=== PATIENT | male | born 1940 | race Caucasian/White ===

== ENCOUNTER → 2016-04-24 | Outpatient (CLI) | payer MEDICARE ==
[~2016-04-24] MED LIST: ACHD5005 PO; AMLO5TAB2 PO; ASCO-262 PO; ASP81CT PO; ATEN50TA PO; BLACK CHERRY PO; CARV25TA PO; CARV3.12 PO; CHOL10003 PO; COLC0.6T PO; DCS100C PO; DOCU100T7 PO; FURO40TA4 PO; GARL200T PO; INDO25CA PO; LORA10CA PO; METR500T PO; OMG1KC PO; OXYC-12 PO; RIVA15TA PO; RIVA20TA2 PO; RNT150T PO; TELM80TA3 PO
--- NOTE | 2016-04-24 14:40 | Diagnostic Imaging Report ---
INDICATION: Cough and congestion. PA and lateral chest. FINDINGS: Heart size and pulmonary vascularity are normal. Lungs are clear. There are no effusions or pneumothoraces. IMPRESSION: Negative chest. Dictated by: Dictated on workstation # [id number]
[2016-04-24 14:42] LABS: BASOPHILS # (AUTO) 0.1 10^3/uL (0.0-0.1); BASOPHILS % (AUTO) 1 % (0-10); EOSINOPHILS # (AUTO) 0.4 10^3/uL (0.0-0.3); EOSINOPHILS % (AUTO) 4 % (0-10); LYMPHOCYTES # (AUTO) 1.2 X 10^3 (1.0-4.0); LYMPHOCYTES % (AUTO) 13 % (12-44); MEAN CORPUSCULAR HEMOGLOBIN 29 PG (25-34); MEAN CORPUSCULAR HGB CONC 35 G/DL (32-36); MEAN CORPUSCULAR VOLUME 82 FL (80-99); MEAN PLATELET VOLUME 9.6 FL (7.4-10.4); MONOCYTES # (AUTO) 1.3 X 10^3 (0.0-1.0); MONOCYTES % (AUTO) 14 % (0-12); NEUTROPHILS # (AUTO) 6.4 X 10^3 (1.8-7.8); NEUTROPHILS % (AUTO) 69 % (42-75); PLATELET COUNT 278 10^3/uL (130-400); RED BLOOD COUNT 5.37 10^6/uL (4.35-5.85); RED CELL DISTRIBUTION WIDTH 14.1 % (10.0-14.5); WHITE BLOOD COUNT 9.2 10^3/uL (4.3-11.0)
== END ==
LOC: RAD 14:01
PROVIDERS: ATTEND Family Medicine
DX: R05 Cough (principal)
CPT/HCPCS: 36415; 71020; 85025

== ENCOUNTER → 2016-04-25 | Outpatient (CLI) | payer MEDICARE ==
--- OUTSIDE RECORDS SUMMARY | 2016-04-25 10:45 | XMS REPORT | Continuity of Care Document ---
Author Author [facility] Organization [facility] Address Unknown Phone Unavailable Allergies Active Description Code Type Severity Reaction Onset Reported/Identified Relationship to Patient Clinical Status Yes ketoprofen [id number] Drug Allergy Unknown N/A 01/19/2012 Yes nabumetone [id number] Drug Allergy Unknown N/A 01/19/2012 Yes Sulfa (Sulfonamide Antibiotics) [id number] Drug Allergy Unknown N/A 01/19/2012 Yes morphine [id number] Drug Allergy Unknown VOMITING 07/21/2013 Yes morphine [id number] Drug Allergy Mild VOMITING 04/25/2014 Medications Problems Date Dx Coded Attending Type Code Diagnosis Diagnosed By 01/19/2012 Ot 274.9 GOUT NOS 01/19/2012 Ot 729.5 PAIN IN LIMB 07/29/2013 MIRIAN MCDOWELL MD Ot 553.1 UMBILICAL HERNIA 08/05/2013 ELIAS FUNK DO Ot 272.4 HYPERLIPIDEMIA NEC/NOS 08/05/2013 ELIAS FUNK DO Ot 274.00 GOUTY ARTHROPATHY, UNSPECIFIED 08/05/2013 ELIAS FUNK DO Ot 278.00 OBESITY, NOS 08/05/2013 ELIAS FUNK DO Ot 300.00 ANXIETY STATE NOS 08/05/2013 ELIAS FUNK DO Ot 401.9 HYPERTENSION NOS 08/05/2013 ELIAS FUNK DO Ot 412 OLD MYOCARDIAL INFARCT 08/05/2013 ELIAS FUNK DO Ot 414.01 CORONARY ATHEROSCLEROSIS [place] CORON 08/05/2013 ELIAS FUNK DO Ot 415.11 IATROGENIC PULMON EMBOLISM/INFARCT 08/05/2013 ELIAS FUNK DO Ot 427.89 CARDIAC DYSRHYTHMIAS NEC 08/05/2013 ELIAS FUNK DO Ot 477.9 ALLERGIC RHINITIS NOS 08/05/2013 ELIAS FUNK DO Ot 564.00 UNSPEC CONSTIPATION 08/05/2013 ELIAS FUNK DO Ot 998.13 SEROMA COMPLICAT A PROC 08/05/2013 BLESSING CONTEH ELIAS Catrina Ot E941.3 ADV EFF SYMPATHOLYTICS 08/05/2013 DAKOTAOSMANELMOREELIAS Ot V45.82 PERCUTANEOUS TRANSLUM CORON ANGIOPLASTY 08/05/2013 BLESSING CONTEHELIAS Ot V45.89 POSTSURGICAL STATES NEC 08/05/2013 ELIAS FUNK DO Catrina Ot V85.37 BODY MASS INDEX 37.0-37.9, ADULT 01/07/2014 ELIAS FUNK DO Ot 401.9 HYPERTENSION NOS 01/07/2014 ELIAS FUNK DO Ot 412 OLD MYOCARDIAL INFARCT 01/07/2014 TOMEKAALY ELIAS CONTEH Ot 414.01 CORONARY ATHEROSCLEROSIS [place] CORON 01/07/2014 ELIAS FUNK DO Ot 558.9 NONINF GASTROENTERIT NEC 01/07/2014 TOMEKAALY ELIAS CONTEH Ot 560.1 PARALYTIC ILEUS 01/07/2014 ELIAS FUNK DO Ot V12.51 HX-VENOUS THROMBOSIS EMBOLISM 01/07/2014 ELIAS FUNK DO Ot V45.82 PERCUTANEOUS TRANSLUM CORON ANGIOPLASTY 01/12/2014 CARLOS ESCOBAR Ot 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 01/12/2014 CARLOS ESCOBAR Ot 793.11 SOLITARY PULMONARY NODULE 01/12/2014 CARLOS ESCOBAR Ot V12.51 HX-VENOUS THROMBOSIS EMBOLISM 01/27/2014 CARLOS ESCOBAR Ot 286.3 01/27/2014 CARLOS ESCOBAR Ot 793.11 01/27/2014 CARLOS ESCOBAR Ot V12.51 02/21/2014 CARLOS ESCOBAR Ot 286.3 02/21/2014 CARLOS ESCOBAR N Ot 793.11 02/21/2014 CARLOS ESCOBAR N Ot V12.51 02/21/2014 BIGG EDMONDSON DO Ot 415.19 02/21/2014 BIGG EDMONDSON DO Ot 786.05 02/21/2014 BIGG EDMONDSON DO Ot 793.11 03/16/2014 BIGG EDMONDSON DO Ot 415.19 03/16/2014 BIGG EDMONDSON DO Ot 786.05 03/16/2014 BIGG EDMONDSON DO Ot 793.11 03/22/2014 BIGG EDMONDSON DO Ot 415.19 03/22/2014 DELVISBIGG AMAYA DO Ot 786.05 03/22/2014 BIGG EDMONDSON DO Ot 793.11 03/22/2014 BIGG EDMONDSON DO Ot 415.19 03/22/2014 BIGG EDMONDSON DO Ot 786.05 03/22/2014 BIGG EDMONDSON DO Ot 793.11 04/13/2014 CARLOS ESCOBAR N Ot 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 04/13/2014 CARLOS ESCOBAR N Ot 793.11 SOLITARY PULMONARY NODULE 04/13/2014 CARLOS ESCOBAR Ot V12.51 HX-VENOUS THROMBOSIS EMBOLISM 04/21/2014 [facility]9 04/[facility] 412 04/21/2014 [facility] Ot 414.01 04/21/2014 [facility] Ot 552.1 04/21/2014 [place] [facility] D Ot V12.55 04/21/2014 [facility] Ot V45.82 04/21/2014 [place] DOTHANHTT D Ot V74.8 04/22/2014 [place] DOTHANHTT D Ot 401.9 04/22/2014 [place] DOTHANHTT D Ot 412 04/22/2014 [facility] ETHAN D Ot 414.01 04/22/2014 [place] DO, ETHAN D Ot 552.1 04/22/2014 [place] DOTHANHTT D Ot V12.55 04/22/2014 [place] DO ETHAN D Ot V45.82 04/22/2014 [place] DO, ETHAN D Ot V74.8 04/22/2014 [place] DO, ETHAN D Ot 401.9 04/22/2014 [place] DO, ETHAN D Ot 412 04/22/2014 [place] DO, ETHAN D Ot 414.01 04/22/2014 [place] DO, ETHAN D Ot 552.1 04/22/2014 [place] DO, ETHAN D Ot V12.55 04/22/2014 [place] DO, ETHAN D Ot V45.82 04/22/2014 [place] DO, ETHAN D Ot V74.8 04/22/2014 CONDE DO, ETHAN D Ot 401.9 04/22/2014 CONDE DO, ETHAN D Ot 412 04/22/2014 CONDE DO, ETHAN D Ot 414.01 04/22/2014 CONDE DO, ETHAN D Ot 552.1 04/22/2014 CONDE DO, ETHAN D Ot V12.55 04/22/2014 CONDE DO, ETHAN D Ot V45.82 04/22/2014 CONDE DO, ETHAN D Ot V74.8 04/22/2014 CONDE DO, ETHAN D Ot 401.9 04/22/2014 CONDE DO, ETHAN D Ot 412 04/22/2014 CONDE DO, ETHAN D Ot 414.01 04/22/2014 CONDE DO, ETHAN D Ot 552.1 04/22/2014 CONDE DO, ETHAN D Ot V12.55 04/22/2014 CONDE DO, ETHAN D Ot V45.82 04/22/2014 CONDE DO, ETHAN D Ot V74.8 04/22/2014 CONDE DO, ETHAN D Ot 401.9 04/22/2014 CONDE DO, ETHAN D Ot 412 04/22/2014 CONDE DO, ETHAN D Ot 414.01 04/22/2014 CONDE DO, ETHAN D Ot 552.1 04/22/2014 CONDE DO, ETHAN D Ot V12.55 04/22/2014 CONDE DO, ETHAN D Ot V45.82 04/22/2014 CONDE DO, ETHAN D Ot V74.8 04/23/2014 CONDE DO, ETHAN D Ot 401.9 04/23/2014 CONDE DO, ETHAN D Ot 412 04/23/2014 CONDE DO, ETHAN D Ot 414.01 04/23/2014 CONDE DO, ETHAN D Ot 552.1 04/23/2014 CONDE DO, ETHAN D Ot V12.55 04/23/2014 CONDE DO, ETHAN D Ot V45.82 04/23/2014 CONDE DO, ETHAN D Ot V74.8 04/24/2014 CONDE DO, ETHAN D Ot 401.9 04/24/2014 CONDE DO, ETHAN D Ot 412 04/24/2014 CONDE DO, ETHAN D Ot 414.01 04/24/2014 CONDE DO, ETHAN D Ot 552.1 04/24/2014 CONDE DO, ETHAN D Ot V12.55 04/24/2014 CONDE DO, ETHAN D Ot V45.82 04/24/2014 CONDE DO, ETHAN D Ot V74.8 04/25/2014 CARLOS ESCOBAR N Ot 286.3 04/25/2014 CARLOS ESCOBAR N Ot 793.11 04/25/2014 CARLOS ESCOBAR N Ot V12.51 04/25/2014 CONDE DO, ETHAN D Ot 401.9 04/25/2014 CONDE DO, ETHAN D Ot 412 04/25/2014 CONDE DO, ETHAN D Ot 414.01 04/25/2014 CONDE DO, ETHAN D Ot 552.1 04/25/2014 CONDE DO, ETHAN D Ot V12.55 04/25/2014 CONDE DO, ETHAN D Ot V45.82 04/25/2014 CONDE DO, ETHAN D Ot V74.8 04/25/2014 CONDE DO, ETHAN D Ot 401.9 04/25/2014 CONDE DO, ETHAN D Ot 412 04/25/2014 CONDE DO, ETHAN D Ot 414.01 04/25/2014 CONDE DO, ETHAN D Ot 552.1 04/25/2014 CONDE DO, ETHAN D Ot V12.55 04/25/2014 CONDE DO, ETHAN D Ot V45.82 04/25/2014 CONDE DO, ETHAN D Ot V74.8 04/25/2014 CONDE DO ETHAN D Ot 272.4 HYPERLIPIDEMIA NEC/NOS 04/25/2014 CONDE DO, ETHAN D Ot 274.00 GOUTY ARTHROPATHY, UNSPECIFIED 04/25/2014 CONDE DO, ETHAN D Ot 276.8 HYPOPOTASSEMIA 04/25/2014 CONDE DO ETHAN D Ot 278.00 OBESITY, NOS 04/25/2014 CONDE DO ETHAN D Ot 288.60 LEUKOCYTOSIS, UNSPECIFIED 04/25/2014 CONDE DO ETHAN D Ot 289.81 PRIMARY HYPERCOAGULABLE STATE 04/25/2014 CONDE DO ETHAN D Ot 401.9 HYPERTENSION NOS 04/25/2014 CONDE DO ETHAN D Ot 412 OLD MYOCARDIAL INFARCT 04/25/2014 ETHAN CONDE DO Ot 414.01 CORONARY ATHEROSCLEROSIS [place] CORON 04/25/2014 ETHAN CONDE DO Ot 427.89 CARDIAC DYSRHYTHMIAS NEC 04/25/2014 ETHAN CONDE DO Ot 433.10 CAROTID ARTERY OCCLUSION W O CEREBRAL IN 04/25/2014 ETHAN CONDE DO Ot 552.1 UMBILICAL HERNIA W OBSTR 04/25/2014 ETHAN CONDE DO Ot 997.49 OTHER DIGESTIVE SYSTEM COMPLICATIONS 04/25/2014 CONDE ETHAN CONTEH Ot V12.51 HX-VENOUS THROMBOSIS EMBOLISM 04/25/2014 [place] ETHAN CONTEH Ot V12.55 PERSONAL HISTORY OF PULMONARY EMBOLISM 04/25/2014 ETHAN CONDE DO Ot V45.82 PERCUTANEOUS TRANSLUM CORON ANGIOPLASTY 04/25/2014 [place] ETHAN CONTEH Ot V74.8 04/25/2014 [facility] ETHAN CONTEH Ot V85.37 BODY MASS INDEX 37.0-37.9, ADULT 04/26/2014 ETHAN CONDE DO Ot 272.4 04/26/2014 [place] ETHAN CONTEH Ot 274.00 04/26/2014 [place] ETHAN CONTEH Ot 276.8 04/26/2014 [place] ETHAN CONTEH Ot 278.00 04/26/2014 [facility] ETHAN CONTEH Ot 288.60 04/26/2014 [place] ETHAN CONTEH Ot 289.81 04/26/2014 ETHAN CONDE DO Ot 401.9 04/26/2014 [place] ETHAN CONTEH Ot 412 04/26/2014 [place] ETHAN CONTEH Ot 414.01 04/26/2014 [place] DOETHAN Ot 427.89 04/26/2014 [place] ETHAN CONTEH Ot 433.10 04/26/2014 [place] ETHAN CONTEH Ot 552.1 04/26/2014 ETHAN CONDE DO Ot 997.49 04/26/2014 CON[facility] ETHAN CONTEH Ot V12.51 04/26/2014 [place] ETHAN CONTEH Ot V12.55 04/26/2014 [place] ETHAN CONTEH Ot V45.82 04/26/2014 [place] ETHAN CONTEH Ot V85.37 04/26/2014 CONDE DO, ETHAN D Ot 272.4 04/26/2014 CONDE DO, ETHAN D Ot 274.00 04/26/2014 CONDE DO, ETHAN D Ot 276.8 04/26/2014 CONDE DO, ETHAN D Ot 278.00 04/26/2014 CONDE DO, ETHAN D Ot 288.60 04/26/2014 CONDE DO, ETHAN D Ot 289.81 04/26/2014 CONDE DO, ETHAN D Ot 401.9 04/26/2014 CONDE DO, ETHAN D Ot 412 04/26/2014 CONDE DO, ETHAN D Ot 414.01 04/26/2014 CONDE DO, ETHAN D Ot 427.89 04/26/2014 CONDE DO, ETHAN D Ot 433.10 04/26/2014 CONDE DO, ETHAN D Ot 552.1 04/26/2014 CONDE DO, ETHAN D Ot 997.49 04/26/2014 CONDE DO, ETHAN D Ot V12.51 04/26/2014 CONDE DO, ETHAN D Ot V12.55 04/26/2014 CONDE DO, ETHAN D Ot V45.82 04/26/2014 CONDE DO, ETHAN D Ot V85.37 09/21/2014 JEREMIAS JOEL, MIRIAN Ot 553.1 09/21/2014 JEREMIAS JOEL, MIRIAN Ot V72.63 09/21/2014 JEREMIAS JOEL, MIRIAN Ot V72.84 09/21/2014 JEREMIAS JOEL, MIRIAN Ot V74.8 09/21/2014 BIGG EDMONDSON DO Ot 415.19 09/21/2014 BIGG EDMONDSON DO Ot 786.05 09/21/2014 BIGG EDMONDSON DO Ot 793.11 09/21/2014 JIM JOEL, DAISY Bush Ot 272.4 09/21/2014 JIM JOEL, DAISY [place] Ot 401.9 09/21/2014 JIM JOEL, DAISY Bush Ot 414.00 09/21/2014 ELIAS FUNK DO Ot 780.79 09/21/2014 ELIAS FUNK DO Ot 786.05 09/21/2014 ELAIS FUNK DO Ot 786.2 09/21/2014 BIGG EDMONDSON DO Ot 415.19 09/21/2014 DELVIS BIGG CONTEH Ot 786.05 09/21/2014 DELVIS CONTEH, BIGG M Ot 793.11 09/21/2014 CARLOS ESCOBAR Ot 286.3 09/21/2014 CARLOS ESCOBAR N Ot 793.11 09/21/2014 CARLOS ESCOBAR N Ot V12.51 10/12/2014 DELVIS , BIGG M Ot 272.8 10/12/2014 DELVIS , BIGG M Ot 453.40 10/12/2014 DELVIS DO, BIGG M Ot 571.8 10/12/2014 DELVIS , BIGG M Ot 786.05 10/12/2014 DELVIS , BIGG M Ot 793.11 10/19/2014 DELVIS , BIGG M Ot 272.8 10/19/2014 DELVIS , BIGG M Ot 453.40 10/19/2014 DELVIS , BIGG M Ot 571.8 10/19/2014 DELVIS CONTEH, BIGG M Ot 786.05 10/19/2014 DELVIS , BIGG M Ot 793.11 02/01/2015 LIZZIE PARSONP Ot D68.59 02/01/2015 LIZZIE PARSONP Ot I10 02/01/2015 LIZZIE PARSONP Ot R91.1 02/01/2015 LIZZIE PARSON COMPLIANCE AIDE Ot Z86.711 02/14/2015 LIZZIE PARSON COMPLIANCE AIDE Ot D68.59 02/14/2015 LIZZIE PARSONP Ot I10 02/14/2015 LIZZIE PARSONP Ot R91.1 02/14/2015 LIZZIE PARSON COMPLIANCE AIDE Ot Z86.711 04/07/2015 GELDEANN DO ELIAS A Ot R06.02 04/07/2015 GELLENDER DO, ELIAS A Ot R06.2 04/13/2015 GELLENDER DO, ELIAS A Ot R06.02 04/13/2015 GELLENDER DO, ELIAS A Ot R06.2 09/25/2015 BIGG EDMONDSON DO M Ot R60.9 EDEMA, UNSPECIFIED 09/26/2015 BIGG EDMONDSON DO M Ot R60.9 EDEMA, UNSPECIFIED 09/27/2015 BIGG EDMONDSON DO Ot R06.02 SHORTNESS OF BREATH 09/27/2015 BIGG EDMONDSON DO Ot R91.1 SOLITARY PULMONARY NODULE 10/26/2015 BIGG EDMONDSON DO Ot R06.02 SHORTNESS OF BREATH 10/26/2015 BIGG EDMONDSON DO Ot R91.1 SOLITARY PULMONARY NODULE 11/06/2015 BIGG EDMONDSON DO Ot R06.02 SHORTNESS OF BREATH 11/06/2015 BIGG EDMONDSON DO Ot R91.1 SOLITARY PULMONARY NODULE 01/09/2016 CARLOS ESCOBAR Estefany Ot 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 01/09/2016 SHAWN CARLOS N Ot 793.11 SOLITARY PULMONARY NODULE 01/09/2016 SHAWN, CARLOS Allison Ot V12.51 HX-VENOUS THROMBOSIS EMBOLISM 01/10/2016 SHAWN CARLOS Allison Ot 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 01/10/2016 SHAWN CARLOS Allison Ot 793.11 SOLITARY PULMONARY NODULE 01/10/2016 SHAWN, CARLOS Allison Ot V12.51 HX-VENOUS THROMBOSIS EMBOLISM 01/11/2016 CARLOS ESCOBAR N Ot R05 COUGH 01/11/2016 SHAWNCARLOS PHAM N Ot R06.02 SHORTNESS OF BREATH 01/11/2016 CARLOS ESCOBAR Ot 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 01/11/2016 SHAWN CARLOS N Ot R91.1 SOLITARY PULMONARY NODULE 01/11/2016 SHAWN, CARLOS Allison Ot Z86.718 PERSONAL HISTORY OF OTHER VENOUS THROMBO 01/15/2016 CARLOS ESCOBAR N Ot R05 COUGH 01/15/2016 SHAWNCARLOS PHAM N Ot R06.02 SHORTNESS OF BREATH 01/15/2016 SHAWNCARLOS N Ot R05 COUGH 01/15/2016 SHAWNCARLOS N Ot R06.02 SHORTNESS OF BREATH 01/15/2016 SHAWNCARLOS PHAM N Ot R05 COUGH 01/15/2016 SHAWNCARLOS PHAM N Ot R06.02 SHORTNESS OF BREATH 01/16/2016 SHAWNCARLOS N Ot R05 COUGH 01/16/2016 SHAWNCARLOS PHAM N Ot R06.02 SHORTNESS OF BREATH 02/01/2016 CARLOS ESCOBAR N Ot 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 02/01/2016 CARLOS ESCOBAR Ot R91.1 SOLITARY PULMONARY NODULE 02/01/2016 CARLOS ESCOBAR Ot Z86.718 PERSONAL HISTORY OF OTHER VENOUS THROMBO 02/01/2016 CARLOS ESCOBAR Ot R05 COUGH 02/01/2016 CARLOS ESCOBAR Ot R06.02 SHORTNESS OF BREATH 02/12/2016 CARLOS ESCOBAR Ot 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 02/12/2016 CARLOS ESCOBAR Ot R91.1 SOLITARY PULMONARY NODULE 02/12/2016 CARLOS ESCOBAR Ot Z86.718 PERSONAL HISTORY OF OTHER VENOUS THROMBO 02/12/2016 CARLOS ESCOBAR Ot R05 COUGH 02/12/2016 CARLOS ESCOBAR Ot R06.02 SHORTNESS OF BREATH 04/24/2016 JEREMIAS JOEL, MIRIAN Ot 553.1 UMBILICAL HERNIA 04/24/2016 MIRIAN MCDOWELL MD Ot V72.63 PRE-PROCEDURAL LABORATORY EXAMINATION 04/24/2016 MIRIAN MCDOWELL MD Ot V72.84 EXAM PRE-OPERATIVE NOS 04/24/2016 MIRIAN MCDOWELL MD Ot V74.8 SCREEN-BACTERIAL DIS NEC 04/24/2016 BIGG EDMONDSON DO Ot 415.19 OTH PULMON EMBOLISM/INFARCT 04/24/2016 BIGG EDMONDSON DO Ot 786.05 SHORTNESS OF BREATH 04/24/2016 BIGG EDMONDSON DO Ot 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 SOLITARY PULMONARY NODULE 04/24/2016 DAISY FERNANDEZ MD Ot 272.4 HYPERLIPIDEMIA NEC/NOS 04/24/2016 DAISY FERNANDEZ MD Ot 401.9 HYPERTENSION NOS 04/24/2016 DAISY FERNANDEZ MD Ot 414.00 CORON ATHEROSCLER NOS TYPE VESSEL, NATIV 04/24/2016 ELIAS FUNK DO Ot 780.79 OTH MALAISE FATIGUE 04/24/2016 ELIAS FUNK DO Ot 786.05 SHORTNESS OF BREATH 04/24/2016 ELIAS FUNK DO Ot 786.2 COUGH 04/24/2016 BIGG EDMONDSON DO Ot 415.19 OTH PULMON EMBOLISM/INFARCT 04/24/2016 BIGG EDMONDSON DO Ot 786.05 SHORTNESS OF BREATH 04/24/2016 BIGG EDMONDSON DO Ot 793.11 SOLITARY PULMONARY NODULE 04/24/2016 BIGG EDMONDSON DO Ot 272.8 LIPOID METABOL DIS NEC 04/24/2016 DELVIS BIGG CONTEH Ot 453.40 ACUTE VENOUS EMBOLISM THROMBOSIS UNSP 04/24/2016 DELVIS DO BIGG M Ot 571.8 CHRONIC LIVER DIS NEC 04/24/2016 DELVIS DO BIGG M Ot 786.05 SHORTNESS OF BREATH 04/24/2016 BIGG EDMONDSON DO Ot 793.11 SOLITARY PULMONARY NODULE 04/24/2016 CARLOS ESCOBAR Ot 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 04/24/2016 CARLOS ESCOBAR Ot R91.1 SOLITARY PULMONARY NODULE 04/24/2016 CARLOS ESCOBAR Ot Z86.718 PERSONAL HISTORY OF OTHER VENOUS THROMBO 04/24/2016 BIGG EDMONDSON DO Ot R06.02 SHORTNESS OF BREATH 04/24/2016 YAZ EDMONDSON DOSON Karli Ot R91.1 SOLITARY PULMONARY NODULE 04/24/2016 LIZZIE PARSONP Ot D68.59 OTHER PRIMARY THROMBOPHILIA 04/24/2016 LIZZIE PARSON COMPLIANCE AIDE Ot I10 ESSENTIAL (PRIMARY) HYPERTENSION 04/24/2016 LIZZIE PARSON [facility] Ot R91.1 SOLITARY PULMONARY NODULE 04/24/2016 LIZZIE PARSONP Ot Z86.711 PERSONAL HISTORY OF PULMONARY EMBOLISM 04/24/2016 ELIAS FUNK DO Ot R06.02 SHORTNESS OF BREATH 04/24/2016 ELIAS FUNK DO Ot R06.2 WHEEZING 04/24/2016 CARLOS ESCOBAR Ot R05 COUGH 04/24/2016 CARLOS ESCOBAR Ot R06.02 SHORTNESS OF BREATH Procedures Code Description Performed By Performed On 53.43 OTHER LAPAROSCOPIC UMBILICAL HERNIORRHAP 04/20/2014 Results Test Result Range Complete blood count (CBC) with automated white blood cell (WBC) differential - 04/24/16 14:35 Blood leukocytes automated count (number/volume) 9.2 10*3/ uL 4.3-11.0 Blood erythrocytes automated count (number/volume) 5.37 10*6 /uL 4.35-5.85 Venous blood hemoglobin measurement (mass/volume) 15.5 g/dL 13.3-17.7 Blood hematocrit (volume fraction) 44 % 40-54 Automated erythrocyte mean corpuscular volume 82 [foz_us] 80-99 Automated erythrocyte mean corpuscular hemoglobin (mass per erythrocyte) 29 pg 25-34 Automated erythrocyte mean corpuscular hemoglobin concentration measurement ( mass/volume) 35 g/dL 32-36 Automated erythrocyte distribution width ratio 14.1 % 10.0-14.5 Automated blood platelet count (count/volume) 278 10*3/uL 130-400 Automated blood platelet mean volume measurement 9.6 [foz_us ] 7.4-10.4 Automated blood neutrophils/100 leukocytes 69 % 42-75 Automated blood lymphocytes/100 leukocytes 13 % 12-44 Blood monocytes/100 leukocytes 14 % 0-12 Automated blood eosinophils/100 leukocytes 4 % 0-10 Automated blood basophils/100 leukocytes 1 % 0-10 Blood neutrophils automated count (number/volume) 6.4 10*3 1.8-7.8 Blood lymphocytes automated count (number/volume) 1.2 10*3 1.0-4.0 Blood monocytes automated count (number/volume) 1.3 10*3 0.0-1.0 Automated eosinophil count 0.4 10*3/uL 0.0-0.3 Automated blood basophil count (count/volume) 0.1 10*3/uL 0.0-0.1 Encounters ACCT No. Visit Date/Time Discharge Status Pt. Type Provider Facility Loc./Unit Complaint [id number] 01/11/2015 13:48:00 2014 23:59:59 CLS Outpatient ELIAS FUNK DO [facility] RAD WHEEZING,SOB [id number] 01/11/2015 09:38:00 2014 23:59:59 CLS Outpatient LIZZIE PARSON COMPLIANCE AIDE [facility] ONC [id number] 09/21/2014 12:22:00 2014 23:59:59 CLS Outpatient BIGG EDMONDSON DO [facility] RAD PULMONARY NODULE,SOB [id number] 04/22/2014 07:05:00 2014 15:15:00 DIS Inpatient ETHAN CONDE DO [facility] CSD HERNIA REPAIR [id number] 01/13/2014 10:08:00 2014 00:01:00 DIS Outpatient CARLOS ESCOBAR [facility] ONC [id number] 02/21/2014 08:14:00 2013 23:59:59 CLS Outpatient BIGG EDMONDSON DO [facility] RAD PULMONARY NODULE PULMONARY EMBOLISM SOB [id number] 02/18/2014 12:37:00 2013 23:59:59 CLS Outpatient BIGG EDMONDSON DO [facility] LAB PE,SOA [id number] 10/14/2013 13:39:00 2013 00:01:00 DIS Outpatient CARLOS ESCOBAR [facility] ONC [id number] 01/05/2014 05:45:00 2013 08:10:00 DIS Inpatient ELIAS FUNK DO [facility] 4TH ACUTE ABDOMINAL PAIN [id number] 12/15/2013 11:52:00 2013 23:59:59 CLS Outpatient ELIAS FUKN DO [facility] RAD SOB,COUGH [id number] 09/21/2013 10:38:00 2013 23:59:59 CLS Outpatient JIM JOEL, DAISY Bush [facility] CARD CAD,HTN,HLP,DVT [id number] 08/02/2013 08:21:00 2013 18:30:00 DIS Inpatient ELIAS FUNK DO [facility] CSD BILATERAL PULMONARY EMBOLISM [id number] 07/29/2013 06:48:00 2013 13:05:00 DIS Outpatient MIRIAN MCDOWELL MD [facility] SDC UMBILICAL HERNIA [id number] 07/21/2013 10:09:00 2013 23:59:59 CLS Outpatient MIRIAN MCDOWELL MD [facility] PREOP UMBILICAL HERNIA [id number] 04/24/2016 14:01:00 ACT Outpatient ELIAS FUNK DO [facility] RAD COUGH [id number] 01/10/2016 10:51:00 ACT Outpatient CARLOS ESCOBAR [facility] RAD [id number] 01/10/2016 09:34:00 ACT Outpatient SHAWNCARLOS [facility] ONC [id number] 09/25/2015 08:41:00 ACT Outpatient BIGG EDMONDSON DO [facility] RAD PULMONARY NODULE [id number] 01/19/2012 08:41:00 Document Registration
[2016-04-25 11:17] LABS: ANION GAP 12 MMOL/L (5-14); BLOOD UREA NITROGEN 14 MG/DL (7-18); BUN/CREATININE RATIO 11; CALCIUM 9.1 MG/DL (8.5-10.1); CARBON DIOXIDE 23 MMOL/L (21-32); CHLORIDE 105 MMOL/L (98-107); GFR ESTIMATED 54; GLUCOSE 101 MG/DL (70-105); POTASSIUM 3.9 MMOL/L (3.6-5.0); SODIUM 140 MMOL/L (135-145)
[2016-04-25 11:42] LABS: TROPONIN I < 0.30 NG/ML (<0.30)
== END ==
LOC: LAB 10:37
PROVIDERS: ATTEND Family Medicine
DX: R07.9 Chest pain, unspecified (principal); R05 Cough
CPT/HCPCS: 36415; 80048; 84484

== ENCOUNTER → 2016-08-08 | Outpatient (CLI) | payer MEDICARE ==
--- NOTE | 2016-08-08 12:32 | Diagnostic Imaging Report ---
3 views of the left ankle. INDICATION: Left ankle pain after twisting injury. FINDINGS: No fracture, dislocation or radiopaque foreign body is seen. There is a well-corticated ossification measuring 5 mm at the undersurface of the medial malleolus likely related to old injury. The ankle mortise is normal in configuration. Prominent vascular calcifications are seen. IMPRESSION: No acute process. Dictated by: Dictated on workstation # [id number]
== END ==
LOC: RAD 12:07
PROVIDERS: ATTEND Family Medicine
DX: M25.572 Pain in left ankle and joints of left foot (principal)
CPT/HCPCS: 73610

== ENCOUNTER → 2017-04-07 | Outpatient (CLI) | payer MEDICARE ==
[~2017-04-07] MED LIST changes: +AZIT250T12 PO; +CLOP75TA28 PO; +CODE118S2 PO; +FRSM10B60 PO; +ISOS10TA8 PO; +ISOS120T6 PO; +NITR0.4T42 SL; +POTA99TA21 PO; +POTA99TA25 PO; +PRD10T PO; +RANI150T90 PO; +RIVA20TA PO; +RT-ALBUINH INH; +TELM80TA5 PO
--- NOTE | 2017-04-07 13:06 | Diagnostic Imaging Report ---
INDICATION: Shortness of breath and cough. Time of exam: 1:13 PM Correlation is made with prior study from 03/27/2017. FINDINGS: The heart size is normal. The lungs are clear. No pleural effusion or pneumothorax is identified. The pulmonary vascularity is normal. IMPRESSION: No acute abnormality detected. Dictated by: Dictated on workstation # [id number]
[2017-04-07 13:13] LABS: BASOPHILS % (AUTO) 1 % (0-10); EOSINOPHILS # (AUTO) 0.2 10^3/uL (0.0-0.3); EOSINOPHILS % (AUTO) 2 % (0-10); HEMATOCRIT 42 % (40-54); HEMOGLOBIN 14.8 G/DL (13.3-17.7); LYMPHOCYTES # (AUTO) 0.7 X 10^3 (1.0-4.0); LYMPHOCYTES % (AUTO) 8 % (12-44); MEAN CORPUSCULAR HEMOGLOBIN 29 PG (25-34); MEAN CORPUSCULAR HGB CONC 35 G/DL (32-36); MEAN CORPUSCULAR VOLUME 83 FL (80-99); MEAN PLATELET VOLUME 9.6 FL (7.4-10.4); MONOCYTES # (AUTO) 1.1 X 10^3 (0.0-1.0); MONOCYTES % (AUTO) 12 % (0-12); NEUTROPHILS # (AUTO) 6.7 X 10^3 (1.8-7.8); NEUTROPHILS % (AUTO) 77 % (42-75); PLATELET COUNT 235 10^3/uL (130-400); RED BLOOD COUNT 5.05 10^6/uL (4.35-5.85); WHITE BLOOD COUNT 8.7 10^3/uL (4.3-11.0)
[2017-04-07 13:31] LABS: BUN/CREATININE RATIO 12; CALCIUM 9.4 MG/DL (8.5-10.1); CARBON DIOXIDE 20 MMOL/L (21-32); CHLORIDE 103 MMOL/L (98-107); CREATININE SERUM 1.13 MG/DL (0.60-1.30); GFR ESTIMATED > 60; GLUCOSE 119 MG/DL (70-105); SODIUM 136 MMOL/L (135-145)
== END ==
LOC: RAD 12:45
PROVIDERS: ATTEND Family Medicine
DX: J40 Bronchitis, not specified as acute or chronic (principal)
CPT/HCPCS: 36415; 71046; 80048; 85025

== ENCOUNTER → 2017-04-28 | Outpatient (CLI) | payer MEDICARE ==
--- NOTE | 2017-04-28 08:59 | Diagnostic Imaging Report ---
PROCEDURE: CT chest without contrast. TECHNIQUE: Multiple contiguous axial images were obtained through the chest without the use of intravenous contrast. INDICATION: Shortness of breath. COMPARISON: 03/24/2017. FINDINGS: Lungs and airway: No pulmonary mass or consolidation. No endoluminal nodule within the trachea. There are a few scattered benign pulmonary nodules in the right lung base, likely representing focal atelectasis and benign pulmonary lymph nodes. Pleura: No pleural effusion or pneumothorax. Heart and mediastinum: Thyroid is normal where visualized. No supraclavicular or axillary lymphadenopathy. No mediastinal, discrete hilar or juxtaphrenic lymphadenopathy. The heart is enlarged without pericardial effusion. Fatty infiltration of the left ventricle apex is compatible with old infarct. Coronary artery calcifications are unchanged. Normal caliber thoracic aorta has moderate atherosclerotic plaquing. Upper abdomen: Stable nonobstructing cyst in the upper pole of left kidney, while the dilated extra renal pelvis on the left is unchanged. Musculoskeletal: No concerning focal osseous lesions. Focally advanced degenerative disc disease at the thoracolumbar junction. IMPRESSION: 1. No acute cardiopulmonary process. No pleural effusion. 2. 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 Dictated by: Dictated on workstation # [id number]
== END ==
LOC: RAD 07:14
PROVIDERS: ATTEND Nurse Practitioner Family
DX: I25.10 Atherosclerotic heart disease of native coronary artery without angina pectoris (principal); I25.2 Old myocardial infarction; E66.9 Obesity, unspecified
CPT/HCPCS: 71250

== ENCOUNTER → 2017-04-30 | Outpatient (CLI) | payer MEDICARE ==
[~2017-04-30] MED LIST changes: +RT-ALBUTEROL SULF 2.5 MG/3 ML PRE-MIX VIAL INH ONE
== END ==
LOC: RT 13:22
PROVIDERS: ATTEND Nurse Practitioner Family
DX: R06.02 Shortness of breath (principal)
CPT/HCPCS: 94060; 94729

== ENCOUNTER 2017-05-05 20:30 | Outpatient (CLI) | payer MEDICARE ==
[~2017-05-05 20:30] MED LIST changes: -RT-ALBUTEROL SULF 2.5 MG/3 ML PRE-MIX VIAL INH ONE
== END 2017-05-06 06:50 | disposition home or self-care (01) ==
LOC: SLEEP 20:30
PROVIDERS: ATTEND Nurse Practitioner Family
DX: G47.33 Obstructive sleep apnea (adult) (pediatric) (principal); G47.50 Parasomnia, unspecified; R06.02 Shortness of breath
CPT/HCPCS: 95811

== ENCOUNTER 2017-07-03 18:14 | Observation (INO) | payer MEDICARE ==
[~2017-07-03] VITALS: Ht 182.9 cm; Wt 121.6 kg
--- OUTSIDE RECORDS SUMMARY | 2017-07-03 18:20 | XMS REPORT | Continuity of Care Document ---
Author Author [facility] Organization [facility] Address Unknown Phone Unavailable Allergies Active Description Code Type Severity Reaction Onset Reported/Identified Relationship to Patient Clinical Status Yes ketoprofen [id number] Drug Allergy Unknown N/A 01/19/2012 Yes nabumetone [id number] Drug Allergy Unknown N/A 01/19/2012 Yes Sulfa (Sulfonamide Antibiotics) [id number] Drug Allergy Unknown N/A 2011 Yes morphine [id number] Drug Allergy Unknown VOMITING 07/21/2013 Yes morphine [id number] Drug Allergy Mild VOMITING 04/25/2014 Yes hydrochlorothiazide [id number] Drug Allergy Unknown N/A 03/20/2017 Yes rosuvastatin [id number] Drug Allergy Unknown N/A 03/20/2017 Medications There is no data. Problems Date Dx Coded Attending Type Code [...] FUNK DO Ot 414.01 CORONARY ATHEROSCLEROSIS OF [place] CORON 08/05/2013 ELIAS FUNK DO Ot 415.11 IATROGENIC PULMON EMBOLISM/INFARCT 08/05/2013 ELIAS FUNK DO Ot 427.89 CARDIAC DYSRHYTHMIAS NEC 08/05/2013 ELIAS FUNK DO Ot 477.9 ALLERGIC RHINITIS NOS 08/05/2013 BLESSING CONTEHELIAS Ot 564.00 UNSPEC CONSTIPATION 08/05/2013 BLESSING ELIAS CONTEH Ot 998.13 SEROMA COMPLICAT A PROC 08/05/2013 BLESSING ELIAS CONTEH Ot E941.3 ADV EFF SYMPATHOLYTICS 08/05/2013 BLESSING CONTEHELIAS Ot V45.82 PERCUTANEOUS TRANSLUM CORON ANGIOPLASTY 08/05/2013 BLESSING ELIAS CONTEH Ot V45.89 POSTSURGICAL STATES NEC 08/05/2013 BLESSING CONTEHELIAS Ot V85.37 BODY MASS INDEX 37.0-37.9, ADULT 01/07/2014 DAKOTADEANN ELIAS CONTEH Ot 401.9 HYPERTENSION NOS 01/07/2014 ELIAS FUNK DO Ot 412 OLD MYOCARDIAL INFARCT 01/07/2014 TOMEKAALY ELIAS CONTEH Ot 414.01 CORONARY ATHEROSCLEROSIS OF [place] CORON 01/07/2014 DAKOTADEANN ELIAS CONTEH Ot 558.9 NONINF GASTROENTERIT NEC 01/07/2014 ELIAS FUNK DO Ot 560.1 PARALYTIC ILEUS 01/07/2014 ELIAS FUNK [...] CARLOS ESCOBAR Ot 286.3 02/21/2014 CARLOS ESCOBAR Ot 793.11 02/21/2014 CARLOS ESCOBAR Ot V12.51 02/21/2014 BIGG EDMONDSON DO Ot [...] EDMONDSON DO Ot 793.11 04/13/2014 CARLOS ESCOBAR Ot 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 04/13/2014 CARLOS ESCOBAR Ot 793.11 SOLITARY PULMONARY NODULE 04/13/2014 CARLOS ESCOBAR Ot V12.51 HX-VENOUS THROMBOSIS EMBOLISM 04/21/2014 [facility]9 04/21[facility]2014 [facility] 412 04/21/2014 [facility] 414.01 04/21/2014 [facility] 552.1 04/21/2014 [facility] V12.55 04/21/[address] [facility] [facility]AN Ot V45.82 04/21/2014 [facility] V74.8 04/22/[address] DOETHAN D Ot 401.9 04/22/[address] DOETHAN D Ot 412 04/22/2014 [facility] Ot 414.01 04/22/[address] DOTHANHTT D Ot 552.1 04/22/[address] DOTHANHTT D Ot V12.55 04/22/[address] DOTHANHTT D Ot V45.82 04/22/[address] DOTHANHTT D Ot V74.8 04/22/[address] DOTHANHTT D Ot 401.9 04/22/2014 [facility] 412 04/22/2014 [facility] Ot 414.01 04/22/2014 [facility] Ot 552.1 04/22/2014 [facility], [facility] D Ot V12.55 04/22/2014 CONDE DO, [...] CONDE DO, ETHAN D Ot V74.8 04/25/2014 ACRLOS ESCOBAR N Ot 286.3 04/25/2014 CARLOS ESCOBAR [...] V74.8 04/25/2014 CONDE DO, ETHAN D Ot 272.4 HYPERLIPIDEMIA NEC/NOS 04/25/2014 CONDE DO, ETHAN D Ot 274.00 GOUTY ARTHROPATHY, UNSPECIFIED 04/25/2014 CONDE DO, ETHAN D Ot 276.8 HYPOPOTASSEMIA 04/25/2014 CONDE DO, ETHAN D Ot 278.00 OBESITY, NOS 04/25/2014 CONDE DO, ETHAN D Ot 288.60 LEUKOCYTOSIS, UNSPECIFIED 04/25/2014 CONDE DO ETHAN D Ot 289.81 PRIMARY HYPERCOAGULABLE STATE 04/25/2014 ETHAN CONDE DO Ot 401.9 HYPERTENSION NOS 04/25/2014 ETHAN CONDE DO Ot 412 OLD MYOCARDIAL INFARCT 04/25/2014 ETHAN CONDE DO Ot 414.01 CORONARY ATHEROSCLEROSIS OF [place] CORON 04/25/2014 ETHAN CONDE DO Ot 427.89 CARDIAC DYSRHYTHMIAS NEC 04/25/2014 ETHAN CONDE DO Ot 433.10 CAROTID ARTERY OCCLUSION W O CEREBRAL IN 04/25/2014 ETHAN CONDE DO Ot 552.1 UMBILICAL HERNIA W OBSTR 04/25/2014 ETHAN CONDE DO Ot 997.49 OTHER DIGESTIVE SYSTEM COMPLICATIONS 04/25/2014 ETHAN CONDE DO Ot V12.51 HX-VENOUS THROMBOSIS EMBOLISM 04/25/2014 ETHAN CONDE DO Ot V12.55 PERSONAL HISTORY OF PULMONARY EMBOLISM 04/25/2014 ETHAN CONDE DO Ot V45.82 PERCUTANEOUS TRANSLUM CORON ANGIOPLASTY 04/25/2014 ETHAN CONDE DO Ot V74.8 04/25/2014 ETHAN CONDE DO Ot V85.37 BODY MASS INDEX 37.0-37.9, ADULT 04/26/2014 ETHAN CONDE DO Ot 272.4 04/26/2014 ETHAN CONDE DO Ot 274.00 04/26/2014 CONDE ETHAN CONTEH Ot 276.8 04/26/2014 ETHAN CONDE DO Ot 278.00 04/26/2014 ETHAN CONDE DO Ot 288.60 04/26/2014 ETHAN CONDE DO Ot 289.81 04/26/2014 ETHAN CONDE DO Ot 401.9 04/26/2014 ETHAN CONDE DO Ot 412 04/26/2014 CONDE ETHAN CONTEH Ot 414.01 04/26/2014 ETHAN CONDE DO Ot 427.89 04/26/2014 ETHAN CNODE DO Ot 433.10 04/26/2014 ETHAN CONDE DO Ot 552.1 04/26/2014 ETHAN CONDE DO Ot 997.49 04/26/2014 ETHAN CONDE DO Ot V12.51 04/26/2014 ETHAN CONDE DO Ot V12.55 04/26/2014 CONDE DO, ETHAN D Ot V45.82 04/26/2014 CONDE DO, ETHAN D Ot V85.37 04/26/2014 CONDE DO, ETHAN D [...] ETHAN D Ot 427.89 04/26/2014 CONDE DO, ETHNA D Ot 433.10 04/26/2014 CONDE DO, ETHAN [...] DO Ot 780.79 09/21/2014 ELIAS FUNK DO A Ot 786.05 09/21/2014 GELLENELIAS LU DO Ot 786.2 09/21/2014 DELVISBIGG AMAYA DO M Ot 415.19 09/21/2014 DELVISBIGG AMAYA DO M Ot 786.05 09/21/2014 DELVIS DO, BIGG M Ot 793.11 09/21/2014 CARLOS ESCOBAR N Ot 286.3 09/21/2014 CARLOS ESCOBAR N Ot 793.11 09/21/2014 CARLOS ESCOBAR N Ot V12.51 10/12/2014 DELVIS DOBIGG M Ot 272.8 10/12/2014 DELVIS DO, BIGG M Ot 453.40 10/12/2014 DELVIS DO, BIGG M Ot 571.8 10/12/2014 DELVIS , BIGG M Ot 786.05 10/12/2014 DELVIS DO, BIGG M Ot 793.11 10/19/2014 DELVIS DO, BIGG M Ot 272.8 10/19/2014 DELVIS DO, BIGG M Ot 453.40 10/19/2014 DELVIS DO, BIGG M Ot 571.8 10/19/2014 DELVIS DO, IBGG M Ot 786.05 10/19/2014 DELVIS DO, BIGG M Ot 793.11 02/01/2015 LIZZIE PARSONP Ot D68.59 02/01/2015 LIZZIE PARSON OR ASSISTANT Ot I10 02/01/2015 LIZZIE PARSON OR ASSISTANT Ot R91.1 02/01/2015 LIZZIE PARSON OR ASSISTANT Ot Z86.711 02/14/2015 LIZZIE PARSON OR ASSISTANT Ot D68.59 02/14/2015 LIZZIE PARSON OR ASSISTANT Ot I10 02/14/2015 LIZZIE PARSON OR ASSISTANT Ot R91.1 02/14/2015 LIZZIE PARSON OR ASSISTANT Ot Z86.711 04/07/2015 ELIAS FUNK DO Ot R06.02 04/07/2015 BLESSING CONTEH ELIAS A Ot R06.2 04/13/2015 GELDEANN DOELIAS A Ot R06.02 04/13/2015 GELLENDER DO, ELIAS A Ot R06.2 09/25/2015 DELVIS CONTEH, BIGG Calvillo Ot R60.9 EDEMA, UNSPECIFIED 09/26/2015 BIGG EDMONDSON DO Ot R60.9 EDEMA, UNSPECIFIED 09/27/2015 BIGG EDMONDSON [...] DEF CLOT FACTOR NEC 01/09/2016 SHAWN CARLOS Allison Ot 793.11 SOLITARY PULMONARY NODULE 01/09/2016 SHAWN CARLOS Allison Ot V12.51 HX-VENOUS THROMBOSIS EMBOLISM 01/10/2016 SHAWNCARLOS Ot 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 01/10/2016 SHAWN CARLOS Allison Ot 793.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 PULMONARY NODULE 01/10/2016 SHAWN NASREENDAWOOD Estefany Ot V12.51 HX-VENOUS THROMBOSIS EMBOLISM 01/11/2016 SHAWNCARLOS N Ot R05 COUGH 01/11/2016 SHAWNCARLOS N Ot R06.02 SHORTNESS OF BREATH 01/11/2016 SHAWN NASREENDAWOOD Estefany Ot 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 01/11/2016 SHAWNCARLOS Ot R91.1 SOLITARY PULMONARY NODULE 01/11/2016 SHAWN CARLOS Allison Ot Z86.718 PERSONAL HISTORY OF OTHER VENOUS THROMBO 01/15/2016 CARLOS ESCOBAR N Ot R05 COUGH 01/15/2016 SHAWNCARLOS PHAM N Ot R06.02 SHORTNESS OF BREATH 01/15/2016 SHAWNCARLOS PHAM N Ot R05 COUGH 01/15/2016 SHAWNCARLOS PHAM N Ot R06.02 SHORTNESS OF BREATH 01/15/2016 SHAWNCARLOS PHAM N Ot R05 COUGH 01/15/2016 SHAWNCARLOS PHAM N Ot R06.02 SHORTNESS OF BREATH 01/16/2016 SHAWNCARLOS PHAM N Ot R05 COUGH 01/16/2016 CARLOS ESCOBAR Ot R06.02 SHORTNESS OF BREATH 02/01/2016 CARLOS ESCOBAR Ot 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 02/01/2016 CARLOS ESCOBAR Ot R91.1 SOLITARY PULMONARY NODULE 02/01/2016 CARLOS ESCOBAR Ot Z86.718 PERSONAL HISTORY OF OTHER VENOUS THROMBO 02/01/2016 CARLOS ESCOBAR N Ot R05 COUGH 02/01/2016 CARLOS ESCOBAR Ot R06.02 SHORTNESS OF BREATH 02/12/2016 CARLOS ESCOBAR Ot 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 02/12/2016 CARLOS ESCOBAR N Ot R91.1 SOLITARY PULMONARY NODULE 02/12/2016 CARLOS [...] Ot V74.8 SCREEN-BACTERIAL DIS NEC 04/24/2016 BIGG EDMODNSON DO Ot 415.19 OTH PULMON EMBOLISM/INFARCT 04/24/2016 [...] DO Ot 415.19 OTH PULMON EMBOLISM/INFARCT 04/24/2016 DELVIS CONTEH BIGG Calvillo Ot 786.05 SHORTNESS OF BREATH 04/24/2016 BIGG EDMONDSON DO Karli Ot 793.11 SOLITARY PULMONARY NODULE 04/24/2016 DELVIS CONTEH BIGG Karli Ot 272.8 LIPOID METABOL DIS NEC 04/24/2016 BIGG EDMONDSON DO Ot 453.40 ACUTE VENOUS EMBOLISM THROMBOSIS UNSP 04/24/2016 DELVIS CONTEH BIGG Karli Ot 571.8 CHRONIC LIVER DIS NEC 04/24/2016 DELVIS CONTEH BIGG Calvillo Ot 786.05 SHORTNESS OF BREATH 04/24/2016 DELVIS CONTEH BIGG Calvillo Ot 793.11 SOLITARY PULMONARY NODULE 04/24/2016 CARLOS ESCOBAR Ot 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 04/24/2016 CARLOS ESCOBAR Ot R91.1 SOLITARY PULMONARY NODULE 04/24/2016 CARLOS ESCOBAR Ot Z86.718 PERSONAL HISTORY OF OTHER VENOUS THROMBO 04/24/2016 YAZ EDMONDSON DOSON Karli Ot R06.02 SHORTNESS OF BREATH 04/24/2016 DELVIS CONTEH BIGG Karli Ot R91.1 SOLITARY PULMONARY NODULE 04/24/2016 LIZZIE PARSON [facility] Ot D68.59 OTHER PRIMARY THROMBOPHILIA 04/24/2016 LIZZIE PARSON OR ASSISTANT Ot I10 ESSENTIAL (PRIMARY) HYPERTENSION 04/24/2016 LIZZIE PARSON OR ASSISTANT Ot R91.1 SOLITARY PULMONARY NODULE 04/24/2016 LIZZIE PARSON OR ASSISTANT Ot Z86.711 PERSONAL HISTORY OF PULMONARY EMBOLISM 04/24/2016 GELOSMANDER ELIAS CONTEH Ot R06.02 SHORTNESS OF BREATH 04/24/2016 GELLENDER DOELIAS Ot R06.2 WHEEZING 04/24/2016 CARLOS ESCOBAR Ot R05 COUGH 04/24/2016 CARLOS ESCOBAR Ot R06.02 SHORTNESS OF BREATH 04/26/2016 GELLENDER DOELIAS Ot R05 COUGH 04/26/2016 GELLENDER DO, ELIAS Fritz Ot R07.9 CHEST PAIN, UNSPECIFIED 05/16/2016 GELLENDER DOELIAS Ot R05 COUGH 05/16/2016 GELLENDER DO, ELIAS Fritz Ot R07.9 CHEST PAIN, UNSPECIFIED 05/17/2016 ELIAS FUNK DO Ot R05 COUGH 05/22/2016 ELIAS FUNK DO Ot R05 COUGH 08/08/2016 JEREMIAS JOEL, MIRIAN Ot 553.1 UMBILICAL HERNIA 08/08/2016 JEREMIAS JOEL, MIRIAN Ot V72.63 PRE-PROCEDURAL LABORATORY EXAMINATION 08/08/2016 JEREMIAS JOEL, MIRIAN Ot V72.84 EXAM PRE-OPERATIVE NOS 08/08/2016 JEREMIAS JOEL, MIRIAN Ot V74.8 SCREEN-BACTERIAL DIS NEC 08/08/2016 BIGG EDMONDSON DO Ot 415.19 OTH PULMON EMBOLISM/INFARCT 08/08/2016 BIGG EDMONDSON DO Ot 786.05 SHORTNESS OF BREATH 08/08/2016 BIGG EDMONDSON DO Ot 793.11 SOLITARY PULMONARY NODULE 08/08/2016 JIM JOEL, DAISY Bush Ot 272.4 HYPERLIPIDEMIA NEC/NOS 08/08/2016 DAISY FERNANDEZ MD Ot 401.9 HYPERTENSION NOS 08/08/2016 DAISY FERNANDEZ MD Ot 414.00 CORON ATHEROSCLER NOS TYPE VESSEL, NATIV 08/08/2016 ELIAS FUNK DO Ot 780.79 OTH MALAISE FATIGUE 08/08/2016 ELIAS FUNK DO Ot 786.05 SHORTNESS OF BREATH 08/08/2016 ELIAS FUNK DO Ot 786.2 COUGH 08/08/2016 BIGG EDMONDSON DO Ot 415.19 OTH PULMON EMBOLISM/INFARCT 08/08/2016 BIGG EDMONDSON DO Ot 786.05 SHORTNESS OF BREATH 08/08/2016 BIGG EDMONDSON DO Ot 793.11 SOLITARY PULMONARY NODULE 08/08/2016 BIGG EDMONDSON DO Ot 272.8 LIPOID METABOL DIS NEC 08/08/2016 BIGG EDMONDSON DO Ot 453.40 ACUTE VENOUS EMBOLISM THROMBOSIS UNSP 08/08/2016 BIGG EDMONDSON DO Ot 571.8 CHRONIC LIVER DIS NEC 08/08/2016 BIGG EDMONDSON DO Ot 786.05 SHORTNESS OF BREATH 08/08/2016 BIGG EDMONDSON DO Ot 793.11 SOLITARY PULMONARY NODULE 08/08/2016 CARLOS ESCOBAR Ot 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 08/08/2016 CARLOS ESCOBAR Ot R91.1 SOLITARY PULMONARY NODULE 08/08/2016 SHAWN CARLOS Allison Ot Z86.718 PERSONAL HISTORY OF OTHER VENOUS THROMBO 08/08/2016 BIGG EDMONDSON DO Ot R06.02 SHORTNESS OF BREATH 08/08/2016 BIGG EDMONDSON DO Ot R91.1 SOLITARY PULMONARY NODULE 08/08/2016 LIZZIE PARSON OR ASSISTANT Ot D68.59 OTHER PRIMARY THROMBOPHILIA 08/08/2016 LIZZIE PARSON OR ASSISTANT Ot I10 ESSENTIAL (PRIMARY) HYPERTENSION 08/08/2016 LIZZIE PARSON OR ASSISTANT Ot R91.1 SOLITARY PULMONARY NODULE 08/08/2016 LIZZIE PARSON OR ASSISTANT Ot Z86.711 PERSONAL HISTORY OF PULMONARY EMBOLISM 08/08/2016 GELLENDER DO, ELIAS A Ot R06.02 SHORTNESS OF BREATH 08/08/2016 GELLENDER DO, ELIAS A Ot R06.2 WHEEZING 08/08/2016 CARLOS ESCOBAR Ot R05 COUGH 08/08/2016 SHAWNCARLOS Ot R06.02 SHORTNESS OF BREATH 08/08/2016 GELLENDER DO, ELIAS A Ot R05 COUGH 08/08/2016 GELLENDER DO, ELIAS A Ot R05 COUGH 08/08/2016 GELLENDER DO, ELIAS A Ot R07.9 CHEST PAIN, UNSPECIFIED 09/03/2016 GELLENDER DO, ELIAS A Ot M25.572 PAIN IN LEFT ANKLE AND JOINTS OF LEFT FO 09/12/2016 GELLENDER DO, ELIAS A Ot M25.572 PAIN IN LEFT ANKLE AND JOINTS OF LEFT FO 01/22/2017 CARLOS ESCOBAR Ot D68.8 OTHER SPECIFIED COAGULATION DEFECTS 01/22/2017 CARLOS ESCOBAR Ot E78.5 HYPERLIPIDEMIA, UNSPECIFIED 01/22/2017 CARLOS ESCOBAR 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 01/22/2017 CARLOS ESCOBAR Ot I10 ESSENTIAL (PRIMARY) HYPERTENSION 01/22/2017 CARLOS ESCOBAR Ot I25.10 ATHSCL HEART DISEASE OF [place] CORONARY 01/22/2017 CARLOS ESCOBAR Ot I44.0 ATRIOVENTRICULAR BLOCK, FIRST DEGREE 01/22/2017 CARLOS ESCOBAR Ot I44.7 LEFT BUNDLE-BRANCH BLOCK, UNSPECIFIED 01/22/2017 SHAWN, BOBAN N Ot R91.1 SOLITARY PULMONARY NODULE 01/22/2017 CARLOS ESCOBAR Estefany Ot Z79.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 BURNER REPAIRER (CURRENT) USE OF ANTICOAGULANT 01/22/2017 CARLOS ESCOBAR N Ot Z79.02 OIL BURNER REPAIRER (CURRENT) USE OF ANTITHROMBOTI 01/22/2017 CARLOS ESCOBAR N Ot Z86.711 PERSONAL HISTORY OF PULMONARY EMBOLISM 01/22/2017 CARLOS ESCOBAR Estefany Ot Z86.718 PERSONAL HISTORY OF OTHER VENOUS THROMBO 01/22/2017 CARLOS ESCOBAR Estefany Ot Z95.5 PRESENCE OF CORONARY ANGIOPLASTY IMPLANT 01/27/2017 CARLOS ESCOBAR N Ot D68.8 OTHER SPECIFIED COAGULATION DEFECTS 01/27/2017 CARLOS ESCOBAR Estefany Ot E78.5 HYPERLIPIDEMIA, UNSPECIFIED 01/27/2017 CARLOS ESCOBAR N 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711 PERSONAL HISTORY OF PULMONARY EMBOLISM 01/27/2017 CARLOS ESCOBAR Estefany Ot Z86.718 PERSONAL HISTORY OF OTHER VENOUS THROMBO 01/27/2017 CARLOS ESCOBAR Estefany Ot Z95.5 PRESENCE OF CORONARY ANGIOPLASTY IMPLANT 02/12/2017 CARLOS ESCOBAR Estefany Ot D68.8 OTHER SPECIFIED COAGULATION DEFECTS 02/12/2017 CARLOS ESCOBAR N Ot E78.5 HYPERLIPIDEMIA, UNSPECIFIED 02/12/2017 CARLOS ESCOBAR N 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 02/12/2017 HSAWN CARLOS N Ot I10 ESSENTIAL (PRIMARY) HYPERTENSION 02/12/2017 CARLOS ESCOBAR Ot I25.10 ATHSCL HEART DISEASE OF [place] CORONARY 02/12/2017 CARLOS ESCOBAR Ot I44.0 ATRIOVENTRICULAR BLOCK, FIRST DEGREE 02/12/2017 CARLOS ESCOBAR Estefany Ot I44.7 LEFT BUNDLE-BRANCH BLOCK, UNSPECIFIED 02/12/2017 CARLOS ESCOBAR Estefany Ot R91.1 SOLITARY PULMONARY NODULE 02/12/2017 CARLOS ESCOBAR Estefany Ot Z79.01 HALF-WAY (CURRENT) USE OF ANTICOAGULANT 02/12/2017 CARLOS ESCOBAR N Ot Z79.02 OIL BURNER REPAIRER (CURRENT) USE OF ANTITHROMBOTI 02/12/2017 CARLOS ESCOBAR N Ot Z86.711 PERSONAL HISTORY OF PULMONARY EMBOLISM 02/12/2017 SHAWN NASREENDAWOOD Estefany Ot Z86.718 PERSONAL HISTORY OF OTHER VENOUS THROMBO 02/12/2017 SHAWN NASREENDAWOOD Estefany Ot Z95.5 PRESENCE OF CORONARY ANGIOPLASTY IMPLANT 02/17/2017 SHAWN NASREENDAWOOD Estefany Ot D68.8 OTHER SPECIFIED COAGULATION DEFECTS 02/17/2017 CARLOS ESCOBAR Estefany Ot E78.5 HYPERLIPIDEMIA, UNSPECIFIED 02/17/2017 CARLOS ESCOBAR Estefany 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 02/17/2017 CARLOS ESCOBAR Estefany Ot I10 ESSENTIAL (PRIMARY) HYPERTENSION 02/17/2017 CARLOS ESCOBAR Estefany Ot I25.10 ATHSCL HEART DISEASE OF [place] CORONARY 02/17/2017 CARLOS ESCOBAR Ot I44.0 ATRIOVENTRICULAR BLOCK, FIRST DEGREE 02/17/2017 CARLOS ESCOBAR Estefany Ot I44.7 LEFT BUNDLE-BRANCH BLOCK, UNSPECIFIED 02/17/2017 CRALOS ESCOBAR Estefany Ot R91.1 SOLITARY PULMONARY NODULE 02/17/2017 CARLOS ESCOBAR Estefany Ot Z79.01 HALF-WAY (CURRENT) USE OF ANTICOAGULANT 02/17/2017 CARLOS ESCOBAR N Ot Z79.02 OIL BURNER REPAIRER (CURRENT) USE OF ANTITHROMBOTI 02/17/2017 CARLOS ESCOBAR Estefany Ot Z86.711 PERSONAL HISTORY OF PULMONARY EMBOLISM 02/17/2017 CARLOS ESCOBAR Estefany Ot Z86.718 PERSONAL HISTORY OF OTHER VENOUS THROMBO 02/17/2017 SHAWNCARLOS Ot Z95.5 PRESENCE OF CORONARY ANGIOPLASTY IMPLANT 03/26/2017 ELIAS FUNK DO Ot 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 03/26/2017 GELLENDER DO, ELIAS Fritz Ot D72.829 ELEVATED WHITE BLOOD CELL COUNT, UNSPECI 03/26/2017 GELLENDER DO, ELIAS Fritz Ot E66.9 OBESITY, UNSPECIFIED 03/26/2017 GELLENDER DO, ELIAS Fritz Ot E78.5 HYPERLIPIDEMIA, UNSPECIFIED 03/26/2017 GELLENDER DO, ELIAS Fritz Ot I10 ESSENTIAL (PRIMARY) HYPERTENSION 03/26/2017 GELLENDER DO, ELIAS Fritz Ot I25.110 ATHSCL HEART DISEASE OF [place]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 ART W 03/26/2017 GELLENDER DO, ELIAS Fritz Ot I25.2 OLD MYOCARDIAL INFARCTION 03/26/2017 GELLENDER DO, ELIAS Fritz Ot I65.29 OCCLUSION AND STENOSIS OF UNSPECIFIED CA 03/26/2017 GELLENDER DO, ELIAS Fritz Ot J18.9 PNEUMONIA, UNSPECIFIED ORGANISM 03/26/2017 GELLENDER DO, ELIAS Fritz Ot J20.9 ACUTE BRONCHITIS, UNSPECIFIED 03/26/2017 GELLENDER DO, ELIAS Fritz Ot J98.11 ATELECTASIS 03/26/2017 GELLENDER DO, ELIAS Fritz Ot M10.9 GOUT, UNSPECIFIED 03/26/2017 GELLENDER DO, ELIAS Fritz Ot R00.1 BRADYCARDIA, UNSPECIFIED 03/26/2017 GELLENDER DO, ELIAS Fritz Ot R73.03 PREDIABETES 03/26/2017 GELLENDER DO, ELIAS Fritz Ot T38.0X5A ADVERSE EFFECT OF GLUCOCORT/SYNTH ANALOG 03/26/2017 GELLENDER DO, ELIAS Fritz Ot Z68.36 BODY MASS INDEX (BMI) 36.0-36.9, ADULT 03/26/2017 GELLENDER DO, ELIAS Fritz Ot Z79.01 OIL BURNER REPAIRER (CURRENT) USE OF ANTICOAGULANT 03/26/2017 GELLENDER DO, ELIAS Fritz Ot Z86.711 PERSONAL HISTORY OF PULMONARY EMBOLISM 03/26/2017 GELLENDER DO, ELIAS Fritz Ot Z86.718 PERSONAL HISTORY OF OTHER VENOUS THROMBO 03/26/2017 GELLENDER DO, ELIAS Fritz Ot Z95.5 PRESENCE OF CORONARY ANGIOPLASTY IMPLANT 03/26/2017 GELLENDER DO, ELIAS Fritz Ot 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 03/26/2017 GELLENDER DO, ELIAS Fritz Ot D72.829 ELEVATED WHITE BLOOD CELL COUNT, UNSPECI 03/26/2017 GELLENDER DO, ELIAS Fritz Ot E66.9 OBESITY, UNSPECIFIED 03/26/2017 GELLENDER DO, ELIAS Fritz Ot E78.5 HYPERLIPIDEMIA, UNSPECIFIED 03/26/2017 GELLENDER DO, ELIAS Fritz Ot I10 ESSENTIAL (PRIMARY) HYPERTENSION 03/26/2017 GELLENDER DO, ELIAS Fritz Ot I25.110 ATHSCL HEART DISEASE OF [place] COR ART W 03/26/2017 GELLENDER DO, ELIAS Fritz Ot I25.2 OLD MYOCARDIAL INFARCTION 03/26/2017 GELLENDER DO, ELIAS Fritz Ot I65.29 OCCLUSION AND STENOSIS OF UNSPECIFIED CA 03/26/2017 GELLENDER DO, ELIAS Fritz Ot J18.9 PNEUMONIA, UNSPECIFIED ORGANISM 03/26/2017 GELLENDER DO, ELIAS Fritz Ot J20.9 ACUTE BRONCHITIS, UNSPECIFIED 03/26/2017 GELLENDER DO, ELIAS Fritz Ot J98.11 ATELECTASIS 03/26/2017 GELLENDER DO, ELIAS Fritz Ot M10.9 GOUT, UNSPECIFIED 03/26/2017 GELLENDER DO, ELIAS Fritz Ot R00.1 BRADYCARDIA, UNSPECIFIED 03/26/2017 GELLENDER DO, ELIAS Fritz Ot R73.03 PREDIABETES 03/26/2017 GELLENDER DO, ELIAS Fritz Ot T38.0X5A ADVERSE EFFECT OF GLUCOCORT/SYNTH ANALOG 03/26/2017 GELLENDER DO, ELIAS Fritz Ot Z68.36 BODY MASS INDEX (BMI) 36.0-36.9, ADULT 03/26/2017 GELLENDER DO, ELIAS Fritz Ot Z79.01 OIL BURNER REPAIRER (CURRENT) USE OF ANTICOAGULANT 03/26/2017 GELLENDER DO, ELIAS Fritz Ot Z86.711 PERSONAL HISTORY OF PULMONARY EMBOLISM 03/26/2017 GELLENDER DO, ELIAS Fritz Ot Z86.718 PERSONAL HISTORY OF OTHER VENOUS THROMBO 03/26/2017 GELLENDER DO, ELIAS Fritz Ot Z95.5 PRESENCE OF CORONARY ANGIOPLASTY IMPLANT 03/28/2017 GELLENDER DO, ELIAS Fritz Ot 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 03/28/2017 GELLENDER DO, ELIAS Fritz Ot D72.829 ELEVATED WHITE BLOOD CELL COUNT, UNSPECI 03/28/2017 GELLENDER DO, ELIAS Fritz Ot E66.9 OBESITY, UNSPECIFIED 03/28/2017 GELLENDER DO, ELIAS Fritz Ot E78.5 HYPERLIPIDEMIA, UNSPECIFIED 03/28/2017 GELLENDER DO, ELIAS Fritz Ot I10 ESSENTIAL (PRIMARY) HYPERTENSION 03/28/2017 GELLENDER DO, ELIAS Fritz Ot I25.110 ATHSCL HEART DISEASE OF [place] COR ART W 03/28/2017 GELLENDER DO, ELIAS Fritz Ot I25.2 OLD MYOCARDIAL INFARCTION 03/28/2017 GELLENDER DO, ELIAS Fritz Ot J18.9 PNEUMONIA, UNSPECIFIED ORGANISM 03/28/2017 GELLENDER DO, ELIAS Fritz Ot J20.9 ACUTE BRONCHITIS, UNSPECIFIED 03/28/2017 GELLENDER DO, ELIAS Fritz Ot J98.11 ATELECTASIS 03/28/2017 GELLENDER DO, ELIAS Fritz Ot M10.9 GOUT, UNSPECIFIED 03/28/2017 GELLENDER DO, ELIAS Fritz Ot R00.1 BRADYCARDIA, UNSPECIFIED 03/28/2017 GELLENDER DO, ELIAS Fritz Ot R73.03 PREDIABETES 03/28/2017 GELLENDER DO, ELIAS Fritz Ot T38.0X5A ADVERSE EFFECT OF GLUCOCORT/SYNTH ANALOG 03/28/2017 [facility] ELI[facility] Fritz Ot Z68.36 BODY MASS INDEX (BMI) 36.0-36.9, ADULT 03/28/2017 [facility] ELI[facility] Fritz Ot Z79.01 HALF-WAY (CURRENT) USE OF ANTICOAGULANT 03/28/2017 [facility] Fritz Ot Z86.711 PERSONAL HISTORY OF PULMONARY EMBOLISM 03/28/2017 [facility] , ELIAS Fritz Ot Z86.718 PERSONAL HISTORY OF OTHER VENOUS THROMBO 03/28/2017 [facility], ELIAS Fritz Ot Z95.5 PRESENCE OF CORONARY ANGIOPLASTY IMPLANT 04/08/2017 [facility] ELIAS Fritz Ot J40 BRONCHITIS, NOT SPECIFIED ACUTE OR CH 04/29/2017 CARSON CARMONA APRN Ot E66.9 OBESITY, UNSPECIFIED 04/29/2017 CARSON CARMONA APRN Ot I25.10 ATHSCL HEART DISEASE OF [place] CORONARY 04/29/2017 CARSON CARMONA APRN Ot I25.2 OLD MYOCARDIAL INFARCTION 04/30/2017 [facility] ELIAS Fritz Ot J40 BRONCHITIS, NOT SPECIFIED ACUTE OR CH 04/30/2017 JEREMIAS JOEL, MIRIAN Ot 553.1 UMBILICAL HERNIA 04/30/2017 JEREMIAS JOEL, MIRIAN Ot V72.63 PRE-PROCEDURAL LABORATORY EXAMINATION 04/30/2017 JEREMIAS JOEL, MIRIAN Ot V72.84 EXAM PRE-OPERATIVE NOS 04/30/2017 JEREMIAS JOEL, MIRIAN Urbina V74.8 SCREEN-BACTERIAL DIS NEC 04/30/2017 BIGG EDMONDSON DO Ot 415.19 OTH PULMON EMBOLISM/INFARCT 04/30/2017 BIGG EDMONDSON DO Ot 786.05 SHORTNESS OF BREATH 04/30/2017 BIGG EDMONDSON DO Ot 793.11 SOLITARY PULMONARY NODULE 04/30/2017 JIM JOEL, DAISY Bush Ot 272.4 HYPERLIPIDEMIA NEC/NOS 04/30/2017 JIM JOEL, DAISY Bush Ot 401.9 HYPERTENSION NOS 04/30/2017 JIM JOEL, DAISY Bush Ot 414.00 CORON ATHEROSCLER NOS TYPE VESSEL, NATIV 04/30/2017 ELIAS FUNK DO Ot 780.79 OTH MALAISE FATIGUE 04/30/2017 ELIAS FUNK DO Ot 786.05 SHORTNESS OF BREATH 04/30/2017 ELIAS FUNK DO Ot 786.2 COUGH 04/30/2017 BIGG EDMONDSON DO Ot 415.19 OTH PULMON EMBOLISM/INFARCT 04/30/2017 BIGG EDMONDSON DO Ot 786.05 SHORTNESS OF BREATH 04/30/2017 BIGG EDMONDSON DO Ot 793.11 SOLITARY PULMONARY NODULE 04/30/2017 BIGG EDMONDSON DO Ot 272.8 LIPOID METABOL DIS NEC 04/30/2017 BIGG EDMONDSON DO Ot 453.40 ACUTE VENOUS EMBOLISM THROMBOSIS UNSP 04/30/2017 BIGG EDMONDSON DO Ot 571.8 CHRONIC LIVER DIS NEC 04/30/2017 BIGG EDMONDSON DO Ot 786.05 SHORTNESS OF BREATH 04/30/2017 BIGG EDMONDSON DO Ot 793.11 SOLITARY PULMONARY NODULE 04/30/2017 CARLOS ESCOBAR Ot 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 04/30/2017 CARLOS ESCOBAR Ot R91.1 SOLITARY PULMONARY NODULE 04/30/2017 CARLOS ESCOBAR Ot Z86.718 PERSONAL HISTORY OF OTHER VENOUS THROMBO 04/30/2017 BIGG EDMONDSON DO Ot R06.02 SHORTNESS OF BREATH 04/30/2017 BIGG EDMONDSON DO Ot R91.1 SOLITARY PULMONARY NODULE 04/30/2017 LIZZIE PARSON OR ASSISTANT Ot D68.59 OTHER PRIMARY THROMBOPHILIA 04/30/2017 LIZZIE PARSON OR ASSISTANT Ot I10 ESSENTIAL (PRIMARY) HYPERTENSION 04/30/2017 LIZZIE PARSON OR ASSISTANT Ot R91.1 SOLITARY PULMONARY NODULE 04/30/2017 LIZZIE PARSON OR ASSISTANT Ot Z86.711 PERSONAL HISTORY OF PULMONARY EMBOLISM 04/30/2017 GELLENDER DO, ELIAS Fritz Ot R06.02 SHORTNESS OF BREATH 04/30/2017 GELLENDER DO, ELIAS Fritz Ot R06.2 WHEEZING 04/30/2017 CARLOS ESCOBAR Ot R05 COUGH 04/30/2017 CARLOS ESCOBAR Ot R06.02 SHORTNESS OF BREATH 04/30/2017 GELLENDER DO, ELIAS Fritz Ot R05 COUGH 04/30/2017 GELLENDER DO, ELIAS Fritz Ot R05 COUGH 04/30/2017 GELLENDER DO, ELIAS Fritz Ot R07.9 CHEST PAIN, UNSPECIFIED 04/30/2017 GELLENDER DO, ELIAS Fritz Ot M25.572 PAIN IN LEFT ANKLE AND JOINTS OF LEFT FO 04/30/2017 CARLOS ESCOBAR Ot D68.8 OTHER SPECIFIED COAGULATION DEFECTS 04/30/2017 CARLOS ESCOBAR Ot E78.5 HYPERLIPIDEMIA, UNSPECIFIED 04/30/2017 CARLOS ESCOBAR 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 04/30/2017 CARLOS ESCOBAR Ot I10 ESSENTIAL (PRIMARY) HYPERTENSION 04/30/2017 CARLOS ESCOBAR Ot I25.10 ATHSCL HEART DISEASE OF [place] CORONARY 04/30/2017 CARLOS ESCOBAR Ot I44.0 ATRIOVENTRICULAR BLOCK, FIRST DEGREE 04/30/2017 CARLOS ESCOBAR Ot I44.7 LEFT BUNDLE-BRANCH BLOCK, UNSPECIFIED 04/30/2017 CARLOS ESCOBAR Ot R91.1 SOLITARY PULMONARY NODULE 04/30/2017 CARLOS ESCOBAR Ot Z79.01 HALF-WAY (CURRENT) USE OF ANTICOAGULANT 04/30/2017 CARLOS ESCOBAR Ot Z79.02 HALF-WAY (CURRENT) USE OF ANTITHROMBOTI 04/30/2017 CARLOS ESCOBAR Ot Z86.711 PERSONAL HISTORY OF PULMONARY EMBOLISM 04/30/2017 CARLOS ESCOBAR Ot Z86.718 PERSONAL HISTORY OF OTHER VENOUS THROMBO 04/30/2017 CARLOS ESCOBAR Ot Z95.5 PRESENCE OF CORONARY ANGIOPLASTY IMPLANT 04/30/2017 ELIAS FUNK DO Ot J40 BRONCHITIS, NOT SPECIFIED ACUTE OR CH 04/30/2017 KRISTINE, CARSON E TRAFFIC OPERATIONS MANAGER Ot G47.33 OBSTRUCTIVE SLEEP APNEA (ADULT) (PEDIATR 04/30/2017 KRISTINE, CARSON E TRAFFIC OPERATIONS MANAGER Ot G47.9 SLEEP DISORDER, UNSPECIFIED 04/30/2017 KRISTINE, CARSON E TRAFFIC OPERATIONS MANAGER Ot E66.9 OBESITY, UNSPECIFIED 04/30/2017 KRISTINE, CARSON E TRAFFIC OPERATIONS MANAGER Ot I25.10 ATHSCL HEART DISEASE OF [place] CORONARY 04/30/2017 KRISTINE, CARSON E TRAFFIC OPERATIONS MANAGER Ot I25.2 OLD MYOCARDIAL INFARCTION 05/01/2017 KRISTINE, CARSON E TRAFFIC OPERATIONS MANAGER Ot R06.02 SHORTNESS OF BREATH 05/05/2017 KRISTINE, CARSON E TRAFFIC OPERATIONS MANAGER Ot G47.33 OBSTRUCTIVE SLEEP APNEA (ADULT) (PEDIATR 05/05/2017 KRISTINE, CARSON E TRAFFIC OPERATIONS MANAGER Ot G47.9 SLEEP DISORDER, UNSPECIFIED 05/06/2017 KRISTINE, CARSON E TRAFFIC OPERATIONS MANAGER Ot G47.33 OBSTRUCTIVE SLEEP APNEA (ADULT) (PEDIATR 05/06/2017 KRISTINE, CARSON E TRAFFIC OPERATIONS MANAGER Ot G47.50 PARASOMNIA, UNSPECIFIED 05/06/2017 KRISTINE, CARSON E TRAFFIC OPERATIONS MANAGER Ot R06.02 SHORTNESS OF BREATH 05/07/2017 KRISTINE, CARSON E TRAFFIC OPERATIONS MANAGER Ot G47.33 OBSTRUCTIVE SLEEP APNEA (ADULT) (PEDIATR 05/07/2017 KRISTIEN, CARSON E TRAFFIC OPERATIONS MANAGER Ot G47.50 PARASOMNIA, UNSPECIFIED 05/07/2017 KRISTINE, CARSON E TRAFFIC OPERATIONS MANAGER Ot R06.02 SHORTNESS OF BREATH 05/07/2017 ELIAS FUNK DO Ot J40 BRONCHITIS, NOT SPECIFIED ACUTE OR CH 05/20/2017 KRISTINESHAD ARECHIGAINE E TRAFFIC OPERATIONS MANAGER Ot E66.9 OBESITY, UNSPECIFIED 05/20/2017 KRISTINE, CARSON E TRAFFIC OPERATIONS MANAGER Ot I25.10 ATHSCL HEART DISEASE OF [place] CORONARY 05/20/2017 SHAD CARMONAINE E TRAFFIC OPERATIONS MANAGER Ot I25.2 OLD MYOCARDIAL INFARCTION 05/20/2017 SHAD CARMONAINE E TRAFFIC OPERATIONS MANAGER Ot R06.02 SHORTNESS OF BREATH 05/30/2017 CARSON CARMONA TRAFFIC OPERATIONS MANAGER Ot E66.9 OBESITY, UNSPECIFIED 05/30/2017 CARSON CARMONA TRAFFIC OPERATIONS MANAGER Ot I25.10 ATHSCL HEART DISEASE OF [place] CORONARY 05/30/2017 KRISTINE, CARSON Mondragon TRAFFIC OPERATIONS MANAGER Ot I25.2 OLD MYOCARDIAL INFARCTION 05/30/2017 KRISTINE CARSON Mondragon TRAFFIC OPERATIONS MANAGER Ot R06.02 SHORTNESS OF BREATH Procedures Code Description Performed By Performed On 53.43 OTHER LAPAROSCOPIC UMBILICAL HERNIORRHAP 04/20/2014 Results Test Result Range Complete blood count (CBC) with automated white blood cell (WBC) differential - 04/24/16 14:35 Blood leukocytes automated count (number/volume) 9.2 10*3/uL 4.3-11.0 Blood erythrocytes automated count (number/volume) 5.37 10*6/uL 4.35-5.85 Venous blood hemoglobin measurement (mass/volume) 15.5 [...] Automated blood platelet mean volume measurement 9.6 [foz_us] 7.4-10.4 Automated blood neutrophils/100 leukocytes 69 % [...] blood basophil count (count/volume) 0.1 10*3/uL 0.0-0.1 Whole blood basic metabolic panel - 04/25/16 10:49 Serum or plasma sodium measurement (moles/volume) 140 mmol/L 135-145 Serum or plasma potassium measurement (moles/volume) 3.9 mmol/L 3.6-5.0 Serum or plasma chloride measurement (moles/volume) 105 mmol/L 98-107 Carbon dioxide 23 mmol/L 21-32 Serum or plasma anion gap determination (moles/volume) 12 mmol/L 5-14 Serum or plasma urea nitrogen measurement (mass/volume) 14 mg/dL 7-18 Serum or plasma creatinine measurement (mass/volume) 1.30 mg/dL 0.60-1.30 Serum or plasma urea nitrogen/creatinine mass ratio 11 NRG Serum or plasma creatinine measurement with calculation of estimated glomerular filtration rate 54 NRG Serum or plasma glucose measurement (mass/volume) 101 mg/dL 70-105 Serum or plasma calcium measurement (mass/volume) 9.1 mg/dL 8.5-10.1 Serum or plasma troponin i.cardiac measurement (mass/volume) - 04/25/16 10:49 Serum or plasma troponin i.cardiac measurement (mass/volume) < ng/ mL <0.30 Complete blood count (CBC) with automated white blood cell (WBC) differential - 03/20/17 11:50 Blood leukocytes automated count (number/volume) 5.5 10*3/uL 4.3-11.0 Blood erythrocytes automated count (number/volume) 5.68 10*6/uL 4.35-5.85 Venous blood hemoglobin measurement (mass/volume) 16.2 g/dL 13.3-17.7 Blood hematocrit (volume fraction) 41 % 40-54 Automated erythrocyte mean corpuscular volume 72 [foz_us] 80-99 Automated erythrocyte mean corpuscular hemoglobin (mass per erythrocyte) 29 pg 25-34 Automated erythrocyte mean corpuscular hemoglobin concentration measurement ( mass/volume) 39 g/dL 32-36 Automated erythrocyte distribution width ratio 13.8 % 10.0-14.5 Automated blood platelet count (count/volume) 205 10*3/uL 130-400 Automated blood platelet mean volume measurement 8.9 [foz_us] 7.4-10.4 Automated blood neutrophils/100 leukocytes 66 % 42-75 Automated blood lymphocytes/100 leukocytes 12 % 12-44 Blood monocytes/100 leukocytes 15 % 0-12 Automated blood eosinophils/100 leukocytes 6 % 0-10 Automated blood basophils/100 leukocytes 2 % 0-10 Blood neutrophils automated count (number/volume) 3.7 10*3 1.8-7.8 Blood lymphocytes automated count (number/volume) 0.6 10*3 1.0-4.0 Blood monocytes automated count (number/volume) 0.8 10*3 0.0-1.0 Automated eosinophil count 0.3 10*3/uL 0.0-0.3 Automated blood basophil count (count/volume) 0.1 10*3/uL 0.0-0.1 Comprehensive metabolic panel - 03/20/17 11:50 Serum or plasma sodium measurement (moles/volume) 141 mmol/L 135-145 Serum or plasma potassium measurement (moles/volume) 3.9 mmol/L 3.6-5.0 Serum or plasma chloride measurement (moles/volume) 105 mmol/L 98-107 Carbon dioxide 24 mmol/L 21-32 Serum or plasma anion gap determination (moles/volume) 12 mmol/L 5-14 Serum or plasma urea nitrogen measurement (mass/volume) 12 mg/dL 7-18 Serum or plasma creatinine measurement (mass/volume) 1.16 mg/dL 0.60-1.30 Serum or plasma urea nitrogen/creatinine mass ratio 10 NRG Serum or plasma creatinine measurement with calculation of estimated glomerular filtration rate > NRG Serum or plasma glucose measurement (mass/volume) 115 mg/dL 70-105 Serum or plasma calcium measurement (mass/volume) 9.4 mg/dL 8.5-10.1 Serum or plasma total bilirubin measurement (mass/volume) 1.0 mg/dL 0.1-1.0 Serum or plasma alkaline phosphatase measurement (enzymatic activity/volume) 74 U/L 40-136 Serum or plasma aspartate aminotransferase measurement (enzymatic activity/ volume) 26 U/L 5-34 Serum or plasma alanine aminotransferase measurement (enzymatic activity/volume ) 28 U/L 0-55 Serum or plasma protein measurement (mass/volume) 7.2 g/dL 6.4-8.2 Serum or plasma albumin measurement (mass/volume) 4.2 g/dL 3.2-4.5 Serum or plasma lithium measurement (moles/volume) - 03/20/17 11:50 BNP level 116.5 pg/mL <100.0 Serum or plasma troponin i.cardiac measurement (mass/volume) - 03/20/17 11:50 Serum or plasma troponin i.cardiac measurement (mass/volume) < ng/ mL <0.30 Complete urinalysis with reflex to culture - 03/20/17 12:36 Urine color determination YELLOW NRG Urine clarity determination SLIGHTLY CLOUDY NRG Urine pH measurement by test strip 6 5-9 Specific gravity of urine by test strip 1.010 1.016- 1.022 Urine protein assay by test strip, semi-quantitative NEGATIVE NEGATIVE Urine glucose detection by automated test strip NEGATIVE NEGATIVE Erythrocytes detection in urine sediment by light microscopy NEGATIVE NEGATIVE Urine ketones detection by automated test strip NEGATIVE NEGATIVE Urine nitrite detection by test strip NEGATIVE NEGATIVE Urine total bilirubin detection by test strip NEGATIVE NEGATIVE Urine urobilinogen measurement by automated test strip (mass/volume) NORMAL NORMAL Urine leukocyte esterase detection by dipstick 1+ NEGATIVE Automated urine sediment erythrocyte count by microscopy (number/high power field) NONE NRG Automated urine sediment leukocyte count by microscopy (number/high power field ) RARE NRG Bacteria detection in urine sediment by light microscopy NEGATIVE NRG Crystals detection in urine sediment by light microscopy NONE NRG Casts detection in urine sediment by light microscopy NONE NRG Mucus detection in urine sediment by light microscopy NEGATIVE NRG Complete urinalysis with reflex to culture NO NRG Serum or plasma troponin i.cardiac measurement (mass/volume) - 03/20/17 17:45 Serum or plasma troponin i.cardiac measurement (mass/volume) < ng/ mL <0.30 Myoglobin, serum - 03/20/17 17:45 Myoglobin, serum 93.7 ng/mL 10.0-92.0 Complete blood count (CBC) with automated white blood cell (WBC) differential - 03/21/17 05:25 Blood leukocytes automated count (number/volume) 4.9 10*3/uL 4.3-11.0 Blood erythrocytes automated count (number/volume) 5.09 10*6/uL 4.35-5.85 Venous blood hemoglobin measurement (mass/volume) 14.6 g/dL 13.3-17.7 Blood hematocrit (volume fraction) 38 % 40-54 Automated erythrocyte mean corpuscular volume 74 [foz_us] 80-99 Automated erythrocyte mean corpuscular hemoglobin (mass per erythrocyte) 29 pg 25-34 Automated erythrocyte mean corpuscular hemoglobin concentration measurement ( mass/volume) 39 g/dL 32-36 Automated erythrocyte distribution width ratio 13.6 % 10.0-14.5 Automated blood platelet count (count/volume) 191 10*3/uL 130-400 Automated blood platelet mean volume measurement 9.3 [foz_us] 7.4-10.4 Automated blood neutrophils/100 leukocytes 72 % 42-75 Automated blood lymphocytes/100 leukocytes 13 % 12-44 Blood monocytes/100 leukocytes 14 % 0-12 Automated blood eosinophils/100 leukocytes 0 % 0-10 Automated blood basophils/100 leukocytes 0 % 0-10 Blood neutrophils automated count (number/volume) 3.6 10*3 1.8-7.8 Blood lymphocytes automated count (number/volume) 0.6 10*3 1.0-4.0 Blood monocytes automated count (number/volume) 0.7 10*3 0.0-1.0 Automated eosinophil count 0.0 10*3/uL 0.0-0.3 Automated blood basophil count (count/volume) 0.0 10*3/uL 0.0-0.1 Comprehensive metabolic panel - 03/21/17 05:25 Serum or plasma sodium measurement (moles/volume) 137 mmol/L 135-145 Serum or plasma potassium measurement (moles/volume) 3.7 mmol/L 3.6-5.0 Serum or plasma chloride measurement (moles/volume) 103 mmol/L 98-107 Carbon dioxide 20 mmol/L 21-32 Serum or plasma anion gap determination (moles/volume) 14 mmol/L 5-14 Serum or plasma urea nitrogen measurement (mass/volume) 13 mg/dL 7-18 Serum or plasma creatinine measurement (mass/volume) 0.95 mg/dL 0.60-1.30 Serum or plasma urea nitrogen/creatinine mass ratio 14 NRG Serum or plasma creatinine measurement with calculation of estimated glomerular filtration rate > NRG Serum or plasma glucose measurement (mass/volume) 130 mg/dL 70-105 Serum or plasma calcium measurement (mass/volume) 8.8 mg/dL 8.5-10.1 Serum or plasma total bilirubin measurement (mass/volume) 0.7 mg/dL 0.1-1.0 Serum or plasma alkaline phosphatase measurement (enzymatic activity/volume) 65 U/L 40-136 Serum or plasma aspartate aminotransferase measurement (enzymatic activity/ volume) 16 U/L 5-34 Serum or plasma alanine aminotransferase measurement (enzymatic activity/volume ) 21 U/L 0-55 Serum or plasma protein measurement (mass/volume) 6.4 g/dL 6.4-8.2 Serum or plasma albumin measurement (mass/volume) 3.8 g/dL 3.2-4.5 Serum or plasma troponin i.cardiac measurement (mass/volume) - 03/21/17 05:25 Serum or plasma troponin i.cardiac measurement (mass/volume) < ng/ mL <0.30 Lipid 1996 panel - 03/21/17 05:25 Serum or plasma triglyceride measurement (mass/volume) 94 mg/dL <150 Serum or plasma cholesterol measurement (mass/volume) 134 mg/dL < 200 Serum or plasma cholesterol in HDL measurement (mass/volume) 25 mg/ dL 40-60 Cholesterol in LDL [mass/volume] in serum or plasma by direct assay 92 mg/dL 1-129 Serum or plasma cholesterol in VLDL measurement (mass/volume) 19 mg/ dL 5-40 Complete blood count (CBC) with automated white blood cell (WBC) differential - 03/22/17 13:04 Blood leukocytes automated count (number/volume) 6.3 10*3/uL 4.3-11.0 Blood erythrocytes automated count (number/volume) 5.32 10*6/uL 4.35-5.85 Venous blood hemoglobin measurement (mass/volume) 15.3 g/dL 13.3-17.7 Blood hematocrit (volume fraction) 42 % 40-54 Automated erythrocyte mean corpuscular volume 79 [foz_us] 80-99 Automated erythrocyte mean corpuscular hemoglobin (mass per erythrocyte) 29 pg 25-34 Automated erythrocyte mean corpuscular hemoglobin concentration measurement ( mass/volume) 37 g/dL 32-36 Automated erythrocyte distribution width ratio 13.9 % 10.0-14.5 Automated blood platelet count (count/volume) 217 10*3/uL 130-400 Automated blood platelet mean volume measurement 9.7 [foz_us] 7.4-10.4 Automated blood neutrophils/100 leukocytes 88 % 42-75 Automated blood lymphocytes/100 leukocytes 5 % 12-44 Blood monocytes/100 leukocytes 6 % 0-12 Automated blood eosinophils/100 leukocytes 0 % 0-10 Automated blood basophils/100 leukocytes 0 % 0-10 Blood neutrophils automated count (number/volume) 5.5 10*3 1.8-7.8 Blood lymphocytes automated count (number/volume) 0.3 10*3 1.0-4.0 Blood monocytes automated count (number/volume) 0.4 10*3 0.0-1.0 Automated eosinophil count 0.0 10*3/uL 0.0-0.3 Automated blood basophil count (count/volume) 0.0 10*3/uL 0.0-0.1 Blood manual differential performed detection - 03/22/17 13:04 Blood monocytes/100 leukocytes 10 % NRG Manual blood segmented neutrophils/100 leukocytes 81 % NRG Blood band neutrophils/100 leukocytes 2 % NRG Manual blood lymphocytes/100 leukocytes 5 % NRG Manual eosinophils/100 leukocytes in nose 2 % NRG Blood erythrocyte morphology finding identification NORMAL [facility] Blood dohle body detection by light microscopy SLIGHT [facility] Comprehensive metabolic panel - 03/22/17 13:04 Serum or plasma sodium measurement (moles/volume) 138 mmol/L 135-145 Serum or plasma potassium measurement (moles/volume) 3.8 mmol/L 3.6-5.0 Serum or plasma chloride measurement (moles/volume) 106 mmol/L 98-107 Carbon dioxide 18 mmol/L 21-32 Serum or plasma anion gap determination (moles/volume) 14 mmol/L 5-14 Serum or plasma urea nitrogen measurement (mass/volume) 16 mg/dL 7-18 Serum or plasma creatinine measurement (mass/volume) 1.14 mg/dL 0.60-1.30 Serum or plasma urea nitrogen/creatinine mass ratio 14 NRG Serum or plasma creatinine measurement with calculation of estimated glomerular filtration rate > NRG Serum or plasma glucose measurement (mass/volume) 205 mg/dL 70-105 Serum or plasma calcium measurement (mass/volume) 8.7 mg/dL 8.5-10.1 Serum or plasma total bilirubin measurement (mass/volume) 0.5 mg/dL 0.1-1.0 Serum or plasma alkaline phosphatase measurement (enzymatic activity/volume) 80 U/L 40-136 Serum or plasma aspartate aminotransferase measurement (enzymatic activity/ volume) 20 U/L 5-34 Serum or plasma alanine aminotransferase measurement (enzymatic activity/volume ) 23 U/L 0-55 Serum or plasma protein measurement (mass/volume) 6.7 g/dL 6.4-8.2 Serum or plasma albumin measurement (mass/volume) 3.9 g/dL 3.2-4.5 Arterial blood gas measurement - 03/22/17 13:12 Blood pCO2 35 mm[Hg] 35-45 Blood pO2 71 mm[Hg] 79-93 Arterial blood bicarbonate measurement (moles/volume) 21 mmol/L 23-27 Arterial blood base excess by calculation -3.5 mmol/L - 2.5-2.5 Arterial blood oxygen saturation measurement 97 % 94-100 * Inhaled oxygen flow rate ROOM AIR NRG Arterial blood pH measurement with patient temperature correction 7.39 7.37-7.43 Arterial blood carbon dioxide, total measurement (moles/volume) 21.9 mmol/L 21.0-31.0 Body site RT RAD NRG Assessment of wrist artery patency prior to arterial puncture YES- POS NRG Setting of ventilation mode NO NRG Measurement of body temperature 97.4 NRG Capillary blood glucose measurement by glucometer (mass/volume) - 03/22/17 15: 32 Capillary blood glucose measurement by glucometer (mass/volume) 252 mg/dL 70-110 Capillary blood glucose measurement by glucometer (mass/volume) - 03/22/17 20: 58 Capillary blood glucose measurement by glucometer (mass/volume) 335 mg/dL 70-110 Capillary blood glucose measurement by glucometer (mass/volume) - 03/23/17 05: 33 Capillary blood glucose measurement by glucometer (mass/volume) 246 mg/dL 70-110 Complete blood count (CBC) with automated white blood cell (WBC) differential - 03/23/17 06:15 Blood leukocytes automated count (number/volume) 9.5 10*3/uL 4.3-11.0 Blood erythrocytes automated count (number/volume) 5.19 10*6/uL 4.35-5.85 Venous blood hemoglobin measurement (mass/volume) 14.8 g/dL 13.3-17.7 Blood hematocrit (volume fraction) 42 % 40-54 Automated erythrocyte mean corpuscular volume 81 [foz_us] 80-99 Automated erythrocyte mean corpuscular hemoglobin (mass per erythrocyte) 29 pg 25-34 Automated erythrocyte mean corpuscular hemoglobin concentration measurement ( mass/volume) 35 g/dL 32-36 Automated erythrocyte distribution width ratio 13.7 % 10.0-14.5 Automated blood platelet count (count/volume) 220 10*3/uL 130-400 Automated blood platelet mean volume measurement 9.8 [foz_us] 7.4-10.4 Automated blood neutrophils/100 leukocytes 92 % 42-75 Automated blood lymphocytes/100 leukocytes 4 % 12-44 Blood monocytes/100 leukocytes 3 % 0-12 Automated blood eosinophils/100 leukocytes 0 % 0-10 Automated blood basophils/100 leukocytes 0 % 0-10 Blood neutrophils automated count (number/volume) 8.7 10*3 1.8-7.8 Blood lymphocytes automated count (number/volume) 0.4 10*3 1.0-4.0 Blood monocytes automated count (number/volume) 0.3 10*3 0.0-1.0 Automated eosinophil count 0.0 10*3/uL 0.0-0.3 Automated blood basophil count (count/volume) 0.0 10*3/uL 0.0-0.1 Comprehensive metabolic panel - 03/23/17 06:15 Serum or plasma sodium measurement (moles/volume) 137 mmol/L 135-145 Serum or plasma potassium measurement (moles/volume) 3.8 mmol/L 3.6-5.0 Serum or plasma chloride measurement (moles/volume) 104 mmol/L 98-107 Carbon dioxide 19 mmol/L 21-32 Serum or plasma anion gap determination (moles/volume) 14 mmol/L 5-14 Serum or plasma urea nitrogen measurement (mass/volume) 16 mg/dL 7-18 Serum or plasma creatinine measurement (mass/volume) 1.12 mg/dL 0.60-1.30 Serum or plasma urea nitrogen/creatinine mass ratio 14 NRG Serum or plasma creatinine measurement with calculation of estimated glomerular filtration rate > NRG Serum or plasma glucose measurement (mass/volume) 246 mg/dL 70-105 Serum or plasma calcium measurement (mass/volume) 8.9 mg/dL 8.5-10.1 Serum or plasma total bilirubin measurement (mass/volume) 0.5 mg/dL 0.1-1.0 Serum or plasma alkaline phosphatase measurement (enzymatic activity/volume) 68 U/L 40-136 Serum or plasma aspartate aminotransferase measurement (enzymatic activity/ volume) 13 U/L 5-34 Serum or plasma alanine aminotransferase measurement (enzymatic activity/volume ) 20 U/L 0-55 Serum or plasma protein measurement (mass/volume) 6.2 g/dL 6.4-8.2 Serum or plasma albumin measurement (mass/volume) 3.8 g/dL 3.2-4.5 Serum or plasma troponin i.cardiac measurement (mass/volume) - 03/23/17 06:15 Serum or plasma troponin i.cardiac measurement (mass/volume) < ng/ mL <0.30 Capillary blood glucose measurement by glucometer (mass/volume) - 03/23/17 11: 52 Capillary blood glucose measurement by glucometer (mass/volume) 280 mg/dL 70-110 Capillary blood glucose measurement by glucometer (mass/volume) - 03/23/17 16: 08 Capillary blood glucose measurement by glucometer (mass/volume) 217 mg/dL 70-110 Capillary blood glucose measurement by glucometer (mass/volume) - 03/23/17 20: 18 Capillary blood glucose measurement by glucometer (mass/volume) 259 mg/dL 70-110 Capillary blood glucose measurement by glucometer (mass/volume) - 03/24/17 05: 35 Capillary blood glucose measurement by glucometer (mass/volume) 213 mg/dL 70-110 Automated blood complete blood count (hemogram) panel - 03/24/17 06:21 Blood leukocytes automated count (number/volume) 15.7 10*3/uL 4.3-11.0 Blood erythrocytes automated count (number/volume) 5.16 10*6/uL 4.35-5.85 Venous blood hemoglobin measurement (mass/volume) 14.9 g/dL 13.3-17.7 Blood hematocrit (volume fraction) 45 % 40-54 Automated erythrocyte mean corpuscular volume 87 [foz_us] 80-99 Automated erythrocyte mean corpuscular hemoglobin (mass per erythrocyte) 29 pg 25-34 Automated erythrocyte mean corpuscular hemoglobin concentration measurement ( mass/volume) 33 g/dL 32-36 Automated erythrocyte distribution width ratio 14.1 % 10.0-14.5 Automated blood platelet count (count/volume) 252 10*3/uL 130-400 Automated blood platelet mean volume measurement 9.2 [foz_us] 7.4-10.4 Comprehensive metabolic panel - 03/24/17 06:21 Serum or plasma sodium measurement (moles/volume) 138 mmol/L 135-145 Serum or plasma potassium measurement (moles/volume) 3.7 mmol/L 3.6-5.0 Serum or plasma chloride measurement (moles/volume) 103 mmol/L 98-107 Carbon dioxide 19 mmol/L 21-32 Serum or plasma anion gap determination (moles/volume) 16 mmol/L 5-14 Serum or plasma urea nitrogen measurement (mass/volume) 22 mg/dL 7-18 Serum or plasma creatinine measurement (mass/volume) 1.11 mg/dL 0.60-1.30 Serum or plasma urea nitrogen/creatinine mass ratio 20 NRG Serum or plasma creatinine measurement with calculation of estimated glomerular filtration rate > NRG Serum or plasma glucose measurement (mass/volume) 240 mg/dL 70-105 Serum or plasma calcium measurement (mass/volume) 8.9 mg/dL 8.5-10.1 Serum or plasma total bilirubin measurement (mass/volume) 0.6 mg/dL 0.1-1.0 Serum or plasma alkaline phosphatase measurement (enzymatic activity/volume) 64 U/L 40-136 Serum or plasma aspartate aminotransferase measurement (enzymatic activity/ volume) 13 U/L 5-34 Serum or plasma alanine aminotransferase measurement (enzymatic activity/volume ) 22 U/L 0-55 Serum or plasma protein measurement (mass/volume) 6.2 g/dL 6.4-8.2 Serum or plasma albumin measurement (mass/volume) 3.7 g/dL 3.2-4.5 Serum or plasma troponin i.cardiac measurement (mass/volume) - 03/24/17 06:21 Serum or plasma troponin i.cardiac measurement (mass/volume) < ng/ mL <0.30 Capillary blood glucose measurement by glucometer (mass/volume) - 03/24/17 10: 33 Capillary blood glucose measurement by glucometer (mass/volume) 259 mg/dL 70-110 Capillary blood glucose measurement by glucometer (mass/volume) - 03/24/17 16: 08 Capillary blood glucose measurement by glucometer (mass/volume) 208 mg/dL 70-110 Capillary blood glucose measurement by glucometer (mass/volume) - 03/24/17 20: 11 Capillary blood glucose measurement by glucometer (mass/volume) 328 mg/dL 70-110 Complete blood count (CBC) with automated white blood cell (WBC) differential - 03/25/17 06:20 Blood leukocytes automated count (number/volume) 16.6 10*3/uL 4.3-11.0 Blood erythrocytes automated count (number/volume) 5.30 10*6/uL 4.35-5.85 Venous blood hemoglobin measurement (mass/volume) 15.2 g/dL 13.3-17.7 Blood hematocrit (volume fraction) 43 % 40-54 Automated erythrocyte mean corpuscular volume 81 [foz_us] 80-99 Automated erythrocyte mean corpuscular hemoglobin (mass per erythrocyte) 29 pg 25-34 Automated erythrocyte mean corpuscular hemoglobin concentration measurement ( mass/volume) 36 g/dL 32-36 Automated erythrocyte distribution width ratio 13.9 % 10.0-14.5 Automated blood platelet count (count/volume) 245 10*3/uL 130-400 Automated blood platelet mean volume measurement 10.2 [foz_us] 7.4-10.4 Automated blood neutrophils/100 leukocytes 91 % 42-75 Automated blood lymphocytes/100 leukocytes 3 % 12-44 Blood monocytes/100 leukocytes 6 % 0-12 Automated blood eosinophils/100 leukocytes 0 % 0-10 Automated blood basophils/100 leukocytes 0 % 0-10 Blood neutrophils automated count (number/volume) 15.1 10*3 1.8-7.8 Blood lymphocytes automated count (number/volume) 0.5 10*3 1.0-4.0 Blood monocytes automated count (number/volume) 1.0 10*3 0.0-1.0 Automated eosinophil count 0.0 10*3/uL 0.0-0.3 Automated blood basophil count (count/volume) 0.0 10*3/uL 0.0-0.1 Comprehensive metabolic panel - 03/25/17 06:20 Serum or plasma sodium measurement (moles/volume) 137 mmol/L 135-145 Serum or plasma potassium measurement (moles/volume) 3.8 mmol/L 3.6-5.0 Serum or plasma chloride measurement (moles/volume) 102 mmol/L 98-107 Carbon dioxide 22 mmol/L 21-32 Serum or plasma anion gap determination (moles/volume) 13 mmol/L 5-14 Serum or plasma urea nitrogen measurement (mass/volume) 22 mg/dL 7-18 Serum or plasma creatinine measurement (mass/volume) 1.06 mg/dL 0.60-1.30 Serum or plasma urea nitrogen/creatinine mass ratio 21 NRG Serum or plasma creatinine measurement with calculation of estimated glomerular filtration rate > NRG Serum or plasma glucose measurement (mass/volume) 202 mg/dL 70-105 Serum or plasma calcium measurement (mass/volume) 8.5 mg/dL 8.5-10.1 Serum or plasma total bilirubin measurement (mass/volume) 0.5 mg/dL 0.1-1.0 Serum or plasma alkaline phosphatase measurement (enzymatic activity/volume) 63 U/L 40-136 Serum or plasma aspartate aminotransferase measurement (enzymatic activity/ volume) 33 U/L 5-34 Serum or plasma alanine aminotransferase measurement (enzymatic activity/volume ) 60 U/L 0-55 Serum or plasma protein measurement (mass/volume) 5.8 g/dL 6.4-8.2 Serum or plasma albumin measurement (mass/volume) 3.6 g/dL 3.2-4.5 Blood manual differential performed detection - 03/25/17 06:20 Blood monocytes/100 leukocytes 3 % NRG Manual blood segmented neutrophils/100 leukocytes 94 % NRG Blood band neutrophils/100 leukocytes 1 % NRG Manual blood lymphocytes/100 leukocytes 2 % NRG Manual eosinophils/100 leukocytes in nose 0 % NRG Manual blood basophils/100 leukocytes 0 % NRG Blood erythrocyte morphology finding identification NORMAL NRG Capillary blood glucose measurement by glucometer (mass/volume) - 03/25/17 06: 22 Capillary blood glucose measurement by glucometer (mass/volume) 180 mg/dL 70-110 Capillary blood glucose measurement by glucometer (mass/volume) - 03/25/17 11: 45 Capillary blood glucose measurement by glucometer (mass/volume) 177 mg/dL 70-110 Capillary blood glucose measurement by glucometer (mass/volume) - 03/25/17 15: 48 Capillary blood glucose measurement by glucometer (mass/volume) 232 mg/dL 70-110 Capillary blood glucose measurement by glucometer (mass/volume) - 03/25/17 20: 57 Capillary blood glucose measurement by glucometer (mass/volume) 284 mg/dL 70-110 Complete blood count (CBC) with automated white blood cell (WBC) differential - 03/26/17 06:12 Blood leukocytes automated count (number/volume) 15.8 10*3/uL 4.3-11.0 Blood erythrocytes automated count (number/volume) 5.52 10*6/uL 4.35-5.85 Venous blood hemoglobin measurement (mass/volume) 16.5 g/dL 13.3-17.7 Blood hematocrit (volume fraction) 45 % 40-54 Automated erythrocyte mean corpuscular volume 81 [foz_us] 80-99 Automated erythrocyte mean corpuscular hemoglobin (mass per erythrocyte) 30 pg 25-34 Automated erythrocyte mean corpuscular hemoglobin concentration measurement ( mass/volume) 37 g/dL 32-36 Automated erythrocyte distribution width ratio 13.9 % 10.0-14.5 Automated blood platelet count (count/volume) 280 10*3/uL 130-400 Automated blood platelet mean volume measurement 9.9 [foz_us] 7.4-10.4 Automated blood neutrophils/100 leukocytes 81 % 42-75 Automated blood lymphocytes/100 leukocytes 9 % 12-44 Blood monocytes/100 leukocytes 10 % 0-12 Automated blood eosinophils/100 leukocytes 0 % 0-10 Automated blood basophils/100 leukocytes 0 % 0-10 Blood neutrophils automated count (number/volume) 12.8 10*3 1.8-7.8 Blood lymphocytes automated count (number/volume) 1.4 10*3 1.0-4.0 Blood monocytes automated count (number/volume) 1.6 10*3 0.0-1.0 Automated eosinophil count 0.0 10*3/uL 0.0-0.3 Automated blood basophil count (count/volume) 0.0 10*3/uL 0.0-0.1 Whole blood basic metabolic panel - 03/26/17 06:12 Serum or plasma sodium measurement (moles/volume) 140 mmol/L 135-145 Serum or plasma potassium measurement (moles/volume) 3.8 mmol/L 3.6-5.0 Serum or plasma chloride measurement (moles/volume) 103 mmol/L 98-107 Carbon dioxide 24 mmol/L 21-32 Serum or plasma anion gap determination (moles/volume) 13 mmol/L 5-14 Serum or plasma urea nitrogen measurement (mass/volume) 20 mg/dL 7-18 Serum or plasma creatinine measurement (mass/volume) 1.03 mg/dL 0.60-1.30 Serum or plasma urea nitrogen/creatinine mass ratio 19 NRG Serum or plasma creatinine measurement with calculation of estimated glomerular filtration rate > NRG Serum or plasma glucose measurement (mass/volume) 117 mg/dL 70-105 Serum or plasma calcium measurement (mass/volume) 8.4 mg/dL 8.5-10.1 Capillary blood glucose measurement by glucometer (mass/volume) - 03/26/17 06: 20 Capillary blood glucose measurement by glucometer (mass/volume) 109 mg/dL 70-110 Capillary blood glucose measurement by glucometer (mass/volume) - 03/26/17 11: 03 Capillary blood glucose measurement by glucometer (mass/volume) 134 mg/dL 70-110 Capillary blood glucose measurement by glucometer (mass/volume) - 03/26/17 16: 24 Capillary blood glucose measurement by glucometer (mass/volume) 273 mg/dL 70-110 Capillary blood glucose measurement by glucometer (mass/volume) - 03/26/17 21: 33 Capillary blood glucose measurement by glucometer (mass/volume) 231 mg/dL 70-110 Complete blood count (CBC) with automated white blood cell (WBC) differential - 03/27/17 05:30 Blood leukocytes automated count (number/volume) 12.6 10*3/uL 4.3-11.0 Blood erythrocytes automated count (number/volume) 4.82 10*6/uL 4.35-5.85 Venous blood hemoglobin measurement (mass/volume) 14.1 g/dL 13.3-17.7 Blood hematocrit (volume fraction) 40 % 40-54 Automated erythrocyte mean corpuscular volume 83 [foz_us] 80-99 Automated erythrocyte mean corpuscular hemoglobin (mass per erythrocyte) 29 pg 25-34 Automated erythrocyte mean corpuscular hemoglobin concentration measurement ( mass/volume) 35 g/dL 32-36 Automated erythrocyte distribution width ratio 14.0 % 10.0-14.5 Automated blood platelet count (count/volume) 250 10*3/uL 130-400 Automated blood platelet mean volume measurement 10.1 [foz_us] 7.4-10.4 Automated blood neutrophils/100 leukocytes 82 % 42-75 Automated blood lymphocytes/100 leukocytes 8 % 12-44 Blood monocytes/100 leukocytes 9 % 0-12 Automated blood eosinophils/100 leukocytes 0 % 0-10 Automated blood basophils/100 leukocytes 0 % 0-10 Blood neutrophils automated count (number/volume) 10.4 10*3 1.8-7.8 Blood lymphocytes automated count (number/volume) 1.1 10*3 1.0-4.0 Blood monocytes automated count (number/volume) 1.2 10*3 0.0-1.0 Automated eosinophil count 0.0 10*3/uL 0.0-0.3 Automated blood basophil count (count/volume) 0.0 10*3/uL 0.0-0.1 Whole blood basic metabolic panel - 03/27/17 05:30 Serum or plasma sodium measurement (moles/volume) 137 mmol/L 135-145 Serum or plasma potassium measurement (moles/volume) 3.6 mmol/L 3.6-5.0 Serum or plasma chloride measurement (moles/volume) 104 mmol/L 98-107 Carbon dioxide 23 mmol/L 21-32 Serum or plasma anion gap determination (moles/volume) 10 mmol/L 5-14 Serum or plasma urea nitrogen measurement (mass/volume) 22 mg/dL 7-18 Serum or plasma creatinine measurement (mass/volume) 0.87 mg/dL 0.60-1.30 Serum or plasma urea nitrogen/creatinine mass ratio 25 NRG Serum or plasma creatinine measurement with calculation of estimated glomerular filtration rate > NRG Serum or plasma glucose measurement (mass/volume) 127 mg/dL 70-105 Serum or plasma calcium measurement (mass/volume) 7.9 mg/dL 8.5-10.1 Capillary blood glucose measurement by glucometer (mass/volume) - 03/27/17 06: 07 Capillary blood glucose measurement by glucometer (mass/volume) 116 mg/dL 70-110 Capillary blood glucose measurement by glucometer (mass/volume) - 03/27/17 11: 54 Capillary blood glucose measurement by glucometer (mass/volume) 173 mg/dL 70-110 Capillary blood glucose measurement by glucometer (mass/volume) - 03/27/17 16: 04 Capillary blood glucose measurement by glucometer (mass/volume) 297 mg/dL 70-110 Capillary blood glucose measurement by glucometer (mass/volume) - 03/27/17 20: 56 Capillary blood glucose measurement by glucometer (mass/volume) 238 mg/dL 70-110 Capillary blood glucose measurement by glucometer (mass/volume) - 03/28/17 05: 38 Capillary blood glucose measurement by glucometer (mass/volume) 107 mg/dL 70-110 Automated blood complete blood count (hemogram) panel - 03/28/17 07:16 Blood leukocytes automated count (number/volume) 14.2 10*3/uL 4.3-11.0 Blood erythrocytes automated count (number/volume) 5.18 10*6/uL 4.35-5.85 Venous blood hemoglobin measurement (mass/volume) 15.0 g/dL 13.3-17.7 Blood hematocrit (volume fraction) 42 % 40-54 Automated erythrocyte mean corpuscular volume 81 [foz_us] 80-99 Automated erythrocyte mean corpuscular hemoglobin (mass per erythrocyte) 29 pg 25-34 Automated erythrocyte mean corpuscular hemoglobin concentration measurement ( mass/volume) 36 g/dL 32-36 Automated erythrocyte distribution width ratio 14.2 % 10.0-14.5 Automated blood platelet count (count/volume) 258 10*3/uL 130-400 Automated blood platelet mean volume measurement 9.6 [foz_us] 7.4-10.4 Whole blood basic metabolic panel - 03/28/17 07:16 Serum or plasma sodium measurement (moles/volume) 138 mmol/L 135-145 Serum or plasma potassium measurement (moles/volume) 3.8 mmol/L 3.6-5.0 Serum or plasma chloride measurement (moles/volume) 103 mmol/L 98-107 Carbon dioxide 24 mmol/L 21-32 Serum or plasma anion gap determination (moles/volume) 11 mmol/L 5-14 Serum or plasma urea nitrogen measurement (mass/volume) 19 mg/dL 7-18 Serum or plasma creatinine measurement (mass/volume) 0.97 mg/dL 0.60-1.30 Serum or plasma urea nitrogen/creatinine mass ratio 20 NRG Serum or plasma creatinine measurement with calculation of estimated glomerular filtration rate > NRG Serum or plasma glucose measurement (mass/volume) 157 mg/dL 70-105 Serum or plasma calcium measurement (mass/volume) 8.2 mg/dL 8.5-10.1 Complete blood count (CBC) with automated white blood cell (WBC) differential - 04/07/17 13:07 Blood leukocytes automated count (number/volume) 8.7 10*3/uL 4.3-11.0 Blood erythrocytes automated count (number/volume) 5.05 10*6/uL 4.35-5.85 Venous blood hemoglobin measurement (mass/volume) 14.8 g/dL 13.3-17.7 Blood hematocrit (volume fraction) 42 % 40-54 Automated erythrocyte mean corpuscular volume 83 [foz_us] 80-99 Automated erythrocyte mean corpuscular hemoglobin (mass per erythrocyte) 29 pg 25-34 Automated erythrocyte mean corpuscular hemoglobin concentration measurement ( mass/volume) 35 g/dL 32-36 Automated erythrocyte distribution width ratio 14.0 % 10.0-14.5 Automated blood platelet count (count/volume) 235 10*3/uL 130-400 Automated blood platelet mean volume measurement 9.6 [foz_us] 7.4-10.4 Automated blood neutrophils/100 leukocytes 77 % 42-75 Automated blood lymphocytes/100 leukocytes 8 % 12-44 Blood monocytes/100 leukocytes 12 % 0-12 Automated blood eosinophils/100 leukocytes 2 % 0-10 Automated blood basophils/100 leukocytes 1 % 0-10 Blood neutrophils automated count (number/volume) 6.7 10*3 1.8-7.8 Blood lymphocytes automated count (number/volume) 0.7 10*3 1.0-4.0 Blood monocytes automated count (number/volume) 1.1 10*3 0.0-1.0 Automated eosinophil count 0.2 10*3/uL 0.0-0.3 Automated blood basophil count (count/volume) 0.0 10*3/uL 0.0-0.1 Whole blood basic metabolic panel - 04/07/17 13:07 Serum or plasma sodium measurement (moles/volume) 136 mmol/L 135-145 Serum or plasma potassium measurement (moles/volume) 4.0 mmol/L 3.6-5.0 Serum or plasma chloride measurement (moles/volume) 103 mmol/L 98-107 Carbon dioxide 20 mmol/L 21-32 Serum or plasma anion gap determination (moles/volume) 13 mmol/L 5-14 Serum or plasma urea nitrogen measurement (mass/volume) 13 mg/dL 7-18 Serum or plasma creatinine measurement (mass/volume) 1.13 mg/dL 0.60-1.30 Serum or plasma urea nitrogen/creatinine mass ratio 12 NRG Serum or plasma creatinine measurement with calculation of estimated glomerular filtration rate > NRG Serum or plasma glucose measurement (mass/volume) 119 mg/dL 70-105 Serum or plasma calcium measurement (mass/volume) 9.4 mg/dL 8.5-10.1 Encounters ACCT No. Visit Date/Time Discharge Status Pt. Type Provider Facility Loc./Unit Complaint [id number] 05/05/2017 20:30:00 05/06/2017 06:50:00 DIS Outpatient CARSON CARMONA [employer]NA[employer] [facility] SLEEP G47.9 SLEEP DISORDER [id number] 04/30/2017 13:22:00 04/30/2017 23:59:59 CLS Outpatient CARSON CARMONA [employer] MANAGER [facility] RT R06.00 SOB [id number] 04/28/2017 07:14:00 04/28/2017 23:59:59 CLS Outpatient CARSON CARMONA [employer] MANAGER [facility] RAD R06.00 [id number] 04/07/2017 12:45:00 04/07/2017 23:59:59 CLS Outpatient DAKOTALENELIAS LU DO [facility] RAD BRONCHITIS,SOB [id number] 03/24/2017 09:00:00 03/28/2017 11:51:00 DIS Inpatient GELLENELIAS LU DO [facility] 4TH CHEST PAIN, BRONCHITIS [id number] 01/21/2017 14:16:00 01/21/2017 23:59:59 CLS Outpatient CARLOS ESCOBAR [facility] ONC [id number] 08/08/2016 12:07:00 08/08/2016 23:59:59 CLS Outpatient DAKOTADEANN CONTEH ELIAS A [facility] RAD PAIN IN LEFT ANKLE [id number] 04/25/2016 10:37:00 04/25/2016 23:59:59 CLS Outpatient DAKOTAELIAS ZACARIAS DO A [facility] LAB CHEST PAIN,COUGH [id number] 04/24/2016 14:01:00 04/24/2016 23:59:59 CLS Outpatient DAKOTAELIAS ZACARIAS DO [facility] RAD COUGH [id number] 01/10/2016 10:51:00 01/10/2016 23:59:59 CLS Outpatient CARLOS ESCOBAR [facility] RAD [id number] 01/10/2016 09:34:00 01/10/2016 23:59:59 CLS Outpatient CARLOS ESCOBAR [facility] ONC [id number] 09/25/2015 08:41:00 09/25/2015 23:59:59 CLS Outpatient BIGG EDMONDSON DO [facility] RAD PULMONARY NODULE [id number] 01/11/2015 13:48:00 01/11/2015 23:59:59 CLS Outpatient ELIAS FUNK DO [facility] RAD WHEEZING,SOB [id number] 01/11/2015 09:38:00 01/11/2015 23:59:59 CLS Outpatient PARSONLIZZIE OR ASSISTANT [facility] ONC [id number] 09/21/2014 12:22:00 09/21/2014 23:59:59 CLS Outpatient BIGG EDMONDSON DO [facility] RAD PULMONARY NODULE,SOB [id number] 04/22/2014 07:05:00 04/25/2014 15:15:00 DIS Inpatient ETHAN CONDE DO [facility] CSD HERNIA REPAIR [id number] 01/13/2014 10:08:00 04/13/2014 00:01:00 DIS Outpatient CARLOS ESCOBAR [facility] ONC [id number] 02/21/2014 08:14:00 02/21/2014 23:59:59 CLS Outpatient BIGG EDMONDSON DO [facility] RAD PULMONARY NODULE PULMONARY EMBOLISM SOB [id number] 02/18/2014 12:37:00 02/18/2014 23:59:59 CLS Outpatient BIGG EDMONDSON DO [facility] LAB PE,SOA [id number] 10/14/2013 13:39:00 01/12/2014 00:01:00 DIS Outpatient CARLOS ESCOBAR [facility] ONC [id number] 01/05/2014 05:45:00 01/07/2014 08:10:00 DIS Inpatient ELIAS FUNK DO [facility] 4TH ACUTE ABDOMINAL PAIN [id number] 12/15/2013 11:52:00 12/15/2013 23:59:59 CLS Outpatient ELIAS FUNK DO [facility] RAD SOB,COUGH [id number] 09/21/2013 10:38:00 09/21/2013 23:59:59 CLS Outpatient JIM JOEL, DAISY Bush [facility] CARD CAD,HTN,HLP,DVT [id number] 08/02/2013 08:21:00 08/05/2013 18:30:00 DIS Inpatient ELIAS FUNK DO [facility] CSD BILATERAL PULMONARY EMBOLISM [id number] 07/29/2013 06:48:00 07/29/2013 13:05:00 DIS Outpatient MIRIAN MCDOWELL MD [facility] SDC UMBILICAL HERNIA [id number] 07/21/2013 10:09:00 07/21/2013 23:59:59 CLS Outpatient MIRIAN MCDOWELL MD [facility] PREOP UMBILICAL HERNIA [id number] 01/19/2012 08:41:00 Document Registration
[2017-07-03] MEDS ORDERED: KETOROLAC 30 MG/ML VIAL IVP ONE (19:00)
[2017-07-03] MEDS ORDERED: fentaNYL INJECTION 100 MCG/2 ML AMP IVP ONE ×2 (19:00→20:45)
--- NOTE | 2017-07-03 19:02 | ED General ---
General Chief Complaint: General Problems/Pain Stated Complaint: R ARM GOUT Nursing Triage Note: PT AMBULATED TO ROOM 5 ACCOMPANIED BY . PT STATES HE BEGAN HAVING RIGHT ARM PAIN APPROXIMATLEY 3-4 DAYS AGO AND THE PAIN BECAME UNBAREABLE TODAY. PT RATES PAIN 10/10 AT THIS TIME. PT HAS HX OF GOUT AND BELIEVES THIS IS A GOUT FLAIR. STATES PT IS TAKING COLCRYSO 0.6 MG AND IT IS NOT TOUCHING THE PAIN. Nursing Sepsis Screen: No Definite Risk Source of Information: Patient Exam Limitations: No Limitations History of Present Illness Date Seen by Provider: Jul 03, 2017 Time Seen by Provider: 19:00 Initial Comments to ER with a three-day history of right wrist pain. He has a history of gout in this wrista few years ago he states. He had some Colcrys at home and he's been taking that each of the past 3 days but he denies any improvement. There's been progressive erythema over the wrist without fevers or chills.there are no other affected joints. The pain is so bad it has caused him to have some chest pain, pain through to back. He has a history of coronary stenting by Dr. Styles in [place]. Chest pain is present now has been constant since last evening. Timing/Duration: 2-3 Days Severity: Moderate Allergies and Home Medications Allergies Coded Allergies: Sulfa (Sulfonamide Antibiotics) (Verified Allergy, Unknown, 01/19/12) hydrochlorothiazide (Verified Allergy, Unknown, 03/20/17) ketoprofen (Verified Allergy, Unknown, 01/19/12) nabumetone (Verified Allergy, Unknown, 01/19/12) rosuvastatin (Verified Allergy, Unknown, 03/20/17) morphine (Unverified Adverse Reaction, Mild, VOMITING, 04/25/14) Home Medications Albuterol Sulfate 1 Puff Puff, 2 PUFF INH Q6H PRN for SHORTNESS OF BREATH, ( Reported) Amlodipine Besylate 5 Mg Tablet, 5 MG PO DAILY, (Reported) Azithromycin 250 Mg Tablet, PO UD, (Reported) 5 DAY THERAPY FILLED 03-18-17 Clopidogrel Bisulfate 75 Mg Tablet, 75 MG PO DAILY, (Reported) Furosemide 40 Mg Tablet, 40 MG PO DAILY, (Reported) Isosorbide Mononitrate 120 Mg Tab.er.24h, 120 MG PO DAILY, (Reported) Nitroglycerin 0.4 Mg Tab.subl, 0.4 MG SL UD PRN for CHEST PAIN, (Reported) Potassium Gluconate 99 Mg Tablet, 99 MG PO DAILY, (Reported) Prednisone 10 Mg Tab, 30 MG PO DAILY Take 3 tabs(30mg)daily, decrease by 1 tab(10mg) every other day. START Prescribed by: ELIAS FUNK on 03/28/17 0754 Promethazine HCl/Codeine 118 Ml Syrup, 10 ML PO TID PRN for COUGH, (Reported) Ranitidine HCl 150 Mg Tablet, 150 MG PO BID, (Reported) Rivaroxaban 20 Mg Tablet, 20 MG PO HS, (Reported) Telmisartan 80 Mg Tablet, 80 MG PO DAILY, (Reported) [Black Chan 500MG] , 500 MG PO BID, (Reported) FOR GOUT Patient Home Medication List Home Medication List Reviewed: Yes Review of Systems Constitutional: see HPI EENTM: see HPI Respiratory: no symptoms reported Cardiovascular: see HPI, chest pain Genitourinary: no symptoms reported Musculoskeletal: see HPI Skin: no symptoms reported Psychiatric/Neurological: No Symptoms Reported Hematologic/Lymphatic: No Symptoms Reported Past Buqnvjk-Evnioi-Gypltt Hx Patient Social History Recent Foreign Travel: No Contact w/Someone Who Travel: No Recent Infectious Disease Expo: No Recent Hopitalizations: No Immunizations Up To Date Date of Pneumonia Vaccine: Dec 15, 2012 Seasonal Allergies Seasonal Allergies: No Past Medical History Surgeries: Yes (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 1015(APR) LAP UMBILICAL HERNIA REPAIR) Musculoskeletal: Yes Gout Endocrine: No Cancer: No Psychosocial: No Integumentary: No Blood Disorders: No Adverse Reaction/Blood Tranf: No Family Medical History Arthritis 19 MOTHER Asthma 19 FATHER Cataracts 19 MOTHER Completed stroke Hypertension 19 FATHER Myocardial infarction 19 MOTHER Seizure disorder DAUGHTERS Severe allergy 19 FATHER No Family History of: AIDS Abdominal aortic aneurysm Rishi's disease Alcoholism Alzheimer's disease Aphasia Cancer of mouth Cardiovascular disease Colon cancer Congenital disease Congenital heart disease Coronary thrombosis Cystic fibrosis Deafness or hearing loss Dementia Diabetes mellitus Drug abuse Dysphasia Fibrocystic disease of breast Gastroenteritis Glaucoma Headache disorder Hypercholesterolemia Infertility Kidney disease Neoplasm Not obtainable due to adoption Osteoporosis Parkinson's disease Prostate cancer Psychosocial problem Respiratory disorder Thyroid disease Tuberculosis Visual disorder Physical Exam Vital Signs Vital Signs - First Documented 07/03/17 18:34 Temp 98.2 Pulse 81 Resp 18 B/P (MAP) 174/96 (122) O2 Delivery Room Air Capillary Refill : Less Than 3 Seconds General Appearance: No Apparent Distress, WD/WN, Anxious, Obese Eyes: Bilateral Eye Normal Inspection, Bilateral Eye PERRL, Bilateral Eye EOMI HEENT: PERRL/EOMI, TMs Normal Neck: Full Range of Motion, Normal Inspection Respiratory: No Accessory Muscle Use, No Respiratory Distress Cardiovascular: Regular Rate, Rhythm, Normal Peripheral Pulses Gastrointestinal: Non Tender, Soft Extremity: Normal Capillary Refill, Normal Inspection Neurologic/Psychiatric: Alert, Oriented x3 Skin: Normal Color, Warm/Dry, Other (5 cm of erythema over the dorsal and ulnar side of theright wrist with the ulnar styloid.) Progress/Results/Core Measures Suspected Sepsis Recent Fever Within 48 Hours: No Infection Criteria Present: None New/Unexplained Altered Menta: No Sepsis Screen: No Definite Risk SIRS Temperature:98.2 Pulse: 81 Respiratory Rate: 18 Laboratory Tests 07/03/17 19:09: White Blood Count 10.4 Blood Pressure 174 /96 Mean: 122 Laboratory Tests 07/03/17 19:09: Creatinine 1.07, Platelet Count 241, Total Bilirubin 1.4H Results/Orders Lab Results Laboratory Tests Test 07/03/17 19:09 Range/Units White Blood Count 10.4 4.3-11.0 10^3/uL Red Blood Count 5.41 4.35-5.85 10^6/uL Hemoglobin 15.6 13.3-17.7 G/DL Hematocrit 42 40-54 % Mean Corpuscular Volume 77 L 80-99 FL Mean Corpuscular Hemoglobin 29 25-34 PG Mean Corpuscular Hemoglobin Concent 38 H 32-36 G/DL Red Cell Distribution Width 14.1 10.0-14.5 % Platelet Count 241 130-400 10^3/uL Mean Platelet Volume 9.2 7.4-10.4 FL Neutrophils (%) (Auto) 79 H 42-75 % Lymphocytes (%) (Auto) 6 L 12-44 % Monocytes (%) (Auto) 12 0-12 % Eosinophils (%) (Auto) 2 0-10 % Basophils (%) (Auto) 1 0-10 % Neutrophils # (Auto) 8.2 H 1.8-7.8 X 10^3 Lymphocytes # (Auto) 0.6 L 1.0-4.0 X 10^3 Monocytes # (Auto) 1.2 H 0.0-1.0 X 10^3 Eosinophils # (Auto) 0.2 0.0-0.3 10^3/uL Basophils # (Auto) 0.1 0.0-0.1 10^3/uL Neutrophils % (Manual) 77 % Lymphocytes % (Manual) 11 % Monocytes % (Manual) 7 % Eosinophils % (Manual) 2 % Basophils % (Manual) 0 % Band Neutrophils 3 % Blood Morphology Comment NORMAL Sodium Level 136 135-145 MMOL/L Potassium Level 4.0 3.6-5.0 MMOL/L Chloride Level 102 98-107 MMOL/L Carbon Dioxide Level 25 21-32 MMOL/L Anion Gap 9 5-14 MMOL/L Blood Urea Nitrogen 9 7-18 MG/DL Creatinine 1.07 0.60-1.30 MG/DL Estimat Glomerular Filtration Rate > 60 BUN/Creatinine Ratio 8 Glucose Level 170 H 70-105 MG/DL Calcium Level 9.5 8.5-10.1 MG/DL Total Bilirubin 1.4 H 0.1-1.0 MG/DL Aspartate Amino Transf (AST/SGOT) 11 5-34 U/L Alanine Aminotransferase (ALT/SGPT) 13 0-55 U/L Alkaline Phosphatase 73 40-136 U/L Troponin I < 0.30 <0.30 NG/ML Total Protein 6.9 6.4-8.2 GM/DL Albumin 4.3 3.2-4.5 GM/DL My Orders Orders - JOE MUNGUIA APRN Cbc With Automated Diff (07/03/17 18:58) Comprehensive Metabolic Panel (07/03/17 18:58) Troponin I (07/03/17 18:58) Ekg Tracing (07/03/17 18:58) Chest 1 View, Ap/Pa Only (07/03/17 18:58) Saline Lock/Iv-Start (07/03/17 18:58) Fentanyl Injection (Sublimaze Injection (07/03/17 19:00) Ketorolac Injection (Toradol Injection) (07/03/17 19:00) Manual Differential (07/03/17 19:09) Lorazepam Injection (Ativan Injection) (07/03/17 19:30) Fentanyl Injection (Sublimaze Injection (07/03/17 20:45) Medications Given in ED Current Medications Medications Dose Ordered Sig/Fermín Route Start Time Stop Time Status Last Admin Dose Admin Fentanyl Citrate 50 mcg ONCE ONCE IVP 07/03/17 19:00 07/03/17 19:01 DC 07/03/17 19:13 50 MCG Fentanyl Citrate 50 mcg ONCE ONCE IVP 07/03/17 20:45 07/03/17 20:46 DC 07/03/17 21:00 50 MCG Ketorolac Tromethamine 15 mg ONCE ONCE IVP 07/03/17 19:00 07/03/17 19:01 DC 07/03/17 19:12 15 MG Lorazepam 0.5 mg ONCE ONCE IVP 07/03/17 19:30 07/03/17 19:31 DC 07/03/17 19:49 0.5 MG Vital Signs/I&O 07/03/17 07/03/17 07/03/17 07/03/17 18:34 19:12 19:13 21:00 Temp 98.2 98.2 98.2 98.2 Pulse 81 Resp 18 B/P (MAP) 174/96 (122) O2 Delivery Room Air Capillary Refill : Less Than 3 Seconds Blood Pressure Mean: 122 Diagnostic Imaging Diagonstic Imaging: Xray Plain Films/CT/US/NM/MRI: chest Comments NAME: TYRONE SCANLON [facility] REC#: [id number] PT STATUS: REG ER : 1940 PHYSICIAN: JOE MUNGUIA APRN ADMIT DATE: 07/03/17/ER Draft Date of Exam:07/03/17 CHEST 1 VIEW, AP/PA ONLY INDICATION: Chest pain, shortness of breath, pain rating down the right arm. TECHNIQUE: Single view chest, 7:12 p.m. CORRELATION STUDY: 04/07/2017. FINDINGS: Heart size is enlarged. Vascular is within normal limits. Lungs appear generally clear and stable. IMPRESSION: Stable chest demonstrates no acute abnormality. Dictated on workstation # [id number] Dict: 07/03/171938 Trans: 07/03/171941 [facility] [id number] Interpreted by: KT SILVA DO Electronically signed by: Departure Communication (Admissions) Time/Spoke to Admitting Phy: 20:[address] Funk. We'll admit the patient due to concerns of chest pain. The patient has seen Dr. Monzon in the past from cardiology and would like to see him again. We will consult Dr. Monzon in the morning regarding the patient's chest pain which is likely musculoskeletal in nature given the negative troponin despite 12+ hours of pain. Patient states that he's been very tense and holding his arm a certain position and believes that is just the muscles in his chest and back are hurting.he had a cardiac catheterization earlier this year in [place] so I'll have the nursing staff upstairs obtain this report. 1954- now the patient is more calm, his chest pain has subsided. Septic arthritis would be unlikely given the absence of fevers chills or leukocytosis despite 3 days of pain.I discussed with he and his that if this were pseudogout rather than gout, Colcrys may not help Impression Primary Impression: Wrist arthropathy Disposition: ADMITTED INPATIENT Condition: Stable Admissions Decision to Admit Reason: Admit from ER (General) Decision to Admit/Date: Jul 03, 2017 Time/Decision to Admit Time: 20:48 Departure-Patient Inst. Decision time for Depature: 19:57 Referrals: ELIAS FUNK DO (PCP/Family) Primary Care Physician Patient Instructions: NO INSTRUCTIONS GIVEN Add. Discharge Instructions: 1. Call Dr. Dr. Funk's office tomorrow morning to make an appointment to be seen tomorrow for recheck. Return to ER for any fevers, chills, increasing redness to the wrist. 2. Return to ER for any other concerns 3. Medications as directed. All discharge instructions reviewed with patient and/or family. Voiced understanding. Copy Copies To 1: ELIAS FUNK PETER J APRN Jul 03, 2017 19:02
[2017-07-03 19:16] LABS: BASOPHILS # (AUTO) 0.1 10^3/uL (0.0-0.1); BASOPHILS % (AUTO) 1 % (0-10); EOSINOPHILS # (AUTO) 0.2 10^3/uL (0.0-0.3); EOSINOPHILS % (AUTO) 2 % (0-10); HEMATOCRIT 42 % (40-54); HEMOGLOBIN 15.6 G/DL (13.3-17.7); LYMPHOCYTES # (AUTO) 0.6 X 10^3 (1.0-4.0); LYMPHOCYTES % (AUTO) 6 % (12-44); MEAN CORPUSCULAR HEMOGLOBIN 29 PG (25-34); MEAN CORPUSCULAR HGB CONC 38 G/DL (32-36); MEAN CORPUSCULAR VOLUME 77 FL (80-99); MEAN PLATELET VOLUME 9.2 FL (7.4-10.4); MONOCYTES # (AUTO) 1.2 X 10^3 (0.0-1.0); MONOCYTES % (AUTO) 12 % (0-12); NEUTROPHILS # (AUTO) 8.2 X 10^3 (1.8-7.8); NEUTROPHILS % (AUTO) 79 % (42-75); PLATELET COUNT 241 10^3/uL (130-400); RED BLOOD COUNT 5.41 10^6/uL (4.35-5.85); RED CELL DISTRIBUTION WIDTH 14.1 % (10.0-14.5); WHITE BLOOD COUNT 10.4 10^3/uL (4.3-11.0)
[2017-07-03] MEDS ORDERED: LORazepam INJ 2 MG/ML (ATIVAN) VIAL IVP ONE (19:30)
--- NOTE | 2017-07-03 19:43 | Diagnostic Imaging Report ---
INDICATION: Chest pain, shortness of breath, pain rating down the right arm. TECHNIQUE: Single view chest, 7:12 p.m. CORRELATION STUDY: 04/07/2017. FINDINGS: Heart size is enlarged. Vascular is within normal limits. Lungs appear generally clear and stable. IMPRESSION: Stable chest demonstrates no acute abnormality. Dictated by: Dictated on workstation # [id number]
[2017-07-03 19:45] LABS: ALANINE AMINOTRANSFERASE 13 U/L (0-55); ALBUMIN 4.3 GM/DL (3.2-4.5); ALKALINE PHOSPHATASE 73 U/L (40-136); BILIRUBIN,TOTAL 1.4 MG/DL (0.1-1.0); BUN/CREATININE RATIO 8; CALCIUM 9.5 MG/DL (8.5-10.1); CARBON DIOXIDE 25 MMOL/L (21-32); CHLORIDE 102 MMOL/L (98-107); CREATININE SERUM 1.07 MG/DL (0.60-1.30); GFR ESTIMATED > 60; GLUCOSE 170 MG/DL (70-105); SODIUM 136 MMOL/L (135-145); TOTAL PROTEIN 6.9 GM/DL (6.4-8.2)
[2017-07-03 19:51] LABS: NEUTROPHILS % (MANUAL) 77 %
[2017-07-03 19:52] LABS: BAND NEUTROPHILS 3 %; BASOPHILS % (MANUAL) 0 %; EOSINOPHILS % (MANUAL) 2 %; LYMPHOCYTES % (MANUAL) 11 %; MONOCYTES % (MANUAL) 7 %; RBC MORPH NORMAL
[2017-07-03] MEDS ORDERED: HYDR-757 PO (20:06)
[2017-07-03] MEDS ORDERED: NAPR-1071 PO (20:06)
--- OUTSIDE RECORDS SUMMARY | 2017-07-03 20:52 | XMS REPORT | Continuity of Care Document ---
Author Author [facility] Organization [facility] Address Unknown Phone Unavailable Allergies Active Description Code Type Severity Reaction Onset Reported/Identified Relationship to Patient Clinical Status Yes ketoprofen [id number] Drug Allergy Unknown N/A 01/19/2012 Yes nabumetone [id number] Drug Allergy Unknown N/A 01/19/2012 Yes Sulfa (Sulfonamide Antibiotics) [id number] Drug Allergy Unknown N/A 2011 Yes morphine [id number] Drug Allergy Unknown VOMITING 07/21/2013 Yes morphine [id number] Drug Allergy Mild VOMITING 04/25/2014 Yes hydrochlorothiazide [id number] Drug Allergy Unknown N/A 03/20/2017 Yes rosuvastatin [id number] Drug Allergy Unknown N/A 03/20/2017 Medications There [...] FUNK DO Ot 414.01 CORONARY ATHEROSCLEROSIS OF [place] CORON 08/05/2013 ELIAS FUNK DO Ot 415.11 [...] ELIAS CONTEH Ot 414.01 CORONARY ATHEROSCLEROSIS OF [place] CORON 01/07/2014 DAKOTADEANN ELIAS CONTEH Ot 558.9 [...] ESCOBAR Ot V12.51 HX-VENOUS THROMBOSIS EMBOLISM [facility]/21[facility]9 04/21[facility]2014 [facility] 412 04/21/2014 [facility] 414.01 04/21/2014 [facility] 552.1 04/21/2014 [facility] V12.55 04/21/2014 [facility] Ot V45.82 04/21/2014 [facility] V74.8 04/22/2014 [facility] DOETHAN D Ot 401.9 04/22/2014 [facility] DOETHAN D Ot 412 04/22/2014 [facility] Ot 414.01 04/22/2014 SNOHOMISH DOTHANHTT D Ot 552.1 04/22/2014 SNOHOMISH DOTHANHTT D Ot V12.55 04/22/2014 SNOHOMISH DOTHANHTT D Ot V45.82 04/22/2014 SNOHOMISH DOTHANHTT D Ot V74.8 04/22/2014 SNOHOMISH DOTHANHTT D Ot 401.9 04/22/2014 [facility] 412 04/22/2014 [facility] Ot 414.01 04/22/2014 [facility] Ot 552.1 04/22/2014 [facility], ETHAN D Ot V12.55 04/22/2014 [...] ETHAN D Ot V12.55 04/22/2014 CONDE DO, ETHNA D Ot V45.82 04/22/2014 CONDE DO, ETHAN [...] CONDE DO Ot 414.01 CORONARY ATHEROSCLEROSIS OF [place] CORON 04/25/2014 ETHAN CONDE DO Ot 427.89 [...] CONDE ETHAN CONTEH Ot 276.8 04/26/2014 ETHAN OCNDE DO Ot 278.00 04/26/2014 ETHAN CONDE DO Ot 288.60 04/26/2014 ETHAN CONDE DO Ot 289.81 04/26/2014 ETHAN CONDE DO Ot 401.9 04/26/2014 ETHAN CONDE DO Ot 412 04/26/2014 CONDE ETHAN CONTEH Ot 414.01 04/26/2014 ETHAN CONDE DO Ot 427.89 04/26/2014 ETHAN CONDE DO Ot 433.10 04/26/2014 ETHAN CONDE DO [...] BIGG M Ot 571.8 10/19/2014 DELVIS DO, BIGG M Ot 786.05 10/19/2014 DELVIS DO, BIGG M Ot 793.11 02/01/2015 LIZZIE PARSONP Ot D68.59 02/01/2015 LIZZIE PARSON BUSINESS PROFESSOR Ot I10 02/01/2015 LIZZIE PARSON BUSINESS PROFESSOR Ot R91.1 02/01/2015 LIZZIE PARSON BUSINESS PROFESSOR Ot Z86.711 02/14/2015 LIZZIE PARSON BUSINESS PROFESSOR Ot D68.59 02/14/2015 LIZZIE PARSON BUSINESS PROFESSOR Ot I10 02/14/2015 LIZZIE PARSON BUSINESS PROFESSOR Ot R91.1 02/14/2015 LIZZIE PARSON BUSINESS PROFESSOR Ot Z86.711 04/07/2015 ELIAS FUNK DO Ot [...] Ot R06.02 SHORTNESS OF BREATH 01/11/2016 SHAWN NASREENDAOWOD Estefany Ot D68.2 HEREDITARY DEFICIENCY OF OTHER [...] R91.1 SOLITARY PULMONARY NODULE 04/24/2016 LIZZIE PARSON [facility] Ot D68.59 OTHER PRIMARY THROMBOPHILIA 04/24/2016 LIZZIE PARSON BUSINESS PROFESSOR Ot I10 ESSENTIAL (PRIMARY) HYPERTENSION 04/24/2016 LIZZIE PARSON BUSINESS PROFESSOR Ot R91.1 SOLITARY PULMONARY NODULE 04/24/2016 LIZZIE PARSON BUSINESS PROFESSOR Ot Z86.711 PERSONAL HISTORY OF PULMONARY EMBOLISM [...] R91.1 SOLITARY PULMONARY NODULE 08/08/2016 LIZZIE PARSON BUSINESS PROFESSOR Ot D68.59 OTHER PRIMARY THROMBOPHILIA 08/08/2016 LIZZIE PARSON BUSINESS PROFESSOR Ot I10 ESSENTIAL (PRIMARY) HYPERTENSION 08/08/2016 LIZZIE PARSON BUSINESS PROFESSOR Ot R91.1 SOLITARY PULMONARY NODULE 08/08/2016 LIZZIE PARSON BUSINESS PROFESSOR Ot Z86.711 PERSONAL HISTORY OF PULMONARY EMBOLISM 08/08/2016 GELLENDER DO, ELIAS A Ot R06.02 SHORTNESS OF BREATH 08/08/2016 GELLENDER DO, ELIAS A Ot R06.2 WHEEZING 08/08/2016 CARLOS ESCOBAR Ot R05 COUGH 08/08/2016 SHAWNCRALOS Ot R06.02 SHORTNESS OF BREATH 08/08/2016 GELLENDER [...] ESCOBAR Ot I25.10 ATHSCL HEART DISEASE OF [place] CORONARY 01/22/2017 CARLOS ESCOBAR Ot I44.0 ATRIOVENTRICULAR BLOCK, FIRST DEGREE 01/22/2017 CARLOS ESCOBAR Ot I44.7 LEFT BUNDLE-BRANCH BLOCK, UNSPECIFIED 01/22/2017 SHAWN, BOBAN N Ot R91.1 SOLITARY PULMONARY NODULE 01/22/2017 CARLOS ESCOBAR Estefany Ot Z79.01 [employer] OPERATOR (CURRENT) USE OF ANTICOAGULANT 01/22/2017 CARLOS ESCOBAR N Ot Z79.02 [employer] OPERATOR (CURRENT) USE OF ANTITHROMBOTI 01/22/2017 CARLOS ESCOBAR [...] Estefany Ot I25.10 ATHSCL HEART DISEASE OF [place] CORONARY 01/27/2017 CARLOS ESCOBAR Estefany Ot I44.0 ATRIOVENTRICULAR BLOCK, FIRST DEGREE 01/27/2017 CARLOS ESCOBAR Estefany Ot I44.7 LEFT BUNDLE-BRANCH BLOCK, UNSPECIFIED 01/27/2017 CARLOS ESCOBAR Estefany Ot R91.1 SOLITARY PULMONARY NODULE 01/27/2017 CARLOS ESCOBAR Estefany Ot Z79.01 LONG-TERM (CURRENT) USE OF ANTICOAGULANT 01/27/2017 CARLOS ESCOBAR Estefany Ot Z79.02 LONG-TERM (CURRENT) USE OF ANTITHROMBOTI 01/27/2017 CARLOS ESCOBAR [...] DISORDERS OF BOTH MITRAL AND A 02/12/2017 SHAWN CARLOS N Ot I10 ESSENTIAL (PRIMARY) HYPERTENSION 02/12/2017 CARLOS ESCOBAR Ot I25.10 ATHSCL HEART DISEASE OF [place] CORONARY 02/12/2017 CARLOS ESCOBAR Ot I44.0 ATRIOVENTRICULAR BLOCK, FIRST DEGREE 02/12/2017 CARLOS ESCOBAR Estefany Ot I44.7 LEFT BUNDLE-BRANCH BLOCK, UNSPECIFIED 02/12/2017 CARLOS ESCOBAR Estefany Ot R91.1 SOLITARY PULMONARY NODULE 02/12/2017 CARLOS ESCOBAR Estefany Ot Z79.01 LONG-TERM (CURRENT) USE OF ANTICOAGULANT 02/12/2017 CARLOS ESCOBAR N Ot Z79.02 [employer] OPERATOR (CURRENT) USE OF ANTITHROMBOTI 02/12/2017 CARLOS ESCOBAR [...] OF BOTH MITRAL AND A 02/17/2017 CARLOS ESCOABR Estefany Ot I10 ESSENTIAL (PRIMARY) HYPERTENSION 02/17/2017 CARLOS ESCOBAR Estefany Ot I25.10 ATHSCL HEART DISEASE OF [place] CORONARY 02/17/2017 CARLOS ESCOBAR Ot I44.0 ATRIOVENTRICULAR BLOCK, FIRST DEGREE 02/17/2017 CARLOS ESCOBAR Estefany Ot I44.7 LEFT BUNDLE-BRANCH BLOCK, UNSPECIFIED 02/17/2017 CARLOS ESCOBAR Estefany Ot R91.1 SOLITARY PULMONARY NODULE 02/17/2017 CARLOS ESCOBAR Estefany Ot Z79.01 [employer] OPERATOR (CURRENT) USE OF ANTICOAGULANT 02/17/2017 CARLOS ESCOBAR N Ot Z79.02 [employer] OPERATOR (CURRENT) USE OF ANTITHROMBOTI 02/17/2017 CARLOS ESCOBAR [...] Fritz Ot I25.110 ATHSCL HEART DISEASE OF [place] COR ART W 03/26/2017 GELLENDER DO, ELIAS [...] 03/26/2017 GELLENDER DO, ELIAS Fritz Ot Z79.01 [employer] OPERATOR (CURRENT) USE OF ANTICOAGULANT 03/26/2017 GELLENDER DO, [...] Fritz Ot I25.110 ATHSCL HEART DISEASE OF [place] COR ART W 03/26/2017 GELLENDER DO, ELIAS [...] 03/26/2017 GELLENDER DO, ELIAS Fritz Ot Z79.01 [employer] OPERATOR (CURRENT) USE OF ANTICOAGULANT 03/26/2017 GELLENDER DO, [...] Fritz Ot I25.110 ATHSCL HEART DISEASE OF [place] COR ART W 03/28/2017 GELLENDER DO, ELIAS [...] T38.0X5A ADVERSE EFFECT OF GLUCOCORT/SYNTH ANALOG 03/28/2017 [facility] ELIAS Fritz Ot Z68.36 BODY MASS INDEX (BMI) 36.0-36.9, ADULT 03/28/2017 G[facility]AR[facility] LAPEER REGIONDER DO, ELIAS Fritz Ot Z79.01 LONG-TERM (CURRENT) USE OF ANTICOAGULANT 03/28/2017 [facility] Fritz Ot Z86.711 PERSONAL HISTORY OF PULMONARY EMBOLISM 03/28/2017 [facility] ELIAS Fritz Ot Z86.718 PERSONAL HISTORY OF OTHER VENOUS THROMBO 03/28/2017 [facility], ELIAS Fritz Ot Z95.5 PRESENCE OF CORONARY ANGIOPLASTY IMPLANT 04/08/2017 [facility] ELIAS Fritz Ot J40 BRONCHITIS, NOT SPECIFIED ACUTE OR CH 04/29/2017 CARSON CARMONA APRN Ot E66.9 OBESITY, UNSPECIFIED 04/29/2017 CARSON CARMONA APRN Ot I25.10 ATHSCL HEART DISEASE OF [place] CORONARY 04/29/2017 CARSON CARMONA APRN Ot I25.2 OLD MYOCARDIAL INFARCTION 04/30/2017 [facility], ELIAS Fritz Ot J40 BRONCHITIS, [...] R91.1 SOLITARY PULMONARY NODULE 04/30/2017 LIZZIE PARSON BUSINESS PROFESSOR Ot D68.59 OTHER PRIMARY THROMBOPHILIA 04/30/2017 LIZZIE PARSON BUSINESS PROFESSOR Ot I10 ESSENTIAL (PRIMARY) HYPERTENSION 04/30/2017 LIZZIE PARSON BUSINESS PROFESSOR Ot R91.1 SOLITARY PULMONARY NODULE 04/30/2017 LIZZIE PARSON BUSINESS PROFESSOR Ot Z86.711 PERSONAL HISTORY OF PULMONARY EMBOLISM [...] ESCOBAR Ot I25.10 ATHSCL HEART DISEASE OF [place] CORONARY 04/30/2017 CARLOS ESCOBAR Ot I44.0 ATRIOVENTRICULAR BLOCK, FIRST DEGREE 04/30/2017 CARLOS ESCOBAR Ot I44.7 LEFT BUNDLE-BRANCH BLOCK, UNSPECIFIED 04/30/2017 CARLOS ESCOBAR Ot R91.1 SOLITARY PULMONARY NODULE 04/30/2017 CARLOS ESCOBAR Ot Z79.01 LONG-TERM (CURRENT) USE OF ANTICOAGULANT 04/30/2017 CARLOS ESCOBAR Ot Z79.02 LONG-TERM (CURRENT) USE OF ANTITHROMBOTI 04/30/2017 CARLOS ESCOBAR Ot Z86.711 PERSONAL HISTORY OF PULMONARY EMBOLISM 04/30/2017 CARLOS ESCOBAR Ot Z86.718 PERSONAL HISTORY OF OTHER VENOUS THROMBO 04/30/2017 CARLOS ESCOBAR Ot Z95.5 PRESENCE OF CORONARY ANGIOPLASTY IMPLANT 04/30/2017 ELIAS FUNK DO Ot J40 BRONCHITIS, NOT SPECIFIED ACUTE OR CH 04/30/2017 KRISTINE, CARSON E FREIGHT BOOKER Ot G47.33 OBSTRUCTIVE SLEEP APNEA (ADULT) (PEDIATR 04/30/2017 KRISTINE, CARSON E FREIGHT BOOKER Ot G47.9 SLEEP DISORDER, UNSPECIFIED 04/30/2017 KRISTINE, CARSON E FREIGHT BOOKER Ot E66.9 OBESITY, UNSPECIFIED 04/30/2017 KRISTINE, CARSON E FREIGHT BOOKER Ot I25.10 ATHSCL HEART DISEASE OF [place] CORONARY 04/30/2017 KRISTINE, CARSON E FREIGHT BOOKER Ot I25.2 OLD MYOCARDIAL INFARCTION 05/01/2017 KRISTINE, CARSON E FREIGHT BOOKER Ot R06.02 SHORTNESS OF BREATH 05/05/2017 KRISTINE, CARSON E FREIGHT BOOKER Ot G47.33 OBSTRUCTIVE SLEEP APNEA (ADULT) (PEDIATR 05/05/2017 KRISTINE, CARSON E FREIGHT BOOKER Ot G47.9 SLEEP DISORDER, UNSPECIFIED 05/06/2017 KRISTINE, CARSON E FREIGHT BOOKER Ot G47.33 OBSTRUCTIVE SLEEP APNEA (ADULT) (PEDIATR 05/06/2017 KRISTINE, CARSON E FREIGHT BOOKER Ot G47.50 PARASOMNIA, UNSPECIFIED 05/06/2017 KRISTINE, CARSON E FREIGHT BOOKER Ot R06.02 SHORTNESS OF BREATH 05/07/2017 KRISTINE, CARSON E FREIGHT BOOKER Ot G47.33 OBSTRUCTIVE SLEEP APNEA (ADULT) (PEDIATR 05/07/2017 KRISTINE, CARSON E FREIGHT BOOKER Ot G47.50 PARASOMNIA, UNSPECIFIED 05/07/2017 KRISTINE, CARSON E FREIGHT BOOKER Ot R06.02 SHORTNESS OF BREATH 05/07/2017 ELIAS FUNK DO Ot J40 BRONCHITIS, NOT SPECIFIED ACUTE OR CH 05/20/2017 KRISTINESHAD ARECHIGAINE E FREIGHT BOOKER Ot E66.9 OBESITY, UNSPECIFIED 05/20/2017 KRISTINE, CARSON E FREIGHT BOOKER Ot I25.10 ATHSCL HEART DISEASE OF [place] CORONARY 05/20/2017 SHAD CARMONAINE E FREIGHT BOOKER Ot I25.2 OLD MYOCARDIAL INFARCTION 05/20/2017 SHAD CARMONAINE E FREIGHT BOOKER Ot R06.02 SHORTNESS OF BREATH 05/30/2017 CARSON CARMONA FREIGHT BOOKER Ot E66.9 OBESITY, UNSPECIFIED 05/30/2017 CARSON CARMONA FREIGHT BOOKER Ot I25.10 ATHSCL HEART DISEASE OF [place] CORONARY 05/30/2017 KRISTINE, CARSON Mondragon FREIGHT BOOKER Ot I25.2 OLD MYOCARDIAL INFARCTION 05/30/2017 KRISTINE CARSON Mondragon FREIGHT BOOKER Ot R06.02 SHORTNESS OF BREATH Procedures Code [...] NRG Blood erythrocyte morphology finding identification NORMAL [facility] Blood dohle body detection by light microscopy SLIGHT [facility] Comprehensive metabolic panel - 03/22/17 13:04 Serum [...] plasma calcium measurement (mass/volume) 9.4 mg/dL 8.5-10.1 Complete blood count (CBC) with automated white blood cell (WBC) differential - 07/03/17 19:09 Blood leukocytes automated count (number/volume) 10.4 10*3/uL 4.3-11.0 Blood erythrocytes automated count (number/volume) 5.41 10*6/uL 4.35-5.85 Venous blood hemoglobin measurement (mass/volume) 15.6 g/dL 13.3-17.7 Blood hematocrit (volume fraction) 42 % 40-54 Automated erythrocyte mean corpuscular volume 77 [foz_us] 80-99 Automated erythrocyte mean corpuscular hemoglobin (mass per erythrocyte) 29 pg 25-34 Automated erythrocyte mean corpuscular hemoglobin concentration measurement ( mass/volume) 38 g/dL 32-36 Automated erythrocyte distribution width ratio 14.1 % 10.0-14.5 Automated blood platelet count (count/volume) 241 10*3/uL 130-400 Automated blood platelet mean volume measurement 9.2 [foz_us] 7.4-10.4 Automated blood neutrophils/100 leukocytes 79 % 42-75 Automated blood lymphocytes/100 leukocytes 6 % 12-44 Blood monocytes/100 leukocytes 12 % 0-12 Automated blood eosinophils/100 leukocytes 2 % 0-10 Automated blood basophils/100 leukocytes 1 % 0-10 Blood neutrophils automated count (number/volume) 8.2 10*3 1.8-7.8 Blood lymphocytes automated count (number/volume) 0.6 10*3 1.0-4.0 Blood monocytes automated count (number/volume) 1.2 10*3 0.0-1.0 Automated eosinophil count 0.2 10*3/uL 0.0-0.3 Automated blood basophil count (count/volume) 0.1 10*3/uL 0.0-0.1 Comprehensive metabolic panel - 07/03/17 19:09 Serum or plasma sodium measurement (moles/volume) 136 mmol/L 135-145 Serum or plasma potassium measurement (moles/volume) 4.0 mmol/L 3.6-5.0 Serum or plasma chloride measurement (moles/volume) 102 mmol/L 98-107 Carbon dioxide 25 mmol/L 21-32 Serum or plasma anion gap determination (moles/volume) 9 mmol/L 5-14 Serum or plasma urea nitrogen measurement (mass/volume) 9 mg/dL 7-18 Serum or plasma creatinine measurement (mass/volume) 1.07 mg/dL 0.60-1.30 Serum or plasma urea nitrogen/creatinine mass ratio 8 NRG Serum or plasma creatinine measurement with calculation of estimated glomerular filtration rate > NRG Serum or plasma glucose measurement (mass/volume) 170 mg/dL 70-105 Serum or plasma calcium measurement (mass/volume) 9.5 mg/dL 8.5-10.1 Serum or plasma total bilirubin measurement (mass/volume) 1.4 mg/dL 0.1-1.0 Serum or plasma alkaline phosphatase measurement (enzymatic activity/volume) 73 U/L 40-136 Serum or plasma aspartate aminotransferase measurement (enzymatic activity/ volume) 11 U/L 5-34 Serum or plasma alanine aminotransferase measurement (enzymatic activity/volume ) 13 U/L 0-55 Serum or plasma protein measurement (mass/volume) 6.9 g/dL 6.4-8.2 Serum or plasma albumin measurement (mass/volume) 4.3 g/dL 3.2-4.5 Serum or plasma troponin i.cardiac measurement (mass/volume) - 07/03/17 19:09 Serum or plasma troponin i.cardiac measurement (mass/volume) < ng/ mL <0.30 Blood manual differential performed detection - 07/03/17 19:09 Blood monocytes/100 leukocytes 7 % NRG Manual blood segmented neutrophils/100 leukocytes 77 % NRG Blood band neutrophils/100 leukocytes 3 % NRG Manual blood lymphocytes/100 leukocytes 11 % NRG Manual eosinophils/100 leukocytes in nose 2 % NRG Manual blood basophils/100 leukocytes 0 % NRG Blood erythrocyte morphology finding identification NORMAL NRG Encounters ACCT No. Visit Date/Time Discharge Status Pt. Type Provider Facility Loc./Unit Complaint [id number] 05/05/2017 20:30:00 05/06/2017 06:50:00 DIS Outpatient CARSON CARMONA APRN [facility] SLEEP G47.9 SLEEP DISORDER [id number] 04/30/2017 13:22:00 04/30/2017 23:59:59 CLS Outpatient CARSON CARMONA FREIGHT BOOKER [facility] RT R06.00 SOB [id number] 04/28/2017 07:14:00 04/28/2017 23:59:59 CLS Outpatient CARSON CARMONA FREIGHT BOOKER [facility] RAD R06.00 [id number] 04/07/2017 12:45:00 04/07/2017 23:59:59 CLS Outpatient ELIAS FUNK DO [facility] RAD BRONCHITIS,SOB [id number] 03/24/2017 09:00:00 03/28/2017 11:51:00 DIS Inpatient ELIAS FUNK DO [facility] 4TH CHEST PAIN, BRONCHITIS [id number] 01/21/2017 14:16:00 01/21/2017 23:59:59 CLS Outpatient SHAWN, NASREENDAWOOD Estefany [facility] ONC [id number] 08/08/2016 12:07:00 08/08/2016 23:59:59 CLS Outpatient ELIAS FUNK DO [facility] RAD PAIN IN LEFT ANKLE [id number] 04/25/2016 10:37:00 04/25/2016 23:59:59 CLS Outpatient ELIAS FUNK DO [facility] LAB CHEST PAIN,COUGH [id number] 04/24/2016 14:01:00 04/24/2016 23:59:59 CLS Outpatient ELIAS FUNK DO [facility] RAD COUGH [id number] 01/10/2016 10:51:00 01/10/2016 23:59:59 CLS Outpatient CARLOS ESCOBAR [facility] RAD [id number] 01/10/2016 09:34:00 01/10/2016 23:59:59 CLS Outpatient SHAWNNASREENDAWOOD Allison [facility] ONC [id number] 09/25/2015 08:41:00 09/25/2015 23:59:59 CLS Outpatient BIGG EDMONDSON DO [facility] RAD PULMONARY NODULE [id number] 01/11/2015 13:48:00 01/11/2015 23:59:59 CLS Outpatient DAKOTADEANN ELIAS [facility] RAD WHEEZING,SOB [id number] 01/11/2015 09:38:00 01/11/2015 23:59:59 CLS Outpatient LIZZIE PARSON BUSINESS PROFESSOR [facility] ONC [id number] 09/21/2014 12:22:00 09/21/2014 23:59:59 CLS Outpatient BIGG EDMONDSON DO [facility] RAD PULMONARY NODULE,SOB [id number] 04/22/2014 07:05:00 04/25/2014 15:15:00 DIS Inpatient ETHAN CONDE DO [facility] CSD HERNIA REPAIR [id number] 01/13/2014 10:08:00 04/13/2014 00:01:00 DIS Outpatient CARLOS ESCOBAR [facility] ONC [id number] 02/21/2014 08:14:00 02/21/2014 23:59:59 CLS Outpatient BIGG EDMONDSON DO [facility] RAD PULMONARY NODULE PULMONARY EMBOLISM SOB [id number] 02/18/2014 12:37:00 02/18/2014 23:59:59 CLS Outpatient BIGG EDMONDSON DO [facility] LAB PE,SOA [id number] 10/14/2013 13:39:00 01/12/2014 00:01:00 DIS Outpatient SHAWNNASREENDAWOOD Estefany [facility] ONC [id number] 01/05/2014 05:45:00 01/07/2014 08:10:00 DIS Inpatient ELIAS FUNK DO [facility] 4TH ACUTE ABDOMINAL PAIN [id number] 12/15/2013 11:52:00 12/15/2013 23:59:59 CLS Outpatient ELIAS FUNK DO [facility] RAD SOB,COUGH [id number] 09/21/2013 10:38:00 09/21/2013 23:59:59 CLS Outpatient JIM JOEL, DAISY Bush [facility] CARD CAD,HTN,HLP,DVT [id number] 08/02/2013 08:21:00 08/05/2013 18:30:00 DIS Inpatient ELIAS FUNK DO [facility] CSD BILATERAL PULMONARY EMBOLISM [id number] 07/29/2013 06:48:00 07/29/2013 13:05:00 DIS Outpatient MIRIAN MCDOWELL MD [facility] SDC UMBILICAL HERNIA [id number] 07/21/2013 10:09:00 07/21/2013 23:59:59 CLS Outpatient MIRIAN MCDOWELL MD [facility] PREOP UMBILICAL HERNIA [id number] 07/03/2017 19:18:00 Document Registration [id number] 01/19/2012 08:41:00 Document Registration
[2017-07-03 22:10] VITALS: BP 157/74
[2017-07-03] MEDS ORDERED: KETOROLAC 15 MG/ML VIAL IVP PRN (23:00)
[2017-07-03] MEDS ORDERED: RIVAROXABAN 20 MG TABLET (XARELTO) ONE (23:19)
[2017-07-03] MEDS: NS IV 1000 ML 1,000 ML IV SCH (23:28)
[2017-07-04] VITALS: BP 144/86
[2017-07-04] MEDS: fentaNYL INJECTION 100 MCG/2 ML AMP IV PRN ×3 (00:32→06:47)
[2017-07-04 04:27] VITALS: BP 136/67
[2017-07-04 07:44] VITALS: BP 138/63
--- NOTE | 2017-07-04 08:17 | History & Physicial ---
History of Present Illness History of Present Illness Reason for visit/HPI Patient came out to the emergency room. Patient's felt that he has scalp for the last 4 days with severe pain. Patient rates pain a 10 out of 10. Patient took colchicine without any help. Patient then chest pain. Patient has history of coronary artery disease with stents. Patient had angiography by Dr. Styles in [place]. . Previous surgery hernia, kidney surgery, and rotator cuff. Patient has history of blood clots pulmonary embolism after hernia surgery. Family history father of a stroke Date of Admission Jul 03, 2017 at 20:46 Time Seen by Provider: 08:10 I consulted on this patient on 07/04/17 08:11 Attending Physician Adán Fukn DO Admitting Physician Adán Funk DO Consult Allergies and Home Medications Allergies Coded Allergies: Sulfa (Sulfonamide Antibiotics) (Verified Allergy, Unknown, 01/19/12) hydrochlorothiazide (Verified Allergy, Unknown, 03/20/17) ketoprofen (Verified Allergy, Unknown, 01/19/12) nabumetone (Verified Allergy, Unknown, 01/19/12) rosuvastatin (Verified Allergy, Unknown, 03/20/17) morphine (Unverified Adverse Reaction, Mild, VOMITING, 04/25/14) Home Medications Albuterol Sulfate 1 Puff Puff, 2 PUFF INH Q6H PRN for SHORTNESS OF BREATH, ( Reported) Amlodipine Besylate 5 Mg Tablet, 5 MG PO DAILY, (Reported) Azithromycin 250 Mg Tablet, PO UD, (Reported) 5 DAY THERAPY FILLED 03-18-17 Clopidogrel Bisulfate 75 Mg Tablet, 75 MG PO DAILY, (Reported) Furosemide 40 Mg Tablet, 40 MG PO DAILY, (Reported) Isosorbide Mononitrate 120 Mg Tab.er.24h, 120 MG PO DAILY, (Reported) Nitroglycerin 0.4 Mg Tab.subl, 0.4 MG SL UD PRN for CHEST PAIN, (Reported) Potassium Gluconate 99 Mg Tablet, 99 MG PO DAILY, (Reported) Prednisone 10 Mg Tab, 30 MG PO DAILY Take 3 tabs(30mg)daily, decrease by 1 tab(10mg) every other day. START Prescribed by: ADÁN FUNK on 03/28/17 0754 Promethazine HCl/Codeine 118 Ml Syrup, 10 ML PO TID PRN for COUGH, (Reported) Ranitidine HCl 150 Mg Tablet, 150 MG PO BID, (Reported) Rivaroxaban 20 Mg Tablet, 20 MG PO HS, (Reported) Telmisartan 80 Mg Tablet, 80 MG PO DAILY, (Reported) [Black Chan 500MG] , 500 MG PO BID, (Reported) FOR GOUT Patient Home Medication List Home Medication List Reviewed: No Past Bntbuvx-Oxyaeq-Wytjyv Hx Patient Social History Marrital Status: Employed/Student: unemployed Alcohol Use: Denies Use Recreational Drug Use: No Smoking Status: Never a Smoker Physical Abuse Screen: No Sexual Abuse: No Recent Foreign Travel: No Contact w/other who traveled: No Recent Hopitalizations: Yes Recent Infectious Disease Expo: No Immunizations Up To Date Date of Pneumonia Vaccine: Dec 15, 2012 Seasonal Allergies Seasonal Allergies: Yes Surgeries Yes Abdominal, Coronary Stent Respiratory Yes Currently Using CPAP: No Currently Using BIPAP: No Cardiovascular Yes (5 heart stent) Heart Attack, Hypertension Neurological No Reproductive System Hx Reproductive Disorders: No Genitourinary No Gastrointestinal No Musculoskeletal Yes Arthritis, Gout Endocrine History of Endocrine Disorders: No HEENT History of HEENT Disorders: No Hearing Impairment: Hard of Hearing Cancer No Psychosocial History of Psychiatric Problem: No Integumentary History of Skin or Integumenta: No Blood Transfusions History of Blood Disorders: Yes Adverse Reaction to a Blood Tr: No Family Medical History Family Hx: Arthritis 19 MOTHER Asthma 19 FATHER Cataracts 19 MOTHER Completed stroke Hypertension 19 FATHER Myocardial infarction 19 MOTHER Seizure disorder DAUGHTERS Severe allergy 19 FATHER No Family History of: AIDS Abdominal aortic aneurysm [place]'s disease Alcoholism Alzheimer's disease Aphasia Cancer of mouth Cardiovascular disease Colon cancer Congenital disease Congenital heart disease Coronary thrombosis Cystic fibrosis Deafness or hearing loss Dementia Diabetes mellitus Drug abuse Dysphasia Fibrocystic disease of breast Gastroenteritis Glaucoma Headache disorder Hypercholesterolemia Infertility Kidney disease Neoplasm Not obtainable due to adoption Osteoporosis Parkinson's disease Prostate cancer Psychosocial problem Respiratory disorder Thyroid disease Tuberculosis Visual disorder Constitutional: no symptoms reported EENTM: no symptoms reported Respiratory: no symptoms reported Cardiovascular: chest pain Gastrointestinal: no symptoms reported Genitourinary: no symptoms reported Physical Exam Vital Signs Vital Signs - First Documented 07/03/17 07/03/17 18:34 22:10 Temp 98.2 Pulse 81 Resp 18 B/P (MAP) 174/96 (122) Pulse Ox 96 O2 Delivery Room Air Capillary Refill : Less Than 3 Seconds General Appearance: No Apparent Distress, WD/WN Eyes: Bilateral Eye Normal Inspection HEENT: Normal ENT Inspection Neck: Full Range of Motion, Normal Inspection Respiratory: Lungs Clear, Normal Breath Sounds, No Accessory Muscle Use, No Respiratory Distress Cardiovascular: Regular Rate, Rhythm, No Murmur Gastrointestinal: Non Tender, Soft Assessment/Plan Assessment and Plan Severe right wrist pain. Gout history. Chest pain. Coronary artery disease. Hypertension. Hyperlipidemia. Admission Diagnosis Admission Status: Observation Clinical Quality Measures DVT/VTE Risk/Contraindication: Risk Factor Score Per Nursin RFS Level Per Nursing on Admit: 4+=Very High Contraindications-Pharm: Other *list below* ADÁN FUNK DO Jul 04, 2017 08:17
[2017-07-04] MEDS ORDERED: ASPI-983 PO (08:45)
--- NOTE | 2017-07-04 09:25 | Consultation-Cardiology ---
HPI-Cardiology Cardiology Consultation: Date of Consultation 07/04/17 Date of Admission Attending Physician Adán Hammond DO Admitting Physician Adán Hammond DO Consulting Physician Karli MARTINEZ MD HPI: Time Seen by Provider: 09:25 Chief Complaint: Chest pain This is a 77-year-old gentleman with previous history of CAD and stents. He presented to the ER with chest pain and right upper extremity pain due to gout. Severe pain. 10 out of 10. Patient had coronary angiography in March in [place] but the results are not available. Patient denies active smoking. Patient sees Dr. Monzon as an outpatient. Review of Systems-Cardiology Review of Systems Constitutional: As described under HPI; No As described under HPI, No no symptoms reported, No chills, No fever, No lightheadedness Eyes: No As described under HPI, No no symptoms reported, No blindness, No blurred vision, No contact lenses, No drainage, No decreased acuity, No foreign body sensation, No pain, No vision change Ears/Nose/Throat: No As described under HPI, No no symptoms reported, No chronic hearing loss, No ear discharge, No ear pain, No nasal drainage, No ulcerations Respiratory: No no symptoms reported; As described under HPI; No As described under HPI, No cough, No orthopnea, No shortness of breath, No SOB with excertion Cardiovascular: No no symptoms reported; As described under HPI; No As described under HPI; chest pain; No edema, No irregular heart rate, No lightheadedness, No palpitations Gastrointestinal: No no symptoms reported, No As described under HPI, No abdomen distended, No abdominal pain, No blood streaked bowels, No constipation , No diarrhea, No nausea, No vomiting, No stool coloration changes Genitourinary: No As described under HPI, No burning, No dysuria, No discharge , No frequency, No flank pain, No hematuria, No urgency Musculoskeletal: joint pain Skin: No rash, No skin related problems, No ulcerations Psychiatric/Neurological: No anxiety, No depression, No seizure, No focal weakness, No syncope Hematologic: No bleeding abnormalities LOD-Lbjwkv-Gehtrm Hx Patient Social History Marrital Status: Employed/Student: unemployed Alcohol Use: Denies Use Recreational Drug Use: No Smoking Status: Never a Smoker Recent Foreign Travel: No Recent Infectious Disease Expo: No Hospitalization with Isolation: Denies Physical Abuse Screen: No Sexual Abuse: No Immunizations Up To Date Date of Pneumonia Vaccine: Dec 15, 2012 Past Medical History PMH As described under Assessment. Family Medical History Family History: Arthritis 19 MOTHER Asthma 19 FATHER Cataracts 19 MOTHER Completed stroke Hypertension 19 FATHER Myocardial infarction 19 MOTHER Seizure disorder DAUGHTERS Severe allergy 19 FATHER No Family History of: AIDS Abdominal aortic aneurysm [place]'s disease Alcoholism Alzheimer's disease Aphasia Cancer of mouth Cardiovascular disease Colon cancer Congenital disease Congenital heart disease Coronary thrombosis Cystic fibrosis Deafness or hearing loss Dementia Diabetes mellitus Drug abuse Dysphasia Fibrocystic disease of breast Gastroenteritis Glaucoma Headache disorder Hypercholesterolemia Infertility Kidney disease Neoplasm Not obtainable due to adoption Osteoporosis Parkinson's disease Prostate cancer Psychosocial problem Respiratory disorder Thyroid disease Tuberculosis Visual disorder Allergies and Home Medications Allergies Coded Allergies: Sulfa (Sulfonamide Antibiotics) (Verified Allergy, Unknown, 01/19/12) hydrochlorothiazide (Verified Allergy, Unknown, 03/20/17) ketoprofen (Verified Allergy, Unknown, 01/19/12) nabumetone (Verified Allergy, Unknown, 01/19/12) rosuvastatin (Verified Allergy, Unknown, 03/20/17) morphine (Unverified Adverse Reaction, Mild, VOMITING, 04/25/14) Home Medications Amlodipine Besylate 5 Mg Tablet, 5 MG PO DAILY, (Reported) Aspirin 81 Mg Tablet.dr, 81 MG PO DAILY, (Reported) Furosemide 40 Mg Tablet, 40 MG PO DAILY, (Reported) Isosorbide Mononitrate 120 Mg Tab.er.24h, 120 MG PO DAILY, (Reported) Nitroglycerin 0.4 Mg Tab.subl, 0.4 MG SL UD PRN for CHEST PAIN, (Reported) Potassium Gluconate 99 Mg Tablet, 99 MG PO DAILY, (Reported) Ranitidine HCl 150 Mg Tablet, 150 MG PO BID, (Reported) Rivaroxaban 20 Mg Tablet, 20 MG PO HS, (Reported) Telmisartan 80 Mg Tablet, 80 MG PO DAILY, (Reported) [Black Chan 500MG] , 500 MG PO BID, (Reported) FOR GOUT Patient Home Medication List Home Medication List Reviewed: Yes Physical Exam-Cardiology Physical Exam Vital Signs/I&O 07/04/17 07/04/17 07/04/17 07/04/17 04:27 07:00 07:44 12:00 Temp 97.6 96.7 96.4 Pulse 57 58 63 58 Resp 16 22 24 B/P (MAP) 136/67 (90) 138/63 (88) 154/72 (99) Pulse Ox 96 93 95 O2 Delivery Room Air Room Air Room Air Capillary Refill : Less Than 3 Seconds Constitutional: appears stated age; No apparent distress; well-developed, well- nourished HEENT: PERRL; No discharge; hearing is well preserved, oral hygience is good; No ulceration, No xanthelasmas are seen Neck: No carotid bruit; carotid pulses are 2 + bilaterally Respiratory: No accessory muscle use, No respiratory distress, No chest tender , No chest expansion is symmetric, No chest is bilaterally symmetric, No lungs clear to percussion, No lungs clear to auscultation, No crackles, No rhonchi, No rales, No stridor, No wheezing, No pleural rub, No other Cardiovascular: No regular rate-rhythm, No irregularly irregular, No extra beats, No parasternal heave is noted, No JVD, No edema, No bradycardia, No tachycardia, No point of maximal impulse, No cardiac thrills are palpable, No S1 and S2, No gallop/S3, No gallop/S4, No diastolic murmur, No systolic murmur, No friction rub, No click, No other Gastrointestinal: No tender, No soft, No round, No distended, No pulsatile mass , No organomegaly, No guarding, No rebound, No tenderness, No hernia, No mass, No audible bowel sounds, No abnormal bowel sounds, No abdominal bruits, No spleenomegaly, No other Rectal: deferred Extremities: No normal range of motion, No non-tender, No normal inspection, No pedal edema, No calf tenderness, No normal capillary refill, No pelvis stable , No calf tenderness, No inflammation, No pedal edema, No slow capillary refill , No swelling, No other, No abrasion, No clubbing, No cyanosis, No ecchymosis, No laceration, No no lower extremity edema bilateral, No significant edema, No tenderness, No wound Neurologic/Psychiatric: No assistant vice president II-XII nml as tested, No no motor/sensory deficits; alert; No normal mood/affect; oriented x 3; No abnormal cerebellar tests, No abnormal assistant vice president II-XII, No abnormal gait, No aphasia, No EOM palsy, No facial droop, No motor weakness, No sensory deficit, No depressed affect, No disoriented x 3, No other, No grossly intact; power is 5/5 both on sides Skin: No normal color, No warm/dry, No cyanosis, No cool, No diaphoresis, No damp, No ecchymosis, No jaundice, No mottled, No pallor, No rash, No tattoos/ piercings, No ulcerations, No rash on exposed areas, No ulcerations on exposed areas, No other Data Review Labs Laboratory Tests 07/03/17 19:09: White Blood Count 10.4, Red Blood Count 5.41, Hemoglobin 15.6, Hematocrit 42, Mean Corpuscular Volume 77L, Mean Corpuscular Hemoglobin 29, Mean Corpuscular Hemoglobin Concent 38H, Red Cell Distribution Width 14.1, Platelet Count 241, Mean Platelet Volume 9.2, Neutrophils (%) (Auto) 79H, Lymphocytes (%) (Auto) 6L , Monocytes (%) (Auto) 12, Eosinophils (%) (Auto) 2, Basophils (%) (Auto) 1, Neutrophils # (Auto) 8.2H, Lymphocytes # (Auto) 0.6L, Monocytes # (Auto) 1.2H, Eosinophils # (Auto) 0.2, Basophils # (Auto) 0.1, Neutrophils % (Manual) 77, Lymphocytes % (Manual) 11, Monocytes % (Manual) 7, Eosinophils % (Manual) 2, Basophils % (Manual) 0, Band Neutrophils 3, Blood Morphology Comment NORMAL, Sodium Level 136, Potassium Level 4.0, Chloride Level 102, Carbon Dioxide Level 25, Anion Gap 9, Blood Urea Nitrogen 9, Creatinine 1.07, Estimat Glomerular Filtration Rate > 60, BUN/Creatinine Ratio 8, Glucose Level 170H, Calcium Level 9.5, Total Bilirubin 1.4H, Aspartate Amino Transf (AST/SGOT) 11, Alanine Aminotransferase (ALT/SGPT) 13, Alkaline Phosphatase 73, Troponin I < 0.30, Total Protein 6.9, Albumin 4.3 07/04/17 00:35: Troponin I < 0.30 07/04/17 05:28: Troponin I < 0.30, Uric Acid 7.4H ECG Impression ECG Initial ECG Rhythm: Normal Sinus Initial ECG Impression: Normal A/P-Cardiology Assessment/Admission Diagnosis Chest pain, CAD, Hypertension, History of pulmonary embolism. Possible gout Plan Acute coronary syndrome has been ruled out with negative serial troponins. We will request echocardiogram. May require nuclear stress testing but can be done as an outpatient. Deferred treatment of gout to Dr. Hammond. Hypertension: Continue outpatient medications. Continue Xarelto for pulmonary embolism. Thank you for your consultation. Please call me if you have any questions. Toni Martinez MD, FACP, FACC, FSCAI, FHRS, CCDS Interventional Cardiology Cardiac Electrophysiology Vascular Medicine and Endovascular Interventions Clinical Quality Measures DVT/VTE Risk/Contraindication: Risk Factor Score Per Nursin RFS Level Per Nursing on Admit: 4+=Very High Contraindications-Pharm: Other *list below* Karli MARTINEZ MD Jul 04, 2017 9:25 am
--- NOTE | 2017-07-04 10:47 | Diagnostic Imaging Report ---
INDICATION: Severe right wrist pain and redness. Time of exam 8:16 AM 2 views of the right wrist were obtained. The distal radius and ulna are intact. The carpus is intact. There is triscaphe and first CMC joint degenerative changes noted. The metacarpals are intact. No fractures are seen. Vascular calcifications are present. IMPRESSION: Chronic changes. No acute bony abnormality is detected. Dictated by: Dictated on workstation # [id number]
[2017-07-04] MEDS ORDERED: predniSONE 20 MG TAB PO ONE (11:15)
[2017-07-04] MEDS ORDERED: HYDROcodone/APAP 10 MG/325 MG (LORTAB) TAB PO ONE (11:15)
[2017-07-04] MEDS: HYDROcodone/APAP 10 MG/325 MG (LORTAB) TAB PO PRN ×2 (11:21→19:49)
[2017-07-04] MEDS ORDERED: NITROGLYCERIN 0.4 MG SL TABS BTL 25'S SL PRN (11:45)
[2017-07-04 12:00] VITALS: BP 154/72
[2017-07-04] MEDS: NS IV 1000 ML 1,000 ML IV SCH ×2 (12:36→13:07)
[2017-07-04 15:50] VITALS: BP 165/77
[2017-07-04] MEDS ORDERED: RIVAROXABAN 20 MG TABLET (XARELTO) PO SCH ×2 (17:00→21:00)
[2017-07-04] MEDS: FAMOTIDINE 20 MG (PEPCID) TABLET PO SCH (22:00)
[2017-07-04 22:02] VITALS: BP 162/84
[2017-07-05 01:07] VITALS: BP 149/75
[2017-07-05] MEDS: NS IV 1000 ML 1,000 ML IV SCH (02:48)
[2017-07-05 04:11] VITALS: BP 159/75
[2017-07-05] MEDS: HYDROcodone/APAP 10 MG/325 MG (LORTAB) TAB PO PRN ×2 (04:15→13:02)
[2017-07-05] MEDS ORDERED: ISOSORBIDE MONONITRATE 60 MG (IMDUR) TAB PO SCH (06:30)
[2017-07-05] MEDS ORDERED: predniSONE 20 MG TAB PO NR (07:00)
[2017-07-05 08:00] VITALS: BP 156/74
[2017-07-05] MEDS ORDERED: amLODIPine 5 MG (NORVASC) TAB PO SCH (09:00)
[2017-07-05] MEDS ORDERED: TELMISARTAN 40 MG (MICARDIS) TAB PO SCH (09:00)
[2017-07-05] MEDS ORDERED: FUROSEMIDE 40 MG (LASIX) TAB PO SCH (09:00)
[2017-07-05] MEDS ORDERED: ASPIRIN E.C. 81 MG (ECOTRIN) TAB PO SCH (09:00)
[2017-07-05] MEDS: FAMOTIDINE 20 MG (PEPCID) TABLET PO SCH (09:05)
[2017-07-05] MEDS ORDERED: HYDR-3820 PO (12:00)
[2017-07-05] MEDS ORDERED: PRED10TA22 PO (12:00)
--- NOTE | 2017-07-05 12:03 | Discharge Summary-Hospitalist ---
Diagnosis/Chief Complaint Date of Admission Jul 03, 2017 at 20:46 Date of Discharge 07/05/17 Discharge Date: Jul 05, 2017 Discharge Time: 12:00 Admission Diagnosis Acute right hand gout Severe pain of right hand due to # 1 Chronic pain issues Discharge Diagnosis Acute right hand gout Severe pain of right hand due to # 1 Chronic pain issues Discharge Summary Discharge Physical Exam Allergies: Coded Allergies: Sulfa (Sulfonamide Antibiotics) (Verified Allergy, Unknown, 01/19/12) hydrochlorothiazide (Verified Allergy, Unknown, 03/20/17) ketoprofen (Verified Allergy, Unknown, 01/19/12) nabumetone (Verified Allergy, Unknown, 01/19/12) rosuvastatin (Verified Allergy, Unknown, 03/20/17) morphine (Unverified Adverse Reaction, Mild, VOMITING, 04/25/14) Vitals & I&Os Vital Signs Date Time Temp Pulse Resp B/P (MAP) Pulse Ox O2 Delivery O2 Flow Rate FiO2 07/05/17 08:59 Room Air 07/05/17 08:00 97.8 62 20 156/74 (101) 93 General Appearance: Alert, Oriented X3, Cooperative, No Acute Distress Respiratory: Clear to Auscultation, Normal Air Movement Cardiovascular: Regular Rate, Normal S1, Normal S2 Neuro: Normal Gait, Normal Speech, Strength at 5/5 X4 Ext, Other (right hand without redness of edema but guarding when approaching during exam out of proportion to exam findings) Psych/Mental Status: Mental Status NL Hospital Course Hospital course: Patient was admitted placed on close evaluation due to right hand pain. White count was normal but uric acid was 7.4 sodium was diagnosed with gout after review of x-ray showed no fracture and he was placed on steroids and pain medication. The hand at time of discharge showed no redness no edema and he was very careful about moving at out of proportion to the lab findings and x-ray findings and overall objective data. His very hesitant about going home of which I really had no other intervention planned for him and he was already on oral steroids and pain medication so he was deemed stable for discharge although he was very disappointed the pain wasn't completely resolved and I counseled him that sometimes gout takes several days to resolve but he still seemed frustrated with lack of resolution of symptoms at time of discharge. He will have a close follow-up with Dr. Hammond. His at the bedside understands the plan and agrees for discharge. Labs (last 24 hrs) Patient resulted labs reviewed. Discussion & Recommendations Discharge Planning: <30 minutes discharge planning Discharge Home Medications: Active Scripts Active Prednisone 10 Mg Tab.ds.pk 40 Mg PO DAILY Dispense 10mg pills please. Take 4 pills once daily and then decrease by 1 pill every 2 days Hydrocodon-Acetaminophn 10-325 (Hydrocodone/Acetaminophen) 1 Each Tablet 1 Ea PO Q8HR PRN Reported Aspirin EC (Aspirin) 81 Mg Tablet.dr 81 Mg PO DAILY Amlodipine Besylate 5 Mg Tablet 5 Mg PO DAILY Furosemide 40 Mg Tablet 40 Mg PO DAILY Acid Ocular Care Aide (RANITIDINE) (Ranitidine HCl) 150 Mg Tablet 150 Mg PO BID Potassium (Potassium Gluconate) 99 Mg Tablet 99 Mg PO DAILY Xarelto (Rivaroxaban) 20 Mg Tablet 20 Mg PO HS Isosorbide Mononitrate ER (Isosorbide Mononitrate) 120 Mg Tab.er.24h 120 Mg PO DAILY Nitroglycerin 0.4 Mg Tab.subl 0.4 Mg SL UD PRN Telmisartan 80 Mg Tablet 80 Mg PO DAILY [Black Chan 500MG] 500 Mg PO BID FOR GOUT Instructions to patient/family Please see electronic discharge instructions given to patient. Clinical Quality Measures DVT/VTE Risk/Contraindication: Risk Factor Score Per Nursin RFS Level Per Nursing on Admit: 4+=Very High Contraindications-Pharm: Other *list below* KATHLEEN MORRISON DO Jul 05, 2017 12:03
== END 2017-07-05 12:00 | disposition home or self-care (01) ==
LOC: EDUNIT# 18:14 → ER 18:15 → UNDOADMOB 20:46 → 4TH 20:46 → UNDODISOB 07-05 13:12
PROVIDERS: ADMIT Family Medicine; ATTEND Family Medicine
DX: M10.9 Gout, unspecified (principal); G89.29 Other chronic pain; Z88.2 Allergy status to sulfonamides; Z88.5 Allergy status to narcotic agent; Z88.8 Allergy status to other drugs, medicaments and biological substances; I25.10 Atherosclerotic heart disease of native coronary artery without angina pectoris; I10 Essential (primary) hypertension; Z86.718 Personal history of other venous thrombosis and embolism; Z95.5 Presence of coronary angioplasty implant and graft; Z79.899 Other long term (current) drug therapy; I25.2 Old myocardial infarction
CPT/HCPCS: 36415; 71045; 73100; 80053; 84484; 84550; 85007; 85027; 93005; 93306; 96374; 96375; 96376

== ENCOUNTER 2017-07-12 18:19 | Observation (INO) | payer MEDICARE ==
[~2017-07-12] VITALS: Ht 182.9 cm; Wt 125.2 kg
[~2017-07-12 18:19] MED LIST changes: +ASPI-983 PO; +HYDR-3820 PO; +HYDR-757 PO; +NAPR-1071 PO; +PRED10TA22 PO
[2017-07-12] MEDS ORDERED: NITROGLYCERIN 0.4 MG SL TABS BTL 25'S SL ONE (18:25)
[2017-07-12] MEDS ORDERED: ASPIRIN 81 MG CHEW (CHILDREN'S ASA) ONE (18:25)
--- OUTSIDE RECORDS SUMMARY | 2017-07-12 18:27 | XMS REPORT | Continuity of Care Document ---
Author Author [facility] Organization [facility] Address Unknown Phone Unavailable Allergies Active Description Code Type Severity Reaction Onset Reported/Identified Relationship to Patient Clinical Status Yes ketoprofen [id number] Drug Allergy Unknown N/A 01/19/2012 Yes nabumetone [id number] Drug Allergy Unknown N/A 01/19/2012 Yes Sulfa (Sulfonamide Antibiotics) [id number] Drug Allergy Unknown N/A 2011 Yes morphine [id number] Drug Allergy Unknown VOMITING 07/21/2013 Yes morphine [id number] Drug Allergy Mild VOMITING 04/25/2014 Yes hydrochlorothiazide [id number] Drug Allergy Unknown N/A 03/20/2017 Yes rosuvastatin [id number] Drug Allergy Unknown N/A 03/20/2017 Medications There [...] FUNK DO Ot 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 08/05/2013 ELIAS FUNK DO Ot 415.11 [...] ELIAS CONTEH Ot 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 01/07/2014 DAKOTADEANN ELIAS CONTEH Ot 558.9 [...] ESCOBAR Ot V12.51 HX-VENOUS THROMBOSIS EMBOLISM 04/21/[facility]9 04/21/2014 [facility] 412 04/21/2014 [facility] Ot 414.01 04/21/2014 [facility] Ot 552.1 04/21/2014 [facility] Ot V12.55 04/21/2014 CL[facility] DOETHAN Ot V45.82 04/21/2014 [facility] Ot V74.8 04/22/2014 CLIO DOETHAN D Ot 401.9 04/22/2014 CLIO DOETHAN D Ot 412 04/22/2014 [facility] Ot 414.01 04/22/2014 CLIO DOTHANHTT D Ot 552.1 04/22/2014 CLIO DOTHANHTT D Ot V12.55 04/22/2014 CLIO DOTHANHTT D Ot V45.82 04/22/2014 CLIO DOTHANHTT D Ot V74.8 04/22/2014 CLIO DOTHANHTT D Ot 401.9 04/22/2014 [facility] 412 04/22/2014 [facility] Ot 414.01 04/22/2014 [facility] Ot 552.1 04/22/2014 [facility] ETHAN D Ot V12.55 04/22/2014 CONDE DO, [...] CONDE DO Ot 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 04/25/2014 ETHAN CONDE DO Ot 427.89 [...] 04/26/2014 ETHAN CONDE DO Ot 433.10 04/26/2014 TEHAN CONDE DO Ot 552.1 04/26/2014 ETHAN CONDE [...] BIGG M Ot 786.05 10/12/2014 DELVIS DO, BGIG M Ot 793.11 10/19/2014 DELVIS DO, BIGG M Ot 272.8 10/19/2014 DELVIS DO, BIGG M Ot 453.40 10/19/2014 DELVIS DO, BIGG M Ot 571.8 10/19/2014 DELVIS DO, BIGG M Ot 786.05 10/19/2014 DELVIS DO, BIGG M Ot 793.11 02/01/2015 LIZZIE PARSONP Ot D68.59 02/01/2015 LIZZIE PARSON PEDIATRIC PHYSICAL THERAPY ASSISTANT Ot I10 02/01/2015 LIZZIE PARSON PEDIATRIC PHYSICAL THERAPY ASSISTANT Ot R91.1 02/01/2015 LIZZIE PARSON PEDIATRIC PHYSICAL THERAPY ASSISTANT Ot Z86.711 02/14/2015 LIZZIE PARSON PEDIATRIC PHYSICAL THERAPY ASSISTANT Ot D68.59 02/14/2015 LIZZIE PARSON PEDIATRIC PHYSICAL THERAPY ASSISTANT Ot I10 02/14/2015 LIZZIE PARSON PEDIATRIC PHYSICAL THERAPY ASSISTANT Ot R91.1 02/14/2015 LIZZIE PARSON PEDIATRIC PHYSICAL THERAPY ASSISTANT Ot Z86.711 04/07/2015 ELIAS FUNK DO [...] R91.1 SOLITARY PULMONARY NODULE 04/24/2016 LIZZIE PARSON [facility] Ot D68.59 OTHER PRIMARY THROMBOPHILIA 04/24/2016 LIZZIE PARSON PEDIATRIC PHYSICAL THERAPY ASSISTANT Ot I10 ESSENTIAL (PRIMARY) HYPERTENSION 04/24/2016 LIZZIE PARSON PEDIATRIC PHYSICAL THERAPY ASSISTANT Ot R91.1 SOLITARY PULMONARY NODULE 04/24/2016 LIZZIE PARSON PEDIATRIC PHYSICAL THERAPY ASSISTANT Ot Z86.711 PERSONAL HISTORY OF PULMONARY [...] R91.1 SOLITARY PULMONARY NODULE 08/08/2016 LIZZIE PARSON PEDIATRIC PHYSICAL THERAPY ASSISTANT Ot D68.59 OTHER PRIMARY THROMBOPHILIA 08/08/2016 LIZZIE PARSON PEDIATRIC PHYSICAL THERAPY ASSISTANT Ot I10 ESSENTIAL (PRIMARY) HYPERTENSION 08/08/2016 LIZZIE PARSON PEDIATRIC PHYSICAL THERAPY ASSISTANT Ot R91.1 SOLITARY PULMONARY NODULE 08/08/2016 LIZZIE PARSON PEDIATRIC PHYSICAL THERAPY ASSISTANT Ot Z86.711 PERSONAL HISTORY OF PULMONARY [...] ESCOBAR Ot I25.10 ATHSCL HEART DISEASE OF [place] CORONARY 01/22/2017 CARLOS ESCOBAR Ot I44.0 ATRIOVENTRICULAR BLOCK, FIRST DEGREE 01/22/2017 CARLOS ESCOBAR Ot I44.7 LEFT BUNDLE-BRANCH BLOCK, UNSPECIFIED 01/22/2017 SHAWN, BOBAN N Ot R91.1 SOLITARY PULMONARY NODULE 01/22/2017 CARLOS ESCOBAR Estefany Ot Z79.01 WINDING INSPECTOR AND TESTER (CURRENT) USE OF ANTICOAGULANT 01/22/2017 CARLOS ESCOBAR N Ot Z79.02 WINDING INSPECTOR AND TESTER (CURRENT) USE OF ANTITHROMBOTI 01/22/2017 CARLOS ESCOBAR [...] Estefany Ot I25.10 ATHSCL HEART DISEASE OF [place] CORONARY 01/27/2017 CARLOS ESCOBAR Estefany Ot I44.0 ATRIOVENTRICULAR BLOCK, FIRST DEGREE 01/27/2017 CARLOS ESCOBAR Estefany Ot I44.7 LEFT BUNDLE-BRANCH BLOCK, UNSPECIFIED 01/27/2017 CARLOS ESCOBAR Estefany Ot R91.1 SOLITARY PULMONARY NODULE 01/27/2017 CARLOS ESCOBAR Estefany Ot Z79.01 ASSISTED (CURRENT) USE OF ANTICOAGULANT 01/27/2017 CARLOS ESCOBAR Estefany Ot Z79.02 ASSISTED (CURRENT) USE OF ANTITHROMBOTI 01/27/2017 CARLOS ESCOBAR [...] ESCOBAR Ot I25.10 ATHSCL HEART DISEASE OF [place] CORONARY 02/12/2017 CARLOS ESCOBAR Ot I44.0 ATRIOVENTRICULAR BLOCK, FIRST DEGREE 02/12/2017 CARLOS ESCOBAR Estefany Ot I44.7 LEFT BUNDLE-BRANCH BLOCK, UNSPECIFIED 02/12/2017 CARLOS ESCOBAR Estefany Ot R91.1 SOLITARY PULMONARY NODULE 02/12/2017 CARLOS ESCOBAR Estefany Ot Z79.01 ASSISTED (CURRENT) USE OF ANTICOAGULANT 02/12/2017 CARLOS ESCOBAR N Ot Z79.02 WINDING INSPECTOR AND TESTER (CURRENT) USE OF ANTITHROMBOTI 02/12/2017 CARLOS ESCOBAR [...] Estefany Ot I25.10 ATHSCL HEART DISEASE OF [place] CORONARY 02/17/2017 CARLOS ESCOBAR Ot I44.0 ATRIOVENTRICULAR BLOCK, FIRST DEGREE 02/17/2017 CARLOS ESCOBAR Estefnay Ot I44.7 LEFT BUNDLE-BRANCH BLOCK, UNSPECIFIED 02/17/2017 CARLOS ESCOBAR Estefany Ot R91.1 SOLITARY PULMONARY NODULE 02/17/2017 CARLOS ESCOBAR Estefany Ot Z79.01 ASSISTED (CURRENT) USE OF ANTICOAGULANT 02/17/2017 CARLOS ESCOBAR N Ot Z79.02 WINDING INSPECTOR AND TESTER (CURRENT) USE OF ANTITHROMBOTI 02/17/2017 CARLOS ESCOBAR [...] Fritz Ot I25.110 ATHSCL HEART DISEASE OF [place] COR ART W 03/26/2017 GELLENDER DO, ELIAS [...] 03/26/2017 GELLENDER DO, ELIAS Fritz Ot Z79.01 WINDING INSPECTOR AND TESTER (CURRENT) USE OF ANTICOAGULANT 03/26/2017 GELLENDER DO, [...] Fritz Ot I25.110 ATHSCL HEART DISEASE OF [place] COR ART W 03/26/2017 GELLENDER DO, ELIAS [...] 03/26/2017 GELLENDER DO, ELIAS Fritz Ot Z79.01 WINDING INSPECTOR AND TESTER (CURRENT) USE OF ANTICOAGULANT 03/26/2017 GELLENDER DO, [...] Fritz Ot I25.110 ATHSCL HEART DISEASE OF [place] COR ART W 03/28/2017 GELLENDER DO, ELIAS [...] T38.0X5A ADVERSE EFFECT OF GLUCOCORT/SYNTH ANALOG 03/28/2017 [facility], ELIAS Fritz Ot Z68.36 BODY MASS INDEX (BMI) 36.0-36.9, ADULT 03/28/2017 [facility], ELIAS Fritz Ot Z79.01 ASSISTED (CURRENT) USE OF ANTICOAGULANT 03/28/2017 [facility] [place] , ELIAS Fritz Ot Z86.711 PERSONAL HISTORY OF PULMONARY EMBOLISM 03/28/2017 [facility] [place] , ELIAS Fritz Ot Z86.718 PERSONAL HISTORY OF OTHER VENOUS THROMBO 03/28/2017 [facility], ELIAS Fritz Ot Z95.5 PRESENCE OF CORONARY ANGIOPLASTY IMPLANT 04/08/2017 [facility] [place] , ELIAS Fritz Ot J40 BRONCHITIS, NOT SPECIFIED ACUTE OR CH 04/29/2017 CARSON CARMONA APRN Ot E66.9 OBESITY, UNSPECIFIED 04/29/2017 CARSON CARMONA APRN Ot I25.10 ATHSCL HEART DISEASE OF [place] CORONARY 04/29/2017 CARSON CARMONA APRN Ot I25.2 OLD MYOCARDIAL INFARCTION 04/30/2017 [facility], ELIAS Fritz Ot J40 BRONCHITIS, NOT [...] R91.1 SOLITARY PULMONARY NODULE 04/30/2017 LIZZIE PARSON PEDIATRIC PHYSICAL THERAPY ASSISTANT Ot D68.59 OTHER PRIMARY THROMBOPHILIA 04/30/2017 LIZZIE PARSON PEDIATRIC PHYSICAL THERAPY ASSISTANT Ot I10 ESSENTIAL (PRIMARY) HYPERTENSION 04/30/2017 LIZZIE PARSON PEDIATRIC PHYSICAL THERAPY ASSISTANT Ot R91.1 SOLITARY PULMONARY NODULE 04/30/2017 LIZZIE PARSON PEDIATRIC PHYSICAL THERAPY ASSISTANT Ot Z86.711 PERSONAL HISTORY OF PULMONARY [...] ESCOBAR Ot I25.10 ATHSCL HEART DISEASE OF [place] CORONARY 04/30/2017 CARLOS ESCOBAR Ot I44.0 ATRIOVENTRICULAR BLOCK, FIRST DEGREE 04/30/2017 CARLOS ESCOBAR Ot I44.7 LEFT BUNDLE-BRANCH BLOCK, UNSPECIFIED 04/30/2017 CARLOS ESCOBAR Ot R91.1 SOLITARY PULMONARY NODULE 04/30/2017 CARLOS ESCOBAR Ot Z79.01 ASSISTED (CURRENT) USE OF ANTICOAGULANT 04/30/2017 CARLOS ESCOBAR Ot Z79.02 ASSISTED (CURRENT) USE OF ANTITHROMBOTI 04/30/2017 CARLOS ESCOBAR Ot Z86.711 PERSONAL HISTORY OF PULMONARY EMBOLISM 04/30/2017 CARLOS ESCOBAR Ot Z86.718 PERSONAL HISTORY OF OTHER VENOUS THROMBO 04/30/2017 CARLOS ESCOBAR Ot Z95.5 PRESENCE OF CORONARY ANGIOPLASTY IMPLANT 04/30/2017 ELIAS FUNK DO Ot J40 BRONCHITIS, NOT SPECIFIED ACUTE OR CH 04/30/2017 KRISTINE, CARSON E CELLOPHANE WRAPPING EXAMINER Ot G47.33 OBSTRUCTIVE SLEEP APNEA (ADULT) (PEDIATR 04/30/2017 KRISTINE, CARSON E CELLOPHANE WRAPPING EXAMINER Ot G47.9 SLEEP DISORDER, UNSPECIFIED 04/30/2017 KRISTINE, CARSON E CELLOPHANE WRAPPING EXAMINER Ot E66.9 OBESITY, UNSPECIFIED 04/30/2017 KRISTNIE, CARSON E CELLOPHANE WRAPPING EXAMINER Ot I25.10 ATHSCL HEART DISEASE OF [place] CORONARY 04/30/2017 KRISTINE, CARSON E CELLOPHANE WRAPPING EXAMINER Ot I25.2 OLD MYOCARDIAL INFARCTION 05/01/2017 KRISTINE, CARSON E CELLOPHANE WRAPPING EXAMINER Ot R06.02 SHORTNESS OF BREATH 05/05/2017 KRISTINE, CARSON E CELLOPHANE WRAPPING EXAMINER Ot G47.33 OBSTRUCTIVE SLEEP APNEA (ADULT) (PEDIATR 05/05/2017 KRISTINE, CARSON E CELLOPHANE WRAPPING EXAMINER Ot G47.9 SLEEP DISORDER, UNSPECIFIED 05/06/2017 KRISTINE, CARSON E CELLOPHANE WRAPPING EXAMINER Ot G47.33 OBSTRUCTIVE SLEEP APNEA (ADULT) (PEDIATR 05/06/2017 KRISTINE, CARSON E CELLOPHANE WRAPPING EXAMINER Ot G47.50 PARASOMNIA, UNSPECIFIED 05/06/2017 KRISTINE, CARSON E CELLOPHANE WRAPPING EXAMINER Ot R06.02 SHORTNESS OF BREATH 05/07/2017 KRISTINE, CARSON E CELLOPHANE WRAPPING EXAMINER Ot G47.33 OBSTRUCTIVE SLEEP APNEA (ADULT) (PEDIATR 05/07/2017 KRISTINE, CARSON E CELLOPHANE WRAPPING EXAMINER Ot G47.50 PARASOMNIA, UNSPECIFIED 05/07/2017 KRISTINE, CARSON E CELLOPHANE WRAPPING EXAMINER Ot R06.02 SHORTNESS OF BREATH 05/07/2017 ELIAS FUNK DO Ot J40 BRONCHITIS, NOT SPECIFIED ACUTE OR CH 05/20/2017 KRISTINESHAD ARECHIGAINE E CELLOPHANE WRAPPING EXAMINER Ot E66.9 OBESITY, UNSPECIFIED 05/20/2017 KRISTINE, CARSON E CELLOPHANE WRAPPING EXAMINER Ot I25.10 ATHSCL HEART DISEASE OF [place] CORONARY 05/20/2017 SHAD CARMONAINE E CELLOPHANE WRAPPING EXAMINER Ot I25.2 OLD MYOCARDIAL INFARCTION 05/20/2017 SHAD CARMONAINE E CELLOPHANE WRAPPING EXAMINER Ot R06.02 SHORTNESS OF BREATH 05/30/2017 CARSON CARMONA CELLOPHANE WRAPPING EXAMINER Ot E66.9 OBESITY, UNSPECIFIED 05/30/2017 CARSON CARMONA CELLOPHANE WRAPPING EXAMINER Ot I25.10 ATHSCL HEART DISEASE OF [place] CORONARY 05/30/2017 CARSON CARMONA CELLOPHANE WRAPPING EXAMINER Ot I25.2 OLD MYOCARDIAL INFARCTION 05/30/2017 KRISTINE CARSON Alanna CELLOPHANE WRAPPING EXAMINER Ot R06.02 SHORTNESS OF BREATH 07/05/2017 GELLENDER DO, ELIAS Fritz Ot G89.29 OTHER CHRONIC PAIN 07/05/2017 GELLENDER DO, ELIAS Fritz Ot I10 ESSENTIAL (PRIMARY) HYPERTENSION 07/05/2017 GELLENDER DO, ELIAS Fritz Ot I25.10 ATHSCL HEART DISEASE OF [place] CORONARY 07/05/2017 GELLENDER DO, ELIAS Fritz Ot I25.2 OLD MYOCARDIAL INFARCTION 07/05/2017 GELLENDER DO, ELIAS Fritz Ot M10.9 GOUT, UNSPECIFIED 07/05/2017 GELLENDER DO, ELIAS Fritz Ot Z79.899 OTHER ASSISTED (CURRENT) DRUG THERAPY 07/05/2017 GELLENDER DO, ELIAS Fritz Ot Z86.718 PERSONAL HISTORY OF OTHER VENOUS THROMBO 07/05/2017 GELLENDER DO, ELIAS Fritz Ot Z88.2 ALLERGY STATUS TO SULFONAMIDES STATUS 07/05/2017 GELLENDER DO, ELIAS Fritz Ot Z88.5 ALLERGY STATUS TO NARCOTIC AGENT STATUS 07/05/2017 GELLENDER DO, ELIAS Fritz Ot Z88.8 ALLERGY STATUS TO OTH DRUG/MEDS/BIOL SUB 07/05/2017 GELLENDER DO, ELIAS Fritz Ot Z95.5 PRESENCE OF CORONARY ANGIOPLASTY IMPLANT Procedures Code Description Performed By Performed On [...] 03/22/17 13:04 Blood monocytes/100 leukocytes 10 % NR Manual blood segmented neutrophils/100 leukocytes 81 % NRG Blood band neutrophils/100 leukocytes 2 % NRG Manual blood lymphocytes/100 leukocytes 5 % NRG Manual eosinophils/100 leukocytes in nose 2 % NRG Blood erythrocyte morphology finding identification NORMAL [facility] Blood dohle body detection by light microscopy SLIGHT [facility] Comprehensive metabolic panel - 03/22/17 [...] Blood erythrocyte morphology finding identification NORMAL NRG Serum or plasma troponin i.cardiac measurement (mass/volume) - 07/04/17 00:35 Serum or plasma troponin i.cardiac measurement (mass/volume) < ng/ mL <0.30 Serum or plasma troponin i.cardiac measurement (mass/volume) - 07/04/17 05:28 Serum or plasma troponin i.cardiac measurement (mass/volume) < ng/ mL <0.30 Serum or plasma uric acid measurement (mass/volume) - 07/04/17 05:28 Serum or plasma uric acid measurement (mass/volume) 7.4 mg/dL 2.6-7.2 Encounters ACCT No. Visit Date/Time Discharge Status Pt. Type Provider Facility Loc./Unit Complaint [id number] 07/03/2017 20:46:00 07/05/2017 13:12:00 DIS Outpatient ELIAS FUNK DO [facility] 4TH R WRIST ARTHROPATHY, CHEST PAIN,CAD [id number] 05/05/2017 20:30:00 05/06/2017 06:50:00 DIS Outpatient CARSON CARMONA APRN [facility] SLEEP G47.9 SLEEP DISORDER [id number] 04/30/2017 13:22:00 04/30/2017 23:59:59 CLS Outpatient CARSON CARMONA APRN [facility] RT R06.00 SOB [id number] 04/28/2017 07:14:00 04/28/2017 23:59:59 CLS Outpatient CARSON CARMONA APRN [facility] RAD R06.00 [id number] 04/07/2017 12:45:00 04/07/2017 23:59:59 CLS Outpatient ELIAS FUNK DO [facility] RAD BRONCHITIS,SOB [id number] 03/24/2017 09:00:00 03/28/2017 11:51:00 DIS Inpatient ELIAS FUNK DO [facility] 4TH CHEST PAIN, BRONCHITIS [id number] 01/21/2017 14:16:00 01/21/2017 23:59:59 CLS Outpatient CARLOS ESCOBAR Estefany [facility] ONC [id number] 08/08/2016 12:07:00 08/08/2016 23:59:59 CLS Outpatient ELIAS FUNK DO [facility] RAD PAIN IN LEFT ANKLE [id number] 04/25/2016 10:37:00 04/25/2016 23:59:59 CLS Outpatient ELIAS FUNK DO [facility] LAB CHEST PAIN,COUGH [id number] 04/24/2016 14:01:00 04/24/2016 23:59:59 CLS Outpatient BLESSING ELIAS [facility] RAD COUGH [id number] 01/10/2016 10:51:00 01/10/2016 23:59:59 CLS Outpatient CARLOS ESCOBAR [facility] RAD [id number] 01/10/2016 09:34:00 01/10/2016 23:59:59 CLS Outpatient CARLOS ESCOBAR [facility] ONC [id number] 09/25/2015 08:41:00 09/25/2015 23:59:59 CLS Outpatient BIGG EDMONDSON DO [facility] RAD PULMONARY NODULE [id number] 01/11/2015 13:48:00 01/11/2015 23:59:59 CLS Outpatient ELIAS FUNK DO [facility] RAD WHEEZING,SOB [id number] 01/11/2015 09:38:00 01/11/2015 23:59:59 CLS Outpatient LIZZIE PARSON [facility] ONC [id number] 09/21/2014 12:22:00 09/21/2014 23:59:59 CLS Outpatient BIGG EDMONDSON DO [facility] RAD PULMONARY NODULE,SOB [id number] 04/22/2014 07:05:00 04/25/2014 15:15:00 DIS Inpatient ETHAN CONDE DO [facility] CSD HERNIA REPAIR [id number] 01/13/2014 10:08:00 04/13/2014 00:01:00 DIS Outpatient CARLOS ESCOBAR [facility] ONC [id number] 02/21/2014 08:14:00 02/21/2014 23:59:59 CLS Outpatient BIGG EDMONDSON DO [facility] RAD PULMONARY NODULE PULMONARY EMBOLISM SOB [id number] 02/18/2014 12:37:00 02/18/2014 23:59:59 CLS Outpatient BIGG EDMONDSON DO [facility] LAB PE,SOA [id number] 10/14/2013 13:39:00 01/12/2014 00:01:00 DIS Outpatient CARLOS ESCOBAR N [facility] ONC [id number] 01/05/2014 05:45:00 01/07/2014 08:10:00 DIS Inpatient ELIAS FUNK DO [facility] 4TH ACUTE ABDOMINAL PAIN [id number] 12/15/2013 11:52:00 12/15/2013 23:59:59 CLS Outpatient ELIAS FUNK DO [facility] RAD SOB,COUGH [id number] 09/21/2013 10:38:00 09/21/2013 23:59:59 CLS Outpatient JIM JOEL, DAISY Bush [facility] CARD CAD,HTN,HLP,DVT [id number] 08/02/2013 08:21:00 08/05/2013 18:30:00 DIS Inpatient ELIAS FUNK DO [facility] CSD BILATERAL PULMONARY EMBOLISM [id number] 07/29/2013 06:48:00 07/29/2013 13:05:00 DIS Outpatient MIRIAN MCDOWELL MD [facility] SDC UMBILICAL HERNIA [id number] 07/21/2013 10:09:00 07/21/2013 23:59:59 CLS Outpatient MIRIAN MCDOWELL MD [facility] PREOP UMBILICAL HERNIA [id number] 01/19/2012 08:41:00 Document Registration
[2017-07-12] MEDS ORDERED: NS IV 1000 ML 1,000 ML IV SCH (18:28)
[2017-07-12] MEDS ORDERED: NITROGLYCERIN 0.4 MG SL TABS BTL 25'S SL PRN ×2 (18:30→21:15)
[2017-07-12] MEDS ORDERED: ASPIRIN 81 MG CHEW (CHILDREN'S ASA) PO ONE (18:30)
[2017-07-12] MEDS ORDERED: PRD10T (18:31)
--- NOTE | 2017-07-12 18:35 | ED Chest Pain ---
General Stated Complaint: CHEST PAIN Source: patient, spouse Exam Limitations: no limitations History of Present Illness Date Seen by Provider: Jul 12, 2017 Time Seen by Provider: 18:20 Initial Comments The patient presents to the ER by private conveyance with his significant other and a chief complaint he was having chest pain that is progressively worsened since sometime yesterday. It is painful at rest and he doesn't really do anything to exert himself. He has some shortness of breath but no coughing fevers chills, nausea, sweats. He says he is very dehydrated and is been having diarrhea since starting the prednisone for his recent gout flare that had them in the hospital about a week ago. He is still on the prednisone. He has a history of 5 stents and known to Dr. Styles in [facility]. He is on Xarelto. The pain does not radiate and he says it runs like a band around the front of his chest all around his back and all the way through. It is not made worse by deep inspiration and he is not coughing. He does not take a statin because he has tried 4 different ones and they have all cost problems with him causing muscle pain and weakness. He was never a smoker has no thyroid problems but does take medication for his blood pressure. Review of the recent discharge note from 07/05/17 demonstrates the patient was sent home with a gout flare, uric acid 7.4 on prednisone and hydrocodone. Left hand was still having pain but no erythema, swelling or evidence of infection. He presented after 4 days of wrist gout pain and he started taking his colchicine and that caused him to have chest pain. This chest pain was worked up inpatient he was given an echocardiogram and seen by a local teacher aide clerical. His colchicine was discontinued and he was put on hydrocodone, Tylenol and prednisone. Patient relates that he noticed some bright red blood from rectum starting today. He relates this to his Xarelto. He denies a history of hemorrhoids. In addition to his telmisartan he is on Lasix 40 mg daily. He is not on beta blockers. He states he has lost 10 pounds over the last couple weeks. He is still taking his Lasix routinely. Allergies and Home Medications Allergies Coded Allergies: Sulfa (Sulfonamide Antibiotics) (Verified Allergy, Unknown, 01/19/12) hydrochlorothiazide (Verified Allergy, Unknown, 03/20/17) ketoprofen (Verified Allergy, Unknown, 01/19/12) nabumetone (Verified Allergy, Unknown, 01/19/12) rosuvastatin (Verified Allergy, Unknown, 03/20/17) morphine (Unverified Adverse Reaction, Mild, VOMITING, 04/25/14) Home Medications Amlodipine Besylate 5 Mg Tablet, 5 MG PO DAILY, (Reported) Aspirin 81 Mg Tablet.dr, 81 MG PO DAILY, (Reported) Furosemide 40 Mg Tablet, 40 MG PO DAILY, (Reported) Hydrocodone/Acetaminophen 1 Each Tablet, 1 EA PO Q8HR PRN for PAIN-MODERATE Prescribed by: KATHLEEN MORRISON on 07/05/17 1200 Isosorbide Mononitrate 120 Mg Tab.er.24h, 120 MG PO DAILY, (Reported) Nitroglycerin 0.4 Mg Tab.subl, 0.4 MG SL UD PRN for CHEST PAIN, (Reported) Potassium Gluconate 99 Mg Tablet, 99 MG PO DAILY, (Reported) Prednisone 10 Mg Tab.ds.pk, 40 MG PO DAILY Dispense 10mg pills please. Take 4 pills once daily and then decrease by 1 pill every 2 days Prescribed by: KATHLEEN MORRISON on 07/05/17 1200 Ranitidine HCl 150 Mg Tablet, 150 MG PO BID, (Reported) Rivaroxaban 20 Mg Tablet, 20 MG PO HS, (Reported) Telmisartan 80 Mg Tablet, 80 MG PO DAILY, (Reported) [Black Chan 500MG] , 500 MG PO BID, (Reported) FOR GOUT Patient Home Medication List Home Medication List Reviewed: Yes Review of Systems Constitutional: No chills, No diaphoresis, No fever, No malaise EENTM: No Blurred Vision, No Double Vision, No Eye Pain Respiratory: Denies Cough; Shortness of Air; Denies SOA With Exertion; SOA at Rest; Denies Stridor, Denies Wheezing Cardiovascular: See HPI, Chest Pain; Denies Edema, Denies Irregular Heart Rate , Denies Lightheadedness, Denies Palpitations, Denies Syncope Gastrointestinal: Denies Abdomen Distended, Denies Abdominal Pain, Denies Constipated; Diarrhea; Denies Nausea, Denies Vomiting Genitourinary: Denies Burning, Denies Discharge Musculoskeletal: No back pain, No joint pain Skin: No pruritus, No rash Psychiatric/Neurological: Denies Headache, Denies Numbness, Denies Paresthesia Past Aooevfd-Kjgatq-Mjsopn Hx Patient Social History Alcohol Use: Denies Use Recreational Drug Use: No Smoking Status: Never a Smoker Recent Hopitalizations: Yes Immunizations Up To Date Date of Pneumonia Vaccine: Dec 15, 2012 Seasonal Allergies Seasonal Allergies: Yes Past Medical History Surgeries: Yes Abdominal, Coronary Stent Respiratory: Yes Pulmonary Embolism Currently Using CPAP: No Currently Using BIPAP: No Cardiac: Yes (5 heart stent) Heart Attack, Hypertension Neurological: No Reproductive Disorders: No Genitourinary: No Gastrointestinal: No Musculoskeletal: Yes Arthritis, Gout Endocrine: No HEENT: No Hearing Impairment: Hard of Hearing Cancer: No Psychosocial: No Integumentary: No Blood Disorders: Yes Adverse Reaction/Blood Tranf: No Family Medical History Arthritis 19 MOTHER Asthma 19 FATHER Cataracts 19 MOTHER Completed stroke Hypertension 19 FATHER Myocardial infarction 19 MOTHER Seizure disorder DAUGHTERS Severe allergy 19 FATHER No Family History of: AIDS Abdominal aortic aneurysm Rishi's disease Alcoholism Alzheimer's disease Aphasia Cancer of mouth Cardiovascular disease Colon cancer Congenital disease Congenital heart disease Coronary thrombosis Cystic fibrosis Deafness or hearing loss Dementia Diabetes mellitus Drug abuse Dysphasia Fibrocystic disease of breast Gastroenteritis Glaucoma Headache disorder Hypercholesterolemia Infertility Kidney disease Neoplasm Not obtainable due to adoption Osteoporosis Parkinson's disease Prostate cancer Psychosocial problem Respiratory disorder Thyroid disease Tuberculosis Visual disorder Physical Exam Vital Signs Vital Signs - First Documented Capillary Refill : General Appearance: Mild Distress, Obese HEENT: PERRL/EOMI, Pharynx Normal (oropharynx is dry but otherwise unremarkable ) Neck: Full Range of Motion, Normal Inspection, Supple Respiratory: Lungs Clear, Normal Breath Sounds, No Accessory Muscle Use, No Respiratory Distress, Other (left chest is very tender to palpation but patient will not relate whether this same pain he is experiencing that brought him to the ER.) Cardiovascular: Regular Rate, Rhythm, No Edema, No Gallop, No JVD, Normal Peripheral Pulses (radial bilateral and dorsal pedal bilateral) Gastrointestinal: Normal Bowel Sounds, Non Tender, Soft Extremity: Normal Capillary Refill, Non Tender, No Calf Tenderness Neurologic/Psychiatric: Alert, Oriented x3, No Motor/Sensory Deficits, Normal Mood/Affect Skin: Normal Color, Warm/Dry Progress/Results/Core Measures Lab Results Laboratory Tests Test 07/12/17 18:30 Range/Units White Blood Count 13.0 H 4.3-11.0 10^3/uL Red Blood Count 6.22 H 4.35-5.85 10^6/uL Hemoglobin 17.5 13.3-17.7 G/DL Hematocrit 50 40-54 % Mean Corpuscular Volume 81 80-99 FL Mean Corpuscular Hemoglobin 28 25-34 PG Mean Corpuscular Hemoglobin Concent 35 32-36 G/DL Red Cell Distribution Width 15.0 H 10.0-14.5 % Platelet Count 347 130-400 10^3/uL Mean Platelet Volume 9.7 7.4-10.4 FL Neutrophils (%) (Auto) 80 H 42-75 % Lymphocytes (%) (Auto) 7 L 12-44 % Monocytes (%) (Auto) 10 0-12 % Eosinophils (%) (Auto) 2 0-10 % Basophils (%) (Auto) 0 0-10 % Neutrophils # (Auto) 10.4 H 1.8-7.8 X 10^3 Lymphocytes # (Auto) 1.0 1.0-4.0 X 10^3 Monocytes # (Auto) 1.3 H 0.0-1.0 X 10^3 Eosinophils # (Auto) 0.2 0.0-0.3 10^3/uL Basophils # (Auto) 0.0 0.0-0.1 10^3/uL Neutrophils % (Manual) 83 % Lymphocytes % (Manual) 6 % Monocytes % (Manual) 10 % Eosinophils % (Manual) 1 % Blood Morphology Comment NORMAL Prothrombin Time 16.9 H 12.2-14.7 SEC INR Comment 1.4 0.8-1.4 Activated Partial Thromboplast Time 39 H 24-35 SEC D-Dimer < 0.27 0.00-0.49 UG/ML Sodium Level 142 135-145 MMOL/L Potassium Level 3.8 3.6-5.0 MMOL/L Chloride Level 117 H 98-107 MMOL/L Carbon Dioxide Level 13 L 21-32 MMOL/L Anion Gap 12 5-14 MMOL/L Blood Urea Nitrogen 26 H 7-18 MG/DL Creatinine 1.44 H 0.60-1.30 MG/DL Estimat Glomerular Filtration Rate 48 BUN/Creatinine Ratio 18 Glucose Level 144 H 70-105 MG/DL Calcium Level 9.3 8.5-10.1 MG/DL Magnesium Level 2.4 1.8-2.4 MG/DL Total Bilirubin 0.8 0.1-1.0 MG/DL Aspartate Amino Transf (AST/SGOT) 19 5-34 U/L Alanine Aminotransferase (ALT/SGPT) 33 0-55 U/L Alkaline Phosphatase 83 40-136 U/L Myoglobin 99.0 H 10.0-92.0 NG/ML Troponin I < 0.30 <0.30 NG/ML B-Type Natriuretic Peptide 59.9 <100.0 PG/ML Total Protein 7.4 6.4-8.2 GM/DL Albumin 4.6 H 3.2-4.5 GM/DL Lipase 31 8-78 U/L My Orders Orders - ALFRED,RODY J Cbc With Automated Diff (07/12/17:) Magnesium (07/12/17) Chest 1 View, Ap/Pa Only (07/12/17:) Ekg Tracing (07/12/17 18:) Cardiac Profile 1 (07/12/17:) Comprehensive Metabolic Panel (07/12/17) Myoglobin Serum (07/12/17 18:) Protime With Inr (07/12/17 18:) Partial Thromboplastin Time (07/12/17 18:) O2 (07/12/17 18:) Monitor-Rhythm Ecg Trace Only (07/12/17) Lipid Panel (07/13/17 06:00) Aspirin Chewable Tablet (Baby Aspirin Ch (07/12/17 18:30) Nitroglycerin 0.4 Mg Btl 25's (Nitrostat (07/12/17 18:30) Saline Lock/Iv-Start (07/12/17 18:) Lipase (07/12/17 18:) BNP (07/12/17 18:) Fibrin Degradation Products (07/12/17 18:) Saline Lock/Iv-Start (07/12/17 18:) Ns Iv 1000 Ml (Sodium Chloride 0.9%) (07/12/17 18:) Nitroglycerin 0.4 Mg Btl 25's (Nitrostat (07/12/17 18:25) Aspirin Chewable Tablet (Baby Aspirin Ch (07/12/17 18:25) Manual Differential (07/12/17 18:30) Fentanyl Injection (Sublimaze Injection (07/12/17 19:00) Ondansetron Injection (Zofran Injectio (07/12/17 19:00) Occult Blood Stool (07/12/17 18:54) Lorazepam Injection (Ativan Injection) (07/12/17 19:30) Ns Iv 1000 Ml (Sodium Chloride 0.9%) (07/12/17 19:30) Pantoprazole Tablet (Protonix Tablet) (07/12/17 19:45) Lidocaine 2% Viscous 15 Ml (Xylocaine Vi (07/12/17 19:45) Antacid Suspension (Mylanta Suspension (07/12/17 19:45) Medications Given in ED Current Medications Medications Dose Ordered Sig/Fermín Route Start Time Stop Time Status Last Admin Dose Admin Aspirin 324 mg ONCE ONCE PO 07/12/17 18:30 07/12/17 18:31 DC 07/12/17 18:32 324 MG Fentanyl Citrate 50 mcg ONCE ONCE IVP 07/12/17 19:00 07/12/17 19:01 DC 07/12/17 19:00 50 MCG Lorazepam 1 mg ONCE ONCE IVP 07/12/17 19:30 07/12/17 19:31 DC 07/12/17 19:26 1 MG Nitroglycerin 0.4 mg UD PRN SL 07/12/17 18:30 07/12/17 18:30 0.4 MG Ondansetron HCl 4 mg ONCE ONCE IVP 07/12/17 19:00 07/12/17 19:01 DC 07/12/17 19:00 4 MG Sodium Chloride 1,000 ml @ 1,000 mls/hr Q1H ONCE IV 07/12/17 19:30 07/12/17 20:29 07/12/17 19:26 1,000 MLS/HR Vital Signs/I&O 07/12/17 07/12/17 07/12/17 18:24 18:24 18:24 Pulse 98 Resp 24 B/P (MAP) 147/83 (104) Pulse Ox 98 97 O2 Delivery Nasal Cannula Nasal Cannula O2 Flow Rate 2.0 2.0 2.00 Progress Note #1: Time: 18:40 Progress Note Chest pain with some shortness of breath. Certainly coronary artery disease is in the differential we've given him aspirin and obtained an EKG that is unchanged from a little over a week ago. He has good breath sounds but a chest x -ray will rule out a pneumothorax. He is not having a cough and pneumonia is less likely however he is quite dry with diarrhea. Dehydration with hypovolemia is possible but his blood pressure is decent 118 systolic over 79. His oxygen saturations are normal in the mid to upper 90s on room air although we placed him on 2 L by nasal cannula. His been using a lot of prednisone which could worsen GERD or increase his likelihood of developing an infection. He's not been on any antibiotics. He says today he started noticing some bright red blood from rectum which could be from his Xarelto and a significant anemia could waken his angina. He is on isosorbide mononitrate routinely for his angina. AAA ruled out by echocardiogram 8 days ago. Echocardiogram by Dr. Martinez: 07/04/17 Wall thickness of left ventricle is increased with normal cavity size and concentric hypertrophy. Systolic function is normal with an EF of 55-65%. Hypokinesis of the anterior myocardium. Hypokinesis of the anterior septal myocardium. Right ventricle cavity size is normal with normal wall thickness. Systolic function is normal. Left atrium is dilated. Mild regurgitation and aortic valve. Progress Note #2: Time: 18:58 Progress Note Chest pain on arrival was rated at 10 out of 10 but after 3 subsequent doses of nitroglycerin it is now 5 out of 10. We have talked him into some fentanyl that might help him with his diarrhea temporarily as well as with his chest pain. He is not take morphine because it makes him very sick to his stomach and he has requested we also gave him Zofran to stave off the side effect of nausea associated with opiates. He is going to try and produce a bowel movement for us and we will test that for occult blood. Progress Note #3: Time: 19:22 Progress Note Patient's feeling a little claustrophobic and having some anxiety is really given a milligram of Ativan and some more fluids. All 3 of his cell lines white blood cell, hemoglobin and platelets have increased. His hemoglobin is up to points from 10 days ago indicating he's hemoconcentrated. His BUNs is modestly elevated and his creatinine is up almost to an acute kidney injury level above the baseline of 1.1 creatinine. He is dehydrated likely due to his diarrhea and continued furosemide use. Fecal occult blood test was positive. Her going to start a second liter and put him in the hospital on some gentle fluids after discussing his case with cardiology. Initial ECG Impression Date: Jul 12, 2017 Initial ECG Impression Time: 18:29 Initial ECG Rate: 83 Initial ECG Rhythm: Normal Sinus Initial ECG Intervals: MT (252 ms) Initial ECG Impression: Nonspecific Changes, 1st Degree AV Block Initial ECG Comparisson: Unchanged Comment Unchanged from [address] elevation or depression. First degree AV block. Diagonstic Imaging: Xray Plain Films/CT/US/NM/MRI: chest (1v) Comments NAME: TYRONE SCANLON [facility] REC#: [id number] PHYSICIAN: RODY SIMON MD CC: CHARLIE CALLEJAS MD; RODY SIMON Page 1 of 1 RADIOLOGY REPORT VIA [facility], [facility]. [place], [place] CC: CHARLIE CALLEJAS MD; RODY SIMON Page 1 of 1 RADIOLOGY REPORT NAME: TYRONE SCANLON [facility] REC#: [id number] PT STATUS: REG ER : 1940 PHYSICIAN: RODY SIMON MD ADMIT DATE: 07/12/17/ER Signed Date of Exam: 07/12/17 CHEST 1 VIEW, AP/PA ONLY INDICATION: Diarrhea and chest pain. EXAMINATION: Single view of the chest was obtained. FINDINGS: There is cardiomegaly. There is some minimal right basilar subsegmental atelectasis and/or pneumonitis. There is no pleural effusion or pneumothorax. The mediastinum is unremarkable. IMPRESSION: 1. Cardiomegaly. 2. Right basilar subsegmental atelectasis and/or pneumonitis. Dictated by: Dictated on workstation # [id number] Dict: 07/12/171917 Trans: 07/12/171930 Interpreted by: CHARLIE CALLEJAS MD Electronically signed by: CHARLIE CALLEJAS MD 07/12/171930 Reviewed: Reviewed by Me Departure Communication (Admissions) Time/Spoke to Admitting Phy: 19:45 Dr Gr: Discussed case lab imaging and findings. Time/Spoke to Consulting Phy: 19:35 Discussed case lab imaging findings and the patient's had a heart catheter in March without results this was done at [place] as well as an echocardiogram 10 days ago. He would like us to put him on a PPI and see if maybe between the prednisone, colchicine and now GI bleed see if we have aggravated her stomach lining. Impression Primary Impression: Chest pain on exertion Additional Impressions: Dehydration Diarrhea Qualified Codes: R19.7 - Diarrhea, unspecified Disposition: ADMITTED INPATIENT Condition: Improved Admissions Decision to Admit Reason: Admit from ER (General) Decision to Admit/Date: Jul 12, 2017 Time/Decision to Admit Time: 19:37 Departure-Patient Inst. Referrals: ELIAS FUNK DO (PCP/Family) Primary Care Physician Copy Copies To 1: ELIAS FUNK TITUS J Jul 12, 2017 18:35
[2017-07-12 18:36] LABS: BASOPHILS % (AUTO) 0 % (0-10); EOSINOPHILS # (AUTO) 0.2 10^3/uL (0.0-0.3); EOSINOPHILS % (AUTO) 2 % (0-10); HEMATOCRIT 50 % (40-54); HEMOGLOBIN 17.5 G/DL (13.3-17.7); LYMPHOCYTES % (AUTO) 7 % (12-44); MEAN CORPUSCULAR HEMOGLOBIN 28 PG (25-34); MEAN CORPUSCULAR HGB CONC 35 G/DL (32-36); MEAN CORPUSCULAR VOLUME 81 FL (80-99); MEAN PLATELET VOLUME 9.7 FL (7.4-10.4); MONOCYTES # (AUTO) 1.3 X 10^3 (0.0-1.0); MONOCYTES % (AUTO) 10 % (0-12); NEUTROPHILS # (AUTO) 10.4 X 10^3 (1.8-7.8); NEUTROPHILS % (AUTO) 80 % (42-75); PLATELET COUNT 347 10^3/uL (130-400); RED BLOOD COUNT 6.22 10^6/uL (4.35-5.85)
[2017-07-12 18:46] LABS: INR 1.4 (0.8-1.4); PROTHROMBIN TIME PATIENT 16.9 SEC (12.2-14.7)
[2017-07-12 18:54] LABS: ALANINE AMINOTRANSFERASE 33 U/L (0-55); ALBUMIN 4.6 GM/DL (3.2-4.5); ALKALINE PHOSPHATASE 83 U/L (40-136); BILIRUBIN,TOTAL 0.8 MG/DL (0.1-1.0); BUN/CREATININE RATIO 18; CALCIUM 9.3 MG/DL (8.5-10.1); CARBON DIOXIDE 13 MMOL/L (21-32); CHLORIDE 117 MMOL/L (98-107); CREATININE SERUM 1.44 MG/DL (0.60-1.30); GFR ESTIMATED 48; GLUCOSE 144 MG/DL (70-105); LIPASE 31 U/L (8-78); MAGNESIUM 2.4 MG/DL (1.8-2.4); POTASSIUM 3.8 MMOL/L (3.6-5.0); SODIUM 142 MMOL/L (135-145); TOTAL PROTEIN 7.4 GM/DL (6.4-8.2)
[2017-07-12] MEDS ORDERED: fentaNYL INJECTION 100 MCG/2 ML AMP IVP ONE (19:00)
[2017-07-12] MEDS ORDERED: ONDANSETRON 4 MG/2 ML (SDV) Z0FRAN IVP ONE (19:00)
[2017-07-12 19:15] LABS: EOSINOPHILS % (MANUAL) 1 %; LYMPHOCYTES % (MANUAL) 6 %; MONOCYTES % (MANUAL) 10 %; NEUTROPHILS % (MANUAL) 83 %; RBC MORPH NORMAL
--- NOTE | 2017-07-12 19:22 | Diagnostic Imaging Report ---
INDICATION: Diarrhea and chest pain. EXAMINATION: Single view of the chest was obtained. FINDINGS: There is cardiomegaly. There is some minimal right basilar subsegmental atelectasis and/or pneumonitis. There is no pleural effusion or pneumothorax. The mediastinum is unremarkable. IMPRESSION: 1. Cardiomegaly. 2. Right basilar subsegmental atelectasis and/or pneumonitis. Dictated by: Dictated on workstation # [id number]
[2017-07-12] MEDS ORDERED: LORazepam INJ 2 MG/ML (ATIVAN) VIAL IVP ONE (19:30)
[2017-07-12] MEDS ORDERED: NS IV 1000 ML 1,000 ML IV ONE (19:30)
[2017-07-12] MEDS ORDERED: LIDOCAINE 2% VISCOUS 15 ML UDC PO ONE (19:45)
[2017-07-12] MEDS ORDERED: ANTACID SUSP 30 ML UDC (MYLANTA) PO ONE (19:45)
[2017-07-12] MEDS ORDERED: PANTOPRAZOLE 20 MG TABLET (PROTONIX) PO ONE (19:45)
[2017-07-12] MEDS ORDERED: PANTOPRAZOLE 40 MG (PROTONIX) TAB PO ONE (19:53)
[2017-07-12] MEDS ORDERED: PANTOPRAZOLE 40 MG (PROTONIX) TAB PO STA (19:59)
[2017-07-12 20:45] VITALS: BP 138/66
[2017-07-12] MEDS ORDERED: KCL IV ONE (21:07)
[2017-07-12] MEDS ORDERED: NS IV ONE (21:07)
[2017-07-12] MEDS ORDERED: 1/2 NS W/KCL 20 MEQ/L 1,000 ML IV ONE (21:11)
[2017-07-12] MEDS ORDERED: ONDANSETRON 4 MG/2 ML (SDV) Z0FRAN IV PRN (21:15)
[2017-07-12] MEDS ORDERED: ACETAMINOPHEN 500 MG TAB (TYLENOL) PO PRN (21:15)
[2017-07-12] MEDS: 1/2 NS W/KCL 20 MEQ/L 1,000 ML IV SCH (21:30)
[2017-07-12 21:45] VITALS: BP 126/67
[2017-07-12 22:00] VITALS: BP_SYST 126; BP_SYST 136; BP_DIAS 64; BP_DIAS 67
[2017-07-12 23:00] VITALS: BP 113/72
[2017-07-12] MEDS: fentaNYL INJECTION 100 MCG/2 ML AMP IV PRN ×2 (23:08→23:59)
[2017-07-13] VITALS: BP 122/65
[2017-07-13] MEDS: 1/2 NS W/KCL 20 MEQ/L 1,000 ML IV SCH ×2 (02:30→07:38)
[2017-07-13] MEDS: fentaNYL INJECTION 100 MCG/2 ML AMP IV PRN ×2 (03:32→08:19)
[2017-07-13 03:53] LABS: BASOPHILS % (AUTO) 0 % (0-10); EOSINOPHILS # (AUTO) 0.3 10^3/uL (0.0-0.3); EOSINOPHILS % (AUTO) 4 % (0-10); HEMATOCRIT 41 % (40-54); HEMOGLOBIN 14.2 G/DL (13.3-17.7); LYMPHOCYTES # (AUTO) 0.9 X 10^3 (1.0-4.0); LYMPHOCYTES % (AUTO) 10 % (12-44); MEAN CORPUSCULAR HEMOGLOBIN 29 PG (25-34); MEAN CORPUSCULAR HGB CONC 35 G/DL (32-36); MEAN CORPUSCULAR VOLUME 83 FL (80-99); MEAN PLATELET VOLUME 9.5 FL (7.4-10.4); MONOCYTES # (AUTO) 1.2 X 10^3 (0.0-1.0); MONOCYTES % (AUTO) 13 % (0-12); NEUTROPHILS # (AUTO) 6.5 X 10^3 (1.8-7.8); NEUTROPHILS % (AUTO) 73 % (42-75); PLATELET COUNT 258 10^3/uL (130-400); RED BLOOD COUNT 4.97 10^6/uL (4.35-5.85); RED CELL DISTRIBUTION WIDTH 14.7 % (10.0-14.5)
[2017-07-13 04:17] LABS: CHOLESTEROL 67 MG/DL (< 200); HDL CHOLESTEROL 20 MG/DL (40-60); TRIGLYCERIDES 69 MG/DL (<150); VLDL CHOLESTEROL 14 MG/DL (5-40)
[2017-07-13 04:21] LABS: CARBON DIOXIDE 14 MMOL/L (21-32); CHLORIDE 117 MMOL/L (98-107); POTASSIUM 4.1 MMOL/L (3.6-5.0); SODIUM 138 MMOL/L (135-145)
[2017-07-13 04:22] LABS: BUN/CREATININE RATIO 21; CALCIUM 7.9 MG/DL (8.5-10.1); CREATININE SERUM 1.06 MG/DL (0.60-1.30); GFR ESTIMATED > 60; GLUCOSE 100 MG/DL (70-105)
[2017-07-13] MEDS ORDERED: ISOSORBIDE MONONITRATE 60 MG (IMDUR) TAB PO SCH (06:30)
[2017-07-13] MEDS ORDERED: PANTOPRAZOLE 20 MG TABLET (PROTONIX) PO SCH (07:00)
[2017-07-13 08:00] VITALS: BP 117/58
[2017-07-13] MEDS ORDERED: FAMOTIDINE 20 MG (PEPCID) TABLET PO SCH (09:00)
[2017-07-13] MEDS ORDERED: ASPIRIN E.C. 81 MG (ECOTRIN) TAB PO SCH (09:00)
[2017-07-13] MEDS ORDERED: TELMISARTAN 40 MG (MICARDIS) TAB PO SCH (09:00)
[2017-07-13] MEDS ORDERED: amLODIPine 5 MG (NORVASC) TAB PO SCH (09:00)
--- NOTE | 2017-07-13 10:14 | Consultation-Cardiology ---
HPI-Cardiology Cardiology Consultation Date of Consultation 07/13/17 Date of Admission Time Seen by Provider: 10:08 Indication: Chest pain HPI 77 years old gentleman with history of DVT/ PE, coronary artery disease, COPD. Was in his usual state of health until about a week ago when he started having recurrent episodes of chest pain, progressing to the point that he came to the emergency room yesterday, he had severe dull achiness all over his chest mainly on the left side of his chest like a band around his chest. Not radiating, no shortness of breath associated with it. No palpitation, syncope or near syncopal episode the pain was waxing and waning. No EKG changes were noted, monitored overnight and felt better. He has been having diarrhea for a full week which has been persistent. Has been on steroids. Home Medications & Allergies Allergies: Coded Allergies: Sulfa (Sulfonamide Antibiotics) (Verified Allergy, Unknown, 01/19/12) hydrochlorothiazide (Verified Allergy, Unknown, 03/20/17) ketoprofen (Verified Allergy, Unknown, 01/19/12) nabumetone (Verified Allergy, Unknown, 01/19/12) rosuvastatin (Verified Allergy, Unknown, 03/20/17) morphine (Unverified Adverse Reaction, Mild, VOMITING, 04/25/14) Home Medication List Reviewed: Yes [id number] Hx Patient Social History Marital Status: Employed/Student: retired Alcohol Use: Denies Use Recreational Drug Use: No Smoking Status: Never a Smoker 2nd Hand Smoke Exposure: No Recent Foreign Travel: No Recent Infectious Disease Expo: No Recent Hopitalizations: Yes (gout) Physical Abuse Screen: No Sexual Abuse: No Immunizations Up To Date Tetanus Booster (TDap): Unknown Date of Pneumonia Vaccine: Dec 15, 2012 Past Medical History Past medical history is discussed below Family Medical History Family Medical Hx Noncontributory to his current condition Family History: Arthritis 19 MOTHER Asthma 19 FATHER Cataracts 19 MOTHER Completed stroke Hypertension 19 FATHER Myocardial infarction 19 MOTHER Seizure disorder DAUGHTERS Severe allergy 19 FATHER No Family History of: AIDS Abdominal aortic aneurysm Rishi's disease Alcoholism Alzheimer's disease Aphasia Cancer of mouth Cardiovascular disease Colon cancer Congenital disease Congenital heart disease Coronary thrombosis Cystic fibrosis Deafness or hearing loss Dementia Diabetes mellitus Drug abuse Dysphasia Fibrocystic disease of breast Gastroenteritis Glaucoma Headache disorder Hypercholesterolemia Infertility Kidney disease Neoplasm Not obtainable due to adoption Osteoporosis Parkinson's disease Prostate cancer Psychosocial problem Respiratory disorder Thyroid disease Tuberculosis Visual disorder Constitutional: see HPI, malaise, weakness EENTM: see HPI, no symptoms reported Respiratory: see HPI; No cough, No dyspnea on exertion, No hemoptysis, No orthopnea, No phlegm, No short of breath, No stridor, No wheezing, No other Cardiovascular: see HPI, chest pain, edema; No Hx of Intervention, No palpitations, No syncope, No vascular heart diseas, No other Gastrointestinal: see HPI, diarrhea, nausea Genitourinary: no symptoms reported, see HPI Musculoskeletal: see HPI, joint pain Skin: no symptoms reported, see HPI Psychiatric/Neurological: No Symptoms Reported, See HPI Reviewed Test Results Reviewed Test Results Lab Laboratory Tests Test 07/12/17 18:30 07/13/17 03:27 Range/Units White Blood Count 13.0 H 9.0 4.3-11.0 10^3/uL Red Blood Count 6.22 H 4.97 4.35-5.85 10^6/uL Hemoglobin 17.5 14.2 13.3-17.7 G/DL Hematocrit 50 41 40-54 % Mean Corpuscular Volume 81 83 80-99 FL Mean Corpuscular Hemoglobin 28 29 25-34 PG Mean Corpuscular Hemoglobin Concent 35 35 32-36 G/DL Red Cell Distribution Width 15.0 H 14.7 H 10.0-14.5 % Platelet Count 347 258 130-400 10^3/uL Mean Platelet Volume 9.7 9.5 7.4-10.4 FL Neutrophils (%) (Auto) 80 H 73 42-75 % Lymphocytes (%) (Auto) 7 L 10 L 12-44 % Monocytes (%) (Auto) 10 13 H 0-12 % Eosinophils (%) (Auto) 2 4 0-10 % Basophils (%) (Auto) 0 0 0-10 % Neutrophils # (Auto) 10.4 H 6.5 1.8-7.8 X 10^3 Lymphocytes # (Auto) 1.0 0.9 L 1.0-4.0 X 10^3 Monocytes # (Auto) 1.3 H 1.2 H 0.0-1.0 X 10^3 Eosinophils # (Auto) 0.2 0.3 0.0-0.3 10^3/uL Basophils # (Auto) 0.0 0.0 0.0-0.1 10^3/uL Neutrophils % (Manual) 83 % Lymphocytes % (Manual) 6 % Monocytes % (Manual) 10 % Eosinophils % (Manual) 1 % Blood Morphology Comment NORMAL Prothrombin Time 16.9 H 12.2-14.7 SEC INR Comment 1.4 0.8-1.4 Activated Partial Thromboplast Time 39 H 24-35 SEC D-Dimer < 0.27 0.00-0.49 UG/ML Sodium Level 142 138 135-145 MMOL/L Potassium Level 3.8 4.1 3.6-5.0 MMOL/L Chloride Level 117 H 117 H 98-107 MMOL/L Carbon Dioxide Level 13 L 14 L 21-32 MMOL/L Anion Gap 12 7 5-14 MMOL/L Blood Urea Nitrogen 26 H 22 H 7-18 MG/DL Creatinine 1.44 H 1.06 0.60-1.30 MG/DL Estimat Glomerular Filtration Rate 48 > 60 BUN/Creatinine Ratio 18 21 Glucose Level 144 H 100 70-105 MG/DL Calcium Level 9.3 7.9 L 8.5-10.1 MG/DL Magnesium Level 2.4 1.8-2.4 MG/DL Total Bilirubin 0.8 0.1-1.0 MG/DL Aspartate Amino Transf (AST/SGOT) 19 5-34 U/L Alanine Aminotransferase (ALT/SGPT) 33 0-55 U/L Alkaline Phosphatase 83 40-136 U/L Myoglobin 99.0 H 10.0-92.0 NG/ML Troponin I < 0.30 < 0.30 <0.30 NG/ML B-Type Natriuretic Peptide 59.9 <100.0 PG/ML Total Protein 7.4 6.4-8.2 GM/DL Albumin 4.6 H 3.2-4.5 GM/DL Lipase 31 8-78 U/L Triglycerides Level 69 <150 MG/DL Cholesterol Level 67 < 200 MG/DL LDL Cholesterol Direct 35 1-129 MG/DL VLDL Cholesterol 14 5-40 MG/DL HDL Cholesterol 20 L 40-60 MG/DL Physical Exam Vital Signs Vital Signs - First Documented 07/12/17 20:45 Temp 97.7 Capillary Refill : Less Than 3 Seconds General Appearance: No Apparent Distress, WD/WN Eyes: Bilateral Eye Normal Inspection, Bilateral Eye PERRL, Bilateral Eye EOMI HEENT: PERRL/EOMI, TMs Normal, Normal ENT Inspection, Pharynx Normal Neck: Full Range of Motion, Normal Inspection, Non Tender, Supple, Carotid Bruit Respiratory: Chest Non Tender, Lungs Clear, Normal Breath Sounds, No Accessory Muscle Use, No Respiratory Distress Cardiovascular: Regular Rate, Rhythm, No Edema, No Gallop, No JVD, No Murmur, Normal Peripheral Pulses Gastrointestinal: Normal Bowel Sounds, No Organomegaly, No Pulsatile Mass, Non Tender, Soft Back: Normal Inspection, No CVA Tenderness, No Vertebral Tenderness Extremity: Normal Capillary Refill, Normal Inspection, Normal Range of Motion, Non Tender, No Calf Tenderness, No Pedal Edema Neurologic/Psychiatric: Alert, Oriented x3, No Motor/Sensory Deficits, Normal Mood/Affect Skin: Normal Color, Warm/Dry Lymphatic: No Adenopathy A/P-Cardiology Admission Diagnosis Chest pain nonspecific etiology Coronary artery disease Hypertension Hyperlipidemia Assessment/Plan Chest pain, nonspecific etiology, reporting improvement at this time, cardiac enzymes were negative, EKG did not show any acute abnormality. Patient was reassured, recommended following up with his sanitary chemist as an outpatient, does not require any further testing at this point. Abdominal pain, diarrhea for about a week. Reporting improvement today. Continue to monitor, managed by primary care physician Coronary artery disease, history of old myocardial infarction, stent placed in 2000, chronic left bundle branch block. Cardiac catheterization were done in May 2014, with the first cardiac catheterization he had a stent to the Mid LAD artery using Promus premiere 3.0x16mm, a stent to the obtuse marginal using 3.012 mm Promus Premier, returned on the next day due to dissection in the distal LAD had a Promus Premier stent in the mid LAD using 2.2524 mm Promus Premier stent, reporting that he had another stent done last year. Multiple intervention done in [facility]. Reporting that he had a cardiac catheterization done in March 2017 and he was told that he does not require any further stenting Hypertension, good control at this time. Continue to monitor Carotid stenosis, history of mild carotid disease, last checkup was done in October 2012. Continue to monitor. History of DVT, PE, factor V Leiden, diagnosed in July 2013, followed and managed by Dr. Deleon History of solitary pulmonary nodule, followed and managed by Dr. Samuel. History of bilateral pulmonary embolism after umbilical hernia surgery. 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 Patient was educated on weight loss and exercise. Status post hernia repair surgery done in early April 2014, had multiple surgeries done previous to that. History of gouty arthritis. Clinical Quality Measures AMI/AHF: ASA po Prior to arrival: Yes DVT/VTE Risk/Contraindication: Risk Factor Score Per Nursin RFS Level Per Nursing on Admit: 4+=Very High DAISY FERNANDEZ MD Jul 13, 2017 10:14
--- NOTE | 2017-07-13 11:57 | Short Stay Summary-Hospitalist ---
History of Present Illness HPI/Chief Complaint Mr. Pool is a depressed appearing 77-year-old white male looking younger than his stated age who is a rather poor historian but apparently several days ago developed bandlike chest discomfort that was not aggravated by activity and a little different than angina he's had in the past with bouts of acute coronary syndrome. He has a history ofseborrheic always 5 stent placements. Is been several years since his last stent placement. He also has a history of factor V Leiden positivity with pulmonary embolism provoked by herniorrhaphy surgery several years ago. He has been ons are also since and reports that he never misses a dose. In addition to this he is on aspirin and has noticed some bright red blood on the toilet paper and had been larger volume red now bleeding episode that prompted him to come into the emergency room. He was told at the time of laparoscopic hernia repair he had significant diverticulosis but has no past history of colonoscopy or barium enema evaluation. He denies past history of peptic ulcer disease. He does report multiple loose stools per day without abdominal pain followed an admission several weeks ago for inflammatory arthropathy of the right wrist for which she received prednisone as well as IV antibiotics. He brother admission for pneumonia in March where he reportedly received IV antibiotics for at least a week without diarrhea at that time. He's had no known history of antibiotic associated diarrhea that he recalls. Date Seen 07/13/17 Time Seen by Provider: 10:00 Attending Physician Micheal Gr MD PCP Adán Funk DO Referring Physician Date of Admission Jul 12, 2017 at 19:13 Home Medications & Allergies Home Medications Reviewed patient Home Medication Reconciliation performed by pharmacy medication reconciliations seed technician and/or nursing. Patients Allergies have been reviewed. Allergies Allergies Coded Allergies Sulfa (Sulfonamide Antibiotics) (Verified Allergy, Unknown, 01/19/12) hydrochlorothiazide (Verified Allergy, Unknown, 03/20/17) ketoprofen (Verified Allergy, Unknown, 01/19/12) nabumetone (Verified Allergy, Unknown, 01/19/12) rosuvastatin (Verified Allergy, Unknown, 03/20/17) morphine (Unverified Adverse Reaction, Mild, VOMITING, 04/25/14) Past [id number] Hx Past Med/Social Hx: Reviewed and Corrections made Patient Social History Marrital Status: Employed/Student: retired Alcohol Use: Denies Use Recreational Drug Use: No Smoking Status: Never a Smoker 2nd Hand Smoke Exposure: No Physical Abuse Screen: No Sexual Abuse: No Recent Foreign Travel: No Contact w/other who traveled: No Recent Hopitalizations: Yes (gout) Recent Infectious Disease Expo: No Immunizations Up To Date Tetanus Booster (TDap): Unknown Date of Pneumonia Vaccine: Dec 15, 2012 Seasonal Allergies Seasonal Allergies: Yes Past Medical History Surgeries: Abdominal, Coronary Stent Currently Using CPAP: No Currently Using BIPAP: No Cardiac: Heart Attack, Hypertension Reproductive: No Musculoskeletal: Arthritis, Gout Hearing Impairment: Hard of Hearing History of Blood Disorders: Yes Adverse Reaction to Blood [place]: No Family History Arthritis 19 MOTHER Asthma 19 FATHER Cataracts 19 MOTHER Completed stroke Hypertension 19 FATHER Myocardial infarction 19 MOTHER Seizure disorder DAUGHTERS Severe allergy 19 FATHER No Family History of: AIDS Abdominal aortic aneurysm Rishi's disease Alcoholism Alzheimer's disease Aphasia Cancer of mouth Cardiovascular disease Colon cancer Congenital disease Congenital heart disease Coronary thrombosis Cystic fibrosis Deafness or hearing loss Dementia Diabetes mellitus Drug abuse Dysphasia Fibrocystic disease of breast Gastroenteritis Glaucoma Headache disorder Hypercholesterolemia Infertility Kidney disease Neoplasm Not obtainable due to adoption Osteoporosis Parkinson's disease Prostate cancer Psychosocial problem Respiratory disorder Thyroid disease Tuberculosis Visual disorder Review of Systems Constitutional: see HPI; No chills, No diaphoresis, No dizziness, No fever, No malaise; weakness; No weight gain, No weight loss, No other Respiratory: see HPI; No cough, No dyspnea on exertion, No hemoptysis, No orthopnea, No phlegm, No short of breath, No stridor, No wheezing, No other Cardiovascular: No no symptoms reported, No see HPI; chest pain; No edema; Hx of Intervention; No palpitations, No syncope; vascular heart diseas; No other Physical Exam Physical Exam Vital Signs Vital Signs - First Documented 07/12/17 20:45 Temp 97.7 Capillary Refill : Less Than 3 Seconds General Appearance: No Apparent Distress, Obese Neck: Normal Inspection, Non Tender, Supple Respiratory: Chest Non Tender, Lungs Clear, Normal Breath Sounds, No Accessory Muscle Use, No Respiratory Distress Cardiovascular: Regular Rate, Rhythm, No Edema, No Gallop, No JVD, No Murmur, Normal Peripheral Pulses Gastrointestinal: Normal Bowel Sounds, No Organomegaly, No Pulsatile Mass, Non Tender, Soft Extremity: Normal Capillary Refill, Normal Inspection, Normal Range of Motion, Non Tender, No Calf Tenderness, No Pedal Edema Neurologic/Psychiatric: Alert, Oriented x3, No Motor/Sensory Deficits, Depressed Affect Skin: Normal Color Results Results/Procedures Labs Laboratory Tests 07/12/17 18:30 07/13/17 03:27 Patient resulted labs reviewed. Short Stay Diagnosis Discharge Diagnosis-Short Stay Admission Diagnosis 1. Chest wall pain acute coronary syndrome ruled out 2. Coronary artery disease 3. Bright red blood per rectum 4. Dehydration secondary to diarrhea. 5. Diarrhea suspect antibiotic related. Final Discharge Diagnosis As per above Conclusion Plan Mr. Pool was admitted to the intensive care unit where serial EKGs and troponin levels revealed no evidence for acute coronary syndrome. He still reported some mild chest wall pain without shortness of breath. He had several loose stools yesterday without abdominal cramping was given a GI cocktail and thus far this morning bowels have not moved but he is not yet had breakfast. We discussed the concern for C. difficile colitis and will be obtaining a stool for evaluation. If he is unable to go C. difficile colitis would be unlikely and he is advised to continue the probiotic that he is been taking for the past week. It is predominantly lactobacillus in review of his bottle. We discussed his need for colonoscopy for further evaluation of his lower GI bleed. After discussion with Dr. Vail considering the fact that he is factor V Leiden positive with past pulmonary embolism will continue's are also in less his bleeding becomes worse and hold aspirin. If he does have stool before he leaves and it is positive we'll initiate metronidazole. He had no evidence for inflammatory arthropathy of the right wrist but discussed that it was very suspicious for gout. At the time of his attack his uric acid level was 7.4 likely slightly lower than baseline as again and it was drawn during an acute attack. He is only had several attacks and thus far does not meet criteria for urate lowering therapy however this should be considered if gouty attacks become worse. Clinical Quality Measures AMI/AHF: ASA po Prior to arrival: Yes DVT/VTE Risk/Contraindication: Risk Factor Score Per Nursin RFS Level Per Nursing on Admit: 4+=Very High Copy Copies To 1: ADÁN FUNK MARK D MD Jul 13, 2017 11:57
[2017-07-13 12:00] VITALS: BP 142/68
[2017-07-13] MEDS ORDERED: RIVAROXABAN 20 MG TABLET (XARELTO) PO SCH (21:00)
--- OUTSIDE RECORDS SUMMARY | 2017-07-17 10:45 | XMS REPORT | Continuity of Care Document ---
Author Author [facility] Organization [facility] Address Unknown Phone Unavailable Allergies Active Description Code Type Severity Reaction Onset Reported/Identified Relationship to Patient Clinical Status Yes ketoprofen [id number] Drug Allergy Unknown N/A 01/19/2012 Yes nabumetone [id number] Drug Allergy Unknown N/A 01/19/2012 Yes Sulfa (Sulfonamide Antibiotics) [id number] Drug Allergy Unknown N/A 2011 Yes morphine [id number] Drug Allergy Unknown VOMITING 07/21/2013 Yes morphine [id number] Drug Allergy Mild VOMITING 04/25/2014 Yes hydrochlorothiazide [id number] Drug Allergy Unknown N/A 03/20/2017 Yes rosuvastatin [id number] Drug Allergy Unknown N/A 03/20/2017 Medications There [...] FUNK DO Ot 414.01 CORONARY ATHEROSCLEROSIS OF [place] CORON 08/05/2013 ELIAS FUNK DO Ot 415.11 IATROGENIC PULMON EMBOLISM/INFARCT 08/05/2013 ELIAS FUNK DO Ot 427.89 CARDIAC DYSRHYTHMIAS NEC 08/05/2013 GELLENDER DO, ELIAS A Ot 477.9 ALLERGIC RHINITIS NOS 08/05/2013 BLESSING CONTEH ELIAS Fritz Ot 564.00 UNSPEC CONSTIPATION 08/05/2013 BLESSING ELIAS CONTEH Ot 998.13 SEROMA COMPLICAT A PROC 08/05/2013 BLESSING ELIAS CONTEH Ot E941.3 ADV EFF SYMPATHOLYTICS 08/05/2013 BLESSING CONTEHELIAS Ot V45.82 PERCUTANEOUS TRANSLUM CORON ANGIOPLASTY 08/05/2013 TOMEKAALY ELIAS CONTEH Ot V45.89 POSTSURGICAL STATES NEC 08/05/2013 BLESSING CONTEH ELIAS Catrina Ot V85.37 BODY MASS INDEX 37.0-37.9, ADULT 01/07/2014 ELIAS FUNK DO Ot 401.9 HYPERTENSION NOS 01/07/2014 ELIAS FUNK DO Ot 412 OLD MYOCARDIAL INFARCT 01/07/2014 TOMEKA[place]Y ELIAS CONTEH Ot 414.01 CORONARY ATHEROSCLEROSIS OF [place] CORON 01/07/2014 TOMEKAALY ELIAS CONTEH Ot 558.9 NONINF GASTROENTERIT NEC [...] HOSPITALETHAN Ot 401.9 04/21/2014 [facility] 412 04/21/2014 [facility] Ot 414.01 04/21/2014 [facility] 552.1 04/21/2014 [facility] Ot V12.55 04/21/2014 BOISE DOETHAN D Ot V45.82 04/21/2014 [facility] Ot V74.8 04/22/2014 BOISE DOTHANHTT D Ot 401.9 04/22/2014 BOISE DOTHANHTT D Ot 412 04/22/2014 [facility] 414.01 04/22/2014 BOISE DOTHANHTT D Ot 552.1 04/22/2014 BOISE DOTHANHTT D Ot V12.55 04/22/2014 BOISE DO, ETHAN D Ot V45.82 04/22/2014 BOISE DO, EHTAN D Ot V74.8 04/22/2014 [facility], ETHAN D Ot 401.9 04/22/2014 [facility] ETHAN D Ot 412 04/22/2014 [facility] ETHAN D Ot 414.01 04/22/2014 [facility] ETHAN D Ot 552.1 04/22/2014 [facility], [...] Ot 274.00 GOUTY ARTHROPATHY, UNSPECIFIED 04/25/2014 CONDE DO ETHAN D Ot 276.8 HYPOPOTASSEMIA 04/25/2014 CONDE DO ETHAN D Ot 278.00 OBESITY, NOS 04/25/2014 CONDE DO ETHAN D Ot 288.60 LEUKOCYTOSIS, UNSPECIFIED 04/25/2014 CONDE DO ETHAN D Ot 289.81 PRIMARY HYPERCOAGULABLE STATE 04/25/2014 ETHAN CONDE DO Ot 401.9 HYPERTENSION NOS 04/25/2014 ETHAN CONDE DO Ot 412 OLD MYOCARDIAL INFARCT 04/25/2014 ETHAN CONDE DO Ot 414.01 CORONARY ATHEROSCLEROSIS OF [place] CORON 04/25/2014 ETHAN CONDE DO Ot 427.89 CARDIAC DYSRHYTHMIAS NEC 04/25/2014 ETHAN CONDE DO Ot 433.10 CAROTID ARTERY OCCLUSION W O CEREBRAL IN 04/25/2014 ETHAN CONDE DO Ot 552.1 UMBILICAL HERNIA W OBSTR 04/25/2014 ETHAN CONDE DO Ot 997.49 OTHER DIGESTIVE SYSTEM COMPLICATIONS 04/25/2014 ETHAN CONDE DO Ot V12.51 HX-VENOUS THROMBOSIS EMBOLISM 04/25/2014 CONDE ETHAN CONTEH Ot V12.55 PERSONAL HISTORY OF PULMONARY EMBOLISM 04/25/2014 ETHAN CONDE DO Ot V45.82 PERCUTANEOUS TRANSLUM CORON ANGIOPLASTY 04/25/2014 ETHAN CONDE DO Ot V74.8 04/25/2014 ETHAN CONDE DO Ot V85.37 BODY MASS INDEX 37.0-37.9, ADULT 04/26/2014 ETHAN CONDE DO Ot 272.4 04/26/2014 ETHAN CONDE DO Ot 274.00 04/26/2014 BOISE ETHAN CONTEH Ot 276.8 04/26/2014 CONDEETHAN KIRK DO Ot 278.00 04/26/2014 ETHAN CONDE DO Ot 288.60 04/26/2014 ETHAN CONDE DO Ot 289.81 04/26/2014 ETHAN CONDE DO Ot 401.9 04/26/2014 BOISE ETHAN CONTEH Ot 412 04/26/2014 CONDE ETHAN CONTEH Ot 414.01 04/26/2014 CONDE ETHAN CONTEH Ot 427.89 04/26/2014 ETHAN CONDE DO Ot 433.10 04/26/2014 CONDE ETHAN CONTEH Ot 552.1 04/26/2014 ETHAN CONDE DO Ot 997.49 04/26/2014 ETHAN OCNDE DO Ot V12.51 04/26/2014 CONDE DO, ETHAN D [...] CONDE DO, ETHAN D Ot V45.82 04/26/2014 BOISE DO, ETHAN D Ot V85.37 09/21/2014 JEREMIAS [...] 09/21/2014 ELIAS FUNK DO Ot 780.79 09/21/2014 BLESSING CONTEH ELIAS A Ot 786.05 09/21/2014 GELELIAS ZACARIAS DO Ot 786.2 09/21/2014 DELVISBIGG AMAYA DO M Ot 415.19 09/21/2014 DELVISBIGG AMAYA DO M Ot 786.05 09/21/2014 DELVISBIGG AMAYA DO M Ot 793.11 09/21/2014 CARLOS ESCOBAR N Ot 286.3 09/21/2014 CARLOS ESCOBAR N Ot 793.11 09/21/2014 CARLOS ESCOBAR N Ot V12.51 10/12/2014 BIGG EDMONDSON DO M Ot 272.8 10/12/2014 DELVIS DO, BIGG M Ot 453.40 10/12/2014 DELVIS DO, BIGG M Ot 571.8 10/12/2014 DELVIS DO, BIGG Calvillo Ot 786.05 10/12/2014 DELVISBIGG AMAYA DO M Ot 793.11 10/19/2014 BIGG EDMONDSON DO M Ot 272.8 10/19/2014 DELVIS DO, BIGG M Ot 453.40 10/19/2014 DELVIS DO, BIGG Calvillo Ot 571.8 10/19/2014 DELVIS DO, BIGG Calvillo Ot 786.05 10/19/2014 DELVIS DO, BIGG M Ot 793.11 02/01/2015 LIZZIE PARSONP Ot D68.59 02/01/2015 LIZZIE PARSON SUPERVISOR UNLOADING Ot I10 02/01/2015 LIZZIE PARSON SUPERVISOR UNLOADING Ot R91.1 02/01/2015 LIZZIE PARSON SUPERVISOR UNLOADING Ot Z86.711 02/14/2015 LIZZIE PARSON SUPERVISOR UNLOADING Ot D68.59 02/14/2015 LIZZIE PARSON SUPERVISOR UNLOADING Ot I10 02/14/2015 LIZZIE PARSON SUPERVISOR UNLOADING Ot R91.1 02/14/2015 LIZZIE PARSON SUPERVISOR UNLOADING Ot Z86.711 04/07/2015 ELIAS FUNK DO Catrina Ot R06.02 04/07/2015 GELLENDER DO ELIAS Fritz Ot R06.2 04/13/2015 GELLENDER DO ELIAS A Ot R06.02 04/13/2015 GELLENDER DO, ELIAS A Ot R06.2 09/25/2015 BIGG EDMONDSON DO Ot R60.9 EDEMA, UNSPECIFIED 09/26/2015 BIGG EDMONDSON [...] DO Ot R91.1 SOLITARY PULMONARY NODULE 01/09/2016 SHAWN CARLOS Allison Ot 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 01/09/2016 SHAWN CARLOS Allison Ot 793.11 SOLITARY PULMONARY NODULE 01/09/2016 SHAWN CARLOS Allison Ot V12.51 HX-VENOUS THROMBOSIS EMBOLISM 01/10/2016 SHAWNCARLOS Ot 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 01/10/2016 SHAWN CARLOS Allison Ot 793.11 SOLITARY PULMONARY NODULE 01/10/2016 SHAWN CARLOS Allison Ot V12.51 HX-VENOUS THROMBOSIS EMBOLISM 01/11/2016 CARLOS ESCOBAR Ot R05 COUGH 01/11/2016 SHAWNCARLOS N Ot R06.02 SHORTNESS OF BREATH 01/11/2016 SHAWN CARLOS Allison Ot 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 01/11/2016 CARLOS ESCOBAR Ot R91.1 SOLITARY PULMONARY NODULE 01/11/2016 SHAWN CARLOS Allison Ot Z86.718 PERSONAL HISTORY OF OTHER VENOUS THROMBO 01/15/2016 CARLOS ESCOBAR N Ot R05 COUGH 01/15/2016 SHAWNCARLOS PHAM N Ot R06.02 SHORTNESS OF BREATH 01/15/2016 SHAWNCARLOS PHAM N Ot R05 COUGH 01/15/2016 SHAWNCARLOS PHAM N Ot R06.02 SHORTNESS OF BREATH 01/15/2016 SHAWNCARLOS PHAM N Ot R05 COUGH 01/15/2016 SHAWNCARLOS PHAM Ot R06.02 SHORTNESS OF BREATH 01/16/2016 CARLOS ESCOBAR N Ot R05 COUGH 01/16/2016 CARLOS ESCOBAR [...] SOLITARY PULMONARY NODULE 04/24/2016 BIGG EDMONDSON DO Karli Ot 272.8 LIPOID METABOL DIS NEC [...] PULMONARY NODULE 04/24/2016 LIZZIE PARSON [facility] Ot D68.59 OTHER PRIMARY THROMBOPHILIA 04/24/2016 LIZZIE PARSON SUPERVISOR UNLOADING Ot I10 ESSENTIAL (PRIMARY) HYPERTENSION 04/24/2016 LIZZIE PARSON SUPERVISOR UNLOADING Ot R91.1 SOLITARY PULMONARY NODULE 04/24/2016 LIZZIE PARSON [facility] Ot Z86.711 PERSONAL HISTORY OF PULMONARY EMBOLISM 04/24/2016 GELLENDER DOELIAS Ot R06.02 SHORTNESS OF BREATH 04/24/2016 GELLENDER DO, ELIAS Fritz Ot R06.2 WHEEZING 04/24/2016 CARLOS ESCOBAR Ot R05 COUGH 04/24/2016 CARLOS ESCOBAR Ot R06.02 SHORTNESS OF BREATH 04/26/2016 GELLENDER DO, ELIAS Fritz Ot R05 COUGH 04/26/2016 GELLENDER DO, ELIAS Fritz Ot R07.9 CHEST PAIN, UNSPECIFIED 05/16/2016 GELLENDER DO, ELIAS Fritz Ot R05 COUGH 05/16/2016 GELLENDER DO, ELIAS Fritz Ot R07.9 CHEST PAIN, UNSPECIFIED 05/17/2016 ELIAS FUNK DO Ot R05 COUGH 05/22/2016 ELIAS FUNK DO Ot R05 COUGH 08/08/2016 JEREMIAS JOEL, MIRIAN Ot 553.1 UMBILICAL HERNIA 08/08/2016 JEREMIAS JOEL, MIRIAN Ot V72.63 PRE-PROCEDURAL LABORATORY EXAMINATION 08/08/2016 JEREMIAS JOEL, MIRIAN Ot V72.84 EXAM PRE-OPERATIVE NOS 08/08/2016 MIRIAN MCDOWELL MD Ot V74.8 SCREEN-BACTERIAL DIS NEC 08/08/2016 BIGG EDMONDSON DO Ot 415.19 OTH PULMON EMBOLISM/INFARCT 08/08/2016 BIGG EDMONDSON DO Ot 786.05 SHORTNESS OF BREATH 08/08/2016 BIGG EDMONDSON DO Ot 793.11 SOLITARY PULMONARY NODULE 08/08/2016 JIM JOEL, DAISY Bush Ot 272.4 HYPERLIPIDEMIA NEC/NOS 08/08/2016 DAISY FERNANDEZ MD Ot 401.9 HYPERTENSION NOS 08/08/2016 JIM JOEL, DAISY Bush Ot 414.00 CORON [...] R91.1 SOLITARY PULMONARY NODULE 08/08/2016 LIZZIE PARSON SUPERVISOR UNLOADING Ot D68.59 OTHER PRIMARY THROMBOPHILIA 08/08/2016 LIZZIE PARSON SUPERVISOR UNLOADING Ot I10 ESSENTIAL (PRIMARY) HYPERTENSION 08/08/2016 LIZZIE PARSON SUPERVISOR UNLOADING Ot R91.1 SOLITARY PULMONARY NODULE 08/08/2016 LIZZIE PARSON SUPERVISOR UNLOADING Ot Z86.711 PERSONAL HISTORY OF PULMONARY EMBOLISM 08/08/2016 GELLENDER DO, ELIAS Fritz Ot R06.02 SHORTNESS OF BREATH 08/08/2016 GELLENDER DO, ELIAS Fritz Ot R06.2 WHEEZING 08/08/2016 CARLOS ESCOBAR Ot R05 COUGH 08/08/2016 SHAWNCARLOS Ot R06.02 SHORTNESS OF BREATH 08/08/2016 GELLENDER DO, ELIAS Fritz Ot R05 COUGH 08/08/2016 GELLENDER DO, ELIAS A Ot R05 COUGH 08/08/2016 GELLENDER DO, ELIAS Fritz Ot R07.9 CHEST PAIN, UNSPECIFIED 09/03/2016 GELLENDER DO, ELIAS Fritz Ot M25.572 PAIN IN LEFT ANKLE AND JOINTS OF LEFT FO 09/12/2016 GELLENDER DO, ELIAS Catrina Ot M25.572 PAIN IN LEFT ANKLE AND JOINTS OF LEFT FO 01/22/2017 CARLOS ESCOBAR Ot D68.8 OTHER SPECIFIED COAGULATION DEFECTS 01/22/2017 CARLOS ESCOBAR Ot E78.5 HYPERLIPIDEMIA, UNSPECIFIED 01/22/2017 CARLOS ESCOBAR 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 01/22/2017 CARLOS ESCOBAR Ot I10 ESSENTIAL (PRIMARY) HYPERTENSION 01/22/2017 CARLOS ESCOBAR Ot I25.10 ATHSCL HEART DISEASE OF [place] CORONARY 01/22/2017 CARLOS ESCOBAR Ot I44.0 ATRIOVENTRICULAR BLOCK, FIRST DEGREE 01/22/2017 CARLOS ESCOBAR Ot I44.7 LEFT BUNDLE-BRANCH BLOCK, UNSPECIFIED 01/22/2017 CARLOS ESCOBAR Ot R91.1 SOLITARY PULMONARY NODULE 01/22/2017 CARLOS ESCOBAR Estefany Ot Z79.01 POULTRY RAISER (CURRENT) USE OF ANTICOAGULANT 01/22/2017 CARLOS ESCOBAR N Ot Z79.02 POULTRY RAISER (CURRENT) USE OF ANTITHROMBOTI 01/22/2017 CARLOS ESCOBAR Estefany Ot Z86.711 PERSONAL HISTORY OF PULMONARY EMBOLISM 01/22/2017 CARLOS ESCOBAR Estefany Ot Z86.718 PERSONAL HISTORY OF OTHER VENOUS THROMBO 01/22/2017 SHAWN NASREENDAWOOD Estefany Ot Z95.5 PRESENCE OF CORONARY ANGIOPLASTY IMPLANT 01/27/2017 CARLOS ESCOBAR Estefany Ot D68.8 OTHER SPECIFIED COAGULATION DEFECTS 01/27/2017 CARLOS ESCOBAR Estefany Ot E78.5 HYPERLIPIDEMIA, UNSPECIFIED 01/27/2017 CARLOS ESCOBAR N 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 01/27/2017 SHAWN NASREENDAWOOD N Ot I10 ESSENTIAL (PRIMARY) HYPERTENSION 01/27/2017 SHAWN NASREENDAWOOD Estefany Ot I25.10 ATHSCL HEART DISEASE OF [place] CORONARY 01/27/2017 CARLOS ESCOBAR Estefany Ot I44.0 ATRIOVENTRICULAR BLOCK, FIRST DEGREE 01/27/2017 CARLOS ESCOBAR Estefany Ot I44.7 LEFT BUNDLE-BRANCH BLOCK, UNSPECIFIED 01/27/2017 CARLOS ESCOBAR Estefany Ot R91.1 SOLITARY PULMONARY NODULE 01/27/2017 CARLOS ESCOBAR Estefany Ot Z79.01 SHELTER (CURRENT) USE OF ANTICOAGULANT 01/27/2017 CARLSO ESCOBAR Estefany Ot Z79.02 SHELTER (CURRENT) USE OF ANTITHROMBOTI 01/27/2017 CARLOS ESCOBAR Estefany Ot Z86.711 PERSONAL HISTORY OF PULMONARY EMBOLISM 01/27/2017 CARLOS ESCOBAR Estefany Ot Z86.718 PERSONAL HISTORY OF OTHER VENOUS THROMBO 01/27/2017 SHAWN NASREENDAWOOD Estefany Ot Z95.5 PRESENCE OF CORONARY ANGIOPLASTY IMPLANT 02/12/2017 SHAWN NASREENDAWOOD Estefany Ot D68.8 OTHER SPECIFIED COAGULATION DEFECTS 02/12/2017 CARLOS ESCOBAR N Ot E78.5 HYPERLIPIDEMIA, UNSPECIFIED 02/12/2017 SHAWN NASREENDAWOOD N 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 02/12/2017 SHAWN CARLOS N Ot I10 ESSENTIAL (PRIMARY) HYPERTENSION 02/12/2017 CARLOS ESCOBAR Ot I25.10 ATHSCL HEART DISEASE OF [place] CORONARY 02/12/2017 CARLOS ESCOBAR Ot I44.0 ATRIOVENTRICULAR BLOCK, FIRST DEGREE 02/12/2017 CARLOS ESCOBAR Estefany Ot I44.7 LEFT BUNDLE-BRANCH BLOCK, UNSPECIFIED 02/12/2017 CARLOS ESCOBAR Estefany Ot R91.1 SOLITARY PULMONARY NODULE 02/12/2017 CARLOS ESCOBAR Estefany Ot Z79.01 SHELTER (CURRENT) USE OF ANTICOAGULANT 02/12/2017 SHAWN NASREENDAWOOD N Ot Z79.02 POULTRY RAISER (CURRENT) USE OF ANTITHROMBOTI 02/12/2017 CARLOS ESCOBAR N Ot Z86.711 PERSONAL HISTORY OF PULMONARY EMBOLISM 02/12/2017 SHAWNCARLOS Ot Z86.718 PERSONAL HISTORY OF OTHER VENOUS THROMBO 02/12/2017 SHAWNCARLOS Ot Z95.5 PRESENCE OF CORONARY ANGIOPLASTY IMPLANT 02/17/2017 SHAWN NASREENDAWOOD Estefany Ot D68.8 OTHER SPECIFIED COAGULATION DEFECTS 02/17/2017 CARLOS ESCOBAR Estefany Ot E78.5 HYPERLIPIDEMIA, UNSPECIFIED 02/17/2017 CARLOS ESCOBAR Estefany 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 02/17/2017 CARLOS ESCOBAR Estefany Ot I10 ESSENTIAL (PRIMARY) HYPERTENSION 02/17/2017 CARLOS ESCOBAR Estefany Ot I25.10 ATHSCL HEART DISEASE OF [place] CORONARY 02/17/2017 CARLOS ESCOBAR Estefany Ot I44.0 ATRIOVENTRICULAR BLOCK, FIRST DEGREE 02/17/2017 CARLOS ESCOBAR Estefany Ot I44.7 LEFT BUNDLE-BRANCH BLOCK, UNSPECIFIED 02/17/2017 CARLOS ESCOBAR Estefany Ot R91.1 SOLITARY PULMONARY NODULE 02/17/2017 CARLOS ESCOBAR Estefany Ot Z79.01 POULTRY RAISER (CURRENT) USE OF ANTICOAGULANT 02/17/2017 SHAWN NASREENDAWOOD Estefany Ot Z79.02 POULTRY RAISER (CURRENT) USE OF ANTITHROMBOTI 02/17/2017 SHAWN NASREENDAWOOD Estefany Ot Z86.711 PERSONAL HISTORY OF PULMONARY EMBOLISM 02/17/2017 SHAWN NASREENDAWOOD Estefany Ot Z86.718 PERSONAL HISTORY [...] Fritz Ot I25.110 ATHSCL HEART DISEASE OF [place] COR ART W 03/26/2017 GELLENDER DO, ELIAS [...] 03/26/2017 GELLENDER DO, ELIAS Fritz Ot Z79.01 SHELTER (CURRENT) USE OF ANTICOAGULANT 03/26/2017 GELLENDER DO, [...] Fritz Ot I25.110 ATHSCL HEART DISEASE OF [place] COR ART W 03/26/2017 GELLENDER DO, ELIAS [...] Ot M10.9 GOUT, UNSPECIFIED 03/26/2017 GELLENDER DO, ELISA Fritz Ot R00.1 BRADYCARDIA, UNSPECIFIED 03/26/2017 GELLENDER DO, ELIAS Fritz Ot R73.03 PREDIABETES 03/26/2017 GELLENDER DO, ELIAS Fritz Ot T38.0X5A ADVERSE EFFECT OF GLUCOCORT/SYNTH ANALOG 03/26/2017 GELLENDER DO, ELIAS Fritz Ot Z68.36 BODY MASS INDEX (BMI) 36.0-36.9, ADULT 03/26/2017 GELLENDER DO, ELIAS Fritz Ot Z79.01 POULTRY RAISER (CURRENT) USE OF ANTICOAGULANT 03/26/2017 GELLENDER DO, [...] Fritz Ot I25.110 ATHSCL HEART DISEASE OF [place] COR ART W 03/28/2017 GELLENDER DO, ELIAS Fritz Ot I25.2 OLD MYOCARDIAL INFARCTION 03/28/2017 [facility] ELIAS Fritz Ot J18.9 PNEUMONIA, UNSPECIFIED ORGANISM 03/28/2017 GELLENDER DO, ELIAS Fritz Ot J20.9 ACUTE BRONCHITIS, UNSPECIFIED 03/28/2017 GELLENDER DO, ELIAS Fritz Ot J98.11 ATELECTASIS 03/28/2017 GELLENDER DO, ELIAS Fritz Ot M10.9 GOUT, UNSPECIFIED 03/28/2017 GELLENDER DO, ELIAS Fritz Ot R00.1 BRADYCARDIA, UNSPECIFIED 03/28/2017 GELLENDER DO, ELIAS Fritz Ot R73.03 PREDIABETES 03/28/2017 [facility] ELI[facility] Fritz Ot T38.0X5A ADVERSE EFFECT OF GLUCOCORT/SYNTH ANALOG 03/28/2017 [facility] , ELIAS Fritz Ot Z68.36 BODY MASS INDEX (BMI) 36.0-36.9, ADULT 03/28/2017 [facility], ELIAS Fritz Ot Z79.01 POULTRY RAISER (CURRENT) USE OF ANTICOAGULANT 03/28/2017 [facility], ELIAS Fritz Ot Z86.711 PERSONAL HISTORY OF PULMONARY EMBOLISM 03/28/2017 [facility] ELIAS Fritz Ot Z86.718 PERSONAL HISTORY OF OTHER VENOUS THROMBO 03/28/2017 [facility], ELIAS Fritz Ot Z95.5 PRESENCE OF CORONARY ANGIOPLASTY IMPLANT 04/08/2017 [facility], ELIAS Fritz Ot J40 BRONCHITIS, NOT SPECIFIED ACUTE OR CH 04/29/2017 CARSON CARMONA APRN Ot E66.9 OBESITY, UNSPECIFIED 04/29/2017 CARSON CARMONA APRN Ot I25.10 ATHSCL HEART DISEASE OF [place] CORONARY 04/29/2017 CARSON CARMONA APRN Ot I25.2 OLD MYOCARDIAL INFARCTION 04/30/2017 [facility], ELIAS Fritz Ot J40 BRONCHITIS, NOT [...] Ot R06.02 SHORTNESS OF BREATH 04/30/2017 BIGG EDMONDOSN DO Ot R91.1 SOLITARY PULMONARY NODULE 04/30/2017 LIZZIE PARSON SUPERVISOR UNLOADING Ot D68.59 OTHER PRIMARY THROMBOPHILIA 04/30/2017 LIZZIE PARSON SUPERVISOR UNLOADING Ot I10 ESSENTIAL (PRIMARY) HYPERTENSION 04/30/2017 LIZZIE PARSON SUPERVISOR UNLOADING Ot R91.1 SOLITARY PULMONARY NODULE 04/30/2017 LIZZIE PARSON SUPERVISOR UNLOADING Ot Z86.711 PERSONAL HISTORY OF PULMONARY EMBOLISM 04/30/2017 GELLENDER DO, ELIAS Fritz Ot R06.02 SHORTNESS OF BREATH 04/30/2017 GELLENDER DO, ELIAS Fritz Ot R06.2 WHEEZING 04/30/2017 SHAWNCARLOS Ot R05 COUGH 04/30/2017 CARLOS ESCOBAR Ot [...] ESCOBAR Ot I10 ESSENTIAL (PRIMARY) HYPERTENSION 04/30/2017 ACRLOS ESCOBAR Ot I25.10 ATHSCL HEART DISEASE OF [place] CORONARY 04/30/2017 CARLOS ESCOBAR Ot I44.0 ATRIOVENTRICULAR BLOCK, FIRST DEGREE 04/30/2017 CARLOS ESCOBAR Ot I44.7 LEFT BUNDLE-BRANCH BLOCK, UNSPECIFIED 04/30/2017 CARLOS ESCOBAR Ot R91.1 SOLITARY PULMONARY NODULE 04/30/2017 CARLOS ESCOBAR Ot Z79.01 POULTRY RAISER (CURRENT) USE OF ANTICOAGULANT 04/30/2017 CARLOS ESCOBAR Ot Z79.02 POULTRY RAISER (CURRENT) USE OF ANTITHROMBOTI 04/30/2017 CARLOS ESCOBAR Ot Z86.711 PERSONAL HISTORY OF PULMONARY EMBOLISM 04/30/2017 CARLOS ESCOBAR Ot Z86.718 PERSONAL HISTORY OF OTHER VENOUS THROMBO 04/30/2017 CARLOS ESCOBAR Ot Z95.5 PRESENCE OF CORONARY ANGIOPLASTY IMPLANT 04/30/2017 ELIAS FUNK DO Ot J40 BRONCHITIS, NOT SPECIFIED ACUTE OR CH 04/30/2017 KRISTINE, CRASON E FUNERAL SERVICE PRACTITIONER/EMBALMER Ot G47.33 OBSTRUCTIVE SLEEP APNEA (ADULT) (PEDIATR 04/30/2017 KRISTINE, CARSON E FUNERAL SERVICE PRACTITIONER/EMBALMER Ot G47.9 SLEEP DISORDER, UNSPECIFIED 04/30/2017 KRISTINE, CARSON E FUNERAL SERVICE PRACTITIONER/EMBALMER Ot E66.9 OBESITY, UNSPECIFIED 04/30/2017 KRISTINE, CARSON E FUNERAL SERVICE PRACTITIONER/EMBALMER Ot I25.10 ATHSCL HEART DISEASE OF [place] CORONARY 04/30/2017 KRISTINE, CARSON E FUNERAL SERVICE PRACTITIONER/EMBALMER Ot I25.2 OLD MYOCARDIAL INFARCTION 05/01/2017 KRISTINE, CARSON E FUNERAL SERVICE PRACTITIONER/EMBALMER Ot R06.02 SHORTNESS OF BREATH 05/05/2017 KRISTINE, CARSON E FUNERAL SERVICE PRACTITIONER/EMBALMER Ot G47.33 OBSTRUCTIVE SLEEP APNEA (ADULT) (PEDIATR 05/05/2017 KRISTINE, CARSON E FUNERAL SERVICE PRACTITIONER/EMBALMER Ot G47.9 SLEEP DISORDER, UNSPECIFIED 05/06/2017 KRISTINE, CARSON E FUNERAL SERVICE PRACTITIONER/EMBALMER Ot G47.33 OBSTRUCTIVE SLEEP APNEA (ADULT) (PEDIATR 05/06/2017 KRISTINE, CARSON E FUNERAL SERVICE PRACTITIONER/EMBALMER Ot G47.50 PARASOMNIA, UNSPECIFIED 05/06/2017 KRISTINE, CARSON E FUNERAL SERVICE PRACTITIONER/EMBALMER Ot R06.02 SHORTNESS OF BREATH 05/07/2017 KRISTINE, CARSON E FUNERAL SERVICE PRACTITIONER/EMBALMER Ot G47.33 OBSTRUCTIVE SLEEP APNEA (ADULT) (PEDIATR 05/07/2017 KRISTINE, CARSON E FUNERAL SERVICE PRACTITIONER/EMBALMER Ot G47.50 PARASOMNIA, UNSPECIFIED 05/07/2017 KRISTINE, CARSON E FUNERAL SERVICE PRACTITIONER/EMBALMER Ot R06.02 SHORTNESS OF BREATH 05/07/2017 ELIAS FUNK DO Ot J40 BRONCHITIS, NOT SPECIFIED ACUTE OR CH 05/20/2017 KRISTINESHAD ARECHIGAINE E FUNERAL SERVICE PRACTITIONER/EMBALMER Ot E66.9 OBESITY, UNSPECIFIED 05/20/2017 KRISTINE, CARSON E FUNERAL SERVICE PRACTITIONER/EMBALMER Ot I25.10 ATHSCL HEART DISEASE OF [place] CORONARY 05/20/2017 SHAD CARMONAINE E FUNERAL SERVICE PRACTITIONER/EMBALMER Ot I25.2 OLD MYOCARDIAL INFARCTION 05/20/2017 SHAD CARMONAINE E FUNERAL SERVICE PRACTITIONER/EMBALMER Ot R06.02 SHORTNESS OF BREATH 05/30/2017 KRISTINECARSON FUNERAL SERVICE PRACTITIONER/EMBALMER Ot E66.9 OBESITY, UNSPECIFIED 05/30/2017 KRISTINECARSON Alanna FUNERAL SERVICE PRACTITIONER/EMBALMER Ot I25.10 ATHSCL HEART DISEASE OF [place] CORONARY 05/30/2017 SHAD CARMONAINE Alanna FUNERAL SERVICE PRACTITIONER/EMBALMER Ot I25.2 OLD MYOCARDIAL INFARCTION 05/30/2017 KRISTINECARSON Alanna FUNERAL SERVICE PRACTITIONER/EMBALMER Ot R06.02 SHORTNESS OF BREATH 07/05/2017 [facility] ELI[facility] Fritz Ot G89.29 OTHER CHRONIC PAIN 07/05/2017 [facility] ELIAS Fritz Ot I10 ESSENTIAL (PRIMARY) HYPERTENSION 07/05/2017 [facility], ELIAS Fritz Ot I25.10 ATHSCL HEART DISEASE OF [place] CORONARY 07/05/2017 [facility], ELIAS Fritz Ot I25.2 OLD MYOCARDIAL INFARCTION 07/05/2017 [facility], ELIAS Fritz Ot M10.9 GOUT, UNSPECIFIED 07/05/2017 [facility] ELIAS Fritz Ot Z79.899 OTHER SHELTER (CURRENT) DRUG THERAPY 07/05/2017 [facility], ELIAS Fritz Ot Z86.718 PERSONAL HISTORY OF OTHER VENOUS THROMBO 07/05/2017 [facility], ELIAS Fritz Ot Z88.2 ALLERGY STATUS TO SULFONAMIDES STATUS 07/05/2017 [facility] ELIAS Fritz Ot Z88.5 ALLERGY STATUS TO NARCOTIC AGENT STATUS 07/05/2017 [facility] ELIAS Fritz Ot Z88.8 ALLERGY STATUS TO OTH DRUG/MEDS/BIOL SUB 07/05/2017 [facility], ELIAS Fritz Ot Z95.5 PRESENCE OF CORONARY ANGIOPLASTY IMPLANT 07/12/2017 MIRIAN MCDOWELL MD Ot 553.1 UMBILICAL HERNIA 07/12/2017 MIRIAN MCDOWELL MD Ot V72.63 PRE-PROCEDURAL LABORATORY EXAMINATION 07/12/2017 MIRIAN MCDOWELL MD Ot V72.84 EXAM PRE-OPERATIVE NOS 07/12/2017 MIRIAN MCDOWELL MD Ot V74.8 SCREEN-BACTERIAL DIS NEC 07/12/2017 BIGG EDMONDSON DO Ot 415.19 OTH PULMON EMBOLISM/INFARCT 07/12/2017 BIGG EDMONDSON DO Ot 786.05 SHORTNESS OF BREATH 07/12/2017 BIGG EDMONDSON DO Ot 793.11 SOLITARY PULMONARY NODULE 07/12/2017 JIM JOEL, DAISY Bush Ot 272.4 HYPERLIPIDEMIA NEC/NOS 07/12/2017 DAISY FERNANDEZ MD Ot 401.9 HYPERTENSION NOS 07/12/2017 DAISY FERNANDEZ MD Ot 414.00 CORON ATHEROSCLER NOS TYPE VESSEL, NATIV 07/12/2017 ELIAS FUNK DO Ot 780.79 OTH MALAISE FATIGUE 07/12/2017 ELIAS FUNK DO Ot 786.05 SHORTNESS OF BREATH 07/12/2017 ELIAS FUNK DO Ot 786.2 COUGH 07/12/2017 BIGG EDMONDSON DO Ot 415.19 OTH PULMON EMBOLISM/INFARCT 07/12/2017 BIGG EDMONDSON DO Ot 786.05 SHORTNESS OF BREATH 07/12/2017 BIGG EDMONDSON DO Ot 793.11 SOLITARY PULMONARY NODULE 07/12/2017 BIGG EDMONDSON DO Ot 272.8 LIPOID METABOL DIS NEC 07/12/2017 BIGG EDMONDSON DO Ot 453.40 ACUTE VENOUS EMBOLISM THROMBOSIS UNSP 07/12/2017 BIGG EDMONDSON DO Ot 571.8 CHRONIC LIVER DIS NEC 07/12/2017 BIGG EDMONDSON DO Ot 786.05 SHORTNESS OF BREATH 07/12/2017 BIGG EDMONDSON DO Ot 793.11 SOLITARY PULMONARY NODULE 07/12/2017 CARLOS ESCOBAR Ot 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 07/12/2017 CARLOS ESCOBAR Ot R91.1 SOLITARY PULMONARY NODULE 07/12/2017 CARLOS ESCOBAR Ot Z86.718 PERSONAL HISTORY OF OTHER VENOUS THROMBO 07/12/2017 BIGG EDMONDSON DO Ot R06.02 SHORTNESS OF BREATH 07/12/2017 BIGG EDMONDSON DO Ot R91.1 SOLITARY PULMONARY NODULE 07/12/2017 LIZZIE PARSON Ot D68.59 OTHER PRIMARY THROMBOPHILIA 07/12/2017 LIZZIE PARSONP Ot I10 ESSENTIAL (PRIMARY) HYPERTENSION 07/12/2017 LIZZIE PARSONP Ot R91.1 SOLITARY PULMONARY NODULE 07/12/2017 LIZZIE PARSONP Ot Z86.711 PERSONAL HISTORY OF PULMONARY EMBOLISM 07/12/2017 ELIAS FUNK DO Ot R06.02 SHORTNESS OF BREATH 07/12/2017 GELLENDER DO, ELIAS Fritz Ot R06.2 WHEEZING 07/12/2017 SHAWN CARLOS Allison Ot R05 COUGH 07/12/2017 SHAWN NASREENDAWOOD Estefany Ot R06.02 SHORTNESS OF BREATH 07/12/2017 GELLENDER DO, ELIAS Fritz Ot R05 COUGH 07/12/2017 GELLENDER DO, ELIAS Fritz Ot R05 COUGH 07/12/2017 GELLENDER DO, ELIAS Fritz Ot R07.9 CHEST PAIN, UNSPECIFIED 07/12/2017 GELLENDER DO, ELIAS Fritz Ot M25.572 PAIN IN LEFT ANKLE AND JOINTS OF LEFT FO 07/12/2017 SHAWN CARLOS Allison Ot D68.8 OTHER SPECIFIED COAGULATION DEFECTS 07/12/2017 SHAWNCARLOS Ot E78.5 HYPERLIPIDEMIA, UNSPECIFIED 07/12/2017 SHAWNCARLOS 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 07/12/2017 CARLOS ESCOBAR Ot I10 ESSENTIAL (PRIMARY) HYPERTENSION 07/12/2017 CARLOS ESCOBAR Ot I25.10 ATHSCL HEART DISEASE OF [place] CORONARY 07/12/2017 SHAWNCARLOS Ot I44.0 ATRIOVENTRICULAR BLOCK, FIRST DEGREE 07/12/2017 SHAWNCARLOS Ot I44.7 LEFT BUNDLE-BRANCH BLOCK, UNSPECIFIED 07/12/2017 SHAWNCARLOS Ot R91.1 SOLITARY PULMONARY NODULE 07/12/2017 SHAWNCARLOS Ot Z79.01 SHELTER (CURRENT) USE OF ANTICOAGULANT 07/12/2017 CARLOS ESCOBAR Ot Z79.02 SHELTER (CURRENT) USE OF ANTITHROMBOTI 07/12/2017 SHAWNCARLOS Ot Z86.711 PERSONAL HISTORY OF PULMONARY EMBOLISM 07/12/2017 CARLOS ESCOBAR Ot Z86.718 PERSONAL HISTORY OF OTHER VENOUS THROMBO 07/12/2017 CARLOS ESCOBAR Ot Z95.5 PRESENCE OF CORONARY ANGIOPLASTY IMPLANT 07/12/2017 GELLENDER DO, ELIAS Fritz Ot J40 BRONCHITIS, NOT SPECIFIED ACUTE OR CH 07/12/2017 CARSON CARMONA APRN Ot E66.9 OBESITY, UNSPECIFIED 07/12/2017 CARSON CARMONA APRN Ot I25.10 ATHSCL HEART DISEASE OF [place] CORONARY 07/12/2017 CARSON CARMONA APRN Ot I25.2 OLD MYOCARDIAL INFARCTION 07/12/2017 CARSON CARMONA APRN Ot R06.02 SHORTNESS OF BREATH 07/13/2017 LOU MALONE MD Ot 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 07/13/2017 LOU MALONE MD Ot E66.9 OBESITY, UNSPECIFIED 07/13/2017 LOU MALONE MD Ot E78.5 HYPERLIPIDEMIA, UNSPECIFIED 07/13/2017 LOU MALONE MD Ot E86.0 DEHYDRATION 07/13/2017 LOU MALONE MD Ot I10 ESSENTIAL (PRIMARY) HYPERTENSION 07/13/2017 LOU MALONE MD Ot I25.10 ATHSCL HEART DISEASE OF [place] CORONARY 07/13/2017 LOU MALONE MD Ot I25.2 OLD MYOCARDIAL INFARCTION 07/13/2017 LOU MALONE MD Ot K62.5 HEMORRHAGE OF ANUS AND RECTUM 07/13/2017 LOU MALONE MD Ot M10.9 GOUT, UNSPECIFIED 07/13/2017 LOU MALONE MD Ot R07.89 OTHER CHEST PAIN 07/13/2017 LOU MALONE MD Ot R19.7 DIARRHEA, UNSPECIFIED 07/13/2017 LOU MALONE MD Ot Z68.37 BODY MASS INDEX (BMI) 37.0-37.9, ADULT 07/13/2017 LUO MALONE MD Ot Z79.01 POULTRY RAISER (CURRENT) USE OF ANTICOAGULANT 07/13/2017 OLU MALONE MD Ot Z79.52 POULTRY RAISER (CURRENT) USE OF SYSTEMIC STER 07/13/2017 LOU MALONE MD Ot Z79.82 SHELTER (CURRENT) USE OF ASPIRIN 07/13/2017 LOU MAOLNE MD Ot Z79.899 OTHER SHELTER (CURRENT) DRUG THERAPY 07/13/2017 LOU MALONE MD Ot Z86.711 PERSONAL HISTORY OF PULMONARY EMBOLISM 07/13/2017 LOU MALONE MD Ot Z86.718 PERSONAL HISTORY OF OTHER VENOUS THROMBO 07/13/2017 LOU MALONE MD Ot Z95.5 PRESENCE OF CORONARY ANGIOPLASTY IMPLANT 07/13/2017 LOU MALONE MD, Ot 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 07/13/2017 LOU MALONE MD Ot E66.9 OBESITY, UNSPECIFIED 07/13/2017 LOU MALONE MD Ot E78.5 HYPERLIPIDEMIA, UNSPECIFIED 07/13/2017 LOU MALONE MD Ot E86.0 DEHYDRATION 07/13/2017 LOU MALONE MD Ot I10 ESSENTIAL (PRIMARY) HYPERTENSION 07/13/2017 LOU MALONE MD Ot I25.10 ATHSCL HEART DISEASE OF [place] CORONARY 07/13/2017 LOU MALONE MD Ot I25.2 OLD MYOCARDIAL INFARCTION 07/13/2017 LOU MALONE MD Ot K62.5 HEMORRHAGE OF ANUS AND RECTUM 07/13/2017 LOU MALONE MD Ot M10.9 GOUT, UNSPECIFIED 07/13/2017 LOU MALONE MD Ot R07.89 OTHER CHEST PAIN 07/13/2017 LOU MALONE MD Ot R19.7 DIARRHEA, UNSPECIFIED 07/13/2017 LOU MALONE MD Ot Z68.37 BODY MASS INDEX (BMI) 37.0-37.9, ADULT 07/13/2017 LOU MALONE MD Ot Z79.01 POULTRY RAISER (CURRENT) USE OF ANTICOAGULANT 07/13/2017 LOU MALONE MD Ot Z79.52 POULTRY RAISER (CURRENT) USE OF SYSTEMIC STER 07/13/2017 LOU MALONE MD Ot Z79.82 POULTRY RAISER (CURRENT) USE OF ASPIRIN 07/13/2017 LOU MALONE MD Ot Z79.899 OTHER POULTRY RAISER (CURRENT) DRUG THERAPY 07/13/2017 LOU MALONE MD Ot Z86.711 PERSONAL HISTORY OF PULMONARY EMBOLISM 07/13/2017 LOU MALONE MD Ot Z86.718 PERSONAL HISTORY OF OTHER VENOUS THROMBO 07/13/2017 LOU MALONE MD Ot Z95.5 PRESENCE OF CORONARY ANGIOPLASTY IMPLANT 07/17/2017 GELLENDER DO, ELIAS Fritz Ot E03.9 HYPOTHYROIDISM, UNSPECIFIED 07/17/2017 GELLENDER DO, ELIAS Fritz Ot E86.0 DEHYDRATION 07/17/2017 GELLENDER DOELIAS Ot R05 COUGH 07/17/2017 GELLENDER DO, ELIAS Fritz Ot R06.02 SHORTNESS OF BREATH 07/17/2017 GELLENDER DOELIAS Ot R19.7 DIARRHEA, UNSPECIFIED 07/17/2017 GELLENDER DOELIAS Ot R53.1 WEAKNESS Procedures Code Description Performed By Performed On [...] 03/22/17 13:04 Blood monocytes/100 leukocytes 10 % [facility] Manual blood segmented neutrophils/100 leukocytes 81 % NR Blood band neutrophils/100 leukocytes 2 % NR Manual blood lymphocytes/100 leukocytes 5 % NRG Manual eosinophils/100 leukocytes in nose 2 % NR Blood erythrocyte morphology finding identification NORMAL [facility] Blood dohle body detection by light microscopy SLIGHT [facility] Comprehensive metabolic panel - 03/22/17 13:04 [...] uric acid measurement (mass/volume) 7.4 mg/dL 2.6-7.2 Complete blood count (CBC) with automated white blood cell (WBC) differential - 07/12/17 18:30 Blood leukocytes automated count (number/volume) 13.0 10*3/uL 4.3-11.0 Blood erythrocytes automated count (number/volume) 6.22 10*6/uL 4.35-5.85 Venous blood hemoglobin measurement (mass/volume) 17.5 g/dL 13.3-17.7 Blood hematocrit (volume fraction) 50 % 40-54 Automated erythrocyte mean corpuscular volume 81 [foz_us] 80-99 Automated erythrocyte mean corpuscular hemoglobin (mass per erythrocyte) 28 pg 25-34 Automated erythrocyte mean corpuscular hemoglobin concentration measurement ( mass/volume) 35 g/dL 32-36 Automated erythrocyte distribution width ratio 15.0 % 10.0-14.5 Automated blood platelet count (count/volume) 347 10*3/uL 130-400 Automated blood platelet mean volume measurement 9.7 [foz_us] 7.4-10.4 Automated blood neutrophils/100 leukocytes 80 % 42-75 Automated blood lymphocytes/100 leukocytes 7 % 12-44 Blood monocytes/100 leukocytes 10 % 0-12 Automated blood eosinophils/100 leukocytes 2 % 0-10 Automated blood basophils/100 leukocytes 0 % 0-10 Blood neutrophils automated count (number/volume) 10.4 10*3 1.8-7.8 Blood lymphocytes automated count (number/volume) 1.0 10*3 1.0-4.0 Blood monocytes automated count (number/volume) 1.3 10*3 0.0-1.0 Automated eosinophil count 0.2 10*3/uL 0.0-0.3 Automated blood basophil count (count/volume) 0.0 10*3/uL 0.0-0.1 PT panel in platelet poor plasma by coagulation assay - 07/12/17 18:30 Prothrombin time (PT) in platelet poor plasma by coagulation assay 16.9 s 12.2-14.7 INR in platelet poor plasma or blood by coagulation assay 1.4 0.8-1.4 Activated partial thromboplastin time (aPTT) in platelet poor plasma bycoagulation assay - 07/12/17 18:30 Activated partial thromboplastin time (aPTT) in platelet poor plasma bycoagulation assay 39 s 24-35 Comprehensive metabolic panel - 07/12/17 18:30 Serum or plasma sodium measurement (moles/volume) 142 mmol/L 135-145 Serum or plasma potassium measurement (moles/volume) 3.8 mmol/L 3.6-5.0 Serum or plasma chloride measurement (moles/volume) 117 mmol/L 98-107 Carbon dioxide 13 mmol/L 21-32 Serum or plasma anion gap determination (moles/volume) 12 mmol/L 5-14 Serum or plasma urea nitrogen measurement (mass/volume) 26 mg/dL 7-18 Serum or plasma creatinine measurement (mass/volume) 1.44 mg/dL 0.60-1.30 Serum or plasma urea nitrogen/creatinine mass ratio 18 NRG Serum or plasma creatinine measurement with calculation of estimated glomerular filtration rate 48 NRG Serum or plasma glucose measurement (mass/volume) 144 mg/dL 70-105 Serum or plasma calcium measurement (mass/volume) 9.3 mg/dL 8.5-10.1 Serum or plasma total bilirubin measurement (mass/volume) 0.8 mg/dL 0.1-1.0 Serum or plasma alkaline phosphatase measurement (enzymatic activity/volume) 83 U/L 40-136 Serum or plasma aspartate aminotransferase measurement (enzymatic activity/ volume) 19 U/L 5-34 Serum or plasma alanine aminotransferase measurement (enzymatic activity/volume ) 33 U/L 0-55 Serum or plasma protein measurement (mass/volume) 7.4 g/dL 6.4-8.2 Serum or plasma albumin measurement (mass/volume) 4.6 g/dL 3.2-4.5 Magnesium - 07/12/17 18:30 Magnesium 2.4 mg/dL 1.8-2.4 Serum or plasma troponin i.cardiac measurement (mass/volume) - 07/12/17 18:30 Serum or plasma troponin i.cardiac measurement (mass/volume) < ng/ mL <0.30 Myoglobin, serum - 07/12/17 18:30 Myoglobin, serum 99.0 ng/mL 10.0-92.0 Lipase - 07/12/17 18:30 Lipase 31 U/L 8-78 Serum or plasma lithium measurement (moles/volume) - 07/12/17 18:30 BNP level 59.9 pg/mL <100.0 Blood manual differential performed detection - 07/12/17 18:30 Blood monocytes/100 leukocytes 10 % NRG Manual blood segmented neutrophils/100 leukocytes 83 % NRG Manual blood lymphocytes/100 leukocytes 6 % NRG Manual eosinophils/100 leukocytes in nose 1 % NRG Blood erythrocyte morphology finding identification NORMAL NRG Fibrin D-dimer FEU measurement in platelet poor plasma (mass/volume) - 18:30 Fibrin D-dimer FEU measurement in platelet poor plasma (mass/volume) < ug/mL 0.00-0.49 Complete blood count (CBC) with automated white blood cell (WBC) differential - 07/13/17 03:27 Blood leukocytes automated count (number/volume) 9.0 10*3/uL 4.3-11.0 Blood erythrocytes automated count (number/volume) 4.97 10*6/uL 4.35-5.85 Venous blood hemoglobin measurement (mass/volume) 14.2 g/dL 13.3-17.7 Blood hematocrit (volume fraction) 41 % 40-54 Automated erythrocyte mean corpuscular volume 83 [foz_us] 80-99 Automated erythrocyte mean corpuscular hemoglobin (mass per erythrocyte) 29 pg 25-34 Automated erythrocyte mean corpuscular hemoglobin concentration measurement ( mass/volume) 35 g/dL 32-36 Automated erythrocyte distribution width ratio 14.7 % 10.0-14.5 Automated blood platelet count (count/volume) 258 10*3/uL 130-400 Automated blood platelet mean volume measurement 9.5 [foz_us] 7.4-10.4 Automated blood neutrophils/100 leukocytes 73 % 42-75 Automated blood lymphocytes/100 leukocytes 10 % 12-44 Blood monocytes/100 leukocytes 13 % 0-12 Automated blood eosinophils/100 leukocytes 4 % 0-10 Automated blood basophils/100 leukocytes 0 % 0-10 Blood neutrophils automated count (number/volume) 6.5 10*3 1.8-7.8 Blood lymphocytes automated count (number/volume) 0.9 10*3 1.0-4.0 Blood monocytes automated count (number/volume) 1.2 10*3 0.0-1.0 Automated eosinophil count 0.3 10*3/uL 0.0-0.3 Automated blood basophil count (count/volume) 0.0 10*3/uL 0.0-0.1 Lipid 1996 panel - 07/13/17 03:27 Serum or plasma triglyceride measurement (mass/volume) 69 mg/dL <150 Serum or plasma cholesterol measurement (mass/volume) 67 mg/dL < 200 Serum or plasma cholesterol in HDL measurement (mass/volume) 20 mg/ dL 40-60 Cholesterol in LDL [mass/volume] in serum or plasma by direct assay 35 mg/dL 1-129 Serum or plasma cholesterol in VLDL measurement (mass/volume) 14 mg/ dL 5-40 Whole blood basic metabolic panel - 07/13/17 03:27 Serum or plasma sodium measurement (moles/volume) 138 mmol/L 135-145 Serum or plasma potassium measurement (moles/volume) 4.1 mmol/L 3.6-5.0 Serum or plasma chloride measurement (moles/volume) 117 mmol/L 98-107 Carbon dioxide 14 mmol/L 21-32 Serum or plasma anion gap determination (moles/volume) 7 mmol/L 5-14 Serum or plasma urea nitrogen measurement (mass/volume) 22 mg/dL 7-18 Serum or plasma creatinine measurement (mass/volume) 1.06 mg/dL 0.60-1.30 Serum or plasma urea nitrogen/creatinine mass ratio 21 NRG Serum or plasma creatinine measurement with calculation of estimated glomerular filtration rate > NRG Serum or plasma glucose measurement (mass/volume) 100 mg/dL 70-105 Serum or plasma calcium measurement (mass/volume) 7.9 mg/dL 8.5-10.1 Serum or plasma troponin i.cardiac measurement (mass/volume) - 07/13/17 03:27 Serum or plasma troponin i.cardiac measurement (mass/volume) < ng/ mL <0.30 Stool occult blood screen - 07/13/17 14:25 Stool gastrointestinal hemoglobin detection POSITIVE NEGATIVE C DIFFICILE AG + TOXIN A/B. - 07/13/17 14:25 RESULTS NEGATIVE FOR ANTIGEN AND TOXIN A/B NRG Serum or plasma lithium measurement (moles/volume) - 07/16/17 11:01 BNP level 84.8 pg/mL <100.0 Complete blood count (CBC) with automated white blood cell (WBC) differential - 07/16/17 11:10 Blood leukocytes automated count (number/volume) 8.4 10*3/uL 4.3-11.0 Blood erythrocytes automated count (number/volume) 5.32 10*6/uL 4.35-5.85 Venous blood hemoglobin measurement (mass/volume) 15.3 g/dL 13.3-17.7 Blood hematocrit (volume fraction) 42 % 40-54 Automated erythrocyte mean corpuscular volume 79 [foz_us] 80-99 Automated erythrocyte mean corpuscular hemoglobin (mass per erythrocyte) 29 pg 25-34 Automated erythrocyte mean corpuscular hemoglobin concentration measurement ( mass/volume) 37 g/dL 32-36 Automated erythrocyte distribution width ratio 14.5 % 10.0-14.5 Automated blood platelet count (count/volume) 252 10*3/uL 130-400 Automated blood platelet mean volume measurement 9.9 [foz_us] 7.4-10.4 Automated blood neutrophils/100 leukocytes 77 % 42-75 Automated blood lymphocytes/100 leukocytes 9 % 12-44 Blood monocytes/100 leukocytes 11 % 0-12 Automated blood eosinophils/100 leukocytes 3 % 0-10 Automated blood basophils/100 leukocytes 0 % 0-10 Blood neutrophils automated count (number/volume) 6.4 10*3 1.8-7.8 Blood lymphocytes automated count (number/volume) 0.8 10*3 1.0-4.0 Blood monocytes automated count (number/volume) 0.9 10*3 0.0-1.0 Automated eosinophil count 0.3 10*3/uL 0.0-0.3 Automated blood basophil count (count/volume) 0.0 10*3/uL 0.0-0.1 Comprehensive metabolic panel - 07/16/17 11:10 Serum or plasma sodium measurement (moles/volume) 137 mmol/L 135-145 Serum or plasma potassium measurement (moles/volume) 3.7 mmol/L 3.6-5.0 Serum or plasma chloride measurement (moles/volume) 112 mmol/L 98-107 Carbon dioxide 20 mmol/L 21-32 Serum or plasma anion gap determination (moles/volume) 5 mmol/L 5-14 Serum or plasma urea nitrogen measurement (mass/volume) 11 mg/dL 7-18 Serum or plasma creatinine measurement (mass/volume) 0.85 mg/dL 0.60-1.30 Serum or plasma urea nitrogen/creatinine mass ratio 13 NRG Serum or plasma creatinine measurement with calculation of estimated glomerular filtration rate > NRG Serum or plasma glucose measurement (mass/volume) 106 mg/dL 70-105 Serum or plasma calcium measurement (mass/volume) 8.6 mg/dL 8.5-10.1 Serum or plasma total bilirubin measurement (mass/volume) 1.2 mg/dL 0.1-1.0 Serum or plasma alkaline phosphatase measurement (enzymatic activity/volume) 79 U/L 40-136 Serum or plasma aspartate aminotransferase measurement (enzymatic activity/ volume) 14 U/L 5-34 Serum or plasma alanine aminotransferase measurement (enzymatic activity/volume ) 19 U/L 0-55 Serum or plasma protein measurement (mass/volume) 6.4 g/dL 6.4-8.2 Serum or plasma albumin measurement (mass/volume) 3.8 g/dL 3.2-4.5 Serum or plasma uric acid measurement (mass/volume) - 07/16/17 11:10 Serum or plasma uric acid measurement (mass/volume) 6.6 mg/dL 2.6-7.2 Serum or plasma troponin i.cardiac measurement (mass/volume) - 07/16/17 11:10 Serum or plasma troponin i.cardiac measurement (mass/volume) < ng/ mL <0.30 THYROID STIMULATING HORMONE - 07/16/17 11:10 THYROID STIMULATING HORMONE 1.81 u[iU]/mL 0.35-4.94 Complete urinalysis with reflex to culture - 07/16/17 11:23 Urine color determination YELLOW NRG Urine clarity determination CLEAR NRG Urine pH measurement by test strip 6 5-9 Specific gravity of urine by test strip 1.015 1.016- 1.022 Urine protein assay by test strip, semi-quantitative 1+ NEGATIVE Urine glucose detection by automated test strip NEGATIVE NEGATIVE Erythrocytes detection in urine sediment by light microscopy 1+ NEGATIVE Urine ketones detection by automated test strip 1+ NEGATIVE Urine nitrite detection by test strip NEGATIVE NEGATIVE Urine total bilirubin detection by test strip NEGATIVE NEGATIVE Urine urobilinogen measurement by automated test strip (mass/volume) NORMAL NORMAL Urine leukocyte esterase detection by dipstick 1+ NEGATIVE Automated urine sediment erythrocyte count by microscopy (number/high power field) RARE NRG Automated urine sediment leukocyte count by microscopy (number/high power field ) RARE NRG Bacteria detection in urine sediment by light microscopy NEGATIVE NRG Squamous epithelial cells detection in urine sediment by light microscopy RARE NRG Crystals detection in urine sediment by light microscopy NONE NRG Casts detection in urine sediment by light microscopy NONE NRG Mucus detection in urine sediment by light microscopy SMALL NRG Complete urinalysis with reflex to culture NO NRG Encounters ACCT No. Visit Date/Time Discharge Status Pt. Type Provider Facility Loc./Unit Complaint [id number] 07/12/2017 19:13:00 07/13/2017 15:30:00 DIS Inpatient LOU MALONE MD [facility] ICU CP R/D ACS, DEHYDRATION, DIARRHEA [id number] 07/03/2017 20:46:00 07/05/2017 13:12:00 DIS Inpatient ELIAS FUNK DO [facility] 4TH R WRIST ARTHROPATHY, CHEST PAIN,CAD [id number] 05/05/2017 20:30:00 05/06/2017 06:50:00 DIS Outpatient CARSON CARMONA APRN [facility] SLEEP G47.9 SLEEP DISORDER [id number] 04/30/2017 13:22:00 04/30/2017 23:59:59 CLS Outpatient CARSON CARMONA [employer]ICE PRACTITIONER/EMBALMER [facility] RT R06.00 SOB [id number] 04/28/2017 07:14:00 04/28/2017 23:59:59 CLS Outpatient CARSON CARMONA [employer]ER[employer] SERVICE PRACTITIONER/EMBALMER [facility] RAD R06.00 [id number] 04/07/2017 12:45:00 04/07/2017 23:59:59 CLS Outpatient ELIAS FUNK DO [facility] RAD BRONCHITIS,SOB [id number] 03/24/2017 09:00:00 03/28/2017 11:51:00 DIS Inpatient ELIAS FUNK DO [facility] 4TH CHEST PAIN, BRONCHITIS [id number] 01/21/2017 14:16:00 01/21/2017 23:59:59 CLS Outpatient CARLOS ESCOBAR [facility] ONC [id number] 08/08/2016 12:07:00 08/08/2016 23:59:59 CLS Outpatient ELIAS FUNK DO [facility] RAD PAIN IN LEFT ANKLE [id number] 04/25/2016 10:37:00 04/25/2016 23:59:59 CLS Outpatient ELIAS FUNK DO [facility] LAB CHEST PAIN,COUGH [id number] 04/24/2016 14:01:00 04/24/2016 23:59:59 CLS Outpatient ELIAS FUNK DO [facility] RAD COUGH [id number] 01/10/2016 10:51:00 01/10/2016 23:59:59 CLS Outpatient CARLOS ESCOBAR [facility] RAD [id number] 01/10/2016 09:34:00 01/10/2016 23:59:59 CLS Outpatient CARLOS ESCOBAR [facility] ONC [id number] 09/25/2015 08:41:00 09/25/2015 23:59:59 CLS Outpatient BIGG EDMONDSON DO [facility] RAD PULMONARY NODULE [id number] 01/11/2015 13:48:00 01/11/2015 23:59:59 CLS Outpatient ELIAS FUNK DO [facility] RAD WHEEZING,SOB [id number] 01/11/2015 09:38:00 01/11/2015 23:59:59 CLS Outpatient LIZZIE PARSONP [facility] ONC [id number] 09/21/2014 12:22:00 09/21/2014 23:59:59 CLS Outpatient BIGG EDMONDSON DO [facility] RAD PULMONARY NODULE,SOB [id number] 04/22/2014 07:05:00 04/25/2014 15:15:00 DIS Inpatient ETHAN CONDE DO [facility] CSD HERNIA REPAIR [id number] 01/13/2014 10:08:00 04/13/2014 00:01:00 DIS Outpatient CARLOS ESCOBAR [facility] ONC [id number] 02/21/2014 08:14:00 02/21/2014 23:59:59 CLS Outpatient BIGG EDMONDSON DO [facility] RAD PULMONARY NODULE PULMONARY EMBOLISM SOB [id number] 02/18/2014 12:37:00 02/18/2014 23:59:59 CLS Outpatient BIGG EDMONDSON DO [facility] LAB PE,SOA [id number] 10/14/2013 13:39:00 01/12/2014 00:01:00 DIS Outpatient CARLOS ESCOBAR [facility] ONC [id number] 01/05/2014 05:45:00 01/07/2014 08:10:00 DIS Inpatient ELIAS FUNK DO [facility] 4TH ACUTE ABDOMINAL PAIN [id number] 12/15/2013 11:52:00 12/15/2013 23:59:59 CLS Outpatient ELIAS FUNK DO [facility] RAD SOB,COUGH [id number] 09/21/2013 10:38:00 09/21/2013 23:59:59 CLS Outpatient JIM JOEL, DAISY Bush [facility] CARD CAD,HTN,HLP,DVT [id number] 08/02/2013 08:21:00 08/05/2013 18:30:00 DIS Inpatient GELLENDER DO, ELIAS A [facility] CSD BILATERAL PULMONARY EMBOLISM [id number] 07/29/2013 06:48:00 07/29/2013 13:05:00 DIS Outpatient MIRIAN MCDOWELL MD [facility] SDC UMBILICAL HERNIA [id number] 07/21/2013 10:09:00 07/21/2013 23:59:59 CLS Outpatient MIRIAN MCDOWELL MD [facility] PREOP UMBILICAL HERNIA [id number] 07/16/2017 10:32:00 ACT Outpatient ELIAS FUNK DO [facility] RAD [id number] 01/19/2012 08:41:00 Document Registration
== END 2017-07-13 11:49 | disposition home or self-care (01) ==
LOC: EDUNIT# 18:19 → ER 18:20 → ICU 19:13 → UNDOADMOB 19:13 → UNDODISOB 07-13 11:49
PROVIDERS: ADMIT Internal Medicine; ATTEND Internal Medicine
DX: R07.89 Other chest pain (principal); E86.0 Dehydration; R19.7 Diarrhea, unspecified; K62.5 Hemorrhage of anus and rectum; I25.10 Atherosclerotic heart disease of native coronary artery without angina pectoris; I10 Essential (primary) hypertension; E78.5 Hyperlipidemia, unspecified; M10.9 Gout, unspecified; D68.2 Hereditary deficiency of other clotting factors; I25.2 Old myocardial infarction; E66.9 Obesity, unspecified; Z68.37 Body mass index [BMI] 37.0-37.9, adult; Z86.711 Personal history of pulmonary embolism; Z86.718 Personal history of other venous thrombosis and embolism; Z79.01 Long term (current) use of anticoagulants; Z95.5 Presence of coronary angioplasty implant and graft; Z79.52 Long term (current) use of systemic steroids; Z79.899 Other long term (current) drug therapy; Z79.82 Long term (current) use of aspirin
CPT/HCPCS: 36415; 71045; 80048; 80053; 80061; 82274; 83690; 83735; 83874; 83880; 84484; 85007; 85025; 85027; 85379; 85610; 85730; 87324; 87449; 93005; 93041; 96361; 96374; 96375

== ENCOUNTER → 2017-07-16 | Outpatient (CLI) | payer MEDICARE ==
[~2017-07-16] MED LIST changes: +PRD10T
[2017-07-16 11:16] LABS: BASOPHILS % (AUTO) 0 % (0-10); EOSINOPHILS # (AUTO) 0.3 10^3/uL (0.0-0.3); EOSINOPHILS % (AUTO) 3 % (0-10); HEMATOCRIT 42 % (40-54); HEMOGLOBIN 15.3 G/DL (13.3-17.7); LYMPHOCYTES # (AUTO) 0.8 X 10^3 (1.0-4.0); LYMPHOCYTES % (AUTO) 9 % (12-44); MEAN CORPUSCULAR HEMOGLOBIN 29 PG (25-34); MEAN CORPUSCULAR HGB CONC 37 G/DL (32-36); MEAN CORPUSCULAR VOLUME 79 FL (80-99); MEAN PLATELET VOLUME 9.9 FL (7.4-10.4); MONOCYTES # (AUTO) 0.9 X 10^3 (0.0-1.0); MONOCYTES % (AUTO) 11 % (0-12); NEUTROPHILS # (AUTO) 6.4 X 10^3 (1.8-7.8); NEUTROPHILS % (AUTO) 77 % (42-75); PLATELET COUNT 252 10^3/uL (130-400); RED BLOOD COUNT 5.32 10^6/uL (4.35-5.85); RED CELL DISTRIBUTION WIDTH 14.5 % (10.0-14.5); WHITE BLOOD COUNT 8.4 10^3/uL (4.3-11.0)
[2017-07-16 11:27] LABS: BILIRUBIN,URINE NEGATIVE (NEGATIVE); CLARITY,URINE CLEAR; COLOR,URINE YELLOW; GLUCOSE, URINE (UA) NEGATIVE (NEGATIVE); KETONES,URINE 1+ (NEGATIVE); LEUKOCYTE ESTERASE ,URINE 1+ (NEGATIVE); NITRITE,URINE NEGATIVE (NEGATIVE); PH,URINE 6 (5-9); PROTEIN,URINE 1+ (NEGATIVE); UROBILINOGEN,URINE NORMAL (NORMAL)
[2017-07-16 11:36] LABS: ALANINE AMINOTRANSFERASE 19 U/L (0-55); ALBUMIN 3.8 GM/DL (3.2-4.5); ALKALINE PHOSPHATASE 79 U/L (40-136); BILIRUBIN,TOTAL 1.2 MG/DL (0.1-1.0); BUN/CREATININE RATIO 13; CALCIUM 8.6 MG/DL (8.5-10.1); CARBON DIOXIDE 20 MMOL/L (21-32); CHLORIDE 112 MMOL/L (98-107); CREATININE SERUM 0.85 MG/DL (0.60-1.30); GFR ESTIMATED > 60; GLUCOSE 106 MG/DL (70-105); POTASSIUM 3.7 MMOL/L (3.6-5.0); SODIUM 137 MMOL/L (135-145); TOTAL PROTEIN 6.4 GM/DL (6.4-8.2); URIC ACID 6.6 MG/DL (2.6-7.2)
[2017-07-16 11:37] LABS: BACTERIA,URINE NEGATIVE /HPF; RBC,URINE RARE /HPF; SQUAMOUS EPITHELIAL CELL,UR RARE /HPF; WBC,URINE RARE /HPF
--- NOTE | 2017-07-16 13:04 | Diagnostic Imaging Report ---
INDICATION: Shortness of breath and cough, weakness, and diarrhea with dehydration. COMPARISON: 07/12/2017. FINDINGS: The heart size is within the upper limits of normal. There is no abnormal distention of the vascularity. No focal consolidation, effusion, or pneumothorax. No free air beneath the diaphragms. No acute finding. IMPRESSION: No acute-appearing abnormality. Dictated by: Dictated on workstation # [id number]
== END ==
LOC: RAD 10:32
PROVIDERS: ATTEND Family Medicine
DX: R06.02 Shortness of breath (principal); R53.1 Weakness; R19.7 Diarrhea, unspecified; R05 Cough; E86.0 Dehydration; E03.9 Hypothyroidism, unspecified
CPT/HCPCS: 36415; 71046; 80053; 81000; 83880; 84443; 84484; 84550; 85025

== ENCOUNTER → 2017-07-21 | Outpatient (CLI) | payer MEDICARE ==
--- NOTE | 2017-07-21 13:12 | Diagnostic Imaging Report ---
EXAM: Right upper extremity ultrasound. DATE: 07/21/2017. INDICATION: 77-year-old male, swelling above the right clavicle. COMPARISON: CT chest 04/28/2017. FINDINGS: Ultrasound evaluation was targeted at the area of patient's concern which is labeled as above the level of the right clavicle. There is no sonographically demonstrated fluid collection or mass. IMPRESSION: 1. No sonographically demonstrated mass or fluid collection in the region of patient concern. 2. If there is a truly clinically palpable mass, recommend further evaluation with MRI or CT with and without contrast for further assessment. Dictated by: Dictated on workstation # [id number]
== END ==
LOC: RAD 11:44
PROVIDERS: ATTEND Family Medicine
DX: M25.411 Effusion, right shoulder (principal)
CPT/HCPCS: 76881

== ENCOUNTER 2017-11-29 03:04 | Emergency (ER) | payer MEDICARE ==
[~2017-11-29] VITALS: Ht 182.9 cm; Wt 120.2 kg
[~2017-11-29 03:04] MED LIST changes: +AMLO5TAB7 PO; -CODE118S2 PO; +CODE118S4 PO; +HYDR-4226 PO; -HYDR-757 PO; -TELM80TA5 PO; +TELM80TA8 PO
[2017-11-29] MEDS ORDERED: NS IV 1000 ML 1,000 ML IV SCH (03:26)
[2017-11-29] MEDS ORDERED: ONDANSETRON 4 MG/2 ML (SDV) Z0FRAN IVP ONE (03:30)
[2017-11-29] MEDS ORDERED: fentaNYL INJECTION 100 MCG/2 ML AMP IVP ONE ×2 (03:30→04:15)
--- NOTE | 2017-11-29 03:32 | ED Back Pain ---
General Chief Complaint: Back Problems Stated Complaint: RT SIDE & BACK PAIN Nursing Triage Note: RIGHT FLANK PAIN SINCE 2200 ON 11/28/17. Nursing Sepsis Screen: No Definite Risk Source of Information: Patient, Spouse Exam Limitations: No Limitations (RODY BHAT) History of Present Illness Date Seen by Provider: Nov 29, 2017 Time Seen by Provider: 03:20 Initial Comments Patient presents to ER by private conveyance with his significant other and chief complaint he is having an acute onset of right flank and back pain over his kidney starting at 10:00 last night. He has not taken anything for the pain because he didn't know what to take for it. He's having nausea with one episode of vomiting and some dry retching. He's never had a kidney stone before. He has no painful urination or hematuria. He's had no fever or chills but he did have some sweats with the pain. He says the pain is episodic but never goes away. Worse with movement. (RODY BHAT) Allergies and Home Medications Allergies Coded Allergies: Sulfa (Sulfonamide Antibiotics) (Verified Allergy, Unknown, 01/19/12) hydrochlorothiazide (Verified Allergy, Unknown, 03/20/17) ketoprofen (Verified Allergy, Unknown, 01/19/12) nabumetone (Verified Allergy, Unknown, 01/19/12) rosuvastatin (Verified Allergy, Unknown, 03/20/17) morphine (Unverified Adverse Reaction, Mild, VOMITING, 04/25/14) Home Medications Acyclovir 800 Mg Tablet, 800 MG PO UD Five times daily Prescribed by: MALICK ZAMORA on 11/29/17 0820 Amlodipine Besylate 5 Mg Tablet, 5 MG PO DAILY, (Reported) Cyclobenzaprine HCl 10 Mg Tablet, 10 MG PO TID PRN for SPASMS Prescribed by: MALICK ZAMORA on 11/29/17 0820 Furosemide 40 Mg Tablet, 40 MG PO DAILY, (Reported) Hydrocodone/Acetaminophen 1 Each Tablet, 1 EA PO Q8HR PRN for PAIN-MODERATE Prescribed by: KATHLEEN MORRISON on 07/05/17 1200 Isosorbide Mononitrate 120 Mg Tab.er.24h, 120 MG PO DAILY, (Reported) Nitroglycerin 0.4 Mg Tab.subl, 0.4 MG SL UD PRN for CHEST PAIN, (Reported) Oxycodone HCl/Acetaminophen 1 Each Tablet, 1-2 TAB PO Q6H PRN for PAIN-MODERATE TO SEVERE Prescribed by: MALICK ZAMORA on 11/29/17 08 Potassium Gluconate 99 Mg Tablet, 99 MG PO DAILY, (Reported) Prednisone 20 Mg Tab, 20 MG PO DAILY Prescribed by: MALICK ZAMORA on 11/29/17 0820 Ranitidine HCl 150 Mg Tablet, 150 MG PO BID, (Reported) Rivaroxaban 20 Mg Tablet, 20 MG PO HS, (Reported) Telmisartan 80 Mg Tablet, 80 MG PO DAILY, (Reported) [Black Chan 500MG] , 500 MG PO BID, (Reported) FOR GOUT Patient Home Medication List Home Medication List Reviewed: Yes (RODY BHAT) Review of Systems Constitutional: No chills; diaphoresis; No fever, No malaise EENTM: No hearing loss, No ear pain Respiratory: No cough, No short of breath Cardiovascular: No chest pain, No edema Gastrointestinal: No abdominal pain, No nausea, No vomiting Genitourinary: No discharge, No dysuria, No hematuria (RODY BHAT) Past Cadjmdc-Ecyexe-Vhwvuw Hx Patient Social History Alcohol Use: Denies Use Recreational Drug Use: No 2nd Hand Smoke Exposure: No Recent Foreign Travel: No Contact w/Someone Who Travel: No Recent Infectious Disease Expo: No Recent Hopitalizations: Yes (gout) Physical Abuse: No Sexual Abuse: No (RODY BHAT) Immunizations Up To Date Tetanus Booster (TDap): Unknown Date of Pneumonia Vaccine: Dec 15, 2012 (RODY BHAT) Seasonal Allergies Seasonal Allergies: Yes (RODY BHAT) Past Medical History Surgeries: Yes Abdominal, Coronary Stent Respiratory: Yes Pulmonary Embolism Currently Using CPAP: No Currently Using BIPAP: No Cardiac: Yes (5 heart stent) Heart Attack, Hypertension Neurological: No Reproductive Disorders: No Genitourinary: No Gastrointestinal: No Musculoskeletal: Yes Arthritis, Gout Endocrine: No HEENT: No Hearing Impairment: Hard of Hearing Cancer: No Psychosocial: No Integumentary: No Blood Disorders: Yes Adverse Reaction/Blood Tranf: No (RODY BHAT) Cardiac: Yes (5 heart stent, left bundle branch block) Coronary Artery Disease (MALICK VILLATORO MD) Family Medical History Arthritis 19 MOTHER Asthma 19 FATHER Cataracts 19 MOTHER Completed stroke Hypertension 19 FATHER Myocardial infarction 19 MOTHER Seizure disorder DAUGHTERS Severe allergy 19 FATHER No Family History of: AIDS Abdominal aortic aneurysm [place]'s disease Alcoholism Alzheimer's disease Aphasia Cancer of mouth Cardiovascular disease Colon cancer Congenital disease Congenital heart disease Coronary thrombosis Cystic fibrosis Deafness or hearing loss Dementia Diabetes mellitus Drug abuse Dysphasia Fibrocystic disease of breast Gastroenteritis Glaucoma Headache disorder Hypercholesterolemia Infertility Kidney disease Neoplasm Not obtainable due to adoption Osteoporosis Parkinson's disease Prostate cancer Psychosocial problem Respiratory disorder Thyroid disease Tuberculosis Visual disorder Physical Exam Vital Signs Vital Signs - First Documented 11/29/17 03:08 Temp 97.6 Pulse 76 Resp 22 B/P (MAP) 197/102 (133) Pulse Ox 96 (MALICK VILLATORO MD) Vital Signs Capillary Refill : Less Than 3 Seconds (RODY BHAT) Height, Weight, BMI Height: 6'0" Weight: 265lbs. 0.8oz. 120.382945bn; 37.4 BMI Method:Stated General Appearance: WD/WN, Anxious, Moderate Distress HEENT: PERRL/EOMI, Moist Mucous Membranes Neck: Full Range of Motion, Supple Cardiovascular: Regular Rate, Rhythm, Normal Peripheral Pulses Respiratory: Chest Non Tender, Lungs Clear, Normal Breath Sounds, No Accessory Muscle Use, No Respiratory Distress Gastrointestinal: Normal Bowel Sounds, Non Tender, Soft Back: Normal Inspection, No Vertebral Tenderness; No CVA Tenderness (L); CVA Tenderness (R) Extremity: Normal Capillary Refill, Normal Inspection Neurologic/Psychiatric: Alert, Oriented x3, No Motor/Sensory Deficits (RODY BHAT) Progress/Results/Core Measures Results/Orders Lab Results Laboratory Tests Test 11/29/17 03:13 11/29/17 03:35 Range/Units Urine Color YELLOW Urine Clarity CLEAR Urine pH 5 5-9 Urine Specific Penrose 1.020 1.016-1.022 Urine Protein 2+ H NEGATIVE Urine Glucose (UA) NEGATIVE NEGATIVE Urine Ketones NEGATIVE NEGATIVE Urine Nitrite NEGATIVE NEGATIVE Urine Bilirubin NEGATIVE NEGATIVE Urine Urobilinogen NORMAL NORMAL MG/DL Urine Leukocyte Esterase NEGATIVE NEGATIVE Urine RBC (Auto) 2+ H NEGATIVE Urine RBC NONE /HPF Urine WBC NONE /HPF Urine Squamous Epithelial Cells 0-2 /HPF Urine Renal Epithelial Cells 0-2 /HPF Urine Crystals NONE /LPF Urine Bacteria NEGATIVE /HPF Urine Casts NONE /LPF Urine Mucus NEGATIVE /LPF Urine Culture Indicated NO White Blood Count 6.9 4.3-11.0 10^3/uL Red Blood Count 5.63 4.35-5.85 10^6/uL Hemoglobin 16.0 13.3-17.7 G/DL Hematocrit 46 40-54 % Mean Corpuscular Volume 81 80-99 FL Mean Corpuscular Hemoglobin 28 25-34 PG Mean Corpuscular Hemoglobin Concent 35 32-36 G/DL Red Cell Distribution Width 14.4 10.0-14.5 % Platelet Count 246 130-400 10^3/uL Mean Platelet Volume 9.4 7.4-10.4 FL Neutrophils (%) (Auto) 69 42-75 % Lymphocytes (%) (Auto) 11 L 12-44 % Monocytes (%) (Auto) 11 0-12 % Eosinophils (%) (Auto) 9 0-10 % Basophils (%) (Auto) 1 0-10 % Neutrophils # (Auto) 4.7 1.8-7.8 X 10^3 Lymphocytes # (Auto) 0.7 L 1.0-4.0 X 10^3 Monocytes # (Auto) 0.7 0.0-1.0 X 10^3 Eosinophils # (Auto) 0.6 H 0.0-0.3 10^3/uL Basophils # (Auto) 0.1 0.0-0.1 10^3/uL Sodium Level 137 135-145 MMOL/L Potassium Level 3.9 3.6-5.0 MMOL/L Chloride Level 105 98-107 MMOL/L Carbon Dioxide Level 20 L 21-32 MMOL/L Anion Gap 12 5-14 MMOL/L Blood Urea Nitrogen 11 7-18 MG/DL Creatinine 1.15 0.60-1.30 MG/DL Estimat Glomerular Filtration Rate > 60 BUN/Creatinine Ratio 10 Glucose Level 157 H 70-105 MG/DL Calcium Level 9.3 8.5-10.1 MG/DL Corrected Calcium 9.1 8.5-10.1 MG/DL Magnesium Level 2.5 H 1.8-2.4 MG/DL Total Bilirubin 0.9 0.1-1.0 MG/DL Aspartate Amino Transf (AST/SGOT) 17 5-34 U/L Alanine Aminotransferase (ALT/SGPT) 23 0-55 U/L Alkaline Phosphatase 80 40-136 U/L Troponin I < 0.30 <0.30 NG/ML Total Protein 6.8 6.4-8.2 GM/DL Albumin 4.3 3.2-4.5 GM/DL (MALICK VILLATORO MD) My Orders Orders - MALICK VILLATORO MD Orphenadrine Injection (Norflex Injectio (11/29/17 07:15) Methylprednisolone Sod Succ (Solu-Medrol (11/29/17 07:15) Lidocaine Patch (Lidoderm 5% Patch) (11/29/17 07:15) Ketorolac Injection (Toradol Injection) (11/29/17 07:15) (MALICK VILLATORO MD) Medications Given in ED Current Medications Medications Dose Ordered Sig/Fermín Route Start Time Stop Time Status Last Admin Dose Admin Aspirin 324 mg ONCE ONCE PO 11/29/17 05:45 11/29/17 05:47 DC 11/29/17 06:04 324 MG Ceftriaxone Sodium 1000 mg/ Sodium Chloride 50 ml @ 100 mls/hr ONCE ONCE IV 11/29/17 04:15 11/29/17 04:44 DC 11/29/17 04:32 100 MLS/HR Fentanyl Citrate 50 mcg ONCE ONCE IVP 11/29/17 04:15 11/29/17 04:16 DC 11/29/17 04:07 50 MCG Fentanyl Citrate 75 mcg ONCE ONCE IVP 11/29/17 03:30 11/29/17 03:31 DC 11/29/17 03:33 75 MCG Hydromorphone HCl 1 mg ONCE ONCE IV 11/29/17 05:30 11/29/17 05:31 DC 11/29/17 05:31 1 MG Ketorolac Tromethamine 10 mg ONCE ONCE IVP 11/29/17 07:15 11/29/17 07:16 DC 11/29/17 07:35 10 MG Methylprednisolone Sodium Succinate 62.5 mg ONCE ONCE IVP 11/29/17 07:15 11/29/17 07:16 DC 11/29/17 07:35 62.5 MG Nitroglycerin 0.4 mg UD PRN SL 11/29/17 05:45 11/29/17 08:38 DC 11/29/17 06:04 0.4 MG Ondansetron HCl 4 mg ONCE ONCE IVP 11/29/17 03:30 11/29/17 03:31 DC 11/29/17 03:32 4 MG Orphenadrine Citrate 30 mg ONCE ONCE IV 11/29/17 07:15 11/29/17 07:16 DC 11/29/17 07:35 30 MG Promethazine HCl 25 mg STK-MED ONCE .ROUTE 11/29/17 05:22 11/29/17 05:27 DC 11/29/17 05:31 25 MG (MALICK VILLATORO MD) Vital Signs/I&O 11/29/17 11/29/17 11/29/17 03:08 03:33 08:38 Temp 97.6 97.6 Pulse 76 76 Resp 22 22 B/P (MAP) 197/102 (133) 145/88 (133) Pulse Ox 96 96 (MALICK VILLATORO MD) Blood Pressure Mean: 133 Progress Progress Note #1: Time: 03:31 Progress Note 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 For some reason there is some blood testing done and he is told that he has to be on Xarelto for the rest of his life. We will opt not to use NSAIDs and instead we will use fentanyl, IV fluids, Zofran, get a CT of his abdomen pelvis without contrast and some basic labs since he has never had a kidney stone before. Progress Note #2: Time: 05:44 Progress Note She still having quite a bit of pain despite any sporting evidence of kidney stone, ureteral dilatation etc. He does systems stones on the contralateral side. With that about atypical chest pain and nausea and abdominal pain in a 77- year-old we'll give him some aspirin and check an EKG and troponin. He was not responding very well to fentanyl so we decided to give him a milligram of Dilaudid. He claims he is in pain but probably falls back asleep after the examiner leaves the room according to nursing. Echocardiogram by Dr. Martinez: 07/04/17 Wall thickness of left ventricle is increased with normal cavity size and concentric hypertrophy. Systolic function is normal with an EF of 55-65%. Hypokinesis of the anterior myocardium. Hypokinesis of the anterior septal myocardium. Right ventricle cavity size is normal with normal wall thickness. Systolic function is normal. Left atrium is dilated. Mild regurgitation and aortic valve. (RODY BHAT) Progress Note #1: Time: 07:13 Progress Note Care of this patient was assumed from Dr. Bhat at 06:45. Patient was reexamined and history obtained. Patient states the pain started when he stu up out of a chair last night. It became progressively worse since then. It does seem to hurt him worse with certain positions or movements. On exam he has some mild tenderness over the lower lumbar spine. He has more intense tenderness in the paraspinous muscles on the right side. The muscles do feel tense and enlarged. He is particularly tender over the involved muscles. Additionally, he has some tenderness that extends along the costal margin toward the lateral side. He has significant tenderness even to fairly mild pressure. I suspect his symptoms are musculoskeletal in nature and/or related to an impending zoster outbreak. I will try treating this as a musculoskeletal pain with a low dose of Toradol, Solu-Medrol, Norflex, and a lidocaine patch. Hopefully we will get his pain under control such that he can be dismissed home. CT report was reviewed and images viewed by me. No acute pathology to explain his pain was identified. Patient does seem to have significant disc and joint disease in the lumbar and thoracic spine. Progress Note #2: Progress Note Patient had reasonable improvement in symptoms with the above treatments. I suspect his pain is due to either early shingles or musculoskeletal causes. See discharge instructions. (MALICK VILLATORO MD) Initial ECG Impression Date: Nov 29, 2017 Initial ECG Impression Time: 05:28 Initial ECG Rate: 69 Comment Sinus rhythm with no ST elevation or depression. First-degree AV block with FL interval of 260. Left bundle branch block. When compared with prior EKG it appears very similar. No acute ischemic changes were present. It should also be noted patient did not have chest pain during or prior to this ER visit. (MALICK VILLATORO MD) Diagnostic Imaging Diagonstic Imaging: CT (kidney stone study without contrast) Plain Films/CT/US/NM/MRI: abdomen, pelvis Comments Nonobstructing left neck or lithiasis Diverticulosis otherwise unremarkable exam. [facility] [place], [place] NAME: SCANLONTYRONE Karli [facility] REC#: [id number] PT STATUS: REG ER : 1940 PHYSICIAN: RODY BHAT MD ADMIT DATE: 11/29/17/ER Draft Date of Exam:11/29/17 CT ABD/PELVIS WO(KIDNEY STONE) PROCEDURE: CT urinary tract, rule out kidney stone. TECHNIQUE: Multiple contiguous axial images were obtained through the abdomen and pelvis without the use of intravenous contrast. INDICATION: Right flank pain. COMPARISON: 04/20/2014. FINDINGS: Evaluation of the abdominal viscera is mildly limited without contrast. Lower chest: Triangular nodule along the right minor fissure in the right lower lobe measures 7 mm and is likely due to intrapulmonary lymphoid tissue. The remainder of the lung bases are clear. Cardiomegaly is present with trace pericardial effusion. Peritoneum: No free intraperitoneal air or fluid. Liver and biliary system: Unenhanced liver is normal. The gallbladder is normal. No biliary duct dilation. Spleen and Pancreas: Spleen is normal. Unenhanced pancreas is grossly normal. Adrenals: Normal. tract: There is a 6 mm nonobstructing stone in the mid left kidney. No right renal calculi. No ureteral stones on either side. Urinary bladder is normally distended without wall thickening. The prostate is enlarged. GI tract: Stomach is partially distended with fluid and air and there is no discrete wall thickening. No bowel obstruction. No pericolonic inflammatory changes. Descending colon diverticulosis without diverticulitis. Normal appendix. Vasculature and Lymph nodes: Normal caliber aorta with moderate atherosclerotic plaquing. No abdominal or pelvic lymphadenopathy. Musculoskeletal: No concerning osseous lesion. IMPRESSION: 1. No obstructive uropathy. 2. There is a 6 mm nonobstructing stone in the mid left kidney. 3. Normal appendix. 4. Diverticulosis without diverticulitis. 5. Findings are in agreement with the preliminary report. Dictated on workstation # [id number] Dict: 11/29/17616 Trans: 11/29/1730 BRANDON [id number] Interpreted by: MIKE CESAR MD Electronically signed by: Reviewed: Reviewed by Ia Diagonstic Imaging: Xray Plain Films/CT/US/NM/MRI: chest (2v) Comments [place]IA [place], [place] NAME: TYRONE SCANLON [facility] REC#: [id number] PT STATUS: REG ER : 1940 PHYSICIAN: RODY BHAT MD ADMIT DATE: 11/29/17/ER Draft Date of Exam:11/29/17 CHEST PA/LAT (2 VIEW) INDICATION: Nausea. COMPARISON: 07/16/[address] abdomen and pelvis of 11/29/17. FINDINGS: Lungs are clear. No pleural effusion or pneumothorax. Heart is enlarged. Normal pulmonary vasculature. IMPRESSION: Cardiomegaly without acute cardiopulmonary process. Dictated on workstation # [id number] Dict: 11/29/1703 Trans: 11/29/1715 BRANDON [id number] Interpreted by: MIKE CESAR MD Electronically signed by: Reviewed: Reviewed by Me (RODY BHAT) Transfer of Care Time: 06:45 Care transferred to: Dr. Zamora (RODY BHAT) Departure Impression Primary Impression: Low back pain Qualified Codes: M54.5 - Low back pain Disposition: 01 HOME, SELF-CARE Condition: Improved Departure-Patient Inst. Decision time for Depature: 08:05 (MALICK VILLATORO MD) Referrals: ELIAS FUNK DO (PCP/Family) Primary Care Physician Patient Instructions: Low Back Pain (DC), Shingles Add. Discharge Instructions: I suspect your pain is either from a musculoskeletal origin or possibly from an early shingles outbreak. Use your pain medications and prednisone steroids as prescribed. It may be bob to use a stool softener such as Colace when taking narcotic pain medications. Since shingles may be a cause of this pain, you may choose to take acyclovir as prescribed. You may also wait to see if a rash develops before starting acyclovir. Return to care if symptoms are worsening or uncontrolled. Follow-up with your primary care provider soon as possible. All discharge instructions reviewed with patient and/or family. Voiced understanding. Scripts Acyclovir (Acyclovir) 800 Mg Tablet 800 MG PO UD, #35 TAB Five times daily Prov: MALICK VILLATORO MD 11/29/17 Cyclobenzaprine HCl (Cyclobenzaprine HCl) 10 Mg Tablet 10 MG PO TID PRN for SPASMS, #10 TAB Prov: MALICK VILLATORO MD 11/29/17 Oxycodone HCl/Acetaminophen (Percocet 5-325 mg Tablet) 1 Each Tablet 1-2 TAB PO Q6H PRN for PAIN-MODERATE TO SEVERE MDD 6, #20 TAB Prov: MALICK VILLATORO MD 11/29/17 Prednisone (Prednisone) 20 Mg Tab 20 MG PO DAILY, #5 TAB Prov: MALICK VILLATORO MD 11/29/17 RODY BHAT Nov 29, 2017 03:32 MALICK VILLATORO MD Nov 29, 2017 07:16
[2017-11-29 03:39] LABS: BILIRUBIN,URINE NEGATIVE (NEGATIVE); CLARITY,URINE CLEAR; COLOR,URINE YELLOW; GLUCOSE, URINE (UA) NEGATIVE (NEGATIVE); KETONES,URINE NEGATIVE (NEGATIVE); LEUKOCYTE ESTERASE ,URINE NEGATIVE (NEGATIVE); NITRITE,URINE NEGATIVE (NEGATIVE); PH,URINE 5 (5-9); PROTEIN,URINE 2+ (NEGATIVE); UROBILINOGEN,URINE NORMAL (NORMAL)
[2017-11-29 03:43] LABS: BASOPHILS # (AUTO) 0.1 10^3/uL (0.0-0.1); BASOPHILS % (AUTO) 1 % (0-10); EOSINOPHILS # (AUTO) 0.6 10^3/uL (0.0-0.3); EOSINOPHILS % (AUTO) 9 % (0-10); HEMATOCRIT 46 % (40-54); LYMPHOCYTES # (AUTO) 0.7 X 10^3 (1.0-4.0); LYMPHOCYTES % (AUTO) 11 % (12-44); MEAN CORPUSCULAR HEMOGLOBIN 28 PG (25-34); MEAN CORPUSCULAR HGB CONC 35 G/DL (32-36); MEAN CORPUSCULAR VOLUME 81 FL (80-99); MEAN PLATELET VOLUME 9.4 FL (7.4-10.4); MONOCYTES # (AUTO) 0.7 X 10^3 (0.0-1.0); MONOCYTES % (AUTO) 11 % (0-12); NEUTROPHILS # (AUTO) 4.7 X 10^3 (1.8-7.8); NEUTROPHILS % (AUTO) 69 % (42-75); PLATELET COUNT 246 10^3/uL (130-400); RED BLOOD COUNT 5.63 10^6/uL (4.35-5.85); RED CELL DISTRIBUTION WIDTH 14.4 % (10.0-14.5); WHITE BLOOD COUNT 6.9 10^3/uL (4.3-11.0)
[2017-11-29 03:47] LABS: BACTERIA,URINE NEGATIVE /HPF; RENAL EPITHELIAL CELLS,URINE 0-2 /HPF; SQUAMOUS EPITHELIAL CELL,UR 0-2 /HPF
[2017-11-29 04:03] LABS: ALANINE AMINOTRANSFERASE 23 U/L (0-55); ALBUMIN 4.3 GM/DL (3.2-4.5); ALKALINE PHOSPHATASE 80 U/L (40-136); BILIRUBIN,TOTAL 0.9 MG/DL (0.1-1.0); BUN/CREATININE RATIO 10; CALCIUM 9.3 MG/DL (8.5-10.1); CARBON DIOXIDE 20 MMOL/L (21-32); CHLORIDE 105 MMOL/L (98-107); CREATININE SERUM 1.15 MG/DL (0.60-1.30); GFR ESTIMATED > 60; GLUCOSE 157 MG/DL (70-105); MAGNESIUM 2.5 MG/DL (1.8-2.4); POTASSIUM 3.9 MMOL/L (3.6-5.0); SODIUM 137 MMOL/L (135-145); TOTAL PROTEIN 6.8 GM/DL (6.4-8.2)
[2017-11-29] MEDS ORDERED: cefTRIAXone FOR IV USE 1,000 MG in NS (IVPB) 50 ML IV ONE (04:15)
[2017-11-29] MEDS ORDERED: HYDROmorphone 2 MG/ML VIAL (DILAUDID) ONE (05:21)
[2017-11-29] MEDS ORDERED: PROMETHAZINE INJ 25 MG/ML (PHENERGAN) AMP ONE (05:22)
[2017-11-29] MEDS ORDERED: PROMETHAZINE INJ 25 MG/ML (PHENERGAN) AMP IVP ONE (05:30)
[2017-11-29] MEDS ORDERED: HYDROmorphone 2 MG/ML VIAL (DILAUDID) IV ONE (05:30)
[2017-11-29] MEDS ORDERED: NITROGLYCERIN 0.4 MG SL TABS BTL 25'S SL PRN (05:45)
[2017-11-29] MEDS ORDERED: ASPIRIN 81 MG CHEW (CHILDREN'S ASA) PO ONE (05:45)
--- NOTE | 2017-11-29 06:16 | Diagnostic Imaging Report ---
INDICATION: Nausea. COMPARISON: 07/16/[address] abdomen and pelvis of 11/29/17. FINDINGS: Lungs are clear. No pleural effusion or pneumothorax. Heart is enlarged. Normal pulmonary vasculature. IMPRESSION: Cardiomegaly without acute cardiopulmonary process. Dictated by: Dictated on workstation # [id number]
--- NOTE | 2017-11-29 06:30 | Diagnostic Imaging Report ---
PROCEDURE: CT urinary tract, rule out kidney stone. TECHNIQUE: Multiple contiguous axial images were obtained through the abdomen and pelvis without the use of intravenous contrast. INDICATION: Right flank pain. COMPARISON: 04/20/2014. FINDINGS: Evaluation of the abdominal viscera is mildly limited without contrast. Lower chest: Triangular nodule along the right minor fissure in the right lower lobe measures 7 mm and is likely due to intrapulmonary lymphoid tissue. The remainder of the lung bases are clear. Cardiomegaly is present with trace pericardial effusion. Peritoneum: No free intraperitoneal air or fluid. Liver and biliary system: Unenhanced liver is normal. The gallbladder is normal. No biliary duct dilation. Spleen and Pancreas: Spleen is normal. Unenhanced pancreas is grossly normal. Adrenals: Normal. tract: There is a 6 mm nonobstructing stone in the mid left kidney. No right renal calculi. No ureteral stones on either side. Urinary bladder is normally distended without wall thickening. The prostate is enlarged. GI tract: Stomach is partially distended with fluid and air and there is no discrete wall thickening. No bowel obstruction. No pericolonic inflammatory changes. Descending colon diverticulosis without diverticulitis. Normal appendix. Vasculature and Lymph nodes: Normal caliber aorta with moderate atherosclerotic plaquing. No abdominal or pelvic lymphadenopathy. Musculoskeletal: No concerning osseous lesion. IMPRESSION: 1. No obstructive uropathy. 2. There is a 6 mm nonobstructing stone in the mid left kidney. 3. Normal appendix. 4. Diverticulosis without diverticulitis. 5. Findings are in agreement with the preliminary report. Dictated by: Dictated on workstation # [id number]
[2017-11-29] MEDS ORDERED: methylPREDNISolone 125 MG (Solu-MEDROL) VIAL IVP ONE (07:15)
[2017-11-29] MEDS ORDERED: KETOROLAC 30 MG/ML VIAL IVP ONE (07:15)
[2017-11-29] MEDS ORDERED: ORPHENADRINE 60 MG/2 ML (NORFLEX) AMP IV ONE (07:15)
[2017-11-29] MEDS ORDERED: LIDOCAINE (LIDODERM) 5% PATCH TOP SCH (07:15)
[2017-11-29] MEDS ORDERED: PRD20T PO (08:20)
[2017-11-29] MEDS ORDERED: OXYC1TAB87 PO (08:20)
[2017-11-29] MEDS ORDERED: ACYC800T PO (08:20)
[2017-11-29] MEDS ORDERED: CYCL10TA9 PO (08:20)
[2017-11-29 08:38] VITALS: BP 145/88
== END 2017-11-29 08:38 | disposition home or self-care (01) ==
LOC: EDUNIT# 03:04 → ER 03:05
DX: M54.5 Low back pain (principal); R11.0 Nausea; R10.31 Right lower quadrant pain; I25.2 Old myocardial infarction; I10 Essential (primary) hypertension; M10.9 Gout, unspecified; Z88.2 Allergy status to sulfonamides; Z88.5 Allergy status to narcotic agent; Z88.8 Allergy status to other drugs, medicaments and biological substances; Z82.49 Family history of ischemic heart disease and other diseases of the circulatory system; Z86.711 Personal history of pulmonary embolism; Z88.6 Allergy status to analgesic agent; Z79.01 Long term (current) use of anticoagulants; Z79.52 Long term (current) use of systemic steroids; Z95.5 Presence of coronary angioplasty implant and graft
CPT/HCPCS: 36415; 71046; 74176; 80053; 81000; 83735; 84484; 85025; 93005; 96361; 96365; 96375; 96376

== ENCOUNTER 2018-01-20 13:11 | Outpatient (RCR) | payer MEDICARE ==
[~2018-01-20 13:11] MED LIST changes: +ACYC800T PO; -AMLO5TAB7 PO; +AMLO5TAB9 PO; +CYCL10TA9 PO; -ISOS120T6 PO; +ISOS120T9 PO; +OXYC1TAB87 PO; +PRD20T PO
[2018-01-20 13:25] LABS: BASOPHILS # (AUTO) 0.1 10^3/uL (0.0-0.1); BASOPHILS % (AUTO) 1 % (0-10); EOSINOPHILS # (AUTO) 0.5 10^3/uL (0.0-0.3); EOSINOPHILS % (AUTO) 7 % (0-10); HEMATOCRIT 44 % (40-54); HEMOGLOBIN 15.2 G/DL (13.3-17.7); LYMPHOCYTES # (AUTO) 1.2 X 10^3 (1.0-4.0); LYMPHOCYTES % (AUTO) 17 % (12-44); MEAN CORPUSCULAR HEMOGLOBIN 28 PG (25-34); MEAN CORPUSCULAR HGB CONC 35 G/DL (32-36); MEAN CORPUSCULAR VOLUME 81 FL (80-99); MEAN PLATELET VOLUME 9.7 FL (7.4-10.4); MONOCYTES # (AUTO) 0.9 X 10^3 (0.0-1.0); MONOCYTES % (AUTO) 13 % (0-12); NEUTROPHILS # (AUTO) 4.3 X 10^3 (1.8-7.8); NEUTROPHILS % (AUTO) 62 % (42-75); PLATELET COUNT 265 10^3/uL (130-400); RED CELL DISTRIBUTION WIDTH 14.2 % (10.0-14.5); WHITE BLOOD COUNT 6.9 10^3/uL (4.3-11.0)
[2018-01-20 13:45] LABS: ALANINE AMINOTRANSFERASE 22 U/L (0-55); ALBUMIN 4.3 GM/DL (3.2-4.5); ALKALINE PHOSPHATASE 78 U/L (40-136); BILIRUBIN,TOTAL 0.9 MG/DL (0.1-1.0); BUN/CREATININE RATIO 13; CALCIUM 9.9 MG/DL (8.5-10.1); CARBON DIOXIDE 20 MMOL/L (21-32); CHLORIDE 108 MMOL/L (98-107); CREATININE SERUM 1.09 MG/DL (0.60-1.30); GFR ESTIMATED > 60; GLUCOSE 109 MG/DL (70-105); POTASSIUM 3.8 MMOL/L (3.6-5.0); SODIUM 140 MMOL/L (135-145)
== END 2018-04-20 | disposition home or self-care (01) ==
LOC: ONC 13:11
PROVIDERS: ATTEND Internal Medicine Hematology & Oncology
DX: D68.8 Other specified coagulation defects (principal); R91.1 Solitary pulmonary nodule; I10 Essential (primary) hypertension; I25.10 Atherosclerotic heart disease of native coronary artery without angina pectoris; E78.5 Hyperlipidemia, unspecified; I44.7 Left bundle-branch block, unspecified; I44.0 Atrioventricular block, first degree; I08.0 Rheumatic disorders of both mitral and aortic valves; Z86.711 Personal history of pulmonary embolism; Z86.718 Personal history of other venous thrombosis and embolism; Z95.5 Presence of coronary angioplasty implant and graft; Z79.01 Long term (current) use of anticoagulants; Z79.02 Long term (current) use of antithrombotics/antiplatelets
CPT/HCPCS: 80053; 85025; 99213

== ENCOUNTER 2019-04-06 05:32 | Outpatient (CLI) | payer MEDICARE ==
[~2019-04-06] VITALS: Ht 180 cm; Wt 220.4 kg
[~2019-04-06 05:32] MED LIST changes: -RIVA20TA PO
[2019-04-06] MEDS ORDERED: TELM80TA PO (12:41)
[2019-04-06] MEDS ORDERED: CLOP75TA28 PO (12:41)
== END 2019-04-06 12:53 | disposition home or self-care (01) ==
LOC: PREOP 05:32
PROVIDERS: ATTEND Specialist
DX: Z01.818 Encounter for other preprocedural examination (principal)

== ENCOUNTER → 2020-07-18 | Outpatient (CLI) | payer MEDICARE ==
[~2020-07-18] MED LIST changes: +ACET-2267 PO; +ACHYD1T PO; +ACYC-112 PO; -ACYC800T PO; +ALBU90AE INH; +AMLO-250 PO; -AMLO5TAB9 PO; +ASPI-1238 PO; -ASPI-983 PO; -HYDR-3820 PO; +RT-ALBUINH IH; +TELM80TA PO; +TMSL.4C PO
--- NOTE | 2020-07-18 14:17 | Diagnostic Imaging Report ---
EXAMINATION: PET/CT. INDICATION: Lung nodule. TECHNIQUE: PET/CT imaging was obtained from the base of the skull through the pelvis after the administration of 13.2 mCi of F-[address] imaging was utilized for localization and attenuation correction purposes. The low energy CT utilized for attenuation correction is not considered to be of high enough spatial resolution to allow in and of itself a separate anatomical analysis. Patient height: 6'. Patient weight: 270 lbs. Blood glucose: 122. COMPARISON: There are no prior PET/CT examinations available for comparison. FINDINGS: The recent CTA chest exam performed on 07/03/2020 noted a 13 mm nodule in the right middle lobe. This had increased in size since the prior CT chest of 04/28/2017 when it measured approximately 10 mm. On this exam, that nodule is not hypermetabolic. It only has a maximum SUV of 1.3. I do suspect that this is a benign process. Even so, I would recommend that a short-term (6 month) followup CT chest exam be performed for further study. There is no other hypermetabolic activity to suggest the presence of malignancy. There is physiologic activity in the kidneys, bowel, and bladder. There is soft tissue fullness along the anterior renal pelvis on the left. This finding seems similar to the previous CT abdomen exams dating as far back as 04/20/2014. The Hounsfield densities in this area are in the -10 to -30 range. Consequently, this may represent a fatty lesion. There is no acute abnormality of the abdomen or pelvis noted. The lung bases do seem better aerated than on the prior exam and the bilateral pleural effusions seen previously have essentially resolved. The cardiomegaly, pericardial effusion, and extensive coronary calcifications seen previously are again evident and no different. IMPRESSION: 1. The nodule in the right middle lobe seen on the recent CTA chest exam is not hypermetabolic and most likely benign. Recommendations as above. 2. There is no other hypermetabolic activity seen to suggest the presence of malignancy. 3. The fatty mass associated with the left renal pelvis seen on the previous exams appears stable. 4. The appearance of the chest has improved as both lung bases are better aerated. However, there is still cardiomegaly, coronary artery disease, and a pericardial effusion. Dictated by: Dictated on workstation # [id number]
== END ==
LOC: RAD 09:55
PROVIDERS: ATTEND Family Medicine
DX: I51.7 Cardiomegaly (principal); I25.10 Atherosclerotic heart disease of native coronary artery without angina pectoris; I31.3 Pericardial effusion (noninflammatory); K86.89 Other specified diseases of pancreas; D21.5 Benign neoplasm of connective and other soft tissue of pelvis; R91.1 Solitary pulmonary nodule
CPT/HCPCS: 78815; A9552

== ENCOUNTER → 2020-08-30 | Outpatient (CLI) | payer MEDICARE ==
[~2020-08-30] MED LIST changes: +ALB0.5V INH; +METH4TAB10 PO
--- NOTE | 2020-08-30 10:26 | Diagnostic Imaging Report ---
INDICATION: Fall. Pain and swelling. COMPARISON: 08/08/2016 FINDINGS: 3 radiographic views of the left ankle were obtained. There is moderate generalized soft tissue swelling. Well-circumscribed extraosseous calcifications are seen adjacent to the distal tip of the medial malleolus consistent with old avulsion injury. No definite acute osseous abnormality is identified. Joint spaces are maintained. No unexpected radiopaque foreign bodies are seen. IMPRESSION: 1. Moderate generalized soft tissue swelling, but no evidence of definite acute fracture or dislocation. 2. Findings consistent with old avulsion fracture of the medial malleolus. Dictated by: Dictated on workstation # [id number]
--- NOTE | 2020-08-30 10:33 | Diagnostic Imaging Report ---
INDICATION: Shortness of breath, pneumonia. Findings: There is cardiomegaly. There is a small left pleural effusion. There is no pneumothorax. The mediastinum is unremarkable. IMPRESSION: Cardiomegaly and a small left pleural effusion. Dictated by: Dictated on workstation # [id number]
--- NOTE | 2020-08-30 17:42 | Diagnostic Imaging Report ---
INDICATION: Fall with pain and swelling to the left foot and ankle. Time of exam: 10:19 AM 3 views of the left foot were obtained. Metatarsals appear intact. There are degenerative changes at the 1st MTP joint with joint space narrowing and marginal spurring. The phalanges are intact. Midfoot and hindfoot are unremarkable apart from a large plantar calcaneal spur. No fractures are seen. IMPRESSION: Chronic changes. No acute bony abnormalities detected. Dictated by: Dictated on workstation # [id number]
== END ==
LOC: RAD 09:40
PROVIDERS: ATTEND Family Medicine
DX: S82.52XD Displaced fracture of medial malleolus of left tibia, subsequent encounter for closed fracture with routine healing (principal); J90 Pleural effusion, not elsewhere classified; I51.7 Cardiomegaly; W19.XXXD Unspecified fall, subsequent encounter
CPT/HCPCS: 71046; 73610; 73630

== ENCOUNTER 2020-09-01 09:26 | Emergency (ER) | payer MEDICARE ==
[~2020-09-01] VITALS: Ht 182 cm; Wt 122.0 kg
[~2020-09-01 09:26] MED LIST changes: -ALB0.5V INH; -METH4TAB10 PO
[2020-09-01 09:55] LABS: BASOPHILS # (AUTO) 0.1 10^3/uL (0.0-0.1); BASOPHILS % (AUTO) 1 % (0-10); EOSINOPHILS # (AUTO) 0.3 10^3/uL (0.0-0.3); EOSINOPHILS % (AUTO) 4 % (0-10); HEMATOCRIT 44 % (40-54); HEMOGLOBIN 14.9 g/dL (13.3-17.7); LYMPHOCYTES # (AUTO) 0.7 10^3/uL (1.0-4.0); LYMPHOCYTES % (AUTO) 8 % (12-44); MEAN CORPUSCULAR HEMOGLOBIN 28 pg (25-34); MEAN CORPUSCULAR HGB CONC 34 g/dL (32-36); MEAN CORPUSCULAR VOLUME 84 fL (80-99); MEAN PLATELET VOLUME 9.6 fL (9.0-12.2); MONOCYTES # (AUTO) 0.8 10^3/uL (0.0-1.0); MONOCYTES % (AUTO) 11 % (0-12); NEUTROPHILS # (AUTO) 6.1 10^3/uL (1.8-7.8); NEUTROPHILS % (AUTO) 76 % (42-75); PLATELET COUNT 237 10^3/uL (130-400); WHITE BLOOD COUNT 7.9 10^3/uL (4.3-11.0)
[2020-09-01 10:05] LABS: ALBUMIN 4.2 GM/DL (3.2-4.5); CHLORIDE 104 MMOL/L (98-107); POTASSIUM 3.7 MMOL/L (3.6-5.0); SODIUM 137 MMOL/L (135-145)
[2020-09-01 10:06] LABS: CALCIUM 9.3 MG/DL (8.5-10.1)
[2020-09-01 10:08] LABS: GLUCOSE 150 MG/DL (70-105)
[2020-09-01 10:09] LABS: BILIRUBIN,TOTAL 1.4 MG/DL (0.1-1.0); CARBON DIOXIDE 21 MMOL/L (21-32)
[2020-09-01 10:11] LABS: ALKALINE PHOSPHATASE 79 U/L (40-136)
[2020-09-01 10:12] LABS: CREATININE SERUM 1.03 MG/DL (0.60-1.30); GFR ESTIMATED > 60
[2020-09-01 10:13] LABS: BUN/CREATININE RATIO 9
[2020-09-01 10:14] LABS: BILIRUBIN,URINE NEGATIVE (NEGATIVE); CLARITY,URINE CLEAR; COLOR,URINE YELLOW; GLUCOSE, URINE (UA) NEGATIVE (NEGATIVE); KETONES,URINE NEGATIVE (NEGATIVE); LEUKOCYTE ESTERASE ,URINE NEGATIVE (NEGATIVE); NITRITE,URINE NEGATIVE (NEGATIVE); PH,URINE 5.5 (5-9); PROTEIN,URINE NEGATIVE (NEGATIVE)
[2020-09-01 10:14] LABS: ALANINE AMINOTRANSFERASE 13 U/L (0-55)
[2020-09-01 10:15] LABS: URIC ACID 7.8 MG/DL (2.6-7.2)
[2020-09-01 10:22] LABS: BACTERIA,URINE NEGATIVE /HPF; SQUAMOUS EPITHELIAL CELL,UR 0-2 /HPF; WBC,URINE RARE /HPF
--- NOTE | 2020-09-01 10:24 | Diagnostic Imaging Report ---
INDICATION: Shortness of air. Time of exam 10:05 a.m. Comparison is made with prior chest 08/30/2020. The heart is enlarged. There is a small left effusion, similar to prior exam. Lungs are clear. No infiltrates are seen. There is no pneumothorax. IMPRESSION: Stable cardiomegaly and small left effusion. Dictated by: Dictated on workstation # [id number]
[2020-09-01 10:35] LABS: TSH (THYROID ANALYZER) 2.38 UIU/ML (0.35-4.94)
--- NOTE | 2020-09-01 11:42 | ED General ---
General Chief Complaint: General Problems/Pain Stated Complaint: SOB/ FELL AT HOME X1 WEEK/ FOOT PAIN Nursing Triage Note: PT CO OF SOA SINCE JUNE, SEVERE L FOOT AND TOE PAIN. Nursing Sepsis Screen: No Definite Risk Source of Information: Patient Exam Limitations: No Limitations (JOE GONZÁLES APRN) History of Present Illness Date Seen by Provider: Sep 01, 2020 Time Seen by Provider: 11:53 Initial Comments To ER with reports of general malaise and fatigue. He is short of breath since he got out of the hospital with a diagnosis of viral pneumonia in June of this year. He has been feeling very poorly since then and has lost quite a bit of strength. He has had severe left foot and big toe pain. This began after a fall about a week ago, he was seen at [facility] emergency room and had x- rays done of this foot and was told it was normal. Timing/Duration: 1-2 Days Severity: Moderate Associated Systoms: Denies Symptoms (JOE GONZÁLES APRN) Allergies and Home Medications Allergies Coded Allergies: Sulfa (Sulfonamide Antibiotics) (Verified Allergy, Unknown, 04/06/19) hydrochlorothiazide (Verified Allergy, Unknown, 04/06/19) ketoprofen (Verified Allergy, Unknown, 04/06/19) nabumetone (Verified Allergy, Unknown, 04/06/19) rosuvastatin (Verified Allergy, Unknown, 04/06/19) morphine (Unverified Adverse Reaction, Mild, VOMITING, 04/06/19) Home Medications Acetaminophen 500 Mg Tablet, 1,000 MG PO Q6H PRN for PAIN-MILD (1-4), (Reported) TAKES 2 (500MG) TABLETS Albuterol Sulfate 1 Puff Puff, 2 PUFF IH Q4H PRN for SHORTNESS OF BREATH, (Reported) Albuterol Sulfate 2.5 Mg/0.5 Ml Vial.neb, 2.5 MG INH Q6H PRN for SHORTNESS OF BREATH Prescribed by: JOE GONZÁLES on 09/01/20 1258 Amlodipine Besylate 5 Mg Tablet, 5 MG PO DAILY, (Reported) Aspirin 81 Mg Tablet.dr, 81 MG PO DAILY, (Reported) Furosemide 40 Mg Tablet, 40 MG PO DAILY, (Reported) Isosorbide Mononitrate 120 Mg Tab.er.24h, 120 MG PO DAILY, (Reported) Potassium Gluconate 99 Mg Tablet, 99 MG PO DAILY, (Reported) Rivaroxaban 20 Mg Tablet, 20 MG PO HS, (Reported) Tamsulosin HCl 0.4 Mg Cap, 0.4 MG PO DAILY@1800 Prescribed by: BOB ANNA on 07/07/20 0859 Telmisartan 80 Mg Tablet, 80 MG PO DAILY, (Reported) [[place] Chan 500MG] , 500 MG PO BID, (Reported) FOR GOUT Patient Home Medication List Home Medication List Reviewed: Yes (JOE GONZÁLES APRN) Review of Systems Review of Systems Constitutional: see HPI EENTM: see HPI Respiratory: no symptoms reported Cardiovascular: no symptoms reported Genitourinary: no symptoms reported Musculoskeletal: no symptoms reported Skin: no symptoms reported Psychiatric/Neurological: No Symptoms Reported Hematologic/Lymphatic: No Symptoms Reported Immunological/Allergic: no symptoms reported (JOE GONZÁLES APRN) Past Szijucj-Oumswl-Xspjbf Hx Patient Social History Alcohol Use: Denies Use Drug of Choice: Denies Smoking Status: Never a Smoker 2nd Hand Smoke Exposure: No Recent Infectious Disease Expo: No Recent Hopitalizations: Yes ([facility]) (JOE GONZÁLES APRN) Immunizations Up To Date Tetanus Booster (TDap): Unknown Date of Pneumonia Vaccine: Dec 15, 2012 (JOE GONZÁLES APRN) Seasonal Allergies Seasonal Allergies: Yes (JOE GONZÁLES APRN) Past Medical History Surgeries: Yes (kidney) Abdominal, Coronary Stent Respiratory: No Pulmonary Embolism Currently Using CPAP: No Currently Using BIPAP: No Cardiac: Yes (5 heart stent, left bundle branch block, chf) Coronary Artery Disease, Heart Attack Neurological: No Reproductive Disorders: No Genitourinary: No Gastrointestinal: No Musculoskeletal: Yes Arthritis, Gout Endocrine: No HEENT: No Hearing Impairment: Hard of Hearing Cancer: No Psychosocial: No Integumentary: No Blood Disorders: Yes Adverse Reaction/Blood Tranf: No (JOE GONZÁLES APRN) Family Medical History Arthritis 19 MOTHER Asthma 19 FATHER Cataracts 19 MOTHER Completed stroke Hypertension 19 FATHER Myocardial infarction 19 MOTHER Seizure disorder DAUGHTERS Severe allergy 19 FATHER No Family History of: AIDS Abdominal aortic aneurysm [place]'s disease Alcoholism Alzheimer's disease Aphasia Cancer of mouth Cardiovascular disease Colon cancer Congenital disease Congenital heart disease Coronary thrombosis Cystic fibrosis Deafness or hearing loss Dementia Diabetes mellitus Drug abuse Dysphasia Fibrocystic disease of breast Gastroenteritis Glaucoma Headache disorder Hypercholesterolemia Infertility Kidney disease Neoplasm Not obtainable due to adoption Osteoporosis Parkinson's disease Prostate cancer Psychosocial problem Respiratory disorder Thyroid disease Tuberculosis Visual disorder Physical Exam Vital Signs Vital Signs - First Documented 09/01/20 09:35 Temp 37.1 Pulse 87 Resp 18 B/P (MAP) 150/85 (106) Pulse Ox 94 O2 Delivery Room Air (MALICK VILLATORO MD) Vital Signs Capillary Refill : Less Than 3 Seconds (JOE GONZÁLES APRN) Height, Weight, BMI Height: 6'0" Weight: 265lbs. 0.8oz. 120.701926lh; 36.00 BMI Method:Stated General Appearance: No Apparent Distress, WD/WN, Obese, Other (No distress oxygen saturation 94% room air) Eyes: Bilateral Eye Normal Inspection, Bilateral Eye PERRL, Bilateral Eye EOMI Neck: Full Range of Motion, Normal Inspection Respiratory: No Accessory Muscle Use, No Respiratory Distress Cardiovascular: Regular Rate, Rhythm, Normal Peripheral Pulses Gastrointestinal: Normal Bowel Sounds, Non Tender, Soft Extremity: Normal Capillary Refill, Normal Inspection, Other (There is some erythema to the left great toe and the dorsal aspect of the left foot) Neurologic/Psychiatric: Alert, Oriented x3 Skin: Normal Color, Warm/Dry (JOE GONZÁLES APRN) Progress/Results/Core Measures Suspected Sepsis Recent Fever Within 48 Hours: No Infection Criteria Present: None New/Unexplained Altered Menta: No Sepsis Screen: No Definite Risk SIRS Temperature: Pulse: 87 Respiratory Rate: 18 Laboratory Tests 09/01/20 09:43: White Blood Count 7.9 Blood Pressure 150 /85 Mean: 106 Laboratory Tests 09/01/20 09:43: Creatinine 1.03, Platelet Count 237, Total Bilirubin 1.4H (JOE GONZÁLES APRN) Results/Orders Lab Results Laboratory Tests Test 09/01/20 09:43 09/01/20 10:05 Range/Units White Blood Count 7.9 4.3-11.0 10^3/uL Red Blood Count 5.25 4.30-5.52 10^6/uL Hemoglobin 14.9 13.3-17.7 g/dL Hematocrit 44 40-54 % Mean Corpuscular Volume 84 80-99 fL Mean Corpuscular Hemoglobin 28 25-34 pg Mean Corpuscular Hemoglobin Concent 34 32-36 g/dL Red Cell Distribution Width 14.3 10.0-14.5 % Platelet Count 237 130-400 10^3/uL Mean Platelet Volume 9.6 9.0-12.2 fL Immature Granulocyte % (Auto) 0 % Neutrophils (%) (Auto) 76 H 42-75 % Lymphocytes (%) (Auto) 8 L 12-44 % Monocytes (%) (Auto) 11 0-12 % Eosinophils (%) (Auto) 4 0-10 % Basophils (%) (Auto) 1 0-10 % Neutrophils # (Auto) 6.1 1.8-7.8 10^3/uL Lymphocytes # (Auto) 0.7 L 1.0-4.0 10^3/uL Monocytes # (Auto) 0.8 0.0-1.0 10^3/uL Eosinophils # (Auto) 0.3 0.0-0.3 10^3/uL Basophils # (Auto) 0.1 0.0-0.1 10^3/uL Immature Granulocyte # (Auto) 0.0 0.0-0.1 10^3/uL Sodium Level 137 135-145 MMOL/L Potassium Level 3.7 3.6-5.0 MMOL/L Chloride Level 104 98-107 MMOL/L Carbon Dioxide Level 21 21-32 MMOL/L Anion Gap 12 5-14 MMOL/L Blood Urea Nitrogen 9 7-18 MG/DL Creatinine 1.03 0.60-1.30 MG/DL Estimat Glomerular Filtration Rate > 60 BUN/Creatinine Ratio 9 Glucose Level 150 H 70-105 MG/DL Uric Acid 7.8 H 2.6-7.2 MG/DL Calcium Level 9.3 8.5-10.1 MG/DL Corrected Calcium 9.1 8.5-10.1 MG/DL Magnesium Level 2.0 1.6-2.4 MG/DL Total Bilirubin 1.4 H 0.1-1.0 MG/DL Aspartate Amino Transf (AST/SGOT) 10 5-34 U/L Alanine Aminotransferase (ALT/SGPT) 13 0-55 U/L Alkaline Phosphatase 79 40-136 U/L C-Reactive Protein High Sensitivity 6.70 H 0.00-0.50 MG/DL B-Type Natriuretic Peptide 445.5 H <100.0 PG/ML Total Protein 7.0 6.4-8.2 GM/DL Albumin 4.2 3.2-4.5 GM/DL TSH [place] Testing 2.38 0.35-4.94 UIU/ML Urine Color YELLOW Urine Clarity CLEAR Urine pH 5.5 5-9 Urine Specific [place] 1.025 H 1.016-1.022 Urine Protein NEGATIVE NEGATIVE Urine Glucose (UA) NEGATIVE NEGATIVE Urine Ketones NEGATIVE NEGATIVE Urine Nitrite NEGATIVE NEGATIVE Urine Bilirubin NEGATIVE NEGATIVE Urine Urobilinogen 0.2 < = 1.0 MG/DL Urine Leukocyte Esterase NEGATIVE NEGATIVE Urine RBC (Auto) 1+ H NEGATIVE Urine RBC 2-5 H /HPF Urine WBC RARE /HPF Urine Squamous Epithelial Cells 0-2 /HPF Urine Crystals NONE /LPF Urine Bacteria NEGATIVE /HPF Urine Casts NONE /LPF Urine Mucus SMALL H /LPF Urine Culture Indicated NO (MALICK VILLATORO MD) My Orders Orders - MALICK VILLATORO MD BNP (09/01/20 09:47) Cbc With Automated Diff (09/01/20 09:47) Comprehensive Metabolic Panel (09/01/20 09:47) Hs C Reactive Protein (09/01/20 09:47) Magnesium (09/01/20 09:47) Thyroid Analyzer (09/01/20 09:47) Ua Culture If Indicated (09/01/20 09:47) Uric Acid (09/01/20 09:47) Ed Iv/Invasive Line Start (09/01/20 09:47) Chest 1 View, Ap/Pa Only (09/01/20 09:48) (MALICK VILLATORO MD) Medications Given in ED Current Medications Medications Dose Ordered Sig/Fermín Route Start Time Stop Time Status Last Admin Dose Admin Albuterol/ Ipratropium 3 ml ONCE ONCE INH 09/01/20 11:45 09/01/20 11:46 DC 09/01/20 12:01 3 ML Ketorolac Tromethamine 30 mg ONCE ONCE IVP 09/01/20 12:00 09/01/20 12:01 DC 09/01/20 12:07 30 MG Methylprednisolone Sodium Succinate 125 mg ONCE ONCE IVP 09/01/20 12:00 09/01/20 12:01 DC 09/01/20 12:07 125 MG (MALICK VILLATORO MD) Vital Signs/I&O 09/01/20 09/01/20 09/01/20 09:35 12:02 12:59 Temp 37.1 Pulse 87 82 Resp 18 18 B/P (MAP) 150/85 (106) 147/89 (106) Pulse Ox 94 98 97 O2 Delivery Room Air Room Air Room Air (MALICK VILLATORO MD) Vital Signs/I&O Capillary Refill : Less Than 3 Seconds (JOE GONZÁLES APRN) Blood Pressure Mean: 106 Departure Communication (Admissions) He states he does not feel like he can go home, would like to be admitted. He does not have any admission criteria. I will set him up with physical therapy at home. I have faxed an order to [facility]. 1253-patient states he does not want physical therapy at home. He is already established with [facility]. He will continue going to them he states, will hope that he can get back up on his feet and become more active after he takes his medications at home that he already has for gout flares. He does not remember the name but states that in just a couple of doses it typically works for him. He already has a prescription in the medication. He does not feel like the DuoNeb helped but he would like a prescription for this at home.. NAME: TYRONE SCANLON [facility] REC#: [id number] PT STATUS: REG ER : 1940 PHYSICIAN: MALICK VILLATORO MD ADMIT DATE: 09/01/20/ER Draft Date of Exam:09/01/20 CHEST 1 VIEW, AP/PA ONLY INDICATION: Shortness of air. Time of exam 10:05 a.m. Comparison is made with prior chest 08/30/2020. The heart is enlarged. There is a small left effusion, similar to prior exam. Lungs are clear. No infiltrates are seen. There is no pneumothorax. IMPRESSION: Stable cardiomegaly and small left effusion. Dictated on workstation # [id number] Dict: 09/01/20 1019 Trans: 09/01/20 1023 [facility] [id number] Interpreted by: LYNN ROBERTSON MD Electronically signed by: (JOE GONZÁLES APRN) Impression Primary Impression: Gout of left foot Qualified Codes: M10.9 - Gout, unspecified Additional Impression: General deterioration of health Disposition: HOME, SELF-CARE Condition: Stable Departure-Patient Inst. Decision time for Depature: 11:55 (JOE GONZÁLES APRN) Referrals: ELIAS FUNK DO (PCP/Family) Primary Care Physician Patient Instructions: Gout ED Add. Discharge Instructions: . Medication as directed. physical therapy department from [facility] will see you on the (Friday) to set up physical therapy for strengthening with you at your home All discharge instructions reviewed with patient and/or family. Voiced understanding. Scripts Albuterol Sulfate (Albuterol Sulfate) 2.5 Mg/0.5 Ml Vial.neb 2.5 MG INH Q6H PRN for SHORTNESS OF BREATH, #25 EACH Prov: JOE GONZÁLES APRN 09/01/20 Attending physician statement: I was physically present as attending physician in the emergency department during the care of this patient. After receiving verbal report from nursing staff at triage, orders were placed. Care was then transitioned to Joe Gonzáles NP. (MALICK VILLATORO MD) JOE GONZÁLES APRN Sep 01, 2020 11:42 MALICK VILLATORO MD Sep 01, 2020 20:13
[2020-09-01] MEDS ORDERED: RT-ALBUTEROL/IPRATROPIUM 3 ML (DUONEB) VIAL INH ONE (11:45)
[2020-09-01] MEDS ORDERED: KETOROLAC 30 MG/ML VIAL IVP ONE (12:00)
[2020-09-01] MEDS ORDERED: methylPREDNISolone 125 MG (Solu-MEDROL) VIAL IVP ONE (12:00)
[2020-09-01] MEDS ORDERED: METH4TAB10 PO (12:40)
[2020-09-01] MEDS ORDERED: COLCHICINE 0.6 MG (COLCRYS) TABLET PO ONE (12:45)
[2020-09-01] MEDS ORDERED: ALB0.5V INH (12:58)
[2020-09-01 12:59] VITALS: BP 147/89
== END 2020-09-01 12:59 | disposition home or self-care (01) ==
LOC: EDUNIT# 09:26 → ER 09:29
DX: M10.9 Gout, unspecified (principal); R41.81 Age-related cognitive decline; E66.9 Obesity, unspecified; I25.2 Old myocardial infarction; I25.10 Atherosclerotic heart disease of native coronary artery without angina pectoris; Z68.36 Body mass index [BMI] 36.0-36.9, adult; Z86.711 Personal history of pulmonary embolism; Z79.82 Long term (current) use of aspirin; Z79.01 Long term (current) use of anticoagulants; Z79.899 Other long term (current) drug therapy
CPT/HCPCS: 36415; 71045; 80053; 81000; 83735; 83880; 84443; 84550; 85025; 86141; 93005; 94640

== ENCOUNTER → 2020-12-12 | Outpatient (CLI) | payer MEDICARE ==
[~2020-12-12] MED LIST changes: +ALB0.5V INH; +METH4TAB10 PO
--- NOTE | 2020-12-12 14:40 | Diagnostic Imaging Report ---
PROCEDURE: CT chest without contrast. TECHNIQUE: Multiple contiguous axial images were obtained through the chest without the use of intravenous contrast. Auto Exposure Controls were utilized during the CT exam to meet ALARA standards for radiation dose reduction. INDICATION: Abnormal chest scan, shortness of breath. COMPARISON: Radiographs dated 08/30/[address] dated 07/03/2020 and 04/28/2017. FINDINGS: No significant adenopathy within chest. Mild scattered vascular calcifications without aneurysmal dilatation of the thoracic aorta. Advanced coronary artery calcifications versus stent grafts in place. Small pericardial effusion, similar to the prior examination. No significant pleural effusion with interval clearance of previously noted pleural fluid. Prominent epicardial fat-pad noted on the left. 0.4 cm left upper lobe pulmonary nodule, not significantly changed since 2018, therefore, felt to be benign. 0.3 cm lingular pulmonary nodule, not significantly changed since 2018 and felt to be benign. New 0.5 cm right lower lobe pulmonary nodule, series 3, image 66. 0.4 cm right lower lobe pulmonary nodule is stable since 2018, series 3, image 102. 0.7 cm subpleural right lower lobe pulmonary nodule is stable from the prior examination relatively similar to imaging from 2018. 1 cm right middle lobe pulmonary nodule is identified. This appears slightly less prominent than the most recent CT examination and now more similar to prior exam from April 2017. No new suspicious pulmonary nodule. Left renal calculus. The minimally visualized upper abdomen is otherwise grossly unremarkable. Scattered osseous degenerative changes without acute osseous abnormality. IMPRESSION: Previously noted pleural-based right middle lobe pulmonary nodule is less prominent, now appearing more similar to 2018. This suggests a benign etiology. Additional bilateral pulmonary nodules are present and unchanged since 2018, benign in nature. No new pulmonary nodules. Persistent small pericardial effusion. Advanced coronary artery calcifications versus vascular stents in place. Left renal calculus. Additional findings as above. Dictated by: Dictated on workstation # [id number]
== END ==
LOC: RAD 12:45
PROVIDERS: ATTEND Internal Medicine Critical Care Medicine
DX: I31.3 Pericardial effusion (noninflammatory) (principal); I25.84 Coronary atherosclerosis due to calcified coronary lesion; N20.0 Calculus of kidney; J38.3 Other diseases of vocal cords; R91.8 Other nonspecific abnormal finding of lung field
CPT/HCPCS: 71250

== ENCOUNTER → 2020-12-15 | Outpatient (CLI) | payer MEDICARE ==
--- NOTE | 2020-12-15 14:13 | Diagnostic Imaging Report ---
INDICATION: Left knee pain. No history trauma. FINDINGS: 3 views. Nonweightbearing images show mild narrowing the medial compartment. Articulating surfaces are smooth. No evidence of fractures. No hypertrophic bony changes. No chondrocalcinosis or loose bodies. IMPRESSION: Mild osteoarthritic changes. Dictated by: Dictated on workstation # [id number]
== END ==
LOC: RAD 12:11
PROVIDERS: ATTEND Family Medicine
DX: M17.12 Unilateral primary osteoarthritis, left knee (principal)
CPT/HCPCS: 73562

== ENCOUNTER → 2021-01-19 | Outpatient (CLI) | payer MEDICARE ==
--- NOTE | 2021-01-19 13:45 | Diagnostic Imaging Report ---
INDICATION: Shortness of breath and cough. TIME OF EXAM: 11:31 AM Correlation is made with prior chest from 08/30/2020. FINDINGS: Heart is enlarged, but stable. Previously noted left pleural effusion has resolved. The lungs are clear of acute infiltrates. Pulmonary vascularity is normal. There is no pneumothorax. IMPRESSION: Cardiomegaly. No acute feature is detected. Dictated by: Dictated on workstation # [id number]
== END ==
LOC: RAD 11:00
PROVIDERS: ATTEND Family Medicine
DX: I51.7 Cardiomegaly (principal)
CPT/HCPCS: 71046

== ENCOUNTER 2021-04-25 12:18 | Observation (INO) | payer MEDICARE ==
[~2021-04-25] VITALS: Ht 182.9 cm; Wt 123.8 kg
[~2021-04-25 12:18] MED LIST changes: +CYCL10TA25 PO; -CYCL10TA9 PO; -POTA99TA21 PO; +POTA99TA26 PO
[2021-04-25] MEDS ORDERED: ASPIRIN 81 MG CHEW (CHILDREN'S ASA) PO ONE (12:30)
--- NOTE | 2021-04-25 12:45 | ED General ---
General Stated Complaint: CHEST PAIN/SOA/FATIGUE Source of Information: Patient Exam Limitations: No Limitations History of Present Illness Date Seen by Provider: Apr 25, 2021 Time Seen by Provider: 12:43 Initial Comments To ER with reports of chest tightness intermittently since June of last year. He has had shortness of breath general fatigue and a cough that is productive in the mornings since 04/22/2021. No fevers. Has had both Covid vaccines and a booster. He was at Dr. Funk's office and was referred here to the emergency room. History of factor V Leiden subsequently with DVT/PE managed with Xarelto, history of coronary artery disease with stents, left bundle branch block, hypertension, hyperlipidemia, obesity, gout. Timing/Duration: Constant, Getting Worse Severity: Moderate Associated Systoms: Cough, Shortness of Air Allergies and Home Medications Allergies Coded Allergies: Sulfa (Sulfonamide Antibiotics) (Verified Allergy, Unknown, 04/06/19) hydrochlorothiazide (Verified Allergy, Unknown, 04/06/19) ketoprofen (Verified Allergy, Unknown, 04/06/19) nabumetone (Verified Allergy, Unknown, 04/06/19) rosuvastatin (Verified Allergy, Unknown, 04/06/19) morphine (Unverified Adverse Reaction, Mild, VOMITING, 04/06/19) Patient Home Medication List Home Medication List Reviewed: Yes Acetaminophen (Tylenol Extra Strength) 500 Mg Tablet, 1,000 MG PO Q6H PRN for PAIN-MILD (1-4), (Reported) Entered as Reported by: CARIDAD DE LA CRUZ on 07/03/20 1551 Albuterol Sulfate (Proair Hfa) 1 Puff Puff, 2 PUFF IH Q4H PRN for SHORTNESS OF BREATH, (Reported) Entered as Reported by: CARIDAD DE LA CRUZ on 07/03/20 1550 Albuterol Sulfate (Albuterol Sulfate) 2.5 Mg/0.5 Ml Vial.neb, 2.5 MG INH Q6H PRN for SHORTNESS OF BREATH Prescribed by: JOE MUNGUIA on 09/01/20 1258 Amlodipine Besylate (Amlodipine Besylate) 5 Mg Tablet, 5 MG PO DAILY, (Reported) Entered as Reported by: AKILAH TREVINO on 03/20/17 1436 Aspirin (Aspirin EC) 81 Mg Tablet.dr, 81 MG PO DAILY, (Reported) Entered as Reported by: CARIDAD DE LA CRUZ on 07/03/20 1553 Furosemide (Furosemide) 40 Mg Tablet, 40 MG PO DAILY, (Reported) Entered as Reported by: AIKLAH TREVINO on 03/20/17 1436 Isosorbide Mononitrate (Isosorbide Mononitrate ER) 120 Mg Tab.er.24h, 120 MG PO DAILY, (Reported) Entered as Reported by: AKILAH TREVINO on 03/20/17 1431 Potassium Gluconate (Potassium) 99 Mg Tablet, 99 MG PO DAILY, (Reported) Entered as Reported by: AKILAH TREVINO on 03/20/17 1436 Rivaroxaban (Xarelto Tablet) 20 Mg Tablet, 20 MG PO HS, (Reported) Entered as Reported by: AKILAH TREVINO on 03/20/17 1436 Tamsulosin HCl (Flomax) 0.4 Mg Cap, 0.4 MG PO DAILY@1800 Prescribed by: BOB ANNA on 07/07/20 0859 Telmisartan (Micardis) 80 Mg Tablet, 80 MG PO DAILY, (Reported) Entered as Reported by: NOREEN SUMNER on 04/06/19 1241 [Black Chan 500MG] , 500 MG PO BID, (Reported) Entered as Reported by: AKILAH TREVINO on 01/05/14 0830 Review of Systems Review of Systems Constitutional: see HPI EENTM: see HPI Respiratory: see HPI, cough, dyspnea on exertion Genitourinary: no symptoms reported Musculoskeletal: no symptoms reported Skin: no symptoms reported Psychiatric/Neurological: No Symptoms Reported Hematologic/Lymphatic: No Symptoms Reported Immunological/Allergic: no symptoms reported Past Ovfwxzn-Kapygy-Mrikxv Hx Immunizations Up To Date Tetanus Booster (TDap): Unknown Seasonal Allergies Seasonal Allergies: Yes Past Medical History Surgeries: Yes (kidney) Abdominal, Coronary Stent Respiratory: No Pulmonary Embolism Currently Using CPAP: No Currently Using BIPAP: No Cardiac: Yes (5 heart stent, left bundle branch block, chf) Coronary Artery Disease, Heart Attack Neurological: No Reproductive Disorders: No Genitourinary: No Gastrointestinal: No Musculoskeletal: Yes Arthritis, Gout Endocrine: No HEENT: No Hearing Impairment: Hard of Hearing Cancer: No Psychosocial: No Integumentary: No Blood Disorders: Yes Adverse Reaction/Blood Tranf: No Family Medical History Arthritis 19 MOTHER Asthma 19 FATHER Cataracts 19 MOTHER Completed stroke Hypertension 19 FATHER Myocardial infarction 19 MOTHER Seizure disorder DAUGHTERS Severe allergy 19 FATHER No Family History of: AIDS Abdominal aortic aneurysm [place]'s disease Alcoholism Alzheimer's disease Aphasia Cancer of mouth Cardiovascular disease Colon cancer Congenital disease Congenital heart disease Coronary thrombosis Cystic fibrosis Deafness or hearing loss Dementia Diabetes mellitus Drug abuse Dysphasia Fibrocystic disease of breast Gastroenteritis Glaucoma Headache disorder Hypercholesterolemia Infertility Kidney disease Neoplasm Not obtainable due to adoption Osteoporosis Parkinson's disease Prostate cancer Psychosocial problem Respiratory disorder Thyroid disease Tuberculosis Visual disorder Physical Exam Vital Signs Vital Signs - First Documented 04/25/21 12:59 Temp 36.7 Pulse 76 Resp 78 B/P (MAP) 176/103 (127) Pulse Ox 96 O2 Delivery Room Air Capillary Refill : Height, Weight, BMI Height: 6'0" Weight: 265lbs. 0.8oz. [id number]; 36.00 BMI Method:Stated General Appearance: No Apparent Distress, WD/WN, Anxious, Chronically ill, Obese, Other (Noted to be in atrial flutter, rate of 65, left bundle branch block. No ST segment change. Oxygen 96% room air.) Eyes: Bilateral Eye Normal Inspection, Bilateral Eye PERRL, Bilateral Eye EOMI Respiratory: No Accessory Muscle Use, No Respiratory Distress, Other ( faint crackles left lung base) Cardiovascular: Normal Peripheral Pulses, Irregularly Irregular Gastrointestinal: Non Tender, Soft Extremity: Normal Capillary Refill, Normal Inspection, Pedal Edema (2+ BLE ) Neurologic/Psychiatric: Alert, Oriented x3 Skin: Normal Color, Warm/Dry Progress/Results/Core Measures Suspected Sepsis SIRS Temperature: Pulse: Respiratory Rate: Laboratory Tests 04/25/21 12:52: White Blood Count 7.3 Blood Pressure / Mean: Laboratory Tests 04/25/21 12:52: Creatinine 0.98, INR Comment 1.7H, Platelet Count 262, Total Bilirubin 1.9H Results/Orders Lab Results Laboratory Tests Test 04/25/21 12:52 04/25/21 13:01 04/25/21 13:10 Range/Units White Blood Count 7.3 4.3-11.0 10^3/uL Red Blood Count 5.07 4.30-5.52 10^6/uL Hemoglobin 14.5 13.3-17.7 g/dL Hematocrit 43 40-54 % Mean Corpuscular Volume 86 80-99 fL Mean Corpuscular Hemoglobin 29 25-34 pg Mean Corpuscular Hemoglobin Concent 33 32-36 g/dL Red Cell Distribution Width 14.2 10.0-14.5 % Platelet Count 262 130-400 10^3/uL Mean Platelet Volume 9.5 9.0-12.2 fL Immature Granulocyte % (Auto) 1 % Neutrophils (%) (Auto) 72 42-75 % Lymphocytes (%) (Auto) 10 L 12-44 % Monocytes (%) (Auto) 11 0-12 % Eosinophils (%) (Auto) 6 0-10 % Basophils (%) (Auto) 1 0-10 % Neutrophils # (Auto) 5.2 1.8-7.8 10^3/uL Lymphocytes # (Auto) 0.7 L 1.0-4.0 10^3/uL Monocytes # (Auto) 0.8 0.0-1.0 10^3/uL Eosinophils # (Auto) 0.5 H 0.0-0.3 10^3/uL Basophils # (Auto) 0.1 0.0-0.1 10^3/uL Immature Granulocyte # (Auto) 0.0 0.0-0.1 10^3/uL Prothrombin Time 20.0 H 12.2-14.7 SEC INR Comment 1.7 H 0.8-1.4 Activated Partial Thromboplast Time 49 H 24-35 SEC Sodium Level 139 135-145 MMOL/L Potassium Level 3.7 3.6-5.0 MMOL/L Chloride Level 106 98-107 MMOL/L Carbon Dioxide Level 20 L 21-32 MMOL/L Anion Gap 13 5-14 MMOL/L Blood Urea Nitrogen 9 7-18 MG/DL Creatinine 0.98 0.60-1.30 MG/DL Estimat Glomerular Filtration Rate 78 BUN/Creatinine Ratio 9 Glucose Level 116 H 70-105 MG/DL Calcium Level 9.2 8.5-10.1 MG/DL Corrected Calcium 9.0 8.5-10.1 MG/DL Magnesium Level 2.0 1.6-2.4 MG/DL Total Bilirubin 1.9 H 0.1-1.0 MG/DL Aspartate Amino Transf (AST/SGOT) 16 5-34 U/L Alanine Aminotransferase (ALT/SGPT) 20 0-55 U/L Alkaline Phosphatase 88 40-136 U/L Myoglobin 83.6 10.0-92.0 NG/ML Troponin I 0.042 H <0.028 NG/ML B-Type Natriuretic Peptide 305.1 H <100.0 PG/ML Total Protein 7.2 6.4-8.2 GM/DL Albumin 4.3 3.2-4.5 GM/DL Influenza Type A (RT-PCR) Not Detected Not Detecte Influenza Type B (RT-PCR) Not Detected Not Detecte SARS-CoV-2 RNA (RT-PCR) Not Detected Not Detecte Blood Gas Puncture Site RR Blood Gas Patient Temperature 37 Arterial Blood pH 7.43 7.37-7.43 Arterial Blood Partial Pressure CO2 32 L 35-45 MMHG Arterial Blood Partial Pressure O2 56 L 79-93 MMHG Arterial Blood HCO3 21 L 23-27 MMOL/L Arterial Blood Total CO2 21.8 21.0-31.0 MMOL/L Arterial Blood Oxygen Saturation 92 L 94-100 % Arterial Blood Base Excess -2.9 L -2.5-2.5 MMOL/L Dayo Test YES-POS Blood Gas Ventilator Setting NO Blood Gas Inspired Oxygen RA My Orders Orders - JOE MUNGUIA PACS SPECIALIST Cbc With Automated Diff (04/25/21 12:25) Magnesium (04/25/21 12:25) Chest 1 View, Ap/Pa Only (04/25/21 12:25) Ekg Tracing (04/25/21 12:25) Comprehensive Metabolic Panel (04/25/21 12:25) Myoglobin Serum (04/25/21 12:25) Protime With Inr (04/25/21 12:25) Partial Thromboplastin Time (04/25/21 12:25) O2 (04/25/21 12:25) Monitor-Rhythm Ecg Trace Only (04/25/21 12:25) Lipid Panel (04/26/21 06:00) Ed Iv/Invasive Line Start (04/25/21 12:25) Bnp Kavon (04/25/21 12:25) Troponin I Kavon (04/25/21 12:25) Aspirin Chewable Tablet (Baby Aspirin Ch (04/25/21 12:30) Arterial Blood Gas (04/25/21 12:41) Covid 19 Inhouse Test (04/25/21 12:50) Influenza A And B By Pcr (04/25/21 13:01) Arterial Blood Gas (04/25/21 13:21) Procalcitonin (Pct) (04/25/21 13:30) Lorazepam Injection (Ativan Injection) (04/25/21 13:45) Ceftriaxone 1 Gm Pre-Mix (Rocephin 1 Gm (04/25/21 14:00) Azithromycin Injection (Zithromax Inject (04/25/21 14:00) Medications Given in ED Current Medications Medications Dose Ordered Sig/Fermín Route Start Time Stop Time Status Last Admin Dose Admin Aspirin 324 mg ONCE ONCE PO 04/25/21 12:30 04/25/21 12:31 DC 04/25/21 12:48 324 MG Vital Signs/I&O 04/25/21 12:59 Temp 36.7 Pulse 76 Resp 78 B/P (MAP) 176/103 (127) Pulse Ox 96 O2 Delivery Room Air Capillary Refill : Departure Communication (Admissions) [id number] with Dr. Shafer, will admit on Rocephin and Zithromax for the lung infiltrate on x-ray, serially trend the troponin. I will consult Dr. Monzon since he saw the patient during the last hospitalization and patient is familiar with him and would prefer him. Patient states he feels like if he just had a prescription for oxygen he would feel better. I discussed with him that his oxygen saturation has not been below 94% on room air down here in the emergency room. We will do a dose of lorazepam 0.5 mg IV here to see if this helps. His brother did just pass away 2 weeks ago so though there is real cardiopulmonary pathology here his anxiety is compounding the issue. Impression Primary Impression: Pneumonia Additional Impressions: CAD (coronary artery disease) KATE (dyspnea on exertion) Disposition: ADMITTED INPATIENT Condition: Stable Admissions Decision to Admit Reason: Admit from ER (General) Decision to Admit/Date: Apr 25, 2021 Time/Decision to Admit Time: 14:04 Departure-Patient Inst. Referrals: ELIAS FUNK DO (PCP/Family) Primary Care Physician JOE MUNGUIA APRN Apr 25, 2021 12:45
[2021-04-25 13:02] LABS: BASOPHILS # (AUTO) 0.1 10^3/uL (0.0-0.1); BASOPHILS % (AUTO) 1 % (0-10); EOSINOPHILS # (AUTO) 0.5 10^3/uL (0.0-0.3); EOSINOPHILS % (AUTO) 6 % (0-10); HEMATOCRIT 43 % (40-54); HEMOGLOBIN 14.5 g/dL (13.3-17.7); LYMPHOCYTES # (AUTO) 0.7 10^3/uL (1.0-4.0); LYMPHOCYTES % (AUTO) 10 % (12-44); MEAN CORPUSCULAR HEMOGLOBIN 29 pg (25-34); MEAN CORPUSCULAR HGB CONC 33 g/dL (32-36); MEAN CORPUSCULAR VOLUME 86 fL (80-99); MEAN PLATELET VOLUME 9.5 fL (9.0-12.2); MONOCYTES # (AUTO) 0.8 10^3/uL (0.0-1.0); MONOCYTES % (AUTO) 11 % (0-12); NEUTROPHILS # (AUTO) 5.2 10^3/uL (1.8-7.8); NEUTROPHILS % (AUTO) 72 % (42-75); PLATELET COUNT 262 10^3/uL (130-400); WHITE BLOOD COUNT 7.3 10^3/uL (4.3-11.0)
[2021-04-25 13:12] LABS: ALBUMIN 4.3 GM/DL (3.2-4.5); POTASSIUM 3.7 MMOL/L (3.6-5.0)
[2021-04-25 13:13] LABS: CALCIUM 9.2 MG/DL (8.5-10.1)
[2021-04-25 13:14] LABS: TOTAL PROTEIN 7.2 GM/DL (6.4-8.2)
[2021-04-25 13:16] LABS: BILIRUBIN,TOTAL 1.9 MG/DL (0.1-1.0); INR 1.7 (0.8-1.4)
[2021-04-25 13:18] LABS: CREATININE SERUM 0.98 MG/DL (0.60-1.30)
[2021-04-25 13:19] LABS: ABG BASE EXCESS -2.9 MMOL/L (-2.5-2.5); ABG OXYGEN SATURATION 92 % (94-100); ABG PCO2 32 MMHG (35-45); ABG PH 7.43 (7.37-7.43); ABG PO2 56 MMHG (79-93); ABG TCO2 21.8 MMOL/L (21.0-31.0); ALLENS TEST YES-POS
[2021-04-25 13:20] LABS: INSPIRED O2 RA; PATIENT TEMP 37; VENTILATOR NO
--- NOTE | 2021-04-25 13:24 | Diagnostic Imaging Report ---
HISTORY: Chest pain and shortness of air. COMPARISON: 09/01/2020. TECHNIQUE: Frontal view of the chest. FINDINGS: There is a small left pleural effusion with bibasilar airspace opacities. There may be a trace right pleural effusion. No pneumothorax is seen. There is mild cardiomegaly which appears stable. No acute osseous abnormality is seen. IMPRESSION: 1. Small left and possibly trace right pleural effusions with bibasilar airspace opacities, which may represent atelectasis or infiltrate. Dictated by: Dictated on workstation # [id number]
[2021-04-25] MEDS ORDERED: LORazepam INJ 2 MG/ML (ATIVAN) VIAL IVP PRN (13:45)
[2021-04-25] MEDS ORDERED: cefTRIAXone 1 GM PRE-MIX 50 ML IV ONE (14:00)
[2021-04-25] MEDS ORDERED: AZITHROMYCIN INJECTION 500 MG in NS (IVPB) 250 ML IV ONE (14:00)
--- NOTE | 2021-04-25 14:45 | Consultation-Cardiology ---
HPI-Cardiology Cardiology Consultation Date of Consultation 04/25/21 Date of Admission Time Seen by Provider: 14:37 Indication: aflutter, chest pain, dyspnea. HPI Patient is a 81 y/o male with hx of CAD, COPD/CHRIS, DVT/PE, HTN. Presented to the ER with complaints of increasing dyspnea on exertion. Reports he has been short of breath for approx 8 months, gradually getting worse. Had appt and Dr. Hammond's office and d/t his symtoms was sent to the ER. Denies any active chest pain, reports intermittent chest tightness both at rest and exertion. Denies any dizziness or lightheaded. C/o some peripheral edema. Patients primary embedded software development engineer is Dr. Styles, requesting to see Dr. Monzon on this admission. Home Medications & Allergies Allergies: Coded Allergies: Sulfa (Sulfonamide Antibiotics) (Verified Allergy, Unknown, 04/06/19) hydrochlorothiazide (Verified Allergy, Unknown, 04/06/19) ketoprofen (Verified Allergy, Unknown, 04/06/19) nabumetone (Verified Allergy, Unknown, 04/06/19) rosuvastatin (Verified Allergy, Unknown, 04/06/19) morphine (Unverified Adverse Reaction, Mild, VOMITING, 04/06/19) Home Medication List Reviewed: Yes [id number]-Hecnxd Hx Patient Social History Marital Status: Employed/Student: retired Drug of Choice: Denies 2nd Hand Smoke Exposure: No Recent Hopitalizations: Yes ([facility]) Have you traveled recently?: No Immunizations Up To Date Tetanus Booster (TDap): Unknown Date of Pneumonia Vaccine: Dec 15, 2012 Family Medical History Family History: Arthritis 19 MOTHER Asthma 19 FATHER Cataracts 19 MOTHER Completed stroke Hypertension 19 FATHER Myocardial infarction 19 MOTHER Seizure disorder DAUGHTERS Severe allergy 19 FATHER No Family History of: AIDS Abdominal aortic aneurysm [place]'s disease Alcoholism Alzheimer's disease Aphasia Cancer of mouth Cardiovascular disease Colon cancer Congenital disease Congenital heart disease Coronary thrombosis Cystic fibrosis Deafness or hearing loss Dementia Diabetes mellitus Drug abuse Dysphasia Fibrocystic disease of breast Gastroenteritis Glaucoma Headache disorder Hypercholesterolemia Infertility Kidney disease Neoplasm Not obtainable due to adoption Osteoporosis Parkinson's disease Prostate cancer Psychosocial problem Respiratory disorder Thyroid disease Tuberculosis Visual disorder Review of Systems-General Review of Systems Constitutional: see HPI; No chills, No fever; malaise; No weakness EENTM: see HPI; No blurred vision, No double vision Respiratory: see HPI, cough, dyspnea on exertion, orthopnea, short of breath Cardiovascular: see HPI, chest pain, edema, Hx of Intervention; No palpitations, No syncope; vascular heart diseas Genitourinary: no symptoms reported, see HPI Musculoskeletal: no symptoms reported, see HPI Skin: no symptoms reported, see HPI Psychiatric/Neurological: No Symptoms Reported Reviewed Test Results Reviewed Test Results Lab Laboratory Tests 04/25/21 12:52: White Blood Count 7.3, Red Blood Count 5.07, Hemoglobin 14.5, Hematocrit 43, Mean Corpuscular Volume 86, Mean Corpuscular Hemoglobin 29, Mean Corpuscular Hemoglobin Concent 33, Red Cell Distribution Width 14.2, Platelet Count 262, Mean Platelet Volume 9.5, Immature Granulocyte % (Auto) 1, Neutrophils (%) (Auto) 72, Lymphocytes (%) (Auto) 10L, Monocytes (%) (Auto) 11, Eosinophils (%) (Auto) 6, Basophils (%) (Auto) 1, Neutrophils # (Auto) 5.2, Lymphocytes # (Auto) 0.7L, Monocytes # (Auto) 0.8, Eosinophils # (Auto) 0.5H, Basophils # (Auto) 0.1, Immature Granulocyte # (Auto) 0.0, Prothrombin Time 20.0H, INR Comment 1.7H, Activated Partial Thromboplast Time 49H, Sodium Level 139, Potassium Level 3.7, Chloride Level 106, Carbon Dioxide Level 20L, Anion Gap 13, Blood Urea Nitrogen 9, Creatinine 0.98, Estimat Glomerular Filtration Rate 78, BUN/Creatinine Ratio 9, Glucose Level 116H, Calcium Level 9.2, Corrected Calcium 9.0, Magnesium Level 2.0, Total Bilirubin 1.9H, Aspartate Amino Transf (AST/SGOT) 16, Alanine Aminotransferase (ALT/SGPT) 20, Alkaline Phosphatase 88, Myoglobin 83.6, Troponin I 0.042H, B-Type Natriuretic Peptide 305.1H, Total Protein 7.2, Albumin 4.3, Procalcitonin 0.04 04/25/21 13:01: Influenza Type A (RT-PCR) Not Detected, Influenza Type B (RT-PCR) Not Detected, SARS-CoV-2 RNA (RT-PCR) Not Detected 04/25/21 13:10: Blood Gas Puncture Site RR, Blood Gas Patient Temperature 37, Arterial Blood pH 7.43, Arterial Blood Partial Pressure CO2 32L, Arterial Blood Partial Pressure O2 56L, Arterial Blood HCO3 21L, Arterial Blood Total CO2 21.8, Arterial Blood Oxygen Saturation 92L, Arterial Blood Base Excess -2.9L, Dayo Test YES-POS, Blood Gas Ventilator Setting NO, Blood Gas Inspired Oxygen RA ECG Impression ECG Initial ECG Rhythm: A Fib/Flutter Physical Exam Physical Exam Vital Signs Vital Signs - First Documented 04/25/21 12:59 Temp 36.7 Pulse 76 Resp 78 B/P (MAP) 176/103 (127) Pulse Ox 96 O2 Delivery Room Air Capillary Refill : Less Than 3 Seconds Height, Weight, BMI Height: 6'0" Weight: 265lbs. 0.8oz. [id number]; 36.00 BMI Method:Stated General Appearance: No Apparent Distress, WD/WN, Anxious, Chronically ill, Obese, Other (Noted to be in atrial flutter, rate of 65, left bundle branch block. No ST segment change. Oxygen 96% room air.) Eyes: Bilateral Eye Normal Inspection, Bilateral Eye PERRL, Bilateral Eye EOMI Respiratory: No Accessory Muscle Use, No Respiratory Distress, Other ( faint crackles left lung base) Cardiovascular: Normal Peripheral Pulses, Irregularly Irregular Gastrointestinal: Non Tender, Soft Extremity: Normal Capillary Refill, Normal Inspection, Pedal Edema (2+ BLE ) Neurologic/Psychiatric: Alert, Oriented x3 Skin: Normal Color, Warm/Dry A/P-Cardiology Admission Diagnosis Aflutter Dyspnea Chest pain CAD Assessment/Plan A flutter, new onset, currently rate controlled. Has been maintained on Xarelto as outpatient secondary to hx of DVT/PE. Will plan RISHI/Cardioversion in the morning. Dyspnea, likely multifactorial, reports increasing dyspnea on exertion for approx 8 months, has been worsening over the last week, now with productive cough. Had small infiltrates on CXR, questionable pneumonia, started on antibiotics. 2D Echo done June 2020 showing EF 50-55% Chest pain, nonspecific etiology, initial troponin mildly elevated, likely type II HI secondary to hypoxemia. Will continue to monitor closely. Coronary artery disease, history of old myocardial infarction, stent placed in 2000. Cardiac catheterization x 2 done in May 2014, with the first cardiac catheterization he had a stent to the mid LAD artery using Promus premiere 3.0x16mm, a stent to the obtuse marginal using 3.012 mm Promus Premier, returned on the next day due to dissection in the distal LAD had a Promus Premier stent in the mid LAD using 2.2524 mm Promus Premier stent, reporting that he had another stent done in 2017. Multiple intervention done in [facility]. Reporting that he had a cardiac catheterization done in March 2017 and he was told that he does not require any further stenting. Primary cardiolgist is Dr. Styles. 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 Hypertension, restart home blood pressure medications and continue to monitor. History of DVT, PE, factor V Leiden, diagnosed in July 2013, followed and managed by Dr. Deleon History of solitary pulmonary nodule, PET scan negative July 2020, benign nodule Hyperlipidemia, intolerant to statin with muscle ache continue to monitor lipids Exogenous obesity, BMI is 37. Patient was educated on weight loss and exercise. History of gouty arthritis. Thank you for allowing us to participate in the management of Mr. Pool. This is Daina Hsu PA-C, as a scribe for Dr. Monzon. Patient was seen and evaluated with Daina, he was laying down in bed, having worsening dyspnea recently, noted to be in atrial flutter with controlled rate. Has been having worsening dyspnea, occasional episodes of chest pain, mildly elevated troponin, probably secondary to small vessel disease and type II myocardial infarction We will continue to monitor cardiac enzymes, monitor blood pressure, I am planning to proceed with RISHI and cardioversion tomorrow morning if he did not convert spontaneously to sinus rhythm. Continue on Xarelto. Continue to monitor DAINA FLETCHER Apr 25, 2021 14:45 DAISY MONZON MD Apr 25, 2021 15:35
--- NOTE | 2021-04-25 15:08 | History & Physical-Hospitalist ---
FLORESYANIRA LEALJAYA U 04/25/21 1508: History of Present Illness HPI/Chief Complaint Jimi Polo is a 81 y/o M with a history of HTN, HLD, CAD (several stents p laced), factor V Leiden with PE/DVT, gout, GERD, LBBB and obesity who was referred to the ER by his primary care doctor for chest tightness, dyspnea, fatique and cough. He states that the chest tightness has been going on since June 2020 and is present at rest. He has not tried anything that makes it better and states that the symptoms are worse on exertion. He is unable to walk more than block and has to catch his breath when using stairs. He has had a productive cough since saturday 04/22. He has received 2 doses of the covid vaccine+booster and tested negative in the ER. He denies fevers, chills, headaches, nausea, vomiting, diarrhea, and constipation. Source: patient Exam Limitations: no limitations Date Seen 04/25/21 Time Seen by a Provider: 03:00 Attending Physician PCP Adán Hammnod DO Referring Physician Date of Admission Home Medications & Allergies Home Medications Reviewed patient Home Medication Reconciliation performed by pharmacy medication reconciliations microbiological lab technician and/or nursing. Patients Allergies have been reviewed. Allergies Allergies Coded Allergies Sulfa (Sulfonamide Antibiotics) (Verified Allergy, Unknown, 04/06/19) hydrochlorothiazide (Verified Allergy, Unknown, 04/06/19) ketoprofen (Verified Allergy, Unknown, 04/06/19) nabumetone (Verified Allergy, Unknown, 04/06/19) rosuvastatin (Verified Allergy, Unknown, 04/06/19) morphine (Unverified Adverse Reaction, Mild, VOMITING, 04/06/19) Past Iugtelp-Qtvegg-Qhmqdu Hx Patient Social History Marrital Status: Employed/Student: retired Tobacco Use?: No Substance use?: No Alcohol Use?: No Immunizations Up To Date First/Initial COVID19 Vaccinat: APR 05 Second COVID19 Vaccination Estiven: MAY 07 Tetanus Booster (TDap): Unknown Date of Pneumonia Vaccine: Dec 15, 2012 Seasonal Allergies Seasonal Allergies: Yes Current Status Primary Language: Australian Preferred Spoken Language: Australian Past Medical History Surgeries: Abdominal, Coronary Stent, Vascular Surgery Pulmonary Embolism Currently Using CPAP: No Currently Using BIPAP: No Coronary Artery Disease, Heart Attack Arthritis, Gout Hearing Impairment: Hard of Hearing Blood Disorders: Yes Adverse Reaction/Blood Tranf: No Family Medical History Arthritis 19 MOTHER Asthma 19 FATHER Cataracts 19 MOTHER Completed stroke Hypertension 19 FATHER Myocardial infarction 19 MOTHER Seizure disorder DAUGHTERS Severe allergy 19 FATHER No Family History of: AIDS Abdominal aortic aneurysm [place]'s disease Alcoholism Alzheimer's disease Aphasia Cancer of mouth Cardiovascular disease Colon cancer Congenital disease Congenital heart disease Coronary thrombosis Cystic fibrosis Deafness or hearing loss Dementia Diabetes mellitus Drug abuse Dysphasia Fibrocystic disease of breast Gastroenteritis Glaucoma Headache disorder Hypercholesterolemia Infertility Kidney disease Neoplasm Not obtainable due to adoption Osteoporosis Parkinson's disease Prostate cancer Psychosocial problem Respiratory disorder Thyroid disease Tuberculosis Visual disorder Asthma, Heart Disease Review of Systems Constitutional: No chills; dizziness; No fever EENTM: No blurred vision, No double vision, No vision loss, No throat pain Respiratory: cough, dyspnea on exertion; No hemoptysis; orthopnea, short of breath Cardiovascular: chest pain, edema, Hx of Intervention; No palpitations, No s yncope Gastrointestinal: No abdominal pain, No constipation, No diarrhea, No h eartburn, No nausea, No vomiting Genitourinary: No dysuria, No frequency, No hematuria Psychiatric/Neurological: Denies Headache, Denies Tingling, Denies Weakness Physical Exam Physical Exam Vital Signs Vital Signs - First Documented 04/25/21 12:59 Temp 36.7 Pulse 76 Resp 78 B/P (MAP) 176/103 (127) Pulse Ox 96 O2 Delivery Room Air Capillary Refill : Less Than 3 Seconds Height, Weight, BMI Height: 6'0" Weight: 265lbs. 0.8oz. 120.896203pv; 36.00 BMI Method:Stated General Appearance: No Apparent Distress, Obese HEENT: Normal ENT Inspection Neck: Normal Inspection Respiratory: Chest Non Tender, No Accessory Muscle Use, Crackles Cardiovascular: Irregularly Irregular Gastrointestinal: Normal Bowel Sounds, Non Tender, Soft Back: Normal Inspection Extremity: Normal Inspection, Normal Range of Motion, Pedal Edema Neurologic/Psychiatric: Alert, Oriented x3, Normal Mood/Affect Skin: Normal Color, Warm/Dry Lymphatic: No Adenopathy Results Results/Procedures Labs Laboratory Tests 04/25/21 12:52 Patient resulted labs reviewed. Imaging: Reviewed Imaging Report Meds Acetaminophen (Tylenol Extra Strength) 500 Mg Tablet, 1,000 MG PO Q6H PRN for PAIN-MILD (1-4) Albuterol Sulfate (Proair Hfa) 1 Puff Puff, 2 PUFF IH Q4H PRN for SHORTNESS OF BREATH Albuterol Sulfate (Albuterol Sulfate) 2.5 Mg/0.5 Ml Vial.neb, 2.5 MG INH Q6H PRN for SHORTNESS OF BREATH Amlodipine Besylate (Amlodipine Besylate) 5 Mg Tablet, 5 MG PO DAILY Aspirin (Aspirin EC) 81 Mg Tablet.dr, 81 MG PO DAILY Furosemide (Furosemide) 40 Mg Tablet, 40 MG PO DAILY Isosorbide Mononitrate (Isosorbide Mononitrate ER) 120 Mg Tab.er.24h, 120 MG PO DAILY Rivaroxaban (Xarelto Tablet) 20 Mg Tablet, 20 MG PO HS Tamsulosin HCl (Flomax) 0.4 Mg Cap, 0.4 MG PO DAILY@1800 Telmisartan (Micardis) 80 Mg Tablet, 80 MG PO DAILY Assessment/Plan Admission Diagnosis Aflutter Admission Status: Observation Assessment and Plan Aflutter - new onset - rate controlled - on xarelto 20 (hx of clotting disorder) - cardiology consulted - plan for RISHI/Cardioversion in the morning Dyspnea - multifactorial - CXR: infiltrates, small plerual effusions - ED started abx, pt is afebrile, will stop abx - probable CHRIS - takes albuterol with some relief - may have chf, elevated BNP, will check echo results Type 2 MN - mildly elevated troponin - likely secondary to hypoxemia - will monitor closely - hx of CAD, multiple stents placed unknown last cath date Factor V Leiden - hx of DVT/PE - takes xarelto 20 daily - INR 1.7 HTN - resume home amlodipine and telmisartan HLD - unable to tolerate statin d/t myalgia YUMI MORRISON DO 04/26/21 0549: History of Present Illness HPI/Chief Complaint Chief complaint: Shortness of breath History of present illness: This is a 81-year-old white male clinic patient of Dr. Hammond who presented with shortness of breath, fully vaccinated and boosted against Covid,, Covid negative but has an elevated BNP and troponin. Cardiology will be consulted and we will trend the troponin. Antibiotics given for pneumonia. Source: patient Exam Limitations: no limitations Past Brtseue-Mxmudv-Zaaovs Hx Patient Social History Marrital Status: Employed/Student: retired Tobacco Use?: No Use of E-Cig and/or Vaping dev: No Past Medical History Sleep Apnea, COPD High Cholesterol, Hypertension Family Medical History Arthritis 19 MOTHER Asthma 19 FATHER Cataracts 19 MOTHER Completed stroke Hypertension 19 FATHER Myocardial infarction 19 MOTHER Seizure disorder DAUGHTERS Severe allergy 19 FATHER No Family History of: AIDS Abdominal aortic aneurysm [place]'s disease Alcoholism Alzheimer's disease Aphasia Cancer of mouth Cardiovascular disease Colon cancer Congenital disease Congenital heart disease Coronary thrombosis Cystic fibrosis Deafness or hearing loss Dementia Diabetes mellitus Drug abuse Dysphasia Fibrocystic disease of breast Gastroenteritis Glaucoma Headache disorder Hypercholesterolemia Infertility Kidney disease Neoplasm Not obtainable due to adoption Osteoporosis Parkinson's disease Prostate cancer Psychosocial problem Respiratory disorder Thyroid disease Tuberculosis Visual disorder Review of Systems Constitutional: see HPI, malaise EENTM: no symptoms reported Respiratory: dyspnea on exertion, short of breath Cardiovascular: chest pain Gastrointestinal: no symptoms reported Genitourinary: no symptoms reported Musculoskeletal: no symptoms reported Skin: no symptoms reported Psychiatric/Neurological: No Symptoms Reported All Other Systems Reviewed Negative Unless Noted: Yes Physical Exam Physical Exam General Appearance: No Apparent Distress, Chronically ill, Obese Eyes: Right Eye Normal Inspection, Right Eye PERRL HEENT: PERRL/EOMI, Normal ENT Inspection, Pharynx Normal, Moist Mucous M embranes Neck: Full Range of Motion, Normal Inspection, Non Tender Respiratory: Chest Non Tender, Lungs Clear, No Accessory Muscle Use, No Respiratory Distress, Crackles Cardiovascular: No Edema, No Gallop, No JVD, No Murmur, Normal Peripheral Pulses, Irregularly Irregular Gastrointestinal: Normal Bowel Sounds, No Organomegaly, No Pulsatile Mass, Non Tender, Soft Back: Normal Inspection, No CVA Tenderness, No Vertebral Tenderness Extremity: Normal Capillary Refill, Normal Inspection, Normal Range of Motion, Non Tender, No Calf Tenderness, No Pedal Edema Neurologic/Psychiatric: Alert, Oriented x3, No Motor/Sensory Deficits, Normal Mood/Affect Skin: Normal Color, Warm/Dry Lymphatic: No Adenopathy Assessment/Plan Admission Diagnosis Assessment: Dyspnea Hypoxia Atrial flutter new onset Pneumonia History of DVT and PE with factor V Leiden maintained on Xarelto Elevated troponin Obesity BMI 36 Plan: Antibiotics Supportive care Xarelto Admission Status: Observation Supervisory-Addendum Brief Verification & Attestation Participated in pt care: history, MDM, physical Personally performed: exam, history, MDM, supervision of care Care discussed with: Medical Student Procedures: n/a Results interpretation: Verified all documentation Verification and Attestation of Medical Student E/M Service A medical student performed and documented this service in my presence. I reviewed and verified all information documented by the medical student and made modifications to such information, when appropriate. I personally performed the physical exam and medical decision making. Yumi Morrison, Apr 26, 2021,05:46 JAYA FLORES Apr 25, 2021 15:08 YUMI MORRISON DO Apr 26, 2021 05:49
[2021-04-25] MEDS ORDERED: morphine INJ 4 MG/ML 1 ML (VIAL/SYRINGE) IV PRN (16:15)
[2021-04-25] MEDS ORDERED: ANTACID SUSP 30 ML UDC (MYLANTA) PO PRN (16:15)
[2021-04-25] MEDS ORDERED: MELATONIN 3 MG TABLET PO PRN (16:15)
[2021-04-25] MEDS ORDERED: ONDANSETRON 4 MG (ZOFRAN) ORAL DISSOLVE TAB PO PRN (16:15)
[2021-04-25] MEDS ORDERED: polyethylene glycoL POWDER 17 GM (MIRALAX) PACK PO PRN (16:15)
[2021-04-25] MEDS ORDERED: CALCIUM CARBONATE 500 MG (TUMS) TAB.CHEW PO PRN (16:15)
[2021-04-25] MEDS ORDERED: MILK OF MAGNESIA 400 MG/5 ML 30 ML UDC PO PRN (16:15)
[2021-04-25] MEDS ORDERED: NALOXONE 0.4 MG/ML 1 ML (NARCAN) VIAL IV PRN (16:15)
[2021-04-25] MEDS ORDERED: ALPRAZolam 0.25 MG (XANAX) TAB PO PRN (16:15)
[2021-04-25] MEDS ORDERED: BISACODYL 10 MG SUPP (DULCOLAX) PR PRN (16:15)
[2021-04-25] MEDS ORDERED: diphenhydrAMINE 50 MG/ML INJ (BENADRYL) IVP PRN (16:15)
[2021-04-25] MEDS ORDERED: ACETAMINOPHEN 325 MG TABLET PO PRN (16:15)
[2021-04-25] MEDS ORDERED: LACTULOSE SYRUP 10GM/15ML (ENULOSE) 30ML UDC PO PRN (16:15)
[2021-04-25] MEDS ORDERED: ONDANSETRON 4 MG/2 ML (SDV) Z0FRAN IV PRN (16:15)
[2021-04-25] MEDS ORDERED: diphenhydrAMINE 25 MG TAB (BENADRYL) PO PRN (16:15)
[2021-04-25] MEDS ORDERED: RIVAROXABAN 20 MG TABLET (XARELTO) PO SCH ×2 (17:00)
[2021-04-25] MEDS ORDERED: NITR0.4T39 SL (17:42)
[2021-04-25] MEDS ORDERED: FAMO20TA3 PO (17:42)
[2021-04-25] MEDS ORDERED: COLC0.6C3 PO (17:42)
[2021-04-25 18:07] VITALS: BP 176/103
[2021-04-25] MEDS ORDERED: RT-ALBUTEROL SULF 2.5 MG/3 ML PRE-MIX VIAL INH PRN (18:30)
[2021-04-25] MEDS ORDERED: DOCUSATE SODIUM 100 MG (COLACE) CAP PO SCH (21:00)
[2021-04-25] MEDS: RT-ALBUTEROL SULF 2.5 MG/3 ML PRE-MIX VIAL INH SCH (21:28)
[2021-04-25] MEDS: SENNOSIDES 8.6 MG (SENOKOT) TAB PO SCH (21:38)
[2021-04-26 05:34] LABS: BASOPHILS # (AUTO) 0.1 10^3/uL (0.0-0.1); BASOPHILS % (AUTO) 1 % (0-10); EOSINOPHILS # (AUTO) 0.5 10^3/uL (0.0-0.3); EOSINOPHILS % (AUTO) 7 % (0-10); HEMATOCRIT 41 % (40-54); LYMPHOCYTES # (AUTO) 0.9 10^3/uL (1.0-4.0); LYMPHOCYTES % (AUTO) 15 % (12-44); MEAN CORPUSCULAR HEMOGLOBIN 29 pg (25-34); MEAN CORPUSCULAR HGB CONC 34 g/dL (32-36); MEAN CORPUSCULAR VOLUME 85 fL (80-99); MEAN PLATELET VOLUME 9.7 fL (9.0-12.2); MONOCYTES # (AUTO) 0.8 10^3/uL (0.0-1.0); MONOCYTES % (AUTO) 13 % (0-12); NEUTROPHILS # (AUTO) 3.9 10^3/uL (1.8-7.8); NEUTROPHILS % (AUTO) 63 % (42-75); PLATELET COUNT 260 10^3/uL (130-400); WHITE BLOOD COUNT 6.1 10^3/uL (4.3-11.0)
[2021-04-26 05:52] LABS: POTASSIUM 3.5 MMOL/L (3.6-5.0)
[2021-04-26 05:53] LABS: ALBUMIN 3.8 GM/DL (3.2-4.5)
[2021-04-26 05:54] LABS: CALCIUM 8.8 MG/DL (8.5-10.1)
[2021-04-26 05:55] LABS: TOTAL PROTEIN 6.5 GM/DL (6.4-8.2)
[2021-04-26 05:57] LABS: BILIRUBIN,TOTAL 0.9 MG/DL (0.1-1.0)
[2021-04-26 05:59] LABS: CREATININE SERUM 1.05 MG/DL (0.60-1.30)
[2021-04-26] MEDS: RT-ALBUTEROL SULF 2.5 MG/3 ML PRE-MIX VIAL INH SCH ×2 (07:10→20:18)
[2021-04-26] MEDS ORDERED: NS IV 1000 ML 1,000 ML ONE (07:30)
[2021-04-26] MEDS ORDERED: LIDOCAINE 2% VISCOUS 15 ML UDC ONE (07:30)
[2021-04-26] MEDS ORDERED: MIDAZOLAM 2 MG/2 ML (VERSED) VIAL ONE (07:34)
[2021-04-26] MEDS ORDERED: proPOfol 200 MG/20 ML (DIPRIVAN) VIAL IV ONE ×2 (07:34→08:02)
--- NOTE | 2021-04-26 08:12 | Conscious Sedation/ASA ---
Conscious Sedation Pre-Proced Time 08:00 ASA Score 3 For ASA 3 and 4: Consider anesthesia and medical clearance. Also, for patients with a history of failed moderate sedation consider anesthesia. Airway Lungs Heart ASA score ASA 1: a normal healthy patient ASA 2: a patient with a mild systemic disease (mid diabetes, controlled hypertension, obesity x ASA 3: a patient with a severe systemic disease that limits activity (angina, COPD, prior Myocardial infarction) ASA 4: a patient with an incapacitating disease that is a constant threat to life (CHF, renal failure) ASA 5: a moribund patient not expected to survive 24 hrs. (ruptured aneurysm) ASA 6: a declared brain- patient whose organs are being harvested. For emergent operations, add the letter E after the classification Mallampati Classification Grade 3 Sedation Plan Analgesia, Amnesia, Plan communicated to team members, Discussed options with patient/fam, Discussed risks with patient/fam The patient is an appropriate candidate to undergo the planned procedure, sedation, and anesthesia. The patient immediately re-assessed prior to indication. DAISY FERNANDEZ MD Apr 26, 2021 08:12
--- NOTE | 2021-04-26 08:14 | Cardioversion ---
Cardioversion PROCEDURE PHYSICIAN: Daisy Monzon DATE OF PROCEDURE: 04/26/21 DIRECT EXTERNAL ELECTRICAL CARDIOVERSION: Indications: Atrial flutter Preoperative diagnoses: Atrial flutter Postoperative diagnosis: Sinus rhythm, Successful Electrical Cardioversion Anesthesia: By Anesthesia services Complications: None Specimen: None Contrast: 0 Flouroscopy: none Procedure Details: The patient was brought the laborer shaft sinking after informed consent was taken, all the risks and complications were explained including the risk of stroke. Electrical cardioversion was carried out with anesthesia support with propofol. 200 joules of synchronized shock was delivered through external patches which promptly restored sinus rhythm. The patient tolerated the procedure well. Conclusions: Successful electrical cardioversion in terminating atrial flutter DAISY MONZON MD Apr 26, 2021 08:14
--- NOTE | 2021-04-26 08:16 | Cardiology Progress Note ---
Subjective Date Seen by Provider: Apr 26, 2021 Time Seen by Provider: 08:14 Subjective/Events-last exam Patient was seen and evaluated, was still having some shortness of breath. No chest pain. Review of Systems General: No Chills, No Night Sweats; Fatigue; No Malaise, No Appetite, No Other HEENT: No Head Aches, No Visual Changes, No Eye Pain, No Ear Pain, No Dysph barrie, No Sinus Congestion, No Post Nasal Drip, No Sore Throat, No Other Pulmonary: Dyspnea; No Cough, No Pleuritic Chest Pain, No Other Cardiovascular: No: Chest Pain, Palpitations, Orthopnea, Paroxysmal Noc. Dyspnea, Edema, Lt Headedness, Other Objective-Cardiology Exam Last Set of Vital Signs Vital Signs 04/25/21 04/25/21 04/26/21 18:07 20:00 08:07 Temp 36.2 Pulse 63 Resp 16 B/P (MAP) 151/71 Pulse Ox 93 O2 Delivery OxyMask O2 Flow Rate 10.00 FiO2 21 I&O Intake and Output 04/26/21 00:00 Intake Total 400 ml Balance 400 ml Intake Oral 350 ml IV Total 50 ml Daily Weight Change No General: Alert, Oriented X3, Cooperative HEENT: Atraumatic, PERRLA Neck: Supple, No JVD, No Thyromegaly Lungs: Clear to Auscultation, Normal Air Movement Heart: Regular Rate, Normal S1, Normal S2, No Murmurs Abdomen: Normal Bowel Sounds, Soft, No Tenderness, No Hepatosplenomegaly, No Masses Extremities: No Clubbing, No Cyanosis, No Edema, Normal Pulses, No Tenderness/Swelling Skin: No Rashes, No Breakdown, No Significant Lesion Neuro: Normal Gait, Normal Speech, Strength at 5/5 X4 Ext, Normal Tone, Sensation Intact Psych/Mental Status: Mental Status NL, Mood NL Results Lab Laboratory Tests 04/25/21 12:52 04/26/21 05:05 A/P-Cardiology Admission Diagnosis Aflutter Dyspnea Chest pain CAD Assessment/Plan New onset atrial flutter, maintained on Xarelto as an outpatient. Underwent RISHI and electrical cardioversion with successful termination of atrial flutter, currently in sinus rhythm. Continue to monitor Dyspnea, likely multifactorial, reports increasing dyspnea on exertion for approx 8 months, has been worsening over the last week, now with productive cough. Had small infiltrates on CXR, questionable pneumonia, started on antibiotics. 2D Echo done June 2020 showing EF 50-55% Chest pain, nonspecific etiology, initial troponin mildly elevated, likely type II CA secondary to hypoxemia and atrial flutter, patient has known small vessel coronary artery disease. Continue with aspirin and Xarelto Coronary artery disease, history of old myocardial infarction, stent placed in 2000. Cardiac catheterization x 2 done in May 2014, with the first cardiac catheterization he had a stent to the mid LAD artery using Promus premiere 3.0x16mm, a stent to the obtuse marginal using 3.012 mm Promus Premier, returned on the next day due to dissection in the distal LAD had a Promus Premier stent in the mid LAD using 2.2524 mm Promus Premier stent, reporting that he had another stent done in 2016. Multiple intervention done in [facility]. Reporting that he had a cardiac catheterization done in March 2017 and he was told that he does not require any further stenting. Primary cardiolgist is Dr. Styles. 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 Hypertension, restart home blood pressure medications and continue to monitor. History of DVT, PE, factor V Leiden, diagnosed in July 2013, followed and managed by Dr. Deleon History of solitary pulmonary nodule, PET scan negative July 2020, benign nodule Hyperlipidemia, intolerant to statin with muscle ache continue to monitor lipids Exogenous obesity, BMI is 37. Patient was educated on weight loss and exercise. History of gouty arthritis. DAISY FERNANDEZ MD Apr 26, 2021 08:16
[2021-04-26] MEDS ORDERED: ASPIRIN E.C. 81 MG (ECOTRIN) TAB PO SCH (09:00)
--- NOTE | 2021-04-26 09:50 | Anesthesia-General Post-Op ---
MAC Patient Condition Mental Status/LOC: Same as Preop Cardiovascular: Satisfactory Nausea/Vomiting: Absent Respiratory: Satisfactory Pain: Controlled Complications: Absent Post Op Complications Complications None Follow Up Care/Instructions Patient Instructions None needed. Anesthesiology Discharge Order Discharge Order Patient is doing well, no complaints, stable vital signs, no apparent adverse anesthesia problems. No complications reported per nursing. JOSHUA VICTOR CRNA Apr 26, 2021 09:50
[2021-04-26] MEDS ORDERED: TELM80TA8 PO (10:07)
[2021-04-26] MEDS ORDERED: FAMO10TA43 PO (10:07)
[2021-04-26] MEDS ORDERED: COLC0.6T59 PO (10:07)
[2021-04-26] MEDS ORDERED: SOUR1000 PO (10:07)
[2021-04-26] MEDS ORDERED: NITR0.4T39 SL (10:07)
[2021-04-26] MEDS ORDERED: ALBU2.5V4 NEB (10:07)
[2021-04-26] MEDS ORDERED: ALBU18HF2 INH (10:07)
[2021-04-26] MEDS ORDERED: ASPI-999 PO (10:07)
[2021-04-26] MEDS ORDERED: LORA10TA7 PO (10:07)
[2021-04-26] MEDS ORDERED: DOCU100C37 PO (10:10)
--- NOTE | 2021-04-26 11:38 | Occupational Therapy Eval ---
OT Evaluation-General/PLF Medical Diagnosis Admission Date Apr 25, 2021 at 14:18 Medical Diagnosis: CAD, PNA Onset Date: Apr 25, 2021 Therapy Diagnosis Therapy Diagnosis: n/a Height/Weight Height (Feet): 6 Height (Inches): 0 Weight (Pounds): 265 Weight (Ounces): 0.8 Precautions Precautions/Isolations: Fall Prevention, Standard Precautions Referral Physician: Soni Referral Reason: Evaluation/Treatment Medical History Additional Medical History HTN, HLD, CAD with stents, factor V Leiden with PE/DVT, gout, GERD, LBBB, obesity Current History referred from primary care with chest tightness, dyspnea, fatigue & cough. s/p electrical cardioversion 04/26/21 Social History Current Living Status: Spouse ADL-Prior Level of Function SCALE: Activities may be completed with or without assistive devices. 5-Jrthuhrrse-lwtmqqi completes the activity by him/herself with no assistance from a helper. 5-Set-up or Clean-up Assistance-helper sets up or cleans up; patient completes activity. Lucas assists only prior to or following the activity. 4-Supervision or Touching Assistance-helper provides verbal cues and/or touching/steadying and/or contact guard assistance as patient completes activity. Assistance may be provided throughout the activity or intermittently. 3-Partial/Moderate Assistance-helper does LESS THAN HALF the effort. Lucas lifts, holds or supports trunk or limbs, but provides less than half the effort. 2-Substantial/Maximal Assistance-helper does MORE THAN HALF the effort. Lucas lifts or holds trunk or limbs and provides more than half the effort. 3-Adpbvkbip-pfnppw does ALL the effort. Patient does none of the effort to complete the activity. Or, the assistance of 2 or more helpers is required for the patient to complete the activity. If activity was not attempted, code reason: 7-Patient Refused. 9-Not Applicable-not attempted and the patient did not perform the activity before the current illness, exacerbation or injury. 10-Not Attempted due to Environmental Limitations-(lack of equipment, weather restraints, etc.). 88-Not Attempted due to Medical Conditions or Safety Concerns. ADL PLOF Comments Pt reports IND with ADLs and functional mobility at PLOF, no AD/AE Self Care: Independent Functional Cognition: Independent OT Current Status Subjective Pt in bed, agreeable to OT Tx. Mental Status/Objective Patient Orientation: Person, Place, Situation Current Upper Extremity ROM WFL Upper Extremity Strength WFL ADL-Treatment Eating (QC): 6 (IND with breakfast) Lower Body Dressing (QC): 6 (IND doffing/donning LE clothing) Toileting Hygiene (QC): 6 (IND per pt report) Other Treatments Pt in bed finishing breakfast, transferred supine to sit EOB independently. Pt stood from EOB and completed LE clothing in standing. Pt then transferred to recliner independently without AD. Pt feels he is at his PLOF with ADLs and doesn't require further OT services. Post tx, pt in recliner, call light in reach and all needs met. Education OT Patient Education: Correct positioning, Modified ADL techniques, Progress toward Goal/Update tx plan, Purpose of tx/functional activities, Rehab process Teaching Recipient: Patient Teaching Methods: Discussion Response to Teaching: Verbalize Understanding OT Detention Goals Detention Goals 1=Demonstrate adherence to instructed precautions during ADL tasks. 2=Patient will verbalize/demonstrate understanding of assistive devices/modifications for ADL. 3=Patient will improve strength/tolerance for activity to enable patient to perform ADL's. OT Education/Plan Problem List/Assessment Assessment: No Skilled OT Needs ID'd No skilled OT services indicated at this time due to pt being at PLOF and independent with ADLs. Discharge Recommendations Plan/Recommendations: Discharge/Goals Met Treatment Plan/Plan of Care Patient would benefit from OT for education, treatment and training to promote independence in ADL's, mobility, safety and/or upper extremity function for ADL's. Plan of Care: ADL Retraining, Functional Mobility Treatment Duration: Apr 26, 2021 Frequency: 1 time per week (eval only) Estimated Hrs Per Day: .25 hour per day Agreement: Yes Rehab Potential: Good Time/GCodes Start Time: 11:02 Stop Time: 11:14 Total Time Billed (hr/min): 12 Billed Treatment Time 1, SENG HERNANDEZ OT Apr 26, 2021 11:38
--- NOTE | 2021-04-26 11:41 | Physical Therapy Evaluation ---
PT Evaluation-General Medical Diagnosis Admission Date Apr 25, 2021 at 14:18 Medical Diagnosis: dypnea Onset Date: Apr 25, 2021 Therapy Diagnosis Therapy Diagnosis: independent with mobility Height/Weight Height (Feet): 6 Height (Inches): 0 Weight (Pounds): 265 Weight (Ounces): 0.8 Precautions Precautions/Isolations: Fall Prevention, Standard Precautions Referral Physician: Yumi Shafer DO Reason for Referral: Evaluation/Treatment Medical History Additional Medical History Past Medical History Surgeries: Abdominal, Coronary Stent, Vascular Surgery Pulmonary Embolism Currently Using CPAP: No Currently Using BIPAP: No Coronary Artery Disease, Heart Attack Arthritis, Gout Hearing Impairment: Hard of Hearing Current History had cardioversion this morning Reviewed History: Yes Social History Home: Multilevel Current Living Status: Spouse Entry Into Home: Stairs With Railing PT Steps Into Home: 4 PT Steps Inside Home: 15 patient states his bedroom is upstairs Prior Prior Level of Function SCALE: Activities may be completed with or without assistive devices. 5-Kqzjfkyrnt-yrjuuai completes the activity by him/herself with no assistance fr om a helper. 5-Set-up or Clean-up Assistance-helper sets up or cleans up; patient completes activity. Prosperity assists only prior to or following the activity. 4-Supervision or Touching Assistance-helper provides verbal cues and/or touching/steadying and/or contact guard assistance as patient completes activity. Assistance may be provided throughout the activity or intermittently. 3-Partial/Moderate Assistance-helper does LESS THAN HALF the effort. Prosperity lifts, holds or supports trunk or limbs, but provides less than half the effort. 2-Substantial/Maximal Assistance-helper does MORE THAN HALF the effort. Prosperity lifts or holds trunk or limbs and provides more than half the effort. 3-Tqpddiiwv-vihzib does ALL the effort. Patient does none of the effort to complete the activity. Or, the assistance of 2 or more helpers is required for the patient to complete the activity. If activity was not attempted, code reason: 7-Patient Refused. 9-Not Applicable-not attempted and the patient did not perform the activity before the current illness, exacerbation or injury. 10-Not Attempted due to Environmental Limitations-(lack of equipment, weather restraints, etc.). 88-Not Attempted due to Medical Conditions or Safety Concerns. Bed Mobility: 6 Transfers (B,C,W/C): 6 Gait: 6 Stairs: 6 Indoor Mobility (Ambulation): Independent Stairs: Independent PT Evaluation-Current Subjective Patient in recliner pre tx, agrees to PT, has no complaints of pain. Pt/Family Goals "to go home" Objective Patient Orientation: Person, Place, Situation ROM/Strength ROM Lower Extremities WNL Strength Lower Extremities grossly 5/5 BLE Sensory Vision: Functional Hearing: Functional Sensation Right Lower Extremit: Intact Sensation Left Lower Extremity: Intact Transfers Sit to Stand (QC): 6 Chair/Bvl-vw-Jspoe Xfer(QC): 6 Gait Does the Patient Walk?: Yes Mode of Locomotion: Walk Anticipated Mode of Locomotion: Walk Walk 10 feet (QC): 6 Walk 50 ft with 2 Turns(QC): 6 Walk 150 ft (QC): 6 Distance: 150' Gait Assistive Device: None Comments/Gait Description steady ambulation, independent Balance Sitting Static: Normal Sitting Dynamic: Normal Standing Static: Normal Standing Dynamic: Normal Treatment seated BLE ex x20 (AP, LAQ) Assessment/Needs Patient in recliner post tx with nurse call, phone, tray, all needs met. Patient is independent with transfers and ambulation, will discharge him from PT services at this time. His HR stayed in the 80's during tx and O2 stayed around 94% Rehab Potential: Good PT Plan Treatment/Plan Treatment Plan: Discontinue PT Treatment Duration: Apr 26, 2021 Frequency: Patient and/or Family Agrees t: Yes Safety Risks/Education Patient Education: Gait Training, Transfer Techniques, Correct Positioning, Safety Issues Teaching Recipient: Patient Teaching Methods: Demonstration, Discussion Response to Teaching: Reinforcement Needed Discharge Recommendations Plan DC Time/GCodes Time In: 1119 Time Out: 1130 Total Billed Treatment Time: 11 Total Billed Treatment 1 visit EVL 11' CARISSA SCHRADER PT Apr 26, 2021 11:41
[2021-04-26] MEDS ORDERED: cefTRIAXone 1 GM PRE-MIX 50 ML IV NR (12:00)
[2021-04-26] MEDS ORDERED: COLCHICINE 0.6 MG (COLCRYS) TABLET PO PRN (12:15)
[2021-04-26] MEDS ORDERED: NITROGLYCERIN 0.4 MG SL TABS BTL 25'S SL PRN (12:15)
[2021-04-26] MEDS ORDERED: PATIENT MAY USE OWN MEDS, ALL MC SCH ×2 (12:15)
[2021-04-26] MEDS ORDERED: DOCUSATE SODIUM 100 MG (COLACE) CAP PO PRN ×2 (12:15→12:45)
--- NOTE | 2021-04-26 13:03 | Progress Note - Hospitalist ---
JAYA FLORES Jeovany 04/26/21 1303: Subjective HPI/CC On Admission Date Seen by Provider: Apr 26, 2021 Time Seen by Provider: 11:00 Chief complaint: Shortness of breath History of present illness: This is a 81-year-old white male clinic patient of Dr. Hammond who presented with shortness of breath, fully vaccinated and boosted against Covid,, Covid negative but has an elevated BNP and troponin. Cardiology will be consulted and we will trend the troponin. Antibiotics given for pneumonia. Subjective/Events-last exam Patient is laying in bed and just came back from RISHI/Cardioversion. He is still drowsy but complaining of left thigh burning. Review of Systems General: No Chills, No Night Sweats HEENT: No Head Aches, No Visual Changes Pulmonary: Dyspnea; No Cough Cardiovascular: No: Chest Pain, Palpitations Gastrointestinal: No: Nausea, Vomiting, Abdominal Pain, Diarrhea, Constipation Neurological: No: Weakness Objective Exam Vital Signs Vital Signs Date Time Temp Pulse Resp B/P (MAP) Pulse Ox O2 Delivery O2 Flow Rate FiO2 04/26/21 11:51 35.9 80 12 150/91 94 Room Air 04/26/21 08:33 2.00 04/25/21 18:07 21 Capillary Refill : Less Than 3 Seconds General Appearance: No Apparent Distress, Obese HEENT: Normal ENT Inspection Neck: Full Range of Motion, Normal Inspection Respiratory: Normal Breath Sounds, No Accessory Muscle Use Cardiovascular: Regular Rate, Rhythm, No Gallop, No Murmur Gastrointestinal: Normal Bowel Sounds, Non Tender, Soft Back: Normal Inspection Extremity: Normal Inspection, Pedal Edema Neurologic/Psychiatric: Alert, Oriented x3, Normal Mood/Affect Skin: Normal Color, Warm/Dry Results/Procedures Lab Laboratory Tests 04/26/21 05:05 Patient resulted labs reviewed. Imaging: Reviewed Imaging Report Assessment/Plan Assessment and Plan Assess & Plan/Chief Complaint Aflutter - new onset - rate controlled - on xarelto 20 (hx of clotting disorder) - cardiology consulted - RISHI/Cardioversion performed, now is NSR Pneumonia - CXR: infiltrates, small plerual effusions - on azithro and ceftriaxone Type 2 MN - mildly elevated troponin - likely secondary to hypoxemia - will monitor closely - hx of CAD, multiple stents placed Factor V Leiden - hx of DVT/PE - takes xarelto 20 daily - INR 1.7 HTN - resume home amlodipine and telmisartan HLD - unable to tolerate statin d/t myalgia - lipid panel normal, low HDL YUMI MORRISON DO 04/27/21 0528: Subjective Subjective/Events-last exam Pt is doing well Left lateral cutaneous nerve pain reported. I tried to reassure pt because he thought it was a blood clot it was not a blood clot Maintain on Xarelto rn long term care Status post RISHI and cardioversion this morning now he is normal sinus rhythm PT and OT will be ordered I will transfer him to 4th floor Antibiotics for pneumonia maintained Review of Systems General: Fatigue Musculoskeletal: leg pain Objective Exam General Appearance: No Apparent Distress, WD/WN, Chronically ill, Obese Respiratory: Normal Breath Sounds, No Accessory Muscle Use, Decreased Breath Sounds Cardiovascular: Regular Rate, Rhythm Neurologic/Psychiatric: Alert, Oriented x3 Assessment/Plan Assessment and Plan Assess & Plan/Chief Complaint Antibiotics Moved to fourth floor PT and OT Supervisory-Addendum Brief Verification & Attestation Participated in pt care: history, MDM, physical Personally performed: exam, history, MDM, supervision of care Care discussed with: Medical Student Procedures: n/a Results interpretation: Verified all documentation Verification and Attestation of Medical Student E/M Service A medical student performed and documented this service in my presence. I reviewed and verified all information documented by the medical student and made modifications to such information, when appropriate. I personally performed the physical exam and medical decision making. Yumi Morrison, Apr 27, 2021,05:27 JAYA FLORES Apr 26, 2021 13:03 YUMI MORRISON DO Apr 27, 2021 05:28
[2021-04-26] MEDS: ASPIRIN 81 MG CHEW (CHILDREN'S ASA) PO SCH ×2 (13:35→13:47)
[2021-04-26] MEDS: ISOSORBIDE MONONITRATE 120 MG PO SCH ×2 (13:35→13:48)
[2021-04-26] MEDS: amLODIPine 5 MG (NORVASC) TAB PO SCH ×2 (13:35→13:45)
[2021-04-26] MEDS: LORATADINE (CLARITIN) 10 MG TAB PO SCH (13:42)
[2021-04-26] MEDS: DOCUSATE SODIUM 100 MG (COLACE) CAP PO SCH ×2 (13:42→21:00)
[2021-04-26] MEDS: [UNRECOGNIZED DRUG - REMARK] PO SCH (13:43)
[2021-04-26] MEDS: FAMOTIDINE 10 MG PO SCH (13:46)
[2021-04-26] MEDS: SENNOSIDES 8.6 MG (SENOKOT) TAB PO SCH ×2 (14:43→21:00)
[2021-04-26] MEDS ORDERED: RIVAROXABAN 20 MG TABLET (XARELTO) PO SCH ×2 (17:00→21:00)
[2021-04-26] MEDS ORDERED: SOUR CHERRY EXTRACT 1000 MG PO SCH (21:00)
[2021-04-27 06:18] LABS: BASOPHILS # (AUTO) 0.1 10^3/uL (0.0-0.1); BASOPHILS % (AUTO) 1 % (0-10); EOSINOPHILS # (AUTO) 0.5 10^3/uL (0.0-0.3); EOSINOPHILS % (AUTO) 7 % (0-10); HEMATOCRIT 42 % (40-54); HEMOGLOBIN 14.1 g/dL (13.3-17.7); LYMPHOCYTES # (AUTO) 0.9 10^3/uL (1.0-4.0); LYMPHOCYTES % (AUTO) 12 % (12-44); MEAN CORPUSCULAR HEMOGLOBIN 29 pg (25-34); MEAN CORPUSCULAR HGB CONC 34 g/dL (32-36); MEAN CORPUSCULAR VOLUME 86 fL (80-99); MEAN PLATELET VOLUME 9.7 fL (9.0-12.2); MONOCYTES # (AUTO) 0.8 10^3/uL (0.0-1.0); MONOCYTES % (AUTO) 11 % (0-12); NEUTROPHILS # (AUTO) 4.8 10^3/uL (1.8-7.8); NEUTROPHILS % (AUTO) 68 % (42-75); PLATELET COUNT 270 10^3/uL (130-400)
[2021-04-27 06:40] LABS: BILIRUBIN,TOTAL 0.9 MG/DL (0.1-1.0); CALCIUM 8.8 MG/DL (8.5-10.1); CREATININE SERUM 1.04 MG/DL (0.60-1.30); POTASSIUM 3.8 MMOL/L (3.6-5.0); TOTAL PROTEIN 6.9 GM/DL (6.4-8.2)
[2021-04-27] MEDS: RT-ALBUTEROL SULF 2.5 MG/3 ML PRE-MIX VIAL INH SCH (07:25)
--- NOTE | 2021-04-27 07:51 | Diagnostic Imaging Report ---
HISTORY: Dyspnea COMPARISON: 01/19/2021 TECHNIQUE: Frontal view the chest FINDINGS: There are minimal bilateral pleural effusions with associated atelectasis. There is mild cardiomegaly with mild interstitial edema. No focal consolidation is seen otherwise. There is no pneumothorax. IMPRESSION: 1. Mild cardiomegaly with mild interstitial edema. Minimal bilateral pleural effusions, with atelectasis. Dictated by: Dictated on workstation # [id number]
--- NOTE | 2021-04-27 08:20 | Cardiology Progress Note ---
Subjective Date Seen by Provider: Apr 27, 2021 Time Seen by Provider: 08:17 Subjective/Events-last exam Patient is sitting in a chair, still having shortness of breath with minimal exertion. Frustrated with his situation. We had a long discussion about possibly underlying COPD and sleep apnea. Review of Systems General: No Chills, No Night Sweats, No Fatigue, No Malaise, No Appetite, No Other HEENT: No Head Aches, No Visual Changes, No Eye Pain, No Ear Pain, No Dy sphasia, No Sinus Congestion, No Post Nasal Drip, No Sore Throat, No Other Pulmonary: Dyspnea; No Cough, No Pleuritic Chest Pain, No Other Cardiovascular: No: Chest Pain, Palpitations, Orthopnea, Paroxysmal Noc. Dyspnea, Edema, Lt Headedness, Other Objective-Cardiology Exam Last Set of Vital Signs Vital Signs 04/25/21 04/27/21 18:07 07:50 Temp 36.3 Pulse 70 Resp 20 B/P (MAP) 151/74 Pulse Ox 95 O2 Delivery Nasal Cannula O2 Flow Rate 1.00 FiO2 21 I&O Intake and Output 04/27/21 00:00 Intake Total 1200 ml Balance 1200 ml Intake Oral 1200 ml # Voids 7 General: Alert, Oriented X3, Cooperative HEENT: Atraumatic, PERRLA Neck: Supple, No JVD, No Thyromegaly Lungs: Clear to Auscultation, Normal Air Movement Heart: Regular Rate, Normal S1, Normal S2, No Murmurs Abdomen: Normal Bowel Sounds, Soft, No Tenderness, No Hepatosplenomegaly, No Masses Extremities: No Clubbing, No Cyanosis, No Edema, Normal Pulses, No Tenderness/Swelling Skin: No Rashes, No Breakdown, No Significant Lesion Neuro: Normal Gait, Normal Speech, Strength at 5/5 X4 Ext, Normal Tone, Sensation Intact Psych/Mental Status: Mental Status NL, Mood NL Results Lab Laboratory Tests 04/27/21 05:50 04/27/21 06:00 A/P-Cardiology Admission Diagnosis Aflutter Dyspnea Chest pain CAD Assessment/Plan New onset atrial flutter, maintained on Xarelto as an outpatient. Underwent RISHI and electrical cardioversion with successful termination of atrial flutter, currently in sinus rhythm. Continue to monitor Dyspnea, likely multifactorial, reports increasing dyspnea on exertion for approx 8 months, has been worsening over the last week, now with productive cough. Repeat chest x-ray showed pleural effusion. We had a long discussion about possibly underlying sleep apnea, patient cannot tolerate CPAP. I recommend nocturnal pulse oximetry evaluation and evaluate the possibility of home oxygen with nasal cannula at night if it could help I am starting him on Lasix 40 mg IV twice daily and evaluate tolerance and resp onse Chest pain, nonspecific etiology, initial troponin mildly elevated, likely type II ND secondary to hypoxemia and atrial flutter, patient has known small vessel coronary artery disease. Continue with aspirin and Xarelto Coronary artery disease, history of old myocardial infarction, stent placed in 2000. Cardiac catheterization x 2 done in May 2014, with the first cardiac catheterization he had a stent to the mid LAD artery using Promus premiere 3.0x16mm, a stent to the obtuse marginal using 3.012 mm Promus Premier, returned on the next day due to dissection in the distal LAD had a Promus Premier stent in the mid LAD using 2.2524 mm Promus Premier stent, reporting that he had another stent done in 2016. Multiple intervention done in [facility]. Reporting that he had a cardiac catheterization done in March 2017 and he was told that he does not require any further stenting. Primary cardiolgist is Dr. Styles. 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 Hypertension, restart home blood pressure medications and continue to monitor. History of DVT, PE, factor V Leiden, diagnosed in July 2013, followed and managed by Dr. Deleon History of solitary pulmonary nodule, PET scan negative July 2020, benign nodule Hyperlipidemia, intolerant to statin with muscle ache continue to monitor lipids Exogenous obesity, BMI is 37. Patient was educated on weight loss and exercise. History of gouty arthritis. DAISY FERNANDEZ MD Apr 27, 2021 08:20
[2021-04-27] MEDS ORDERED: FUROSEMIDE 40 MG/4 ML INJ (LASIX) IVP SCH (08:30)
[2021-04-27] MEDS ORDERED: LOSARTAN 100 MG (COZAAR) TABLET PO SCH (09:00)
[2021-04-27] MEDS ORDERED: NON-FORMULARY MEDICATION 1 EA EA (Potassium Gluconate (Potassium) 99 MG) PO SCH (09:00)
[2021-04-27] MEDS ORDERED: NON-FORMULARY MEDICATION 1 EA EA (Famotidine (Pepcid AC) 10 MG) PO SCH (09:00)
[2021-04-27] MEDS ORDERED: FUROSEMIDE 40 MG (LASIX) TAB PO SCH (09:00)
[2021-04-27] MEDS ORDERED: AZITHROMYCIN 250 MG TAB (ZITHROMAX) PO SCH (09:00)
[2021-04-27] MEDS ORDERED: TELMISARTAN 80 MG PO SCH (09:00)
[2021-04-27] MEDS ORDERED: NON-FORMULARY MEDICATION 1 EA EA (Isosorbide Mononitrate (Isosorbide Mononitrate ER) 120 M PO SCH (09:00)
[2021-04-27] MEDS: [UNRECOGNIZED DRUG - REMARK] PO SCH (09:31)
[2021-04-27] MEDS: LORATADINE (CLARITIN) 10 MG TAB PO SCH (09:33)
[2021-04-27] MEDS: amLODIPine 5 MG (NORVASC) TAB PO SCH (09:34)
[2021-04-27] MEDS: ISOSORBIDE MONONITRATE 120 MG PO SCH (09:35)
[2021-04-27] MEDS: ASPIRIN 81 MG CHEW (CHILDREN'S ASA) PO SCH (09:35)
[2021-04-27] MEDS: FAMOTIDINE 10 MG PO SCH (09:36)
[2021-04-27] MEDS: SENNOSIDES 8.6 MG (SENOKOT) TAB PO SCH (09:50)
[2021-04-27] MEDS: DOCUSATE SODIUM 100 MG (COLACE) CAP PO SCH (09:50)
[2021-04-27] MEDS ORDERED: CEFD300C3 PO (11:12)
--- NOTE | 2021-04-27 11:25 | Progress Note ---
JAYA FLORES 04/27/21 1125: Progress Note Hospital Course: Jimi Pool is a 81 y/o M with a history of HTN, HLD, CAD (several stents placed), factor V Leiden with PE/DVT, gout, GERD, LBBB and obesity who was referred to the ER by his primary care doctor for chest tightness, dyspnea, fatique and cough. He was found to be in Aflutter with a normal heart rate and was cardioverted the next morning. He has remained in NSR since. A CXR done on admission showed possible pneumonia for which he was treated with antibiotics. We will send him home on a course of antibiotics to continue. Patient worked with PT/OT and they saw no restrictions in his mobility. We believe he will also benefit from a home O2 evaluation. YUMI MORRISON DO 04/27/211: Supervisory-Addendum Brief Verification & Attestation Participated in pt care: history, MDM, physical Personally performed: exam, history, MDM, supervision of care Care discussed with: Medical Student Procedures: n/a Results interpretation: Verified all documentation Verification and Attestation of Medical Student E/M Service A medical student performed and documented this service in my presence. I reviewed and verified all information documented by the medical student and made modifications to such information, when appropriate. I personally performed the physical exam and medical decision making. Yumi Morrison, Apr 27, 2021,21:31 JAYA FLORES Apr 27, 2021 11:25 YUMI MORRISON DO Apr 27, 2021 21:31
--- NOTE | 2021-04-27 11:37 | Discharge Summary ---
Discharge Summary Hospital Course Hospital Course Date of Admission: Apr 25, 2021 at 14:18 Admission Diagnosis : Family Physician/Provider: Adán Hammond DO Date of Discharge: 04/27/21 Discharge Diagnosis: Dyspnea new onset atrial flutter status post cardioversion with resolution of sinus rhythm, pneumonia, suspect sleep apnea he denies Hospital Course: JAYA FLORES 04/27/21 1125: Progress Note Hospital Course: Jimi Pool is a 81 y/o M with a history of HTN, HLD, CAD (several stents placed), factor V Leiden with PE/DVT, gout, GERD, LBBB and obesity who was referred to the ER by his primary care doctor for chest tightness, dyspnea, fatique and cough. He was found to be in Aflutter with a normal heart rate and was cardioverted the next morning. He has remained in NSR since. A CXR done on admission showed possible pneumonia for which he was treated with antibiotics. We will send him home on a course of antibiotics to continue. Patient worked with PT/OT and they saw no restrictions in his mobility. We believe he will also benefit from a home O2 evaluation. Labs and Pending Lab Test: Laboratory Tests 04/27/21 05:50: Sodium Level 140, Potassium Level 3.8, Chloride Level 109H, Carbon Dioxide Level 17L, Anion Gap 14, Blood Urea Nitrogen 11, Creatinine 1.04, Estimat Glomerular Filtration Rate 73, BUN/Creatinine Ratio 11, Glucose Level 122H, Calcium Level 8.8, Corrected Calcium 8.8, Total Bilirubin 0.9, Aspartate Amino Transf (AST/SGOT) 13, Alanine Aminotransferase (ALT/SGPT) 21, Alkaline Phosphatase 86, Total Protein 6.9, Albumin 4.0 04/27/21 06:00: White Blood Count 7.0, Red Blood Count 4.92, Hemoglobin 14.1, Hematocrit 42, Mean Corpuscular Volume 86, Mean Corpuscular Hemoglobin 29, Mean Corpuscular Hemoglobin Concent 34, Red Cell Distribution Width 14.1, Platelet Count 270, Mean Platelet Volume 9.7, Immature Granulocyte % (Auto) 0, Neutrophils (%) (Auto ) 68, Lymphocytes (%) (Auto) 12, Monocytes (%) (Auto) 11, Eosinophils (%) (Auto) 7, Basophils (%) (Auto) 1, Neutrophils # (Auto) 4.8, Lymphocytes # (Auto) 0.9L, Monocytes # (Auto) 0.8, Eosinophils # (Auto) 0.5H, Basophils # (Auto) 0.1, Immature Granulocyte # (Auto) 0.0 Home Meds Active Cefdinir 300 Mg Capsule 300 Mg PO BID Reported Docusate Sodium 100 Mg Capsule 100 Mg PO BID PRN Colchicine 0.6 Mg Tablet 0.6 Mg PO BID PRN Nitroglycerin 0.4 Mg Tab.subl 0.4 Mg SL UD PRN Pepcid AC (Famotidine) 10 Mg Tablet 10 Mg PO DAILY Albuterol Sulfate 2.5 Mg/3 Ml Vial.neb 3 Ml NEB Q6H PRN Ventolin Hfa (Albuterol Sulfate) 18 Gm Hfa.aer.ad 2 Puff INH Q6H PRN Telmisartan 80 Mg Tablet 80 Mg PO DAILY Loratadine 10 Mg Tablet 10 Mg PO DAILY Aspirin 81 Mg Tab.chew 81 Mg PO DAILY Tart Chan Extract (Sour Chan Extract) 1,000 Mg Capsule 1,000 Mg PO BID Tylenol Extra Strength (Acetaminophen) 500 Mg Tablet 1,000 Mg PO Q6H PRN TAKES 2 (500MG) TABLETS Amlodipine Besylate 5 Mg Tablet 5 Mg PO DAILY Furosemide 40 Mg Tablet 40 Mg PO DAILY Potassium (Potassium Gluconate) 99 Mg Tablet 99 Mg PO DAILY Xarelto Tablet (Rivaroxaban) 20 Mg Tablet 20 Mg PO HS Isosorbide Mononitrate ER (Isosorbide Mononitrate) 120 Mg Tab.er.24h 120 Mg PO DAILY Assessment/Pt Instructions PCP in 1 week Discharge Planning: <30 minutes discharge planning Discharge Instructions Discharge Diet: No Restrictions Activity as Tolerated: Yes Discharge Physical Examination Vital Signs Vital Signs Date Time Temp Pulse Resp B/P (MAP) Pulse Ox O2 Delivery O2 Flow Rate FiO2 04/27/21 11:19 98 Room Air 04/27/21 07:50 36.3 70 20 151/74 1.00 04/25/21 18:07 21 General Appearance: No Apparent Distress, WD/WN, Chronically ill Respiratory: Lungs Clear, Normal Breath Sounds Cardiovascular: Regular Rate, Rhythm Allergies: Coded Allergies: Sulfa (Sulfonamide Antibiotics) (Verified Allergy, Unknown, 04/06/19) hydrochlorothiazide (Verified Allergy, Unknown, 04/06/19) ketoprofen (Verified Allergy, Unknown, 04/06/19) nabumetone (Verified Allergy, Unknown, 04/06/19) rosuvastatin (Verified Allergy, Unknown, 04/06/19) morphine (Unverified Adverse Reaction, Mild, VOMITING, 04/06/19) Discharge Summary Date of Admission Apr 25, 2021 at 14:18 Date of Discharge Discharge Date: Apr 27, 2021 Admission Diagnosis Assessment: Dyspnea Hypoxia Atrial flutter new onset Pneumonia History of DVT and PE with factor V Leiden maintained on Xarelto Elevated troponin Obesity BMI 36 Plan: Antibiotics Supportive care Xarelto Discharge Diagnosis Antibiotics Moved to fourth floor PT and OT KATHLEEN MORRISON DO Apr 27, 2021 11:37
[2021-04-27] MEDS ORDERED: ALBU2.5V4 NEB (11:38)
[2021-04-27 12:52] VITALS: BP 154/74
== END 2021-04-27 12:54 | disposition home or self-care (01) ==
LOC: EDUNIT# 12:18 → ER 12:22 → CSD 14:18 → 4TH 04-26 15:07
PROVIDERS: ADMIT Internal Medicine; ATTEND Internal Medicine
DX: I48.92 Unspecified atrial flutter (principal); R06.00 Dyspnea, unspecified; R09.02 Hypoxemia; I44.7 Left bundle-branch block, unspecified; I10 Essential (primary) hypertension; I25.10 Atherosclerotic heart disease of native coronary artery without angina pectoris; I25.2 Old myocardial infarction; I26.99 Other pulmonary embolism without acute cor pulmonale; J18.9 Pneumonia, unspecified organism; E66.9 Obesity, unspecified; E78.5 Hyperlipidemia, unspecified; K21.9 Gastro-esophageal reflux disease without esophagitis; M10.9 Gout, unspecified; R77.8 Other specified abnormalities of plasma proteins; J44.9 Chronic obstructive pulmonary disease, unspecified; M19.90 Unspecified osteoarthritis, unspecified site; G47.33 Obstructive sleep apnea (adult) (pediatric); Z79.899 Other long term (current) drug therapy; Z79.82 Long term (current) use of aspirin; Z86.718 Personal history of other venous thrombosis and embolism; Z68.36 Body mass index [BMI] 36.0-36.9, adult; Z95.1 Presence of aortocoronary bypass graft; Z82.3 Family history of stroke
CPT/HCPCS: 71045; 71046; 80053 ×3; 80061; 82805; 83735; 83874; 83880; 84145; 84484 ×2; 85025 ×3; 85610; 85730; 87636; 92960; 93005 ×2; 93041; 93312; 94640 ×3; 94664; 94760; 94761; 97161; 97165; 99284; G0378; 36415

== ENCOUNTER 2021-08-08 11:06 | Observation (INO) | payer MEDICARE ==
[~2021-08-08] VITALS: Ht 182.2 cm; Wt 120.9 kg
[2021-08-08] VITALS (9 sets, daily range): BP systolic 137–200; BP diastolic 70–105
[~2021-08-08 11:06] MED LIST changes: +ALBU18HF2 INH; +ALBU2.5V4 NEB; +ASPI-999 PO; +CEFD300C3 PO; +COLC0.6C3 PO; +COLC0.6T59 PO; +DOCU100C37 PO; +FAMO10TA43 PO; +FAMO20TA3 PO; +LORA10TA7 PO; +NITR0.4T39 SL; +SOUR1000 PO
--- NOTE | 2021-08-08 11:37 | ED Cardiac General ---
History of Present Illness General Chief Complaint: Cardiac/General Problems Stated Complaint: AFIB Source: patient, old records Exam Limitations: no limitations History of Present Illness Date Seen by Provider: August 08, 2021 Time Seen by Provider: 11:16 Initial Comments This is a 81-year-old male with a history of coronary artery disease, atrial fibrillation, congestive heart failure, factor V Leiden, DVT/PE's. Patient was at pulmonary rehab with [facility] today and he was having increased shortness of breath with some intermittent chest pain. After completing pulmonary rehab he went to his primary care provider and was evaluated by Dr. Funk. Dr. Funk referred him to the emergency department as he feels that he may be in atrial fibrillation again. Patient states that he has been having intermittent chest pain with shortness of breath over the past several months, ever since he was diagnosed with PEs. He has been in pulmonary rehab for the past 5 weeks but he does not feel that he has made any improvement. Denies fever, chills, nauesa, vomiting, diarrhea, abdominal pain, dysuria, or hematuria. Allergies and Home Medications Allergies Coded Allergies: Sulfa (Sulfonamide Antibiotics) (Verified Allergy, Unknown, 04/06/19) hydrochlorothiazide (Verified Allergy, Unknown, 04/06/19) ketoprofen (Verified Allergy, Unknown, 04/06/19) nabumetone (Verified Allergy, Unknown, 04/06/19) rosuvastatin (Verified Allergy, Unknown, 04/06/19) morphine (Unverified Adverse Reaction, Mild, VOMITING, 04/06/19) Patient Home Medication List Home Medication List Reviewed: Yes Acetaminophen (Tylenol Extra Strength) 500 Mg Tablet, 1,000 MG PO Q6H PRN for PAIN-MILD (1-4), (Reported) Entered as Reported by: CARIDAD DE LA CRUZ on 07/03/20 1551 Albuterol Sulfate (Ventolin Hfa) 18 Gm Hfa.aer.ad, 2 PUFF INH Q6H PRN for SHORTNESS OF BREATH, (Reported) Entered as Reported by: MELINA REESE on 04/26/21 1007 Albuterol Sulfate (Albuterol Sulfate) 2.5 Mg/3 Ml Vial.neb, 3 ML NEB Q6H PRN for SHORTNESS OF BREATH Prescribed by: KATHLEEN MORRISON on 04/27/21 1138 Amlodipine Besylate (Amlodipine Besylate) 5 Mg Tablet, 5 MG PO DAILY, (Reported) Entered as Reported by: AKILAH TREVINO on 03/20/17 1436 Aspirin (Aspirin) 81 Mg Tab.chew, 81 MG PO DAILY, (Reported) Entered as Reported by: MELINA REESE on 04/26/21 1007 Cefdinir (Cefdinir) 300 Mg Capsule, 300 MG PO BID Prescribed by: KATHLEEN MORRISON on 04/27/21 1112 Colchicine (Colchicine) 0.6 Mg Tablet, 0.6 MG PO BID PRN for GOUT FLARE, (Reported) Entered as Reported by: MELINA REESE on 04/26/21 1007 Docusate Sodium (Docusate Sodium) 100 Mg Capsule, 100 MG PO BID PRN for CONST IPATION-1ST LINE, (Reported) Entered as Reported by: MELINA REESE on 04/26/21 1010 Famotidine (Pepcid AC) 10 Mg Tablet, 10 MG PO DAILY, (Reported) Entered as Reported by: MELINA REESE on 04/26/21 1007 Furosemide (Furosemide) 40 Mg Tablet, 40 MG PO DAILY, (Reported) Entered as Reported by: AKILAH TREVINO on 03/20/17 143 Isosorbide Mononitrate (Isosorbide Mononitrate ER) 120 Mg Tab.er.24h, 120 MG PO DAILY, (Reported) Entered as Reported by: AKILAH TREVINO on 03/20/17 1431 Loratadine (Loratadine) 10 Mg Tablet, 10 MG PO DAILY, (Reported) Entered as Reported by: MELINA REESE on 04/26/21 1007 Nitroglycerin (Nitroglycerin) 0.4 Mg Tab.subl, 0.4 MG SL UD PRN for CHEST PAIN, (Reported) Entered as Reported by: MELINA REESE on 04/26/21 1007 Potassium Gluconate (Potassium) 99 Mg Tablet, 99 MG PO DAILY, (Reported) Entered as Reported by: AKILAH TREVINO on 03/20/17 1436 Rivaroxaban (Xarelto Tablet) 20 Mg Tablet, 20 MG PO HS, (Reported) Entered as Reported by: AKILAH TREVINO on 03/20/17 1436 Sour Chan Extract (Tart Chan Extract) 1,000 Mg Capsule, 1,000 MG PO BID, (Reported) Entered as Reported by: MELINA REESE on 04/26/21 1007 Telmisartan (Telmisartan) 80 Mg Tablet, 80 MG PO DAILY, (Reported) Entered as Reported by: MELINA REESE on 04/26/21 1007 Review of Systems Review of Systems Constitutional: see HPI EENTM: No Symptoms Reported Respiratory: Cough, Orthopnea, Shortness of Air, SOA With Exertion Cardiovascular: Chest Pain, Edema, Irregular Heart Rate Gastrointestinal: No Symptoms Reported Genitourinary: No Symptoms Reported Musculoskeletal: no symptoms reported Skin: no symptoms reported Psychiatric/Neurological: No Symptoms Reported Endocrine: No Symptoms Reported Hematologic/Lymphatic: No Symptoms Reported Past Invbdgc-Lvvvkl-Mcsyja Hx Immunizations Up To Date Tetanus Booster (TDap): Unknown First/Initial COVID19 Vaccinat: APR 05 Second COVID19 Vaccination Estiven: MAY 07 Seasonal Allergies Seasonal Allergies: Yes Past Medical History Surgery/Hospitalization HX: UMBILICAL HERNIA, URETHRAL ANEURYSM, PE, Surgeries: Yes (kidney) Abdominal, Coronary Stent, Vascular Surgery Respiratory: No Sleep Apnea, COPD Currently Using CPAP: No Currently Using BIPAP: No Cardiac: Yes (5 heart stent, left bundle branch block, chf) High Cholesterol, Hypertension Neurological: No Reproductive Disorders: No Genitourinary: No Gastrointestinal: No Musculoskeletal: Yes Arthritis, Gout Endocrine: No HEENT: No Hearing Impairment: Hard of Hearing Cancer: No Psychosocial: No Integumentary: No Blood Disorders: Yes Adverse Reaction/Blood Tranf: No Family Medical History Arthritis 19 MOTHER Asthma 19 FATHER Cataracts 19 MOTHER Completed stroke Hypertension 19 FATHER Myocardial infarction 19 MOTHER Seizure disorder DAUGHTERS Severe allergy 19 FATHER No Family History of: AIDS Abdominal aortic aneurysm Rishi's disease Alcoholism Alzheimer's disease Aphasia Cancer of mouth Cardiovascular disease Colon cancer Congenital disease Congenital heart disease Coronary thrombosis Cystic fibrosis Deafness or hearing loss Dementia Diabetes mellitus Drug abuse Dysphasia Fibrocystic disease of breast Gastroenteritis Glaucoma Headache disorder Hypercholesterolemia Infertility Kidney disease Neoplasm Not obtainable due to adoption Osteoporosis Parkinson's disease Prostate cancer Psychosocial problem Respiratory disorder Thyroid disease Tuberculosis Visual disorder Asthma, Heart Disease Physical Exam Vital Signs Vital Signs - First Documented 08/08/21 11:39 Temp 36.4 Pulse 83 Resp 24 B/P (MAP) 167/83 (111) Pulse Ox 96 O2 Delivery Room Air Capillary Refill : Height, Weight, BMI Height: 6'0" Weight: 265lbs. 0.8oz. 120.310506vc; 36.35 BMI Method:Stated General Appearance: No Apparent Distress, WD/WN HEENT: PERRL/EOMI, Normal ENT Inspection, Pharynx Normal, Moist Mucous Membranes Neck: Full Range of Motion, Normal Inspection, Supple Respiratory: Chest Non Tender, Crackles (bilateral bases ), Decreased Breath Sounds Cardiovascular: No Murmur, Normal Peripheral Pulses, Other (Regularly irregular ) Gastrointestinal: Normal Bowel Sounds, No Organomegaly, Non Tender, Soft Extremity: Normal Capillary Refill, Normal Inspection, Non Tender, Pedal Edema (1+) Neurologic/Psychiatric: Alert, Oriented x3, No Motor/Sensory Deficits, Normal Mood/Affect, cardiac rehabilitation specialist II-XII Norm as Tested Skin: Normal Color, Warm/Dry Progress/Results/Core Measures Results/Orders Lab Results Laboratory Tests Test 08/08/21 11:27 Range/Units White Blood Count 6.6 4.3-11.0 10^3/uL Red Blood Count 5.17 4.30-5.52 10^6/uL Hemoglobin 14.8 13.3-17.7 g/dL Hematocrit 44 40-54 % Mean Corpuscular Volume 85 80-99 fL Mean Corpuscular Hemoglobin 29 25-34 pg Mean Corpuscular Hemoglobin Concent 34 32-36 g/dL Red Cell Distribution Width 15.2 H 10.0-14.5 % Platelet Count 202 130-400 10^3/uL Mean Platelet Volume 9.2 9.0-12.2 fL Immature Granulocyte % (Auto) 1 % Neutrophils (%) (Auto) 69 42-75 % Lymphocytes (%) (Auto) 12 12-44 % Monocytes (%) (Auto) 11 0-12 % Eosinophils (%) (Auto) 6 0-10 % Basophils (%) (Auto) 1 0-10 % Neutrophils # (Auto) 4.6 1.8-7.8 10^3/uL Lymphocytes # (Auto) 0.8 L 1.0-4.0 10^3/uL Monocytes # (Auto) 0.7 0.0-1.0 10^3/uL Eosinophils # (Auto) 0.4 H 0.0-0.3 10^3/uL Basophils # (Auto) 0.1 0.0-0.1 10^3/uL Immature Granulocyte # (Auto) 0.0 0.0-0.1 10^3/uL Prothrombin Time 20.1 H 12.2-14.7 SEC INR Comment 1.7 H 0.8-1.4 Activated Partial Thromboplast Time 47 H 24-35 SEC Sodium Level 138 135-145 MMOL/L Potassium Level 3.7 3.6-5.0 MMOL/L Chloride Level 107 98-107 MMOL/L Carbon Dioxide Level 19 L 21-32 MMOL/L Anion Gap 12 5-14 MMOL/L Blood Urea Nitrogen 11 7-18 MG/DL Creatinine 0.96 0.60-1.30 MG/DL Estimat Glomerular Filtration Rate 80 BUN/Creatinine Ratio 11 Glucose Level 179 H 70-105 MG/DL Calcium Level 8.7 8.5-10.1 MG/DL Corrected Calcium 8.8 8.5-10.1 MG/DL Magnesium Level 1.9 1.6-2.4 MG/DL Total Bilirubin 1.2 H 0.1-1.0 MG/DL Aspartate Amino Transf (AST/SGOT) 16 5-34 U/L Alanine Aminotransferase (ALT/SGPT) 21 0-55 U/L Alkaline Phosphatase 82 40-136 U/L Myoglobin 73.3 10.0-92.0 NG/ML Troponin I 0.037 H <0.028 NG/ML B-Type Natriuretic Peptide 525.0 H <100.0 PG/ML Total Protein 6.5 6.4-8.2 GM/DL Albumin 3.9 3.2-4.5 GM/DL My Orders Orders - NIKKO STEWART LOBBY CONCIERGE Bnp Kavon (08/08/21 11:24) Ed Admission (Communication) (08/08/21 13:24) Vital Signs/I&O 08/08/21 11:39 Temp 36.4 Pulse 83 Resp 24 B/P (MAP) 167/83 (111) Pulse Ox 96 O2 Delivery Room Air Progress Progress Note : Progress Note Patient is a poor historian making it difficult to obtain the history of present illness. Was able to determine that patient has been having intermittent shortness of breath and chest pain over the past 5 months. States that he "just doesn't feel well" when these episodes occur. He is unable to describe the quality of his pain. At this time he is not complaining of any active chest pain. His biggest concern is his persistent shortness of breath despite participating in pulmonary rehab. He states that he was recently on Cartia 180 but he was changed to telmisartan 80 mg and he is unsure who made this change. States that his would know more. Orders placed for cardiac work-up. His EKG does show atrial fibrillation. When he was at Dr. Funk's office he was noted to have paroxysmal A. fib in office, so he was referred to ER. Spouse is present in room and was able to provide medication list. States that patient was never on cardia he was actually on the trade for telmisartan. They state that he has never taken any antiarrhythmic medications to their knowledge. His labs and CXR were reviewed. He has cardiomegaly with a small left pleural effusion. This could be attributing to his persistent shortness of breath. He has slight elevation in his troponin. His EKG is A. fib with left bundle branch block, rate is controlled in the 60s to 70s. Discussed case with Dr. Morrison will admit with cardiology consultation. Called Dr. Gastelum with cardiology and consulted. States that he will look into the patient's records and evaluate if any medication adjustment is required. Plan of care reviewed with patient and spouse and they are agreeable with plan. Initial ECG Impression Date: August 08, 2021 Initial ECG Impression Time: 11:17 Initial ECG Rate: 73 Initial ECG Rhythm: A Fib/Flutter Initial ECG Comparisson: Unchanged Diagnostic Imaging Diagonstic Imaging: Xray Plain Films/CT/US/NM/MRI: chest Comments [facility] [place] NAME: [facility]ONE [facility] REC#: [id number] PT STATUS: REG ER : 1940 PHYSICIAN: MALICK VILLATORO MD ADMIT DATE: 08/08/21/ER Draft Date of Exam:08/08/21 CHEST 1 VIEW, AP/PA ONLY INDICATION: Atrial fibrillation. TIME OF EXAM: 11:53 AM. COMPARISON: Correlation is made with the prior chest from 04/25/2021. FINDINGS: The heart is enlarged. There is a small left effusion. The pulmonary vascularity is normal. No failure is detected. There is no pneumothorax. IMPRESSION: Cardiomegaly and small left effusion. Dictated on workstation # [id number] Dict: 08/08/21 1152 Trans: 08/08/21 1153 [id number] Interpreted by: LYNN ROBERTSON MD Electronically signed by: Reviewed: Reviewed by Me Departure Communication (Admissions) Time/Spoke to Admitting Phy: 12:14 Dr. Morrison Time/Spoke to Consulting Phy: 12:17 Dr. Gastelum Impression Primary Impression: Atrial fibrillation Qualified Codes: I48.0 - Paroxysmal atrial fibrillation Additional Impressions: Congestive heart failure (CHF) Elevated troponin Disposition: ADMITTED INPATIENT Condition: Stable Admissions Decision to Admit Reason: Admit from ER (General) Decision to Admit/Date: August 08, 2021 Time/Decision to Admit Time: 12:45 Departure-Patient Inst. Referrals: ELIAS FUNK DO (PCP/Family) Primary Care Physician NIKKO STEWART LOBBY CONCIERGE August 08, 2021 11:37
[2021-08-08 11:38] LABS: BASOPHILS # (AUTO) 0.1 10^3/uL (0.0-0.1); BASOPHILS % (AUTO) 1 % (0-10); EOSINOPHILS # (AUTO) 0.4 10^3/uL (0.0-0.3); EOSINOPHILS % (AUTO) 6 % (0-10); HEMATOCRIT 44 % (40-54); HEMOGLOBIN 14.8 g/dL (13.3-17.7); LYMPHOCYTES # (AUTO) 0.8 10^3/uL (1.0-4.0); LYMPHOCYTES % (AUTO) 12 % (12-44); MEAN CORPUSCULAR HEMOGLOBIN 29 pg (25-34); MEAN CORPUSCULAR HGB CONC 34 g/dL (32-36); MEAN CORPUSCULAR VOLUME 85 fL (80-99); MEAN PLATELET VOLUME 9.2 fL (9.0-12.2); MONOCYTES # (AUTO) 0.7 10^3/uL (0.0-1.0); MONOCYTES % (AUTO) 11 % (0-12); NEUTROPHILS # (AUTO) 4.6 10^3/uL (1.8-7.8); NEUTROPHILS % (AUTO) 69 % (42-75); PLATELET COUNT 202 10^3/uL (130-400); WHITE BLOOD COUNT 6.6 10^3/uL (4.3-11.0)
[2021-08-08 11:54] LABS: ALBUMIN 3.9 GM/DL (3.2-4.5)
--- NOTE | 2021-08-08 11:54 | Diagnostic Imaging Report ---
INDICATION: Atrial fibrillation. TIME OF EXAM: 11:53 AM. COMPARISON: Correlation is made with the prior chest from 04/25/2021. FINDINGS: The heart is enlarged. There is a small left effusion. The pulmonary vascularity is normal. No failure is detected. There is no pneumothorax. IMPRESSION: Cardiomegaly and small left effusion. Dictated by: Dictated on workstation # [id number]
[2021-08-08 11:55] LABS: INR 1.7 (0.8-1.4); POTASSIUM 3.7 MMOL/L (3.6-5.0); PROTHROMBIN TIME PATIENT 20.1 SEC (12.2-14.7)
[2021-08-08 11:56] LABS: CALCIUM 8.7 MG/DL (8.5-10.1)
[2021-08-08 11:57] LABS: TOTAL PROTEIN 6.5 GM/DL (6.4-8.2)
[2021-08-08 11:59] LABS: BILIRUBIN,TOTAL 1.2 MG/DL (0.1-1.0)
[2021-08-08 12:01] LABS: CREATININE SERUM 0.96 MG/DL (0.60-1.30)
[2021-08-08 12:04] LABS: MAGNESIUM 1.9 MG/DL (1.6-2.4)
[2021-08-08] MEDS ORDERED: ONDANSETRON 4 MG (ZOFRAN) ORAL DISSOLVE TAB PO PRN (14:15)
[2021-08-08] MEDS ORDERED: diphenhydrAMINE 25 MG TAB (BENADRYL) PO PRN (14:15)
[2021-08-08] MEDS ORDERED: HYDROmorphone 2 MG/ML VIAL (DILAUDID) IVP PRN (14:15)
[2021-08-08] MEDS ORDERED: MILK OF MAGNESIA 400 MG/5 ML 30 ML UDC PO PRN (14:15)
[2021-08-08] MEDS ORDERED: CALCIUM CARBONATE 500 MG (TUMS) TAB.CHEW PO PRN (14:15)
[2021-08-08] MEDS ORDERED: polyethylene glycoL POWDER 17 GM (MIRALAX) PACK PO PRN (14:15)
[2021-08-08] MEDS ORDERED: ANTACID SUSP 30 ML UDC (MYLANTA) PO PRN (14:15)
[2021-08-08] MEDS ORDERED: diphenhydrAMINE 50 MG/ML INJ (BENADRYL) IVP PRN (14:15)
[2021-08-08] MEDS ORDERED: ALPRAZolam 0.25 MG (XANAX) TAB PO PRN (14:15)
[2021-08-08] MEDS ORDERED: LACTULOSE SYRUP 10GM/15ML (ENULOSE) 30ML UDC PO PRN (14:15)
[2021-08-08] MEDS ORDERED: BISACODYL 10 MG SUPP (DULCOLAX) PR PRN (14:15)
[2021-08-08] MEDS ORDERED: MELATONIN 3 MG TABLET PO PRN (14:15)
--- NOTE | 2021-08-08 15:25 | History & Physical-Hospitalist ---
History of Present Illness HPI/Chief Complaint CC: SOB HPI: This is a male clinic pt of Dr. Hammond, Dr. Styles, and Dr. Zeng. Pt has a past medical history of COPD and CHF. He presented to the ER with SOB and weakness found to have elevated BNP, consistent with CHF. Pt is maintained on Xarelto and compliant with that of 20 mg daily. Overall he has been doing pretty well but went to pulmonary rehab at [facility] and felt like he has become worse and worse as the weeks have progressed at the rehab facility. He was found to have no evidence of any type of pneumonia but he does have an elevated troponin consistent with NSTEMI. Source: patient, family Exam Limitations: no limitations Date Seen 08/08/21 Time Seen by a Provider: 13:00 Attending Physician Adán Hammond DO PCP Admitting Physician: Yumi Shafer DO Attending Physician: Yumi Shafer DO Referring Physician Date of Admission August 08, 2021 at 13:26 Home Medications & Allergies Home Medications Reviewed patient Home Medication Reconciliation performed by pharmacy medication reconciliations door technician and/or nursing. Patients Allergies have been reviewed. Allergies Allergies Coded Allergies Sulfa (Sulfonamide Antibiotics) (Verified Allergy, Unknown, 04/06/19) hydrochlorothiazide (Verified Allergy, Unknown, 04/06/19) ketoprofen (Verified Allergy, Unknown, 04/06/19) nabumetone (Verified Allergy, Unknown, 04/06/19) rosuvastatin (Verified Allergy, Unknown, 04/06/19) morphine (Unverified Adverse Reaction, Mild, VOMITING, 04/06/19) Past Xgfnoeu-Qfuczp-Vwvyiq Hx Patient Social History Marrital Status: Employed/Student: retired Tobacco Use?: No Smoking Status: Former Smoker Use of E-Cig and/or Vaping dev: No Substance use?: No Alcohol Use?: No Pt feels they are or have been: No Immunizations Up To Date First/Initial COVID19 Vaccinat: APR 05 Second COVID19 Vaccination Estiven: MAY 07 Tetanus Booster (TDap): Less Than 5 Years Date of Pneumonia Vaccine: Dec 15, 2012 Seasonal Allergies Seasonal Allergies: Yes Current Status Advance Directives: No Communicates: Verbally Primary Language: Austrian Preferred Spoken Language: Austrian Is interpretation needed?: No Implanted or Applied Medical D: Stents Past Medical History Surgeries: Abdominal, Coronary Stent, Vascular Surgery Pneumonia, Sleep Apnea, COPD Currently Using CPAP: No Currently Using BIPAP: No Chronic Edema/Swelling, High Cholesterol, Hypertension Arthritis, Gout Hearing Impairment: Hard of Hearing Blood Disorders: Yes Adverse Reaction/Blood Tranf: No Family Medical History Arthritis 19 MOTHER Asthma 19 FATHER Cataracts 19 MOTHER Completed stroke Hypertension 19 FATHER Myocardial infarction 19 MOTHER Seizure disorder DAUGHTERS Severe allergy 19 FATHER No Family History of: AIDS Abdominal aortic aneurysm [place]'s disease Alcoholism Alzheimer's disease Aphasia Cancer of mouth Cardiovascular disease Colon cancer Congenital disease Congenital heart disease Coronary thrombosis Cystic fibrosis Deafness or hearing loss Dementia Diabetes mellitus Drug abuse Dysphasia Fibrocystic disease of breast Gastroenteritis Glaucoma Headache disorder Hypercholesterolemia Infertility Kidney disease Neoplasm Not obtainable due to adoption Osteoporosis Parkinson's disease Prostate cancer Psychosocial problem Respiratory disorder Thyroid disease Tuberculosis Visual disorder Asthma, Heart Disease Review of Systems Constitutional: see HPI, malaise, weakness EENTM: no symptoms reported Respiratory: dyspnea on exertion, short of breath Cardiovascular: no symptoms reported Gastrointestinal: no symptoms reported Genitourinary: no symptoms reported Musculoskeletal: no symptoms reported Skin: no symptoms reported Psychiatric/Neurological: No Symptoms Reported All Other Systems Reviewed Negative Unless Noted: Yes Physical Exam Physical Exam Vital Signs Vital Signs - First Documented 08/08/21 08/08/21 11:39 22:59 Temp 36.4 Pulse 83 Resp 24 B/P (MAP) 167/83 (111) Pulse Ox 96 O2 Delivery Room Air FiO2 21 Capillary Refill : Less Than 3 Seconds Height, Weight, BMI Height: 6'0" Weight: 265lbs. 0.8oz. 120.972005wh; 35.91 BMI Method:Stated General Appearance: No Apparent Distress, Chronically ill Eyes: Right Eye Normal Inspection, Right Eye PERRL HEENT: PERRL/EOMI, Normal ENT Inspection, Pharynx Normal, Moist Mucous Membranes Neck: Full Range of Motion, Normal Inspection, Non Tender Respiratory: Chest Non Tender, Lungs Clear, No Accessory Muscle Use, No Respiratory Distress, Decreased Breath Sounds Cardiovascular: Regular Rate, Rhythm, No Edema, No Gallop, No JVD, No Murmur, Normal Peripheral Pulses Gastrointestinal: Normal Bowel Sounds, No Organomegaly, No Pulsatile Mass, Non Tender, Soft Back: Normal Inspection, No CVA Tenderness, No Vertebral Tenderness Extremity: Normal Capillary Refill, Normal Inspection, Normal Range of Motion, Non Tender, No Calf Tenderness, No Pedal Edema Neurologic/Psychiatric: Alert, Oriented x3, No Motor/Sensory Deficits, Normal Mood/Affect Skin: Normal Color, Warm/Dry Lymphatic: No Adenopathy Results Results/Procedures Labs Laboratory Tests 08/08/21 11:27 08/09/21 05:18 Patient resulted labs reviewed. Assessment/Plan Admission Diagnosis History of aflutter and atrial flutter on telemetry -Recurrent - rate controlled - on xarelto 20 (hx of clotting disorder) - cardiology consulted -History of RISHI/Cardioversion performed 04/17/2021 Congestive heart failure Type 2 AK - mildly elevated troponin - likely secondary to hypoxemia - will monitor closely - hx of CAD, multiple stents placed Factor V Leiden - hx of DVT/PE - takes xarelto 20 daily HTN - resume home amlodipine and telmisartan HLD - unable to tolerate statin d/t myalgia Plan: ICU Las[facility] Cardiology consult Admission Status: Observation Diagnosis/Problems Diagnosis/Problems (1) Atrial fibrillation Status: Acute Qualifiers: Atrial fibrillation type: paroxysmal Qualified Codes: I48.0 - Paroxysmal atrial fibrillation (2) Congestive heart failure (CHF) Status: Acute (3) Elevated troponin Status: Acute (4) Primary hypertension Clinical Quality Measures AMI/AHF: ASA po Prior to arrival: YUMI Temple DO August 08, 2021 15:25
[2021-08-08 15:30] LABS: TRIGLYCERIDES 178 MG/DL (<150); VLDL CHOLESTEROL 36 MG/DL (5-40)
[2021-08-08 15:35] LABS: CHOLESTEROL 183 MG/DL (< 200)
[2021-08-08 15:36] LABS: HDL CHOLESTEROL 37 MG/DL (40-60)
[2021-08-08] MEDS ORDERED: RT-ALBUTEROL HFA 8.5 GM INHALER IH PRN (16:45)
[2021-08-08] MEDS: FUROSEMIDE 40 MG/4 ML INJ (LASIX) IVP SCH (16:53)
[2021-08-08] MEDS: RIVAROXABAN 20 MG TABLET (XARELTO) PO SCH (16:53)
--- NOTE | 2021-08-08 17:15 | Consultation-Cardiology ---
HPI-Cardiology Cardiology Consultation: Date of Consultation 08/08/21 Date of Admission 08/08/21 Attending Physician Adán Hammond DO Admitting Physician Admitting Physician: Yumi Morrison DO Attending Physician: Yumi Morrison DO Consulting Physician CRESENCIO FERNANDEZ JR, MD HPI: Time Seen by a Provider: 17:11 Chief Complaint: REASON FOR CONSULTATION: Atrial fibrillation and abnormal troponin level. I had the pleasure of seeing Jimi in the intensive care unit at [facility] in [place], [place] today. He normally follows with a volcanology teacher in [place], [place]. He has a history of coronary artery disease with previous stents as well as paroxysmal atrial fibrillation and typical atrial flutter. He was actually here in April and at that time had atrial flutter and underwent a successful cardioversion. He has been participating in pulmonary rehab at [facility] due to his chronic obstructive pulmonary disease. Yesterday he was having some increasing shortness of breath. He had general malaise. Today he went to pulmonary rehab and was feeling more short of breath than usual but was able to complete the rehab program today. He was then checked by a nurse who said told him his heart was beating irregular. He then went to see his primary provider who also noticed an irregular heartbeat and recommended he come to the emergency room for further evaluation. In the emergency room his electrocardiogram was read out by the computer as atrial fibrillation. He also had a mild elevation of the troponin level. Therefore, he was admitted for further evaluation. Just a short while ago while sitting in the intensive care unit, he again had sudden onset of shortness of breath associated with chest tightness. This resolved after he short period of time. He denies paroxysmal nocturnal dyspnea, orthopnea, or palpitations. He has had some occasional lightheaded spells but denies any syncope. He denies lower extremity edema. Because of the abnormal troponin level and questionable atrial fibrillation, a cardiology consultation was requested. Certain portions of this document may have been dictated utilizing voice recognition technology. Inherent to this technology, typographical and grammatical errors may exist. As much as I am diligent to identify and correct these mistakes, some errors may remain in the document. Review of Systems-Cardiology Review of Systems Other comments Review of 10 organ systems is as per the history of present illness, otherwise negative. DMI-Avojdz-Aixyqm Hx Patient Social History Marrital Status: 2nd Hand Smoke Exposure: No Have you traveled recently?: No Alcohol Use?: No Pt feels they are or have been: No Immunizations Up To Date Tetanus Booster (TDap): Unknown Date of Pneumonia Vaccine: Dec 15, 2012 Past Medical History PMH As described under Assessment. Family Medical History Family History: Arthritis 19 MOTHER Asthma 19 FATHER Cataracts 19 MOTHER Completed stroke Hypertension 19 FATHER Myocardial infarction 19 MOTHER Seizure disorder DAUGHTERS Severe allergy 19 FATHER No Family History of: AIDS Abdominal aortic aneurysm Van Zandt's disease Alcoholism Alzheimer's disease Aphasia Cancer of mouth Cardiovascular disease Colon cancer Congenital disease Congenital heart disease Coronary thrombosis Cystic fibrosis Deafness or hearing loss Dementia Diabetes mellitus Drug abuse Dysphasia Fibrocystic disease of breast Gastroenteritis Glaucoma Headache disorder Hypercholesterolemia Infertility Kidney disease Neoplasm Not obtainable due to adoption Osteoporosis Parkinson's disease Prostate cancer Psychosocial problem Respiratory disorder Thyroid disease Tuberculosis Visual disorder Allergies and Home Medications Allergies Coded Allergies: Sulfa (Sulfonamide Antibiotics) (Verified Allergy, Unknown, 04/06/19) hydrochlorothiazide (Verified Allergy, Unknown, 04/06/19) ketoprofen (Verified Allergy, Unknown, 04/06/19) nabumetone (Verified Allergy, Unknown, 04/06/19) rosuvastatin (Verified Allergy, Unknown, 04/06/19) morphine (Unverified Adverse Reaction, Mild, VOMITING, 04/06/19) Patient Home Medication List Home Medication List Reviewed: Yes Acetaminophen (Tylenol Extra Strength) 500 Mg Tablet, 1,000 MG PO Q6H PRN for PAIN-MILD (1-4), (Reported) Entered as Reported by: CARIDAD DE LA CRUZ on 07/03/20 1551 Albuterol Sulfate (Ventolin Hfa) 18 Gm Hfa.aer.ad, 2 PUFF INH Q6H PRN for SHORTNESS OF BREATH, (Reported) Entered as Reported by: MELINA REESE on 04/26/21 1007 Albuterol Sulfate (Albuterol Sulfate) 2.5 Mg/3 Ml Vial.neb, 3 ML NEB Q6H PRN for SHORTNESS OF BREATH Prescribed by: YUMI MORRISON on 04/27/21 1138 Amlodipine Besylate (Amlodipine Besylate) 5 Mg Tablet, 5 MG PO DAILY, (Reported) Entered as Reported by: AKILAH TREVINO on 03/20/17 1436 Aspirin (Aspirin) 81 Mg Tab.chew, 81 MG PO DAILY, (Reported) Entered as Reported by: MELINA REESE on 04/26/211006 Cefdinir (Cefdinir) 300 Mg Capsule, 300 MG PO BID Prescribed by: YUMI MORRISON on 04/27/21 1112 Colchicine (Colchicine) 0.6 Mg Tablet, 0.6 MG PO BID PRN for GOUT FLARE, (Reported) Entered as Reported by: MELINA REESE on 04/26/211006 Docusate Sodium (Docusate Sodium) 100 Mg Capsule, 100 MG PO BID PRN for CONSTIPATION-1ST LINE, (Reported) Entered as Reported by: MELINA REESE on 04/26/21 1010 Famotidine (Pepcid AC) 10 Mg Tablet, 10 MG PO DAILY, (Reported) Entered as Reported by: MELINA REESE on 04/26/211006 Furosemide (Furosemide) 40 Mg Tablet, 40 MG PO DAILY, (Reported) Entered as Reported by: AKILAH TREVINO on 03/20/17 1436 Isosorbide Mononitrate (Isosorbide Mononitrate ER) 120 Mg Tab.er.24h, 120 MG PO DAILY, (Reported) Entered as Reported by: AKILAH TREVINO on 03/20/17 1431 Loratadine (Loratadine) 10 Mg Tablet, 10 MG PO DAILY, (Reported) Entered as Reported by: MELINA REESE on 04/26/211006 Nitroglycerin (Nitroglycerin) 0.4 Mg Tab.subl, 0.4 MG SL UD PRN for CHEST PAIN, (Reported) Entered as Reported by: MELINA REESE on 04/26/211006 Potassium Gluconate (Potassium) 99 Mg Tablet, 99 MG PO DAILY, (Reported) Entered as Reported by: AKILAH TREVINO on 03/20/17 1436 Rivaroxaban (Xarelto Tablet) 20 Mg Tablet, 20 MG PO HS, (Reported) Entered as Reported by: AKILAH TREVINO on 03/20/17 143 Sour Chan Extract (Tart Chan Extract) 1,000 Mg Capsule, 1,000 MG PO BID, (Reported) Entered as Reported by: MELINA REESE on 04/26/211006 Telmisartan (Telmisartan) 80 Mg Tablet, 80 MG PO DAILY, (Reported) Entered as Reported by: MELINA REESE on 04/26/21 1007 Exam Vital Signs Vital Signs Date Time Temp Pulse Resp B/P (MAP) Pulse Ox O2 Delivery O2 Flow Rate FiO2 08/08/21 16:00 54 24 153/72 (99) 91 Room Air 08/08/21 15:51 36.5 Physical Exam General: Alert. No acute distress. Well nourished. He is obese. He appears younger than his stated age. Eye: Extraocular movements are intact. Conjunctivae are clear. There are no xanthelasma. HENT: Normocephalic. Atraumatic. Carotid pulsations 2/2 without bruits. Neck: Jugular venous pressure does not appear elevated. No thyromegaly apprecia ajay. Respiratory: Lungs are clear to auscultation. Respirations are non-labored. Breath sounds are equal. Symmetrical chest wall expansion. Cardiovascular: Normal rate. Regular rhythm. Distant S1/S2. No murmur. No gallop. Point of maximal impulse is not appear displaced. Good pulses equal in all extremities. Trace bilateral pretibial edema. Gastrointestinal: Soft. Normal bowel sounds. Skin: Skin turgor is normal. There is no pallor. Musculoskeletal: No kyphosis or scoliosis appreciated. Neurologic: Alert and oriented to person, place, time. Cranial nerves 3-12 appear grossly intact. The patient has good motor tone strength in the upper and lower extremities bilaterally. Psychiatric: Cooperative. Appropriate mood & affect. Labs Laboratory Tests Test 08/08/21 11:27 08/08/21 14:28 Range/Units White Blood Count 6.6 4.3-11.0 10^3/uL Red Blood Count 5.17 4.30-5.52 10^6/uL Hemoglobin 14.8 13.3-17.7 g/dL Hematocrit 44 40-54 % Mean Corpuscular Volume 85 80-99 fL Mean Corpuscular Hemoglobin 29 25-34 pg Mean Corpuscular Hemoglobin Concent 34 32-36 g/dL Red Cell Distribution Width 15.2 H 10.0-14.5 % Platelet Count 202 130-400 10^3/uL Mean Platelet Volume 9.2 9.0-12.2 fL Immature Granulocyte % (Auto) 1 % Neutrophils (%) (Auto) 69 42-75 % Lymphocytes (%) (Auto) 12 12-44 % Monocytes (%) (Auto) 11 0-12 % Eosinophils (%) (Auto) 6 0-10 % Basophils (%) (Auto) 1 0-10 % Neutrophils # (Auto) 4.6 1.8-7.8 10^3/uL Lymphocytes # (Auto) 0.8 L 1.0-4.0 10^3/uL Monocytes # (Auto) 0.7 0.0-1.0 10^3/uL Eosinophils # (Auto) 0.4 H 0.0-0.3 10^3/uL Basophils # (Auto) 0.1 0.0-0.1 10^3/uL Immature Granulocyte # (Auto) 0.0 0.0-0.1 10^3/uL Prothrombin Time 20.1 H 12.2-14.7 SEC INR Comment 1.7 H 0.8-1.4 Activated Partial Thromboplast Time 47 H 24-35 SEC Sodium Level 138 135-145 MMOL/L Potassium Level 3.7 3.6-5.0 MMOL/L Chloride Level 107 98-107 MMOL/L Carbon Dioxide Level 19 L 21-32 MMOL/L Anion Gap 12 5-14 MMOL/L Blood Urea Nitrogen 11 7-18 MG/DL Creatinine 0.96 0.60-1.30 MG/DL Estimat Glomerular Filtration Rate 80 BUN/Creatinine Ratio 11 Glucose Level 179 H 70-105 MG/DL Calcium Level 8.7 8.5-10.1 MG/DL Corrected Calcium 8.8 8.5-10.1 MG/DL Magnesium Level 1.9 1.6-2.4 MG/DL Total Bilirubin 1.2 H 0.1-1.0 MG/DL Aspartate Amino Transf (AST/SGOT) 16 5-34 U/L Alanine Aminotransferase (ALT/SGPT) 21 0-55 U/L Alkaline Phosphatase 82 40-136 U/L Myoglobin 73.3 10.0-92.0 NG/ML Troponin I 0.037 H <0.028 NG/ML B-Type Natriuretic Peptide 525.0 H <100.0 PG/ML Total Protein 6.5 6.4-8.2 GM/DL Albumin 3.9 3.2-4.5 GM/DL Triglycerides Level 178 H <150 MG/DL Cholesterol Level 183 < 200 MG/DL LDL Cholesterol Direct 140 H 1-129 MG/DL VLDL Cholesterol 36 5-40 MG/DL HDL Cholesterol 37 L 40-60 MG/DL ECG Impression ECG Comment Sinus rhythm with first-degree AV block, and occasional premature atrial and ventricular complexes. Diagnosis/Problems Diagnosis/Problems (1) Paroxysmal atrial fibrillation Assessment & Plan: Although the electrocardiogram computer stated he was in atrial fibrillation, this actually appears to be sinus rhythm with first-degree AV block with atrial and ventricular ectopy. I recommend he continue on Xarelto for stroke prophylaxis. He does not appear to be on any rate controlling agents at home. He should continue on telemetry monitoring. (2) Coronary artery disease with unstable angina pectoris Assessment & Plan: He has been taking long-acting nitrates at home. He has borderline elevation in light of the troponin level from the emergency room. I have ordered a follow-up troponin level. There are no ischemic changes on his electrocardiogram. At this point in time, I recommend we continue guideline directed medical therapy. I do not see any indication for a cardiac catheterization or stress test at this point in time. If his troponin level continues to rise, then we may need to consider an ischemic evaluation. I should note, he does not take aspirin because he is on Xarelto for atrial fibrillation and his factor V disorder. I will take the liberty of starting him on a statin medication. (3) Chronic heart failure with preserved ejection fraction (HFpEF) Assessment & Plan: He seems to have chronic elevation of his BNP level. There was not any overt pulmonary congestion on his chest x-ray although he did have a small pleural effusion. He had a transesophageal echocardiogram in April that showed normal ejection fraction. I suspect the majority of his dyspnea is related to his chronic obstructive pulmonary disease. I would just resume his outpatient dose of oral furosemide and his antihypertensive medications. (4) Primary hypertension Assessment & Plan: Resume outpatient antihypertensive medication. (5) Mixed hyperlipidemia Assessment & Plan: His LDL level was elevated. I recommend he take a statin medication other than rosuvastatin which appears as though he may have had a reaction to in the past. (6) Acute respiratory failure with hypoxia Status: Acute Assessment & Plan: I suspect this is primarily related to his chronic obstructive pulmonary disease. CRESENCIO FERNANDEZ JR, MD August 08, 2021 17:15
[2021-08-08] MEDS: ACETAMINOPHEN 325 MG TABLET PO PRN (17:42)
[2021-08-08] MEDS: inSUlin ASPART (NovoLOG) 1 UNIT/0.01 ML (CHARGE PER UNIT) SC SCH ×2 (17:59→21:39)
--- NOTE | 2021-08-08 18:05 | Tele-ICU Consult ---
History of Present Illness History of Present Illness Date Seen by Provider: August 08, 2021 Time Seen by Provider: 18:05 Date of Admission (Tele-ICU Physician , consultation) Available chart/ vitals / labs / Images reviewed H&P is from ER notes Patient's information available about PMH, Shx, Fhx allergy reviewed in EMR. ROS as per chart and RN report Now in ICU, hemodynamically stable Video assessment done using teleICU camera, rest of exam as per RN Discussed with RN. Consultants: Hospital course: A/P Acute respiratory failure with hypoxia adis ER - on ra now , cxr with tiny effusio - monitor PAF with first-degree AV block - as per cards -on on Xarelto CAD - follow trops , as per cards CHF - preserved EF h/o factor V Leiden, DVT/PE's - on xarelto , INR 1.7 Lines : (Central Line Necessity Reviewed) Figueroa: OG: Nutrition: Analgesia: Anxiety/ delirium VTE Prophylaxis: xarelto Stress Ulcer Prophylaxis: Plans in collaboration with bedside consultants and IM MDs. Discussed with RN to reach out if any questions or concerns A total of 20 minutes of critical care time was devoted to this patient today, required to treat and/or prevent further deterioration of critical care condition ( as above ) . Allergies and Home Medications Allergies Coded Allergies: Sulfa (Sulfonamide Antibiotics) (Verified Allergy, Unknown, 04/06/19) hydrochlorothiazide (Verified Allergy, Unknown, 04/06/19) ketoprofen (Verified Allergy, Unknown, 04/06/19) nabumetone (Verified Allergy, Unknown, 04/06/19) rosuvastatin (Verified Allergy, Unknown, 04/06/19) morphine (Unverified Adverse Reaction, Mild, VOMITING, 04/06/19) Home Medications Acetaminophen 500 Mg Tablet, 1,000 MG PO Q6H PRN for PAIN-MILD (1-4), (Reported) TAKES 2 (500MG) TABLETS Albuterol Sulfate 18 Gm Hfa.aer.ad, 2 PUFF INH Q6H PRN for SHORTNESS OF BREATH, (Reported) Albuterol Sulfate 2.5 Mg/3 Ml Vial.neb, 3 ML NEB Q6H PRN for SHORTNESS OF BREATH Prescribed by: KATHLEEN MORRISON on 04/27/21 1138 Amlodipine Besylate 5 Mg Tablet, 5 MG PO DAILY, (Reported) Aspirin 81 Mg Tab.chew, 81 MG PO DAILY, (Reported) Cefdinir 300 Mg Capsule, 300 MG PO BID Prescribed by: KATHLEEN MORRISON on 04/27/21 1112 Colchicine 0.6 Mg Tablet, 0.6 MG PO BID PRN for GOUT FLARE, (Reported) Docusate Sodium 100 Mg Capsule, 100 MG PO BID PRN for CONSTIPATION-1ST LINE, (Re ported) Famotidine 10 Mg Tablet, 10 MG PO DAILY, (Reported) Furosemide 40 Mg Tablet, 40 MG PO DAILY, (Reported) Isosorbide Mononitrate 120 Mg Tab.er.24h, 120 MG PO DAILY, (Reported) Loratadine 10 Mg Tablet, 10 MG PO DAILY, (Reported) Nitroglycerin 0.4 Mg Tab.subl, 0.4 MG SL UD PRN for CHEST PAIN, (Reported) Potassium Gluconate 99 Mg Tablet, 99 MG PO DAILY, (Reported) Rivaroxaban 20 Mg Tablet, 20 MG PO HS, (Reported) Sour Chan Extract 1,000 Mg Capsule, 1,000 MG PO BID, (Reported) Telmisartan 80 Mg Tablet, 80 MG PO DAILY, (Reported) Past Medical/Social/Family Hx Patient Social History Marrital Status: Tobacco Use?: No Use of E-Cig and/or Vaping dev: No Substance use?: No Alcohol Use?: No Pt stated abuse/neglect: No Immunizations Up To Date Influenza Vaccine Up-to-Date: Yes; Up-to-Date First/Initial COVID19 Vaccinat: APR 05 Second COVID19 Vaccination Estiven: MAY 07 Tetanus Booster (TDap): Less Than 5 Years Date of Pneumonia Vaccine: Dec 15, 2012 Current Status Advance Directives: No Communicates: Verbally Primary Language: [place] Leonean Preferred Spoken Language: [place]an Is interpretation needed?: No Implanted or Applied Medical D: Stents Review of Systems Constitutional: see HPI Focused Exam Height, Weight, BMI Height: 6'0" Weight: 265lbs. 0.8oz. 120.063002je; 35.91 BMI Method:Stated Exam Exam Patient acknowledged, consented, and participated in this virtual visit which was conducted using real time audio/video Vital Signs Date Time Temp Pulse Resp B/P (MAP) Pulse Ox O2 Delivery O2 Flow Rate FiO2 08/08/21 17:46 144/76 (98) 08/08/21 17:00 70 23 200/105 (136) 97 Room Air 08/08/21 16:00 54 24 153/72 (99) 91 Room Air 08/08/21 15:51 36.5 60 20 137/70 (92) 98 08/08/21 15:00 56 33 95 Room Air 08/08/21 14:29 36.4 61 24 156/78 (104) 96 Room Air 08/08/21 14:27 62 08/08/21 14:15 155/79 (104) 08/08/21 13:57 61 24 156/78 96 Room Air 08/08/21 11:39 36.4 83 24 167/83 (111) 96 Room Air Height & Weight Height: 6'0" Weight: 265lbs. 0.8oz. 120.856310an; 35.91 BMI Method:Stated General Appearance: No Apparent Distress, WD/WN HEENT: PERRL/EOMI, Normal ENT Inspection, Pharynx Normal, Moist Mucous Membranes Neck: Full Range of Motion, Normal Inspection, Supple Respiratory: Chest Non Tender, Crackles (bilateral bases ), Decreased Breath Sounds Cardiovascular: No Murmur, Normal Peripheral Pulses, Other (Regularly irregular ) Capillary Refill: Less Than 3 Seconds Extremity: Normal Capillary Refill, Normal Inspection, Non Tender, Pedal Edema (1+) Neurologic/Psychiatric: Alert, Oriented x3, No Motor/Sensory Deficits, Normal Mood/Affect, automatic trimming sewer II-XII Norm as Tested Skin: Normal Color, Warm/Dry Results Lab Laboratory Tests 08/08/21 11:27 Assessment/Plan Assessment/Plan ` BRENDA KIRKPATRICK MD August 08, 2021 18:05
[2021-08-08] MEDS: DOCUSATE SODIUM 100 MG (COLACE) CAP PO SCH (20:04)
[2021-08-08] MEDS: SENNOSIDES 8.6 MG (SENOKOT) TAB PO SCH (20:04)
[2021-08-08] MEDS ORDERED: RT-ALBUTEROL SULF 2.5 MG/3 ML PRE-MIX VIAL INH SCH (23:30)
[2021-08-09 02:45] VITALS: BP 157/84
[2021-08-09] MEDS ORDERED: RT-ALBUTEROL SULF 2.5 MG/3 ML PRE-MIX VIAL INH SCH (03:00)
[2021-08-09] MEDS ORDERED: RT-ALBUTEROL SULF 2.5 MG/3 ML PRE-MIX VIAL INH PRN (03:30)
[2021-08-09] MEDS ORDERED: KCL 20 MEQ TAB (K-DUR) PO SCH (06:00)
[2021-08-09] MEDS ORDERED: POTASSIUM CL 10MEQ/50ML IVPB 50 ML IV SCH (06:00)
[2021-08-09] MEDS ORDERED: MAGNESIUM 1 GM/100 ML IVPB 100 ML IV SCH (06:00)
[2021-08-09 06:03] LABS: BASOPHILS # (AUTO) 0.1 10^3/uL (0.0-0.1); BASOPHILS % (AUTO) 1 % (0-10); EOSINOPHILS # (AUTO) 0.4 10^3/uL (0.0-0.3); EOSINOPHILS % (AUTO) 6 % (0-10); HEMATOCRIT 43 % (40-54); HEMOGLOBIN 14.6 g/dL (13.3-17.7); LYMPHOCYTES % (AUTO) 14 % (12-44); MEAN CORPUSCULAR HEMOGLOBIN 29 pg (25-34); MEAN CORPUSCULAR HGB CONC 34 g/dL (32-36); MEAN CORPUSCULAR VOLUME 85 fL (80-99); MONOCYTES % (AUTO) 14 % (0-12); NEUTROPHILS # (AUTO) 4.5 10^3/uL (1.8-7.8); NEUTROPHILS % (AUTO) 65 % (42-75); PLATELET COUNT 201 10^3/uL (130-400)
[2021-08-09 06:27] LABS: ALBUMIN 3.8 GM/DL (3.2-4.5); POTASSIUM 3.7 MMOL/L (3.6-5.0)
[2021-08-09 06:28] LABS: CALCIUM 8.9 MG/DL (8.5-10.1)
[2021-08-09 06:29] LABS: TOTAL PROTEIN 6.2 GM/DL (6.4-8.2)
[2021-08-09 06:31] LABS: BILIRUBIN,TOTAL 1.1 MG/DL (0.1-1.0)
[2021-08-09 06:32] LABS: PHOSPHORUS 2.8 MG/DL (2.3-4.7)
[2021-08-09 06:33] LABS: CREATININE SERUM 1.03 MG/DL (0.60-1.30)
--- NOTE | 2021-08-09 06:34 | Progress Note - Hospitalist ---
Subjective HPI/CC On Admission Date Seen by Provider: August 09, 2021 Time Seen by Provider: 11:00 CC: SOB HPI: This is a male clinic pt of Dr. Hammond, Dr. Styles, and Dr. Zeng. Pt has a past medical history of COPD and CHF. He presented to the ER with SOB and weakness found to have elevated BNP, consistent with CHF. Pt is maintained on Xarelto and compliant with that of 20 mg daily. Overall he has been doing pretty well but went to pulmonary [place] [facility] and felt like he has become worse and worse as the weeks have progressed at the rehab facility. He was found to have no evidence of any type of pneumonia but he does have an elevated troponin consistent with NSTEMI. Subjective/Events-last exam Pt is having a lot of issues Urinary retention and requiring catheter placement now with hematuria Transferring to 4th floor Counseled him and his regarding his medical issues with heart failure and COPD Review of Systems General: Fatigue, Malaise Pulmonary: Dyspnea Genitourinary: Hematuria Objective Exam Vital Signs Vital Signs Date Time Temp Pulse Resp B/P (MAP) Pulse Ox O2 Delivery O2 Flow Rate FiO2 08/10/21 04:59 36.3 64 20 140/65 (90) 94 Room Air 08/08/21 22:59 21 Capillary Refill : Less Than 3 Seconds General Appearance: No Apparent Distress, WD/WN, Chronically ill Respiratory: No Accessory Muscle Use, No Respiratory Distress, Decreased Breath Sounds Cardiovascular: Regular Rate, Rhythm Neurologic/Psychiatric: Alert, Oriented x3 Results/Procedures Lab Patient resulted labs reviewed. Assessment/Plan Assessment and Plan Assess & Plan/Chief Complaint History of aflutter and atrial flutter on telemetry -Recurrent - rate controlled - on xarelto 20 (hx of clotting disorder) - cardiology consulted -History of RISHI/Cardioversion performed 04/17/2021 Congestive heart failure Type 2 RI - mildly elevated troponin - likely secondary to hypoxemia - will monitor closely - hx of CAD, multiple stents placed Factor V Leiden - hx of DVT/PE - takes xarelto 20 daily HTN - resume home amlodipine and telmisartan HLD - unable to tolerate statin d/t myalgia Hematuria Monitor closely Plan: ICU [facility] Cardiology consult Diagnosis/Problems Diagnosis/Problems (1) Atrial fibrillation Status: Acute Qualifiers: Atrial fibrillation type: paroxysmal Qualified Codes: I48.0 - Paroxysmal atrial fibrillation (2) Congestive heart failure (CHF) Status: Acute (3) Elevated troponin Status: Acute (4) Primary hypertension Clinical Quality Measures AMI/AHF: ASA po Prior to arrival: KATHLEEN Temple DO August 09, 2021 06:34
[2021-08-09] MEDS: inSUlin ASPART (NovoLOG) 1 UNIT/0.01 ML (CHARGE PER UNIT) SC SCH ×4 (06:49→21:37)
[2021-08-09 08:00] VITALS: BP 152/76
[2021-08-09] MEDS ORDERED: PANTOPRAZOLE 40 MG (PROTONIX) VIAL IV SCH (09:00)
[2021-08-09] MEDS: FUROSEMIDE 40 MG/4 ML INJ (LASIX) IVP SCH ×2 (09:07→16:57)
[2021-08-09] MEDS: ASPIRIN E.C. 81 MG (ECOTRIN) TAB PO SCH (09:10)
[2021-08-09] MEDS: SENNOSIDES 8.6 MG (SENOKOT) TAB PO SCH ×2 (09:13→21:34)
[2021-08-09] MEDS: DOCUSATE SODIUM 100 MG (COLACE) CAP PO SCH ×2 (09:13→21:34)
[2021-08-09] MEDS ORDERED: LIDOCAINE UROJET 2% GEL 10 ML PKG ONE (10:06)
[2021-08-09] MEDS ORDERED: CHOL-34 PO (10:54)
[2021-08-09] MEDS ORDERED: ALB0.5V INH (10:54)
[2021-08-09] MEDS ORDERED: FAMO20TA5 PO (10:54)
--- NOTE | 2021-08-09 11:38 | Diagnostic Imaging Report ---
INDICATION: Shortness of breath. Comparison with 04/27/2021. FINDINGS: There continues to be enlargement of the cardiac silhouette which is unchanged. There has been clearing of pulmonary venous congestive changes and clearing of interstitial infiltrates. Right pleural effusion is clear. Small residual left pleural effusion. IMPRESSION: Overall appearance is improved compared with April exam. Continued cardiomegaly with small left basilar effusion. Dictated by: Dictated on workstation # [id number]
[2021-08-09] MEDS: RT-ALBUTEROL SULF 2.5 MG/3 ML PRE-MIX VIAL INH SCH ×3 (11:56→19:18)
[2021-08-09 12:29] VITALS: BP 188/93
[2021-08-09 15:03] VITALS: BP 164/70
[2021-08-09] MEDS: LOSARTAN 100 MG (COZAAR) TABLET PO SCH (16:54)
[2021-08-09] MEDS: RIVAROXABAN 20 MG TABLET (XARELTO) PO SCH (16:55)
[2021-08-09] MEDS: ISOSORBIDE MONONITRATE 60 MG (IMDUR) TAB PO SCH (16:55)
[2021-08-09] MEDS: amLODIPine 5 MG (NORVASC) TAB PO SCH (16:55)
--- NOTE | 2021-08-09 19:44 | Cardiology Progress Note ---
Progress Note-Cardiology Events since last exam Date Seen by Provider: August 09, 2021 Time Seen by Provider: 19:39 Events since last exam I am following him due to paroxysmal atrial fibrillation. He has been trans ferred to the medical unit after spending the night in the intensive care unit. He does not really feel as though his breathing is much better. He denies chest discomfort, palpitations, or syncope. He does have mild bilateral ankle edema. Certain portions of this document may have been dictated utilizing voice recognition technology. Inherent to this technology, typographical and grammatical errors may exist. As much as I am diligent to identify and correct these mistakes, some errors may remain in the document. Vitals Last set of Vitals Signs Vital Signs 08/08/21 08/09/21 08/09/21 08/09/21 08/09/21 22:59 15:03 16:00 19:00 19:18 Temp 36.5 Pulse 80 Resp 20 B/P (MAP) 164/70 (101) Pulse Ox 95 O2 Delivery Room Air FiO2 21 Labs Labs Laboratory Tests 08/09/21 05:18 Exam Vital Signs Vital Signs Date Time Temp Pulse Resp B/P (MAP) Pulse Ox O2 Delivery O2 Flow Rate FiO2 08/09/21 19:18 95 Room Air 08/09/21 19:00 80 08/09/21 16:00 36.5 08/09/21 15:03 20 164/70 (101) 08/08/21 22:59 21 Physical Exam General: Alert. No acute distress. He is obese. Eye: No xanthelasma. HENT: Normocephalic. Neck: Jugular venous pressure does not appear elevated. Respiratory: Lungs have diffusely decreased breath sounds with some scattered wheezes. Respirations are non-labored. Breath sounds are equal. Symmetrical chest wall expansion. Cardiovascular: Normal rate. Regular rhythm. Distant S1/S2. No murmur. No gallop. 1+ bilateral pretibial edema. Gastrointestinal: Soft. Normal bowel sounds. Skin: Warm. Dry. Neurologic: Alert and oriented to person, place, time. Cranial nerves 3-11 grossly intact. Psychiatric: Cooperative. Appropriate mood & affect. Labs Laboratory Tests Test 08/08/21 20:28 08/09/21 05:18 08/09/21 10:32 08/09/21 15:33 Range/Units Glucometer 161 H 230 H 157 H 70-110 MG/DL White Blood Count 7.0 4.3-11.0 10^3/uL Red Blood Count 5.06 4.30-5.52 10^6/uL Hemoglobin 14.6 13.3-17.7 g/dL Hematocrit 43 40-54 % Mean Corpuscular Volume 85 80-99 fL Mean Corpuscular Hemoglobin 29 25-34 pg Mean Corpuscular Hemoglobin Concent 34 32-36 g/dL Red Cell Distribution Width 15.4 H 10.0-14.5 % Platelet Count 201 130-400 10^3/uL Mean Platelet Volume 10.0 9.0-12.2 fL Immature Granulocyte % (Auto) 0 % Neutrophils (%) (Auto) 65 42-75 % Lymphocytes (%) (Auto) 14 12-44 % Monocytes (%) (Auto) 14 H 0-12 % Eosinophils (%) (Auto) 6 0-10 % Basophils (%) (Auto) 1 0-10 % Neutrophils # (Auto) 4.5 1.8-7.8 10^3/uL Lymphocytes # (Auto) 1.0 1.0-4.0 10^3/uL Monocytes # (Auto) 1.0 0.0-1.0 10^3/uL Eosinophils # (Auto) 0.4 H 0.0-0.3 10^3/uL Basophils # (Auto) 0.1 0.0-0.1 10^3/uL Immature Granulocyte # (Auto) 0.0 0.0-0.1 10^3/uL Sodium Level 140 135-145 MMOL/L Potassium Level 3.7 3.6-5.0 MMOL/L Chloride Level 106 98-107 MMOL/L Carbon Dioxide Level 21 21-32 MMOL/L Anion Gap 13 5-14 MMOL/L Blood Urea Nitrogen 13 7-18 MG/DL Creatinine 1.03 0.60-1.30 MG/DL Estimat Glomerular Filtration Rate 74 BUN/Creatinine Ratio 13 Glucose Level 124 H 70-105 MG/DL Calcium Level 8.9 8.5-10.1 MG/DL Corrected Calcium 9.1 8.5-10.1 MG/DL Phosphorus Level 2.8 2.3-4.7 MG/DL Magnesium Level 2.0 1.6-2.4 MG/DL Total Bilirubin 1.1 H 0.1-1.0 MG/DL Aspartate Amino Transf (AST/SGOT) 15 5-34 U/L Alanine Aminotransferase (ALT/SGPT) 17 0-55 U/L Alkaline Phosphatase 65 40-136 U/L Total Protein 6.2 L 6.4-8.2 GM/DL Albumin 3.8 3.2-4.5 GM/DL Diagnosis/Problems Diagnosis/Problems (1) Paroxysmal atrial fibrillation Assessment & Plan: Although the electrocardiogram computer stated he was in atrial fibrillation at the time of admission, this actually appears to be sinus rhythm with first-degree AV block with atrial and ventricular ectopy. I recommend he continue on Xarelto for stroke prophylaxis. He does not appear to be on any rate controlling agents at home. He should continue on telemetry monitoring. He may need some more prolonged monitoring following discharge but this could be arranged through his regular coal washer at the outside facility. (2) Coronary artery disease with unstable angina pectoris Assessment & Plan: He is not having any overt angina unless his dyspnea is atypical angina. His troponin levels were borderline elevated but essentially flat. I do not believe he suffered an acute myocardial infarction. I recommend he continue aspirin, long-acting nitrates and statin medication which already added. He is not on beta-lyndon, presumably due to underlying pulmonary disease. (3) Chronic heart failure with preserved ejection fraction (HFpEF) Assessment & Plan: He seems to have chronic elevation of his BNP level. There was not any overt pulmonary congestion on his chest x-ray although he did have a small pleural effusion. He had a transesophageal echocardiogram in April that showed normal ejection fraction. I suspect the majority of his dyspnea is related to his chronic obstructive pulmonary disease. He has been ordered for intravenous furosemide. (4) Primary hypertension Assessment & Plan: He is back on his outpatient antihypertensive medication. Blood pressures are intermittently elevated but may improve as he continues to diurese. (5) Mixed hyperlipidemia Assessment & Plan: His LDL level was elevated. I recommend he take a statin medication other than rosuvastatin which appears as though he may have had a reaction to in the past. I took the liberty of starting him on atorvastatin. (6) Acute respiratory failure with hypoxia Status: Acute Assessment & Plan: I suspect this is primarily related to his chronic obstructive pulmonary disease but possibly with some underlying heart failure as well. CRESENCIO FERNANDEZ JR, MD August 09, 2021 19:44
[2021-08-09 20:00] VITALS: BP 139/67
[2021-08-09] MEDS: COLCHICINE 0.6 MG (COLCRYS) TABLET PO PRN (22:38)
[2021-08-09 23:12] VITALS: BP 137/65
[2021-08-10 04:59] VITALS: BP 140/65
[2021-08-10] MEDS: ISOSORBIDE MONONITRATE 60 MG (IMDUR) TAB PO SCH (05:23)
[2021-08-10 05:45] LABS: BASOPHILS # (AUTO) 0.1 10^3/uL (0.0-0.1); BASOPHILS % (AUTO) 1 % (0-10); EOSINOPHILS # (AUTO) 0.4 10^3/uL (0.0-0.3); EOSINOPHILS % (AUTO) 5 % (0-10); HEMATOCRIT 44 % (40-54); HEMOGLOBIN 14.7 g/dL (13.3-17.7); LYMPHOCYTES % (AUTO) 12 % (12-44); MEAN CORPUSCULAR HEMOGLOBIN 28 pg (25-34); MEAN CORPUSCULAR HGB CONC 33 g/dL (32-36); MEAN CORPUSCULAR VOLUME 85 fL (80-99); MEAN PLATELET VOLUME 9.5 fL (9.0-12.2); MONOCYTES # (AUTO) 0.9 10^3/uL (0.0-1.0); MONOCYTES % (AUTO) 12 % (0-12); NEUTROPHILS # (AUTO) 5.5 10^3/uL (1.8-7.8); NEUTROPHILS % (AUTO) 70 % (42-75); PLATELET COUNT 228 10^3/uL (130-400); WHITE BLOOD COUNT 7.9 10^3/uL (4.3-11.0)
[2021-08-10 06:01] LABS: CALCIUM 9.2 MG/DL (8.5-10.1)
[2021-08-10 06:02] LABS: TOTAL PROTEIN 6.7 GM/DL (6.4-8.2)
[2021-08-10 06:04] LABS: BILIRUBIN,TOTAL 1.2 MG/DL (0.1-1.0)
--- NOTE | 2021-08-10 06:04 | Progress Note - Hospitalist ---
Subjective HPI/CC On Admission Date Seen by Provider: August 10, 2021 Time Seen by Provider: 10:30 CC: SOB HPI: This is a male clinic pt of Dr. Hammond, Dr. Styles, and Dr. Zeng. Pt has a past medical history of COPD and CHF. He presented to the ER with SOB and weakness found to have elevated BNP, consistent with CHF. Pt is maintained on Xarelto and compliant with that of 20 mg daily. Overall he has been doing pretty well but went to pulmonary rehab at [facility] and felt like he has become worse and worse as the weeks have progressed at the rehab facility. He was found to have no evidence of any type of pneumonia but he does have an elevated troponin consistent with NSTEMI. Objective Exam Vital Signs Vital Signs Date Time Temp Pulse Resp B/P (MAP) Pulse Ox O2 Delivery O2 Flow Rate FiO2 08/10/21 08:37 Room Air 08/10/21 08:17 36.3 61 18 144/69 (94) 95 08/08/21 22:59 21 Capillary Refill : Less Than 3 Seconds Results/Procedures Lab Laboratory Tests 08/10/21 05:39 Patient resulted labs reviewed. Assessment/Plan Assessment and Plan Assess & Plan/Chief Complaint History of aflutter and atrial flutter on telemetry -Recurrent - rate controlled - on xarelto 20 (hx of clotting disorder) - cardiology consulted -History of RISHI/Cardioversion performed 04/17/2021 Congestive heart failure Type 2 LA - mildly elevated troponin - likely secondary to hypoxemia - will monitor closely - hx of CAD, multiple stents placed Factor V Leiden - hx of DVT/PE - takes xarelto 20 daily HTN - resume home amlodipine and telmisartan HLD - unable to tolerate statin d/t myalgia Hematuria Monitor closely Plan: ICU Lasix Cardiology consult Diagnosis/Problems Diagnosis/Problems (1) Atrial fibrillation Status: Acute Qualifiers: Atrial fibrillation type: paroxysmal Qualified Codes: I48.0 - Paroxysmal atrial fibrillation (2) Congestive heart failure (CHF) Status: Acute (3) Elevated troponin Status: Acute (4) Primary hypertension Clinical Quality Measures AMI/AHF: ASA po Prior to arrival: KATHLEEN Temple DO August 10, 2021 06:04
[2021-08-10 06:05] LABS: CREATININE SERUM 1.15 MG/DL (0.60-1.30)
[2021-08-10 06:08] LABS: MAGNESIUM 2.1 MG/DL (1.6-2.4)
[2021-08-10] MEDS: inSUlin ASPART (NovoLOG) 1 UNIT/0.01 ML (CHARGE PER UNIT) SC SCH (06:12)
[2021-08-10] MEDS ORDERED: COLCHICINE 0.6 MG (COLCRYS) TABLET PO PRN (06:15)
[2021-08-10] MEDS ORDERED: DOCUSATE SODIUM 100 MG (COLACE) CAP PO PRN (06:15)
[2021-08-10] MEDS ORDERED: NITROGLYCERIN 0.4 MG SL TABS BTL 25'S SL PRN (06:15)
[2021-08-10] MEDS: DOCUSATE SODIUM 100 MG (COLACE) CAP PO SCH (07:49)
[2021-08-10] MEDS: LOSARTAN 100 MG (COZAAR) TABLET PO SCH (07:49)
[2021-08-10] MEDS: SENNOSIDES 8.6 MG (SENOKOT) TAB PO SCH (07:49)
[2021-08-10] MEDS: ASPIRIN E.C. 81 MG (ECOTRIN) TAB PO SCH (07:49)
[2021-08-10] MEDS: amLODIPine 5 MG (NORVASC) TAB PO SCH (07:50)
[2021-08-10] MEDS: FUROSEMIDE 40 MG/4 ML INJ (LASIX) IVP SCH (07:50)
[2021-08-10] MEDS: ACETAMINOPHEN 325 MG TABLET PO PRN (07:51)
[2021-08-10 08:17] VITALS: BP 144/69
[2021-08-10] MEDS: RT-ALBUTEROL SULF 2.5 MG/3 ML PRE-MIX VIAL INH SCH ×2 (08:33→11:07)
[2021-08-10] MEDS ORDERED: PANTOPRAZOLE 40 MG (PROTONIX) TAB PO SCH (09:00)
[2021-08-10] MEDS ORDERED: ASPIRIN 81 MG CHEW (CHILDREN'S ASA) PO SCH (09:00)
[2021-08-10] MEDS ORDERED: FAMOTIDINE 20 MG (PEPCID) TABLET PO SCH (09:00)
[2021-08-10] MEDS ORDERED: VITAMIN D3 25 MCG (1,000 UNITS) TABLET PO SCH (09:00)
[2021-08-10] MEDS: COLCHICINE 0.6 MG (COLCRYS) TABLET PO PRN (09:53)
--- NOTE | 2021-08-10 10:16 | Cardiology Progress Note ---
Progress Note-Cardiology Events since last exam Date Seen by Provider: August 10, 2021 Time Seen by Provider: 10:14 Events since last exam I am following him due to possible atrial fibrillation. He does have a previous history of atrial fibrillation and had undergone a transesophageal echocardiogram and cardioversion in the past at [facility]. Since being here in the hospital, he seems to be remaining in sinus rhythm. His breathing has improved to the point that he feels like he may be ready to go home today. He denies chest pain, palpitations, syncope, or ankle edema. He has had a slight cough. He develops pain between the lower lateral ribs when he coughs. Certain portions of this document may have been dictated utilizing voice recognition technology. Inherent to this technology, typographical and grammatical errors may exist. As much as I am diligent to identify and correct these mistakes, some errors may remain in the document. Vitals Last set of Vitals Signs Vital Signs 08/08/21 08/10/21 22:59 11:53 Temp 36.4 Pulse 62 Resp 18 B/P (MAP) 133/64 (87) Pulse Ox 93 O2 Delivery Room Air FiO2 21 Labs Labs Laboratory Tests 08/10/21 05:39 Exam Vital Signs Vital Signs Date Time Temp Pulse Resp B/P (MAP) Pulse Ox O2 Delivery O2 Flow Rate FiO2 08/10/21 13:16 08/10/21 11:53 36.4 62 18 93 Room Air 08/08/21 22:59 21 Physical Exam General: Alert. No acute distress. He is obese. He appears younger than his stated age. Eye: No xanthelasma. HENT: Normocephalic. Neck: Jugular venous pressure does not appear elevated. Respiratory: Lungs have diffusely decreased breath sounds but improved from admission. Respirations are non-labored. Breath sounds are equal. Symmetrical chest wall expansion. Cardiovascular: Normal rate. Regular rhythm. Distant S1/S2. No murmur. No gallop. Trace bilateral pretibial edema. Gastrointestinal: Soft. Normal bowel sounds. Skin: Warm. Dry. Neurologic: Alert and oriented to person, place, time. Cranial nerves 3-11 grossly intact. Psychiatric: Cooperative. Appropriate mood & affect. Labs Laboratory Tests Test 08/09/21 21:25 08/10/21 05:39 08/10/21 11:10 Range/Units Glucometer 149 H 181 H 70-110 MG/DL White Blood Count 7.9 4.3-11.0 10^3/uL Red Blood Count 5.17 4.30-5.52 10^6/uL Hemoglobin 14.7 13.3-17.7 g/dL Hematocrit 44 40-54 % Mean Corpuscular Volume 85 80-99 fL Mean Corpuscular Hemoglobin 28 25-34 pg Mean Corpuscular Hemoglobin Concent 33 32-36 g/dL Red Cell Distribution Width 15.3 H 10.0-14.5 % Platelet Count 228 130-400 10^3/uL Mean Platelet Volume 9.5 9.0-12.2 fL Immature Granulocyte % (Auto) 0 % Neutrophils (%) (Auto) 70 42-75 % Lymphocytes (%) (Auto) 12 12-44 % Monocytes (%) (Auto) 12 0-12 % Eosinophils (%) (Auto) 5 0-10 % Basophils (%) (Auto) 1 0-10 % Neutrophils # (Auto) 5.5 1.8-7.8 10^3/uL Lymphocytes # (Auto) 1.0 1.0-4.0 10^3/uL Monocytes # (Auto) 0.9 0.0-1.0 10^3/uL Eosinophils # (Auto) 0.4 H 0.0-0.3 10^3/uL Basophils # (Auto) 0.1 0.0-0.1 10^3/uL Immature Granulocyte # (Auto) 0.0 0.0-0.1 10^3/uL Sodium Level 140 135-145 MMOL/L Potassium Level 4.0 3.6-5.0 MMOL/L Chloride Level 106 98-107 MMOL/L Carbon Dioxide Level 19 L 21-32 MMOL/L Anion Gap 15 H 5-14 MMOL/L Blood Urea Nitrogen 16 7-18 MG/DL Creatinine 1.15 0.60-1.30 MG/DL Estimat Glomerular Filtration Rate 65 BUN/Creatinine Ratio 14 Glucose Level 144 H 70-105 MG/DL Calcium Level 9.2 8.5-10.1 MG/DL Corrected Calcium 9.2 8.5-10.1 MG/DL Magnesium Level 2.1 1.6-2.4 MG/DL Total Bilirubin 1.2 H 0.1-1.0 MG/DL Aspartate Amino Transf (AST/SGOT) 14 5-34 U/L Alanine Aminotransferase (ALT/SGPT) 17 0-55 U/L Alkaline Phosphatase 72 40-136 U/L Total Protein 6.7 6.4-8.2 GM/DL Albumin 4.0 3.2-4.5 GM/DL Diagnosis/Problems Diagnosis/Problems (1) Paroxysmal atrial fibrillation Assessment & Plan: Although the electrocardiogram computer stated he was in atrial fibrillation at the time of admission, this actually appears to have been sinus rhythm with first-degree AV block with atrial and ventricular ectopy. I recommend he continue on Xarelto for stroke prophylaxis. He does not appear to be on any rate controlling agents at home. He did have a previous history of atrial fibrillation and underwent a cardioversion earlier this year here at [facility]. From a cardiac standpoint, he can be discharged to home. I have instructed him to contact his first front ventilator at [facility] to schedule a follow-up appointment within 1 month. (2) Coronary artery disease with unstable angina pectoris Assessment & Plan: He had several previous coronary stents. He is not having any overt angina unless his dyspnea is atypical angina. His troponin levels were borderline elevated but essentially flat. I do not believe he suffered an acute myocardial infarction. I recommend he continue aspirin, long-acting nitrates and statin medication which I already added. He is not on beta- lyndon, presumably due to underlying pulmonary disease. (3) Chronic heart failure with preserved ejection fraction (HFpEF) Assessment & Plan: He seems to have chronic elevation of his BNP level. There was not any overt pulmonary congestion on his chest x-ray although he did have a small pleural effusion. He had a transesophageal echocardiogram in April that showed a normal ejection fraction. I suspect the majority of his dyspnea is related to his chronic obstructive pulmonary disease. He can go back on his previous oral dose of furosemide at the time of discharge. (4) Primary hypertension Assessment & Plan: His blood pressures have improved on his outpatient antihypertensive regimen and with some intravenous diuresis. (5) Mixed hyperlipidemia Assessment & Plan: His LDL level was elevated. I recommend he take a statin medication other than rosuvastatin which appears as though he may have had a reaction to in the past. I took the liberty of starting him on atorvastatin. (6) Acute respiratory failure with hypoxia Status: Acute Assessment & Plan: I suspect this is primarily related to his chronic obstructive pulmonary disease but possibly with some underlying heart failure as well. He will go back to outpatient pulmonary rehab at [facility] following discharge. CRESENCIO FERNANDEZ JR, MD August 10, 2021 10:16
[2021-08-10] MEDS ORDERED: ATOR80TA76 PO (11:25)
--- NOTE | 2021-08-10 11:25 | Discharge Summary ---
Discharge Summary Hospital Course Was the Problem List Reviewed?: Yes Problems/Dx: (1) Paroxysmal atrial fibrillation (2) Coronary artery disease with unstable angina pectoris (3) Chronic heart failure with preserved ejection fraction (HFpEF) (4) Primary hypertension (5) Mixed hyperlipidemia (6) Acute respiratory failure with hypoxia Status: Acute Hospital Course Date of Admission: August 08, 2021 at 13:26 Admission Diagnosis : Family Physician/Provider: Adán Hammond DO Date of Discharge: 08/10/21 Discharge Diagnosis: Shortness of breath, congestive heart failure with volume overload, atrial fibrillation, CAD Hospital Course: Pt had a brief hospital course for 3 days after he was found to be SOB due to CHF. He did require Lasix IV. Cardiology was consulted. Pt was maintained on anticoagulation on Plavix. Pt did have an episode of hematuria following urinary retention but that was resolved with conservative management. He was deemed stable for discharge and didn't require oxygen supplementation at time of discharge. Labs and Pending Lab Test: Laboratory Tests 08/09/21 15:33: Glucometer 157H 08/09/21 21:25: Glucometer 149H 08/10/21 05:39: White Blood Count 7.9, Red Blood Count 5.17, Hemoglobin 14.7, Hematocrit 44, Mean Corpuscular Volume 85, Mean Corpuscular Hemoglobin 28, Mean Corpuscular Hemoglobin Concent 33, Red Cell Distribution Width 15.3H, Platelet Count 228, Mean Platelet Volume 9.5, Immature Granulocyte % (Auto) 0, Neutrophils (%) (Auto) 70, Lymphocytes (%) (Auto) 12, Monocytes (%) (Auto) 12, Eosinophils (%) (Auto) 5, Basophils (%) (Auto) 1, Neutrophils # (Auto) 5.5, Lymphocytes # (Auto) 1.0, Monocytes # (Auto) 0.9, Eosinophils # (Auto) 0.4H, Basophils # (Auto) 0.1, Immature Granulocyte # (Auto) 0.0, Sodium Level 140, Potassium Level 4.0, Chl oride Level 106, Carbon Dioxide Level 19L, Anion Gap 15H, Blood Urea Nitrogen 16, Creatinine 1.15, Estimat Glomerular Filtration Rate 65, BUN/Creatinine Ratio 14, Glucose Level 144H, Calcium Level 9.2, Corrected Calcium 9.2, Magnesium Level 2.1, Total Bilirubin 1.2H, Aspartate Amino Transf (AST/SGOT) 14, Alanine Aminotransferase (ALT/SGPT) 17, Alkaline Phosphatase 72, Total Protein 6.7, Albumin 4.0 08/10/21 11:10: Glucometer 181H Microbiology 08/08/21 MRSA Screen - Final, Complete MRSA not isolated Home Meds Active Reported Vitamin D3 (Cholecalciferol (Vitamin D3)) 25 Mcg (1000 Unit) Tablet 25 Mcg PO DAILY Albuterol Sulfate 2.5 Mg/0.5 Ml Vial.neb 2.5 Mg INH QID Famotidine 20 Mg Tablet 20 Mg PO DAILY Docusate Sodium 100 Mg Capsule 100 Mg PO BID PRN Colchicine 0.6 Mg Tablet 0.6 Mg PO BID PRN Nitroglycerin 0.4 Mg Tab.subl 0.4 Mg SL UD PRN Ventolin Hfa (Albuterol Sulfate) 18 Gm Hfa.aer.ad 2 Puff INH Q6H PRN Telmisartan 80 Mg Tablet 80 Mg PO DAILY Aspirin 81 Mg Tab.chew 81 Mg PO DAILY Tart Chan Extract (Sour Chan Extract) 1,000 Mg Capsule 1,000 Mg PO DAILY Tylenol Extra Strength (Acetaminophen) 500 Mg Tablet 1,000 Mg PO Q6H PRN TAKES 2 (500MG) TABLETS Amlodipine Besylate 5 Mg Tablet 5 Mg PO DAILY Furosemide 40 Mg Tablet 40 Mg PO DAILY Potassium (Potassium Gluconate) 99 Mg Tablet 99 Mg PO DAILY Xarelto Tablet (Rivaroxaban) 20 Mg Tablet 20 Mg PO HS Isosorbide Mononitrate ER (Isosorbide Mononitrate) 120 Mg Tab.er.24h 120 Mg PO DAILY Assessment/Pt Instructions PCP in 1 week Discharge Planning: <30 minutes discharge planning Discharge Instructions Discharge Diet: No Restrictions Discharge Physical Examination Vital Signs Vital Signs Date Time Temp Pulse Resp B/P (MAP) Pulse Ox O2 Delivery O2 Flow Rate FiO2 08/10/21 08:37 Room Air 08/10/21 08:17 36.3 61 18 144/69 (94) 95 08/08/21 22:59 21 General Appearance: No Apparent Distress, WD/WN Allergies: Coded Allergies: Sulfa (Sulfonamide Antibiotics) (Verified Allergy, Unknown, 04/06/19) hydrochlorothiazide (Verified Allergy, Unknown, 04/06/19) ketoprofen (Verified Allergy, Unknown, 04/06/19) nabumetone (Verified Allergy, Unknown, 04/06/19) rosuvastatin (Verified Allergy, Unknown, 04/06/19) morphine (Unverified Adverse Reaction, Mild, VOMITING, 04/06/19) Discharge Summary Date of Admission August 08, 2021 at 13:26 Date of Discharge Discharge Date: August 10, 2021 Admission Diagnosis History of aflutter and atrial flutter on telemetry -Recurrent - rate controlled - on xarelto 20 (hx of clotting disorder) - cardiology consulted -History of RISHI/Cardioversion performed 04/17/2021 Congestive heart failure Type 2 MD - mildly elevated troponin - likely secondary to hypoxemia - will monitor closely - hx of CAD, multiple stents placed Factor V Leiden - hx of DVT/PE - takes xarelto 20 daily HTN - resume home amlodipine and telmisartan HLD - unable to tolerate statin d/t myalgia Plan: ICU Lasix Cardiology consult Discharge Diagnosis History of aflutter and atrial flutter on telemetry -Recurrent - rate controlled - on xarelto 20 (hx of clotting disorder) - cardiology consulted -History of RISHI/Cardioversion performed 04/17/2021 Congestive heart failure Type 2 MD - mildly elevated troponin - likely secondary to hypoxemia - will monitor closely - hx of CAD, multiple stents placed Factor V Leiden - hx of DVT/PE - takes xarelto 20 daily HTN - resume home amlodipine and telmisartan HLD - unable to tolerate statin d/t myalgia Hematuria Monitor closely Plan: ICU Lasix Cardiology consult (1) Paroxysmal atrial fibrillation Assessment & Plan: Although the electrocardiogram computer stated he was in atrial fibrillation at the time of admission, this actually appears to be sinus rhythm with first-degree AV block with atrial and ventricular ectopy. I recommend he continue on Xarelto for stroke prophylaxis. He does not appear to be on any rate controlling agents at home. He should continue on telemetry monitoring. He may need some more prolonged monitoring following discharge but this could be arranged through his regular public policy coordinator at the outside facility. (2) Coronary artery disease with unstable angina pectoris Assessment & Plan: He is not having any overt angina unless his dyspnea is atypical angina. His troponin levels were borderline elevated but essentially flat. I do not believe he suffered an acute myocardial infarction. I recommend he continue aspirin, long-acting nitrates and statin medication which already added. He is not on beta-lyndon, presumably due to underlying pulmonary disease. (3) Chronic heart failure with preserved ejection fraction (HFpEF) Assessment & Plan: He seems to have chronic elevation of his BNP level. There was not any overt pulmonary congestion on his chest x-ray although he did have a small pleural effusion. He had a transesophageal echocardiogram in April that showed normal ejection fraction. I suspect the majority of his dyspnea is related to his chronic obstructive pulmonary disease. He has been ordered for intravenous furosemide. (4) Primary hypertension Assessment & Plan: He is back on his outpatient antihypertensive medication. Blood pressures are intermittently elevated but may improve as he continues to diurese. (5) Mixed hyperlipidemia Assessment & Plan: His LDL level was elevated. I recommend he take a statin medication other than rosuvastatin which appears as though he may have had a reaction to in the past. I took the liberty of starting him on atorvastatin. (6) Acute respiratory failure with hypoxia Status: Acute Assessment & Plan: I suspect this is primarily related to his chronic obstructive pulmonary disease but possibly with some underlying heart failure as well. Clinical Quality Measures AMI/AHF: ASA po Prior to arrival: KATHLEEN Temple DO August 10, 2021 11:25
[2021-08-10 11:53] VITALS: BP 133/64
== END 2021-08-10 13:00 | disposition home or self-care (01) ==
LOC: EDUNIT# 11:06 → ER 11:08 → ICU 13:26 → 4TH 08-09 16:15
PROVIDERS: ADMIT Internal Medicine; ATTEND Internal Medicine
DX: I11.0 Hypertensive heart disease with heart failure (principal); I50.30 Unspecified diastolic (congestive) heart failure; I25.110 Atherosclerotic heart disease of native coronary artery with unstable angina pectoris; I48.0 Paroxysmal atrial fibrillation; I48.92 Unspecified atrial flutter; I21.A1 Myocardial infarction type 2; I44.0 Atrioventricular block, first degree; I25.10 Atherosclerotic heart disease of native coronary artery without angina pectoris; R77.8 Other specified abnormalities of plasma proteins; J96.01 Acute respiratory failure with hypoxia; D68.51 Activated protein C resistance; E78.2 Mixed hyperlipidemia; E87.70 Fluid overload, unspecified; Z79.01 Long term (current) use of anticoagulants; Z95.5 Presence of coronary angioplasty implant and graft; Z79.899 Other long term (current) drug therapy; Z86.718 Personal history of other venous thrombosis and embolism; Z87.891 Personal history of nicotine dependence
CPT/HCPCS: 36415; 71045; 71046; 80053; 80061; 82947; 83036; 83735; 83874; 83880; 84100; 84484; 85025; 85610; 85730; 87081; 93005; 93041; 94640; 94760; 96374; 96375; 96376

== ENCOUNTER → 2022-05-07 | Outpatient (CLI) | payer MEDICARE ==
[~2022-05-07] MED LIST changes: +ALBU8.5H6 IH; +ALBU8.5H6 INH; +ATOR80TA76 PO; +CHOL-34 PO; +FAMO20TA5 PO; -RT-ALBUINH IH; -RT-ALBUINH INH
--- NOTE | 2022-05-07 14:57 | Diagnostic Imaging Report ---
EXAMINATION: CT chest without contrast. TECHNIQUE: Multiple contiguous axial images were obtained through the chest without the use of intravenous contrast. All CT scans use one or more of the following dose optimizing techniques: automated exposure control, MA and/or KvP adjustment based on patient size and exam type or iterative reconstruction. HISTORY: Follow-up pulmonary nodules. Shortness of breath. COMPARISON: 12/12/2020. FINDINGS: The heart size is enlarged. There is fatty infiltration in the septal wall and apex of the left ventricle. A small pericardial effusion is present. There is calcified aortic and coronary atherosclerotic plaque without aneurysm. There is no mediastinal, hilar, or axillary lymphadenopathy. Stable nodules are seen in the right lung, with the largest in the right middle lobe measuring 1.0 cm. No new suspicious pulmonary nodules. There are no focal areas of consolidation. No central endobronchial obstructing lesions are identified. There is no pleural effusion or pneumothorax. The osseous structures demonstrate no acute abnormalities. Limited views of the upper abdominal structures demonstrate no acute abnormalities. Both adrenal glands are unremarkable. IMPRESSION: 1. Stable pulmonary nodules in the right lung measuring up to 1.0 cm. Recommend continued surveillance with CT chest in 12 months. 2. Stable cardiomegaly with fatty infiltration in the septal wall and apex of the left ventricle, suggestive of prior myocardial infarction. There is also stable small pericardial effusion. Dictated by: Dictated on workstation # [id number]
== END ==
LOC: RAD 14:30
PROVIDERS: ATTEND Family Medicine
DX: R91.8 Other nonspecific abnormal finding of lung field (principal)
CPT/HCPCS: 71250

== ENCOUNTER 2022-05-15 09:08 | Emergency (ER) | payer MEDICARE ==
[~2022-05-15] VITALS: Ht 182 cm; Wt 115.0 kg
[2022-05-15] MEDS ORDERED: LACTATED RINGERS 1,000 ML IV ONE (11:00)
[2022-05-15] MEDS ORDERED: HYDROcodone/APAP 5 MG/325 MG (LORTAB) TAB PO ONE ×2 (11:00→15:45)
[2022-05-15 11:04] LABS: BASOPHILS # (AUTO) 0.1 10^3/uL (0.0-0.1); BASOPHILS % (AUTO) 1 % (0-10); EOSINOPHILS # (AUTO) 0.1 10^3/uL (0.0-0.3); EOSINOPHILS % (AUTO) 2 % (0-10); HEMATOCRIT 43 % (40-54); HEMOGLOBIN 14.9 g/dL (13.3-17.7); LYMPHOCYTES # (AUTO) 0.4 10^3/uL (1.0-4.0); LYMPHOCYTES % (AUTO) 9 % (12-44); MEAN CORPUSCULAR HEMOGLOBIN 29 pg (25-34); MEAN CORPUSCULAR HGB CONC 35 g/dL (32-36); MEAN CORPUSCULAR VOLUME 85 fL (80-99); MEAN PLATELET VOLUME 9.6 fL (9.0-12.2); MONOCYTES # (AUTO) 1.1 10^3/uL (0.0-1.0); MONOCYTES % (AUTO) 24 % (0-12); NEUTROPHILS # (AUTO) 2.9 10^3/uL (1.8-7.8); NEUTROPHILS % (AUTO) 64 % (42-75); PLATELET COUNT 196 10^3/uL (130-400); WHITE BLOOD COUNT 4.5 10^3/uL (4.3-11.0)
[2022-05-15 11:09] LABS: ALBUMIN 3.9 GM/DL (3.2-4.5)
[2022-05-15 11:11] LABS: CALCIUM 8.7 MG/DL (8.5-10.1)
[2022-05-15 11:12] LABS: TOTAL PROTEIN 6.7 GM/DL (6.4-8.2)
[2022-05-15 11:14] LABS: BILIRUBIN,TOTAL 0.8 MG/DL (0.1-1.0)
[2022-05-15 11:16] LABS: CREATININE SERUM 1.38 MG/DL (0.60-1.30)
[2022-05-15 11:18] LABS: INR 2.1 (0.8-1.4); PROTHROMBIN TIME PATIENT 23.9 SEC (12.2-14.7)
[2022-05-15 11:23] LABS: BAND NEUTROPHILS 1 %; BASOPHILS % (MANUAL) 1 %; EOSINOPHILS % (MANUAL) 1 %; LYMPHOCYTES % (MANUAL) 10 %; MONOCYTES % (MANUAL) 16 %; NEUTROPHILS % (MANUAL) 71 %; RBC MORPH NORMAL
--- NOTE | 2022-05-15 11:47 | Diagnostic Imaging Report ---
INDICATION: Chest pain. COMPARISON: 08/09/2021. FINDINGS: The heart is enlarged but unchanged from prior. No gross overdistention of the vascularity. Blunting of the left angle, likely small left effusion has probably decreased, at least mildly, and residual changes may all be owing to pleural thickening. No adverse development. No findings of pneumonia or edema. IMPRESSION: 1. Stable cardiomegaly. Decreased left angle blunting, either reduction in small effusion and/or some residual pleural thickening. 2. No overt failure pattern or edema, and no focal pneumonia. Dictated by: Dictated on workstation # [id number]
[2022-05-15] MEDS ORDERED: ONDANSETRON 4 MG/2 ML (SDV) Z0FRAN IVP ONE (12:00)
[2022-05-15] MEDS ORDERED: RX-MOLNUPIRAVIR (EUA) 200 MG #40 CAPSULES PO STA (15:29)
--- NOTE | 2022-05-15 15:34 | ED General ---
General Chief Complaint: COVID19 Suspect/Confirmed Stated Complaint: RESPIRATORY ILLNESS Nursing Triage Note: Patient presented to the ER today with complaints of not feeling well and shortness of breath. He advised his symptoms began yesterday and have become progressively worse. He advised that his just recently tested positive for covid. Source of Information: Patient, Family, Other (Dr. Funk) Exam Limitations: No Limitations History of Present Illness Date Seen by Provider: May 15, 2022 Time Seen by Provider: 09:13 Initial Comments This 82-year-old gentleman presents to the emergency room with complaints of flulike symptoms including fatigue, myalgia, headache, cough, shortness of breath, and chest discomfort. His was diagnosed with COVID-19 just prior to his arrival here. Symptoms started yesterday. Allergies and Home Medications Allergies Coded Allergies: Sulfa (Sulfonamide Antibiotics) (Verified Allergy, Unknown, 04/06/19) hydrochlorothiazide (Verified Allergy, Unknown, 04/06/19) ketoprofen (Verified Allergy, Unknown, 04/06/19) nabumetone (Verified Allergy, Unknown, 04/06/19) rosuvastatin (Verified Allergy, Unknown, 04/06/19) morphine (Unverified Adverse Reaction, Mild, VOMITING, 04/06/19) Patient Home Medication List Home Medication List Reviewed: Yes Acetaminophen (Tylenol Extra Strength) 500 Mg Tablet, 1,000 MG PO Q6H PRN for PAIN-MILD (1-4), (Reported) Entered as Reported by: CARIDAD DE LA CRUZ on 07/03/20 1551 Albuterol Sulfate (Ventolin Hfa) 18 Gm Hfa.aer.ad, 2 PUFF INH Q6H PRN for SHORTNESS OF BREATH, (Reported) Entered as Reported by: MELINA REESE on 04/26/21 1007 Albuterol Sulfate (Albuterol Sulfate) 2.5 Mg/0.5 Ml Vial.neb, 2.5 MG INH QID, (Reported) Entered as Reported by: MELINA REESE on 08/09/21 1054 Amlodipine Besylate (Amlodipine Besylate) 5 Mg Tablet, 5 MG PO DAILY, (Reported) Entered as Reported by: AKILAH TREVINO on 03/20/17 1436 Aspirin (Aspirin) 81 Mg Tab.chew, 81 MG PO DAILY, (Reported) Entered as Reported by: MELINA REESE on 04/26/21 1007 Atorvastatin Calcium (Atorvastatin Calcium) 80 Mg Tablet, 80 MG PO HS Prescribed by: KATHLEEN MORRISON on 08/10/21 1125 Cholecalciferol (Vitamin D3) (Vitamin D3) 25 Mcg (1000 Unit) Tablet, 25 MCG PO DAILY, (Reported) Entered as Reported by: MELINA REESE on 08/09/21 1054 Colchicine (Colchicine) 0.6 Mg Tablet, 0.6 MG PO BID PRN for GOUT FLARE, (Reported) Entered as Reported by: MELINA REESE on 04/26/21 1007 Docusate Sodium (Docusate Sodium) 100 Mg Capsule, 100 MG PO BID PRN for CONSTIPATION-1ST LINE, (Reported) Entered as Reported by: MELINA REESE on 04/26/21 1010 Famotidine (Famotidine) 20 Mg Tablet, 20 MG PO DAILY, (Reported) Entered as Reported by: MELINA REESE on 08/09/21 1054 Furosemide (Furosemide) 40 Mg Tablet, 40 MG PO DAILY, (Reported) Entered as Reported by: AKILAH TREVINO on 03/20/17 1436 Hydrocodone/Acetaminophen (Hydrocodone-Acetamin 5-325 mg) 5 Mg-325 Mg Tablet, 1 TAB PO Q4H PRN for PAIN-MODERATE (5-7) Prescribed by: MALICK MADRIGAL on 05/15/22 1554 Isosorbide Mononitrate (Isosorbide Mononitrate ER) 120 Mg Tab.er.24h, 120 MG PO DAILY, (Reported) Entered as Reported by: AKILAH TREVINO on 03/20/17 1431 Nitroglycerin (Nitroglycerin) 0.4 Mg Tab.subl, 0.4 MG SL UD PRN for CHEST PAIN, (Reported) Entered as Reported by: MELINA REESE on 04/26/21 1007 Ondansetron (Ondansetron Odt) 4 Mg Tab.rapdis, 4 MG SL Q4H PRN for NAUSEA/VOMITING Prescribed by: MALICK MADRIGAL on 05/15/22 1554 Potassium Gluconate (Potassium) 99 Mg Tablet, 99 MG PO DAILY, (Reported) Entered as Reported by: AKILAH TREVINO on 03/20/17 1436 Rivaroxaban (Xarelto Tablet) 20 Mg Tablet, 20 MG PO HS, (Reported) Entered as Reported by: AKILAH TREVINO on 03/20/17 1436 Sour Chan Extract (Tart Chan Extract) 1,000 Mg Capsule, 1,000 MG PO DAILY, (Reported) Entered as Reported by: MELINA REESE on 04/26/21 1007 Telmisartan (Telmisartan) 80 Mg Tablet, 80 MG PO DAILY, (Reported) Entered as Reported by: MELINA REESE on 04/26/21 1007 Review of Systems Review of Systems Constitutional: see HPI EENTM: no symptoms reported Respiratory: see HPI Cardiovascular: no symptoms reported Gastrointestinal: no symptoms reported Genitourinary: no symptoms reported Musculoskeletal: see HPI Skin: no symptoms reported Psychiatric/Neurological: See HPI Hematologic/Lymphatic: No Symptoms Reported Immunological/Allergic: no symptoms reported Past Vgkjhdy-Veubua-Cujpgd Hx Patient Social History Tobacco Use?: No Substance use?: No Immunizations Up To Date Tetanus Booster (TDap): Unknown First/Initial COVID19 Vaccinat: APR 05 Second COVID19 Vaccination Estiven: MAY 07 Third COVID19 Vaccination Date: 02/2021 Seasonal Allergies Seasonal Allergies: Yes Past Medical History Surgery/Hospitalization HX: UMBILICAL HERNIA, URETHRAL ANEURYSM, PE, Surgeries: Yes (kidney) Abdominal, Coronary Stent, Vascular Surgery Respiratory: No Pneumonia, Sleep Apnea, COPD Currently Using CPAP: No Currently Using BIPAP: No Cardiac: Yes (5 heart stent, left bundle branch block, chf) Atrial Fibrillation, Chronic Edema/Swelling, Coronary Artery Disease, High Cholesterol, Hypertension Neurological: No Reproductive Disorders: No Genitourinary: No Gastrointestinal: No Musculoskeletal: Yes Arthritis, Gout Endocrine: No HEENT: No Hearing Impairment: Hard of Hearing Cancer: No Psychosocial: No Integumentary: No Blood Disorders: Yes Adverse Reaction/Blood Tranf: No Family Medical History Arthritis 19 MOTHER Asthma 19 FATHER Cataracts 19 MOTHER Completed stroke Hypertension 19 FATHER Myocardial infarction 19 MOTHER Seizure disorder DAUGHTERS Severe allergy 19 FATHER No Family History of: AIDS Abdominal aortic aneurysm Rishi's disease Alcoholism Alzheimer's disease Aphasia Cancer of mouth Cardiovascular disease Colon cancer Congenital disease Congenital heart disease Coronary thrombosis Cystic fibrosis Deafness or hearing loss Dementia Diabetes mellitus Drug abuse Dysphasia Fibrocystic disease of breast Gastroenteritis Glaucoma Headache disorder Hypercholesterolemia Infertility Kidney disease Neoplasm Not obtainable due to adoption Osteoporosis Parkinson's disease Prostate cancer Psychosocial problem Respiratory disorder Thyroid disease Tuberculosis Visual disorder Asthma, Heart Disease Physical Exam Vital Signs Vital Signs - First Documented Capillary Refill : Less Than 3 Seconds Height, Weight, BMI Height: 6'0" Weight: 265lbs. 0.8oz. 120.793778un; 34.00 BMI Method:Stated General Appearance: No Apparent Distress, WD/WN, Obese HEENT: PERRL/EOMI, Normal ENT Inspection Neck: Normal Inspection Respiratory: Lungs Clear, Normal Breath Sounds, No Accessory Muscle Use Cardiovascular: No Edema, No Murmur Gastrointestinal: Non Tender, Soft; No Distended Extremity: Normal Inspection, Non Tender Neurologic/Psychiatric: Alert, Oriented x3, No Motor/Sensory Deficits, Other (Irritable mood) Skin: Normal Color, Warm/Dry Progress/Results/Core Measures Suspected Sepsis SIRS Temperature: Pulse: 55 Respiratory Rate: 16 Laboratory Tests 05/15/22 10:41: White Blood Count 4.5 Blood Pressure 142 /105 Mean: 117 Laboratory Tests 05/15/22 10:41: Creatinine 1.38H, INR Comment 2.1H, Platelet Count 196, Total Bilirubin 0.8 Results/Orders Lab Results Laboratory Tests Test 05/15/22 10:24 05/15/22 10:41 05/15/22 12:49 Range/Units Influenza Type A (RT-PCR) Not Detected Not Detecte Influenza Type B (RT-PCR) Not Detected Not Detecte SARS-CoV-2 RNA (RT-PCR) Detected H Not Detecte White Blood Count 4.5 4.3-11.0 10^3/uL Red Blood Count 5.09 4.30-5.52 10^6/uL Hemoglobin 14.9 13.3-17.7 g/dL Hematocrit 43 40-54 % Mean Corpuscular Volume 85 80-99 fL Mean Corpuscular Hemoglobin 29 25-34 pg Mean Corpuscular Hemoglobin Concent 35 32-36 g/dL Red Cell Distribution Width 14.2 10.0-14.5 % Platelet Count 196 130-400 10^3/uL Mean Platelet Volume 9.6 9.0-12.2 fL Immature Granulocyte % (Auto) 0 % Neutrophils (%) (Auto) 64 42-75 % Lymphocytes (%) (Auto) 9 L 12-44 % Monocytes (%) (Auto) 24 H 0-12 % Eosinophils (%) (Auto) 2 0-10 % Basophils (%) (Auto) 1 0-10 % Neutrophils # (Auto) 2.9 1.8-7.8 10^3/uL Lymphocytes # (Auto) 0.4 L 1.0-4.0 10^3/uL Monocytes # (Auto) 1.1 H 0.0-1.0 10^3/uL Eosinophils # (Auto) 0.1 0.0-0.3 10^3/uL Basophils # (Auto) 0.1 0.0-0.1 10^3/uL Immature Granulocyte # (Auto) 0.0 0.0-0.1 10^3/uL Neutrophils % (Manual) 71 % Lymphocytes % (Manual) 10 % Monocytes % (Manual) 16 % Eosinophils % (Manual) 1 % Basophils % (Manual) 1 % Band Neutrophils 1 % Blood Morphology Comment NORMAL Prothrombin Time 23.9 H 12.2-14.7 SEC INR Comment 2.1 H 0.8-1.4 Activated Partial Thromboplast Time 48 H 24-35 SEC Sodium Level 135 135-145 MMOL/L Potassium Level 4.0 3.6-5.0 MMOL/L Chloride Level 103 98-107 MMOL/L Carbon Dioxide Level 22 21-32 MMOL/L Anion Gap 10 5-14 MMOL/L Blood Urea Nitrogen 10 7-18 MG/DL Creatinine 1.38 H 0.60-1.30 MG/DL Estimat Glomerular Filtration Rate 52 BUN/Creatinine Ratio 7 Glucose Level 145 H 70-105 MG/DL Calcium Level 8.7 8.5-10.1 MG/DL Corrected Calcium 8.8 8.5-10.1 MG/DL Magnesium Level 2.0 1.6-2.4 MG/DL Total Bilirubin 0.8 0.1-1.0 MG/DL Aspartate Amino Transf (AST/SGOT) 29 5-34 U/L Alanine Aminotransferase (ALT/SGPT) 27 0-55 U/L Alkaline Phosphatase 62 40-136 U/L Myoglobin 111.3 H 10.0-92.0 NG/ML Troponin I 0.048 H 0.032 H <0.028 NG/ML Total Protein 6.7 6.4-8.2 GM/DL Albumin 3.9 3.2-4.5 GM/DL My Orders Orders - MALICK VILLATORO MD Covid 19 Inhouse Test (05/15/22 09:14) Influenza A And B By Pcr (05/15/22 09:14) Cbc With Automated Diff (05/15/22 10:59) Magnesium (05/15/22 10:59) Chest 1 View, Ap/Pa Only (05/15/22 10:59) Comprehensive Metabolic Panel (05/15/22 10:59) Myoglobin Serum (05/15/22 10:59) Protime With Inr (05/15/22 10:59) Partial Thromboplastin Time (05/15/22 10:59) Monitor-Rhythm Ecg Trace Only (05/15/22 10:59) Ed Iv/Invasive Line Start (05/15/22 10:59) Troponin I [place] (05/15/22 10:59) Hydrocodone/Apap 5/325 Tablet (Lortab 5 (05/15/22 11:00) Lactated Ringers (Lr 1000 Ml Iv Solution (05/15/22 11:00) Manual Differential (05/15/22 10:41) Ondansetron Injection (Zofran Injectio (05/15/22 12:00) Troponin I [place] (05/15/22 12:45) Rx-Molnupiravir (Eua) (Rx-Molnupiravir ( (05/15/22 15:29) Hydrocodone/Apap 5/325 Tablet (Lortab 5 (05/15/22 15:45) Rx-Molnupiravir (Eua) (Rx-Molnupiravir ( (05/15/22 16:09) Ekg Tracing (05/15/22 10:26) Medications Given in ED Vital Signs/I&O 05/15/22 05/15/22 05/15/22 13:13 13:13 16:19 Temp 37.0 Pulse 55 59 Resp 16 18 B/P (MAP) 142/105 (117) 125/68 Pulse Ox 98 96 O2 Delivery Room Air Room Air Room Air Capillary Refill : Less Than 3 Seconds Blood Pressure Mean: 117 Progress Note : Progress Note Patient was interviewed and examined. Basic labs were obtained and were reviewed in their entirety including CBC, CMP, troponin, magnesium, and viral swabs. Pertinent positives include COVID-19 swab and mildly elevated creatinine. Labs are otherwise relatively unremarkable. Chest x-ray demonstrated no acute changes from prior. EKG showed a chronic left bundle branch block with no other significant acute changes. Troponin was elevated consistent with his prior chronic troponin elevations. Repeat troponin demonstrated a downward trend after IV fluids were infused suggesting stable value. Vital signs were stable throughout the ER visit. He did not require any supplemental oxygen. I discussed disposition with patient and his . He did not meet admission criteria based on his work-up, but I offered observation admission if he felt that was necessary for his safety and functioning with activities of daily living. He felt like he could function satisfactorily at home and requested discharge. Emergency use authorization of molnupiravir was discussed with the patient and the prescription was offered. He excepted molnu piravir which was dispensed to him from the ER. I discussed options with Sylvester Akhtar, clinical pharmacist on staff, prior to making the treatment recommendation. He advised Paxlovid would present several interaction problems with his other medications, but molnupiravir would be less likely to exhibit interactions. See discharge instructions for further discussion. ECG Initial ECG Impression Date: May 15, 2022 Initial ECG Impression Time: 10:26 Initial ECG Rate: 60 Initial ECG Rhythm: Normal Sinus Comment Sinus rhythm with no ST elevation or depression. HI interval 347 ms. Left bundle branch block is chronic and unchanged. No axis deviation. Diagnostic Imaging Diagonstic Imaging: Xray Plain Films/CT/US/NM/MRI: chest Comments NAME: TYRONE SCANLON [facility] REC#: [id number] PT STATUS: REG ER : 1940 PHYSICIAN: MALICK VILLATORO MD ADMIT DATE: 05/15/22/ER Signed Date of Exam:05/15/22 CHEST 1 VIEW, AP/PA ONLY INDICATION: Chest pain. COMPARISON: 08/09/2021. FINDINGS: The heart is enlarged but unchanged from prior. No gross overdistention of the vascularity. Blunting of the left angle, likely small left effusion has probably decreased, at least mildly, and residual changes may all be owing to pleural thickening. No adverse development. No findings of pneumonia or edema. IMPRESSION: 1. Stable cardiomegaly. Decreased left angle blunting, either reduction in small effusion and/or some residual pleural thickening. 2. No overt failure pattern or edema, and no focal pneumonia. Dictated by: Dictated on workstation # [id number] Dict: 05/15/22 1141 Trans: 05/15/22 1429 [id number] Interpreted by: SCOTT HUERTA Electronically signed by: SCOTT HUERTA 05/15/22 1429 Departure Impression Primary Impression: COVID-19 Additional Impressions: Nausea Headache Qualified Codes: R51.9 - Headache, unspecified Disposition: 01 HOME, SELF-CARE Condition: Improved Departure-Patient Inst. Decision time for Depature: 15:49 Referrals: ELIAS FUNK DO (PCP/Family) Primary Care Physician Patient Instructions: Molnupiravir FDA Fact Sheet, COVID-19 ED Add. Discharge Instructions: Drink plenty of clear liquids to stay well-hydrated. Complete molnupiravir as prescribed. Read the attached fact sheet as well. Continue your previously prescribed medications. You may take either Tylenol (acetaminophen) up to 1000 mg every 6 hours as needed or the hydrocodone as prescribed. Hydrocodone contains Tylenol, so do not take both Tylenol and hydrocodone. If you take hydrocodone, this may cause drowsiness so use with caution. Hydrocodone may also cause constipation, so you may wish to use a stool softener as well. Continue to be active moving about the house and changing positions often. Check your pulse ox a few times a day and anytime you feel more short of breath. If you have any oxygen saturations less than 90% or multiple oxygen saturations less than 92%, please return to the emergency room. Return to the emergency room if you have any other significant worsening of condition or if you feel like you are not able to cope with your symptoms safely at home. Quarantine for 5 full days. Then mask an additional 5 days when you are around others. All discharge instructions reviewed with patient and/or family. Voiced understanding. Scripts Hydrocodone/Acetaminophen (Hydrocodone-Acetamin 5-325 mg) 5 Mg-325 Mg Tablet 1 TAB PO Q4H PRN for PAIN-MODERATE (5-7), #10 TAB Prov: MALICK VILLATORO MD 05/15/22 Ondansetron (Ondansetron Odt) 4 Mg Tab.rapdis 4 MG SL Q4H PRN for NAUSEA/VOMITING, #10 TAB Prov: MALICK VILLATORO MD 05/15/22 Copy Copies To 1: ELIAS FUNK JOSHUA T MD May 15, 2022 15:34
[2022-05-15] MEDS ORDERED: ACHD5005 PO (15:54)
[2022-05-15] MEDS ORDERED: ONDA4TAB11 SL (15:54)
[2022-05-15] MEDS ORDERED: RX-MOLNUPIRAVIR (EUA) 200 MG #40 CAPSULES PO ONE (16:09)
[2022-05-15 16:19] VITALS: BP 125/68
== END 2022-05-15 16:19 | disposition home or self-care (01) ==
LOC: EDUNIT# 09:08 → ER 09:10
DX: U07.1 COVID-19 (principal); R51.9 Headache, unspecified; R11.0 Nausea; R05.9 Cough, unspecified; R06.02 Shortness of breath; R07.89 Other chest pain; R53.83 Other fatigue
CPT/HCPCS: 36415; 71045; 80053; 83735; 83874; 84484; 85007; 85027; 85610; 85730; 87636; 93005

== ENCOUNTER 2022-05-17 14:37 | Emergency (ER) | payer MEDICARE ==
[~2022-05-17] VITALS: Ht 182 cm; Wt 120.0 kg
[~2022-05-17 14:37] MED LIST changes: +ONDA4TAB11 SL
--- NOTE | 2022-05-17 15:08 | ED Cough/URI ---
General Chief Complaint: COVID19 Suspect/Confirmed Stated Complaint: COVID + | LOW OXYGEN LEVELS Nursing Triage Note: Pt here with covid; diagnosed this week after onset of s/s on Friday. Pt states he feels soa. Pt has 94% on ra after ambulating from waiting room. Source: patient Exam Limitations: no limitations (AUDRA GRAY) History of Present Illness Date Seen by Provider: May 17, 2022 Time Seen by Provider: 15:05 Initial Comments Patient is a 82-year-old male with a history of CHF, coronary artery disease who presents the ED for shortness of breath. Patient states he was diagnosed with COVID this past Friday. He was seen here Friday with cardiac work-up. Pat ient states since he has been discharged on the first she is continue having shortness of breath. Shortness of breath when sitting or when walking. Reports reading as low as lower 80s. On arrival 94% on room air. Patient reports headache, sore throat and neck discomfort. Denies of any chest pain, abdominal pain or cough, increasing leg swelling, increasing shortness of breath when lying down. He is currently on a diuretic for his CHF. Does not wear oxygen at home. He is currently on molnupiravir for COVID. Denies fever, visual changes, ear pain, dysuria, hematuria, nausea vomiting diarrhea (AUDRA GRAY) Allergies and Home Medications Allergies Coded Allergies: Sulfa (Sulfonamide Antibiotics) (Verified Allergy, Unknown, 04/06/19) hydrochlorothiazide (Verified Allergy, Unknown, 04/06/19) ketoprofen (Verified Allergy, Unknown, 04/06/19) nabumetone (Verified Allergy, Unknown, 04/06/19) rosuvastatin (Verified Allergy, Unknown, 04/06/19) morphine (Unverified Adverse Reaction, Mild, VOMITING, 04/06/19) Patient Home Medication List Home Medication List Reviewed: Yes (AUDRA GRAY) Acetaminophen (Tylenol Extra Strength) 500 Mg Tablet, 1,000 MG PO Q6H PRN for PAIN-MILD (1-4), (Reported) Entered as Reported by: CARIDAD DE LA CRUZ on 07/03/20 1551 Albuterol Sulfate (Ventolin Hfa) 18 Gm Hfa.aer.ad, 2 PUFF INH Q6H PRN for SHORTNESS OF BREATH, (Reported) Entered as Reported by: MELINA REESE on 04/26/21 1007 Albuterol Sulfate (Albuterol Sulfate) 2.5 Mg/0.5 Ml Vial.neb, 2.5 MG INH QID, (Reported) Entered as Reported by: MELINA REESE on 08/09/21 1054 Amlodipine Besylate (Amlodipine Besylate) 5 Mg Tablet, 5 MG PO DAILY, (Reported) Entered as Reported by: AKILAH TREVINO on 03/20/17 1436 Aspirin (Aspirin) 81 Mg Tab.chew, 81 MG PO DAILY, (Reported) Entered as Reported by: MELINA REESE on 04/26/21 1007 Atorvastatin Calcium (Atorvastatin Calcium) 80 Mg Tablet, 80 MG PO HS Prescribed by: KATHLEEN MORRISON on 08/10/21 1125 Azithromycin (Azithromycin) 250 Mg Tablet, 250 MG PO UD Prescribed by: BHUPENDRA MCKNIGHT on 05/17/22 1758 Cholecalciferol (Vitamin D3) (Vitamin D3) 25 Mcg (1000 Unit) Tablet, 25 MCG PO DAILY, (Reported) Entered as Reported by: MELINA REESE on 08/09/21 1054 Colchicine (Colchicine) 0.6 Mg Tablet, 0.6 MG PO BID PRN for GOUT FLARE, (Reported) Entered as Reported by: MELINA REESE on 04/26/21 1007 Docusate Sodium (Docusate Sodium) 100 Mg Capsule, 100 MG PO BID PRN for CONSTIPATION-1ST LINE, (Reported) Entered as Reported by: MELINA REESE on 04/26/21 1010 Famotidine (Famotidine) 20 Mg Tablet, 20 MG PO DAILY, (Reported) Entered as Reported by: MELINA REESE on 08/09/21 1054 Furosemide (Furosemide) 40 Mg Tablet, 40 MG PO DAILY, (Reported) Entered as Reported by: AKILAH TREVINO on 03/20/17 1436 Hydrocodone/Acetaminophen (Hydrocodone-Acetamin 5-325 mg) 5 Mg-325 Mg Tablet, 1 TAB PO Q4H PRN for PAIN-MODERATE (5-7) Prescribed by: MALICK MADRIGAL on 05/15/22 1554 Isosorbide Mononitrate (Isosorbide Mononitrate ER) 120 Mg Tab.er.24h, 120 MG PO DAILY, (Reported) Entered as Reported by: AKILAH TREVINO on 03/20/17 1431 Nitroglycerin (Nitroglycerin) 0.4 Mg Tab.subl, 0.4 MG SL UD PRN for CHEST PAIN, (Reported) Entered as Reported by: MELINA REESE on 04/26/21 1007 Ondansetron (Ondansetron Odt) 4 Mg Tab.rapdis, 4 MG SL Q4H PRN for ADAN SEA/VOMITING Prescribed by: MALICK MADRIGAL on 05/15/22 1554 Potassium Gluconate (Potassium) 99 Mg Tablet, 99 MG PO DAILY, (Reported) Entered as Reported by: AKILAH TREVINO on 03/20/17 1436 Rivaroxaban (Xarelto Tablet) 20 Mg Tablet, 20 MG PO HS, (Reported) Entered as Reported by: AKILAH TREVINO on 03/20/17 1436 Sour Chan Extract (Tart Chan Extract) 1,000 Mg Capsule, 1,000 MG PO DAILY, (Reported) Entered as Reported by: MELINA REESE on 04/26/21 1007 Telmisartan (Telmisartan) 80 Mg Tablet, 80 MG PO DAILY, (Reported) Entered as Reported by: MELINA REESE on 04/26/21 1007 Review of Systems Review of Systems Constitutional: No chills, No diaphoresis, No malaise EENTM: throat pain; No blurred vision, No double vision Respiratory: No cough; short of breath Gastrointestinal: No abdominal pain, No diarrhea, No nausea, No vomiting Genitourinary: No decreased output Musculoskeletal: No back pain, No joint pain, No joint swelling Skin: No change in color, No change in hair/nails (AUDRA GRAY) All Other Systems Reviewed Negative Unless Noted: Yes (AUDRA GRAY) Past Lsveoso-Lglpfj-Qawcqb Hx Immunizations Up To Date Tetanus Booster (TDap): Unknown First/Initial COVID19 Vaccinat: APR 05 Second COVID19 Vaccination Estiven: MAY 07 Third COVID19 Vaccination Date: 02/2021 (AUDRA GRAY) Seasonal Allergies Seasonal Allergies: Yes (AUDRA GRAY) Past Medical History Surgery/Hospitalization HX: UMBILICAL HERNIA, URETHRAL ANEURYSM, PE, Surgeries: Yes (kidney) Abdominal, Coronary Stent, Vascular Surgery Respiratory: No Pneumonia, Sleep Apnea, COPD Currently Using CPAP: No Currently Using BIPAP: No Cardiac: Yes (5 heart stent, left bundle branch block, chf) Atrial Fibrillation, Chronic Edema/Swelling, Coronary Artery Disease, High Cholesterol, Hypertension Neurological: No Reproductive Disorders: No Genitourinary: No Gastrointestinal: No Musculoskeletal: Yes Arthritis, Gout Endocrine: No HEENT: No Hearing Impairment: Hard of Hearing Cancer: No Psychosocial: No Integumentary: No Blood Disorders: Yes Adverse Reaction/Blood Tranf: No (AUDRA GRAY) Family Medical History Arthritis 19 MOTHER Asthma 19 FATHER Cataracts 19 MOTHER Completed stroke Hypertension 19 FATHER Myocardial infarction 19 MOTHER Seizure disorder DAUGHTERS Severe allergy 19 FATHER No Family History of: AIDS Abdominal aortic aneurysm Austin's disease Alcoholism Alzheimer's disease Aphasia Cancer of mouth Cardiovascular disease Colon cancer Congenital disease Congenital heart disease Coronary thrombosis Cystic fibrosis Deafness or hearing loss Dementia Diabetes mellitus Drug abuse Dysphasia Fibrocystic disease of breast Gastroenteritis Glaucoma Headache disorder Hypercholesterolemia Infertility Kidney disease Neoplasm Not obtainable due to adoption Osteoporosis Parkinson's disease Prostate cancer Psychosocial problem Respiratory disorder Thyroid disease Tuberculosis Visual disorder Asthma, Heart Disease (AUDRA GRAY) Physical Exam Vital Signs - First Documented 05/17/22 14:45 Temp 36.7 Pulse 70 Resp 24 B/P (MAP) 144/68 (93) Pulse Ox 94 O2 Delivery Room Air (MALICK VILLATORO MD) Capillary Refill : Less Than 3 Seconds (AUDRA GRAY) Height: 6'0" Weight: 265lbs. 0.8oz. [id number]; 36.00 BMI Method:Stated General Appearance: WD/WN, no apparent distress Eyes: Bilateral Eye Normal Inspection, Bilateral Eye PERRL, Bilateral Eye EOMI HEENT: PERRL/EOMI, normal ENT inspection, TMs normal, pharynx normal Neck: non-tender, full range of motion, supple Respiratory: chest non-tender, lungs clear, normal breath sounds, no respiratory distress, no accessory muscle use Cardiovascular: regular rate, rhythm, no edema, no gallop, no JVD Gastrointestinal: normal bowel sounds, non tender, soft, no organomegaly Extremities: normal range of motion, non-tender, normal inspection 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, no motor/sensory deficits, alert, normal mood/affect, oriented x 3 Skin: normal color (AUDRA GRAY) Progress/Results/Core Measures Suspected Sepsis SIRS Temperature: Pulse: 70 Respiratory Rate: 24 Laboratory Tests 05/17/22 15:04: White Blood Count 2.6L Blood Pressure 144 /68 Mean: 93 Laboratory Tests 05/17/22 15:04: Creatinine 1.39H, INR Comment 1.6H, Platelet Count 169, Total Bilirubin 0.6 (AUDRA GRAY) Results/Orders Lab Results Laboratory Tests Test 05/17/22 15:04 05/17/22 17:05 Range/Units White Blood Count 2.6 L 4.3-11.0 10^3/uL Red Blood Count 5.30 4.30-5.52 10^6/uL Hemoglobin 15.5 13.3-17.7 g/dL Hematocrit 44 40-54 % Mean Corpuscular Volume 83 80-99 fL Mean Corpuscular Hemoglobin 29 25-34 pg Mean Corpuscular Hemoglobin Concent 35 32-36 g/dL Red Cell Distribution Width 14.0 10.0-14.5 % Platelet Count 169 130-400 10^3/uL Mean Platelet Volume 10.0 9.0-12.2 fL Immature Granulocyte % (Auto) 1 % Neutrophils (%) (Auto) 52 42-75 % Lymphocytes (%) (Auto) 21 12-44 % Monocytes (%) (Auto) 22 H 0-12 % Eosinophils (%) (Auto) 3 0-10 % Basophils (%) (Auto) 1 0-10 % Neutrophils # (Auto) 1.4 L 1.8-7.8 X 10^3 Lymphocytes # (Auto) 0.5 L 1.0-4.0 X 10^3 Monocytes # (Auto) 0.6 0.0-1.0 X 10^3 Eosinophils # (Auto) 0.1 0.0-0.3 10^3/uL Basophils # (Auto) 0.0 0.0-0.1 10^3/uL Immature Granulocyte # (Auto) 0.0 0.0-0.1 10^3/uL Prothrombin Time 19.8 H 12.2-14.7 SEC INR Comment 1.6 H 0.8-1.4 Activated Partial Thromboplast Time 51 H 24-35 SEC D-Dimer 0.26 0.00-0.49 UG/ML Sodium Level 133 L 135-145 MMOL/L Potassium Level 3.9 3.6-5.0 MMOL/L Chloride Level 101 98-107 MMOL/L Carbon Dioxide Level 21 21-32 MMOL/L Anion Gap 11 5-14 MMOL/L Blood Urea Nitrogen 18 7-18 MG/DL Creatinine 1.39 H 0.60-1.30 MG/DL Estimat Glomerular Filtration Rate 51 BUN/Creatinine Ratio 13 Glucose Level 129 H 70-105 MG/DL Calcium Level 8.4 L 8.5-10.1 MG/DL Corrected Calcium 8.6 8.5-10.1 MG/DL Magnesium Level 2.0 1.6-2.4 MG/DL Total Bilirubin 0.6 0.1-1.0 MG/DL Aspartate Amino Transf (AST/SGOT) 40 H 5-34 U/L Alanine Aminotransferase (ALT/SGPT) 26 0-55 U/L Alkaline Phosphatase 70 40-136 U/L Troponin I 0.045 H 0.045 H <0.028 NG/ML B-Type Natriuretic Peptide 120.3 H <100.0 PG/ML Total Protein 6.3 L 6.4-8.2 GM/DL Albumin 3.8 3.2-4.5 GM/DL Lipase 37 8-78 U/L (MALICK VILLATORO MD) Medications Given in ED Current Medications Medications Dose Ordered Sig/Fermín Route Start Time Stop Time Status Last Admin Dose Admin Acetaminophen 650 mg ONCE ONCE PO 05/17/22 16:15 05/17/22 16:16 DC 05/17/22 16:39 650 MG (MALICK VILLATORO MD) Vital Signs/I&O 05/17/22 05/17/22 14:45 18:21 Temp 36.7 36.7 Pulse 70 70 Resp 24 24 B/P (MAP) 144/68 (93) 144/68 Pulse Ox 94 94 O2 Delivery Room Air Room Air (MALICK VILLATORO MD) Vital Signs/I&O Capillary Refill : Less Than 3 Seconds (AUDRA GRAY) Blood Pressure Mean: 93 Departure Communication (PCP) Patient tested positive for COVID this Friday. Patient was started on antivi ral molnupiravir this past Friday. Has been using albuterol nebulizer at home for SOB. He reported some readings as low as 81% on his pulse ox at home. Patient oxygen on arrival was 98% on room air. History of coronary artery disease with a cardiac cath late last year. Currently being managed by director surgical at [facility]. Due to worsening symptoms CBC, CMP, troponin, BNP, magnesium, chest x-ray was ordered. Patient white blood count was 2.2. Normal hemoglobin. Stable creatinine of 1.39. Blood sugar 129. His initial troponin was 0.045. Patient with similar troponin from previous visits. He has no current chest pain at this time. EKGs show sinus rhythm with atrial premature complexes. Prolonged AK interval with a left bundle branch block. LBB is old and reviewed from previous ekgs. Does not appear in A-fib. Due to the elevated troponin a 2-hour troponin was drawn which was the same result without changes. Patient oxygen remained above 92% on room air. Ambulating walking oxygen read as high as 96 to 97%. He did have a few episodes where he did drop below 92 but quickly returned to 94 to 96%. Patient did not meet criteria for oxygen. Chest x-ray was negative for pneumonia or any acute changes. patient was observed here in the ED. He does report headache, sore throat and weakness which I suspect is secondary to the COVID. Due to no current chest pain with reassuring EKG patient will be discharged with outpatient follow-up with his primary care physician. Discussed with patient continue monitoring oxygen level. If continue having oxygen lower than 92% sustain then strongly recommend returning back to ED. Continue with albuterol nebulizer treatment. Discussed adding azithromycin as a additive to his antiviral. No history of COPD. Return precautions were discussed with patient and at bedside. They agree with this plan of action (AUDRA GRAY) Impression Primary Impression: COVID-19 Additional Impression: Elevated troponin Disposition: 01 HOME, SELF-CARE Condition: Stable Departure-Patient Inst. Decision time for Depature: 17:58 (AUDRA GRAY) Referrals: ELIAS FUNK DO (PCP/Family) Primary Care Physician Patient Instructions: COVID-19 ED Add. Discharge Instructions: Continue monitoring oxygen at home. If oxygen remains below 92% with no improvement with coughing or walking to return back to ED. Recommend azithromycin. All discharge instructions reviewed with patient and/or family. Voiced understanding. Scripts Azithromycin (Azithromycin) 250 Mg Tablet 250 MG PO UD, #6 TAB TAKE 2 TABLETS ON DAY ONE THEN TAKE 1 TABLET DAILY FOR FOUR MORE DAYS Prov: AUDRA GRAY 05/17/22 ATTENDING PHYSICIAN NOTE: I was physically present as attending physician in the emergency department during the care of this patient. BHUPENDRA Malone and I briefly discussed approach to patient's marginal oxygen saturations. I did not personally interview or examine this patient, and I was not otherwise directly involved in the decision making or delivery of care for this patient. (MALICK VILLATORO MD) AUDRA GRAY May 17, 2022 15:08 MALICK VILLATORO MD May 17, 2022 19:56
[2022-05-17 15:23] LABS: ALBUMIN 3.8 GM/DL (3.2-4.5)
[2022-05-17 15:24] LABS: POTASSIUM 3.9 MMOL/L (3.6-5.0)
[2022-05-17 15:25] LABS: CALCIUM 8.4 MG/DL (8.5-10.1)
[2022-05-17 15:26] LABS: TOTAL PROTEIN 6.3 GM/DL (6.4-8.2)
[2022-05-17 15:28] LABS: BASOPHILS % (AUTO) 1 % (0-10); BILIRUBIN,TOTAL 0.6 MG/DL (0.1-1.0); EOSINOPHILS # (AUTO) 0.1 10^3/uL (0.0-0.3); EOSINOPHILS % (AUTO) 3 % (0-10); HEMATOCRIT 44 % (40-54); HEMOGLOBIN 15.5 g/dL (13.3-17.7); INR 1.6 (0.8-1.4); LYMPHOCYTES # (AUTO) 0.5 X 10^3 (1.0-4.0); LYMPHOCYTES % (AUTO) 21 % (12-44); MEAN CORPUSCULAR HEMOGLOBIN 29 pg (25-34); MEAN CORPUSCULAR HGB CONC 35 g/dL (32-36); MEAN CORPUSCULAR VOLUME 83 fL (80-99); MONOCYTES # (AUTO) 0.6 X 10^3 (0.0-1.0); MONOCYTES % (AUTO) 22 % (0-12); NEUTROPHILS # (AUTO) 1.4 X 10^3 (1.8-7.8); NEUTROPHILS % (AUTO) 52 % (42-75); PLATELET COUNT 169 10^3/uL (130-400); PROTHROMBIN TIME PATIENT 19.8 SEC (12.2-14.7); WHITE BLOOD COUNT 2.6 10^3/uL (4.3-11.0)
[2022-05-17 15:30] LABS: CREATININE SERUM 1.39 MG/DL (0.60-1.30)
--- NOTE | 2022-05-17 15:46 | Diagnostic Imaging Report ---
INDICATION: Lower respiratory infection, COVID. EXAM: Portable chest at 3:40 PM FINDINGS: Heart and mediastinum are normal. Lungs are clear. There are no effusions or pneumothoraces. IMPRESSION: No acute abnormalities in the chest. Dictated by: Dictated on workstation # [id number]
[2022-05-17] MEDS ORDERED: ACETAMINOPHEN 325 MG TABLET PO ONE (16:15)
[2022-05-17] MEDS ORDERED: AZIT250T12 PO (17:58)
[2022-05-17 18:21] VITALS: BP 144/68
== END 2022-05-17 18:22 | disposition home or self-care (01) ==
LOC: EDUNIT# 14:37 → ER 14:39
DX: U07.1 COVID-19 (principal); I11.0 Hypertensive heart disease with heart failure; I50.9 Heart failure, unspecified; I44.7 Left bundle-branch block, unspecified; Z95.5 Presence of coronary angioplasty implant and graft; Z88.2 Allergy status to sulfonamides; Z79.899 Other long term (current) drug therapy
CPT/HCPCS: 36415; 71045; 80053; 83690; 83735; 83880; 84484; 85025; 85379; 85610; 85730; 93005